=== PATIENT | female | born 1955 | race Caucasian/White ===

== ENCOUNTER 2021-03-25 09:01 | Observation (INO) ==
[2021-03-25] MEDS: NS 1000 ML 1,000 ML IV SCH (14:30)
[2021-03-25 14:34] LABS: BASOPHILS % (AUTO) 0.7 % (0.2-1.0); EOSINOPHILS % (AUTO) 0.8 % (0.9-2.9); HEMATOCRIT 31.1 % (36.0-47.0); HEMOGLOBIN 10.9 g/dL (12.0-16.0); LYMPHOCYTES # (AUTO) 0.8 X10^3/uL (1.3-2.9); LYMPHOCYTES % (AUTO) 16.9 % (21.0-51.0); MEAN CORPUSCULAR HEMOGLOBIN 39.1 pg (27.0-34.0); MEAN CORPUSCULAR VOLUME 111.7 fL (80.0-100.0); MEAN PLATELET VOLUME 9.3 fL (7.4-11.0); MONOCYTES # (AUTO) 0.6 x10^3/uL (0.3-0.8); MONOCYTES % (AUTO) 12.8 % (0.0-13.0); NEUTROPHILS # (AUTO) 3.3 x10^3/uL (2.2-4.8); NEUTROPHILS % (AUTO) 68.8 % (42.0-75.0); PLATELET COUNT 204 X10^3/uL (150.0-450.0); RED BLOOD COUNT 2.78 X10^6/uL (3.5-5.4); RED CELL DISTRIBUTION WIDTH 15.7 % (11.6-16.5); WHITE BLOOD COUNT 4.9 X10^3/uL (3.6-10.0)
[2021-03-25 14:46] LABS: ALANINE AMINOTRANSFERASE 47 Units/L (12-78); ALBUMIN 3.6 g/dL (3.4-5.0); ALKALINE PHOSPHATASE 121 Units/L (46-116); ASPARTATE AMINO TRANSFERASE 68 Units/L (15-37); BLOOD UREA NITROGEN 15 mg/dL (7-18); CARBON DIOXIDE 23.9 mmol/L (21-32); CHLORIDE 94 mmol/L (98-107); CREATININE 1.55 mg/dL (0.55-1.02); SODIUM 132 mmol/L (136-145); TOTAL PROTEIN 7.1 g/dL (6.4-8.2); eGFR NON BLACK RACES 36 (>60)
[2021-03-25 14:55] LABS: PLATELET MORPHOLOGY COMMENT NORMAL (NORMAL)
[2021-03-25 15:03] LABS: BILIRUBIN,URINE NEGATIVE (NEGATIVE); BLOOD/HEMOGLOBIN,URINE NEGATIVE (NEGATIVE); GLUCOSE, URINE NEGATIVE (NEGATIVE); KETONES,URINE NEGATIVE (NEGATIVE); LEUKOCYTE ESTERASE ,URINE NEGATIVE (NEGATIVE); NITRITES,URINE NEGATIVE (NEGATIVE); PROTEIN,URINE NEGATIVE (NEGATIVE); UROBILINOGEN,URINE NORMAL (NORMAL)
[2021-03-25 15:07] LABS: APPEARANCE,URINE CLEAR (CLEAR); COLOR,URINE STRAW (YELLOW)
[2021-03-25] MEDS ORDERED: FIORICET TAB PO ONE (17:09)
[2021-03-25] MEDS: FIORICET TAB PO SCH ×2 (17:20→20:30)
[2021-03-25] MEDS: XANAX PO PRN (20:32)
[2021-03-26] MEDS: NS 1000 ML 1,000 ML IV SCH ×2 (02:03→14:43)
[2021-03-26 06:32] LABS: BASOPHILS % (AUTO) 0.7 % (0.2-1.0); EOSINOPHILS # (AUTO) 0.1 x10^3/uL (0.0-0.2); EOSINOPHILS % (AUTO) 2.3 % (0.9-2.9); HEMATOCRIT 30.5 % (36.0-47.0); HEMOGLOBIN 10.7 g/dL (12.0-16.0); LYMPHOCYTES # (AUTO) 0.8 X10^3/uL (1.3-2.9); LYMPHOCYTES % (AUTO) 27.3 % (21.0-51.0); MEAN CORPUSCULAR HEMOGLOBIN 39.3 pg (27.0-34.0); MEAN CORPUSCULAR VOLUME 112.1 fL (80.0-100.0); MEAN PLATELET VOLUME 9.1 fL (7.4-11.0); MONOCYTES # (AUTO) 0.4 x10^3/uL (0.3-0.8); MONOCYTES % (AUTO) 14.9 % (0.0-13.0); NEUTROPHILS # (AUTO) 1.6 x10^3/uL (2.2-4.8); NEUTROPHILS % (AUTO) 54.8 % (42.0-75.0); PLATELET COUNT 170 X10^3/uL (150.0-450.0); RED BLOOD COUNT 2.72 X10^6/uL (3.5-5.4); RED CELL DISTRIBUTION WIDTH 15.8 % (11.6-16.5); WHITE BLOOD COUNT 2.9 X10^3/uL (3.6-10.0)
[2021-03-26 06:56] LABS: ALANINE AMINOTRANSFERASE 41 Units/L (12-78); ALBUMIN 3.2 g/dL (3.4-5.0); ALKALINE PHOSPHATASE 103 Units/L (46-116); ASPARTATE AMINO TRANSFERASE 58 Units/L (15-37); BLOOD UREA NITROGEN 17 mg/dL (7-18); CARBON DIOXIDE 26.1 mmol/L (21-32); CHLORIDE 98 mmol/L (98-107); COR CA(FOR HYPOALB) 9.6 mg/dL (8.5-10.1); CREATININE 1.41 mg/dL (0.55-1.02); SODIUM 135 mmol/L (136-145); TOTAL PROTEIN 6.4 g/dL (6.4-8.2); eGFR NON BLACK RACES 40 (>60)
[2021-03-26 07:08] LABS: PLATELET MORPHOLOGY COMMENT NORMAL (NORMAL)
[2021-03-26] MEDS: FIORICET TAB PO SCH ×2 (08:33→20:57)
[2021-03-26] MEDS ORDERED: ZANAFLEX PO PRN (10:27)
[2021-03-26] MEDS ORDERED: ULTRAM PO PRN (10:27)
[2021-03-26] MEDS ORDERED: FIORICET TAB PO SCH (11:00)
[2021-03-26] MEDS ORDERED: PROCALAMINE 3 % 1,000 ML IV SCH (11:00)
[2021-03-26] MEDS: PROTONIX INJ 40 MG VIAL IVP SCH (11:03)
[2021-03-26] MEDS: VITAMIN D3 125 mcg (5,000 UNITS) PO SCH (11:04)
[2021-03-26] MEDS: ELIQUIS PO SCH ×2 (11:05→20:57)
[2021-03-26] MEDS: MAG-OX TAB PO SCH (11:05)
[2021-03-26] MEDS: ZESTRIL TAB 5 MG PO SCH ×2 (11:05→20:57)
[2021-03-26] MEDS: XANAX PO PRN ×2 (13:40→20:59)
--- NOTE | 2021-03-26 14:37 | VAS ---
HISTORYRECENT CVASTUDYCAROTID USCOMPARISONNoneTECHNIQUEMultiple house scale and color flow Doppler images of the right and left carotid arterial system were obtained with waveform analysis using NASCET criteria. The vertebral arterial system was evaluated as well.FINDINGSTwo dimensional ultrasound reveals no significant plaque. The right and left vertebral arteries demonstrate antegrade flow.Right ICA peak systolic velocity is 58 cm/sec. Right systolic ratio is 0.7.Left ICA peak systolic velocity is 68 cm/sec. Left systolic ratio is 0.7.IMPRESSIONNo hemodynamically significant stenosis.Electronically signed by: Johnathon Kraus (Mar 26, 2021 14:35:10)
--- NOTE | 2021-03-26 14:58 | VAS ---
HISTORYBIL LEG PAINSTUDYLOWER EXT VENOUS, BILATERALCOMPARISONNoneTECHNIQUEMultiple house scale and color flow Doppler images of the deep venous system were obtained of the right and left lower extremity.FINDINGSThe deep venous system of the right and left lower extremities were evaluated from the level of the common femoral vein through the anterior tibial veins. Normal color flow and augmentation can be observed. In addition, normal compression is seen throughout the deep venous system. 4.0 x 6.4 x 2.4 cm Lindsay's cyst is suspected in the right popliteal fossa.IMPRESSIONNegative for DVT.Likely large Lindsay's cyst in the right popliteal fossa.Electronically signed by: Johnathon Kraus (Mar 26, 2021 14:55:55)
[2021-03-26 16:12] VITALS: BMI 31.4
--- NOTE | 2021-03-26 18:08 | DR.H&P ---
H&P - History & Physical for Day of: H&P Date: 03/25/21 - Chief Complaint Chief Complaint: RECENT CVA, FREQUENT FALLS, DIZZINESS, DYSPHAGIA, BLE SWELLING AND PAIN, AND GENERALIZED WEAKNESS - History of Present Illness History of Present Illness: IS A 65 YEAR WHITE FEMALE WHO WAS A DIRECT ADMISSION DUE TO COMPLAINTS OF FREQUENT FALLS, DIZZINESS, DYSPHAGIA, BLE SWELLING AND PAIN, AND GENERALIZED WEAKNESS. PATIENT HAS A DOCUMENTED RECENT FRONTAL LOBE CVA (BEGINNING OF THIS MONTH). SHE HAS ALSO RECENTLY BEEN TREATED FOR A URINARY TRACT INFECTION WITH LEVAQUIN. FAMILY REPORTS THAT PATIENT HAS FALLEN SEVERAL TIMES IN THE PAST FEW WEEKS. OTHER PMH INCLUDES: CVA, HYPERLIPIDEMIA, HTN, A-FIB, RENAL DISEASE, ANXIETY, DEPRESSION, APPENDECTOMY, HYSTERECTOMY, JOINT REPLACEMENT, AND TONSILLECTOMY. ON ARRIVAL TO THE HOSPITAL, VITALS WERE 97.4-96-20-96%-153/70. LABS WERE OBTAINED. ABNORMAL LAB VALUES INCLUDE THE FOLLOWING: RBC 2.78, HGB 10.9, HCT 31.1, SODIUM 132, CHLORIDE 94, CREATININE 1.55, AST 68, ALK PHOS 121. URINALYSIS WAS UNREMARKABLE, HOWEVER, CULTURE WAS SET UP. COVID-19 NEGATIVE. BLOOD AND URINE CULTURES WERE SET UP. SHE WAS STARTED ON PROCAL AT 40 ML/HR, NORMAL SALINE AT 30 ML/HR, PROTONIX 40MG IV DAILY, AND HER HOME MEDICATIONS OF FIORICET, XANAX, ELIQUIS, LIPITOR, ZETIA, ZESTRIL, MAG-OX, ZANAFLEX, AND ULTRAM WERE RESUMED. WE WILL OBTAIN A LOWER EXTREMITY VENOUS DOPPLER AND CAROTID DOPPLER. WE WILL HAVE PHYSICAL THERAPY EVALUATE PATIENT. OTHERWISE, WE PLAN TO FOLLOW UP WITH AM LABS AND CONTINUE TO MONITOR. TIME SPENT ON CLINICAL ASSESSMENT, REVIEWING LABS AND IMAGING, DECISION MAKING, AND DOCUMENTATION GREATER THAN 75 MINS. - Past Medical History Past Medical History: Anxiety, CVA, Depression, Dyslipidemia, Hypertension, Renal Disease Additional Medical History: A-FIB - Past Surgical History Surgical History: Appendectomy, Hysterectomy, Joint Replacement, Ortho Surgery, Tonsillectomy - Family History Family Medical History: Diabetes Mellitus - Social History Does patient currently use any type of tobacco product: No Have you used tobacco products in the last 12 months: No Type of Tobacco Use: None Does any household member use tobacco: No Alcohol Use: None Drug Use: None - Medications Home Medications: No Known Drug Allergies [NKDA] Allergy (Verified 03/25/21 13:54) CONTINUE taking the following medications alprazolam 0.5 mg PO BID PRN 03/25/21 [History] apixaban [Eliquis] 5 mg PO BID 03/25/21 [History] atorvastatin 80 mg PO HS 03/25/21 [History] hgcsalfvcf-sayqqwggbbvzp-jjlo 1 tab PO BID 03/25/21 [History] cholecalciferol (vitamin D3) [Vitamin D3] 1 unit PO DAILY 03/25/21 [History] dexlansoprazole [Dexilant] 60 mg PO DAILY 03/25/21 [History] ezetimibe 10 mg PO HS 03/25/21 [History] furosemide 40 mg PO DAILY 03/25/21 [History] levofloxacin 750 mg PO DAILY 03/25/21 [History] lisinopril 5 mg PO BID 03/25/21 [History] magnesium oxide 400 mg PO DAILY 03/25/21 [History] nebivolol [Bystolic] 5 mg PO BID 03/25/21 [History] tizanidine 4 mg PO BID PRN 03/25/21 [History] tramadol 50 mg PO BID PRN 03/25/21 [History] - Physical Exam Vital Signs: Temperature 98.3 F Pulse Rate [Right Brachial] 80 Pulse Rate [Left] 82 Respiratory Rate 18 Blood Pressure [Right Arm] 126/58 Blood Pressure [Left Arm] 125/64 O2 Sat by Pulse Oximetry 100 - Allergies Allergies/Adverse Reactions: Allergies Allergy/AdvReac Type Severity Reaction Status Date / Time No Known Drug Allergies Allergy Verified 03/25/21 13:54 [NKDA]
[2021-03-26] MEDS: LIPITOR TAB 80 MG PO SCH (20:58)
[2021-03-26] MEDS: ZETIA TAB 10 MG PO SCH (20:59)
[2021-03-27] MEDS: NS 1000 ML 1,000 ML IV SCH ×2 (04:54→19:25)
[2021-03-27 06:08] LABS: BASOPHILS % (AUTO) 0.6 % (0.2-1.0); EOSINOPHILS # (AUTO) 0.1 x10^3/uL (0.0-0.2); HEMATOCRIT 28.1 % (36.0-47.0); HEMOGLOBIN 9.8 g/dL (12.0-16.0); LYMPHOCYTES # (AUTO) 0.9 X10^3/uL (1.3-2.9); LYMPHOCYTES % (AUTO) 27.1 % (21.0-51.0); MEAN CORPUSCULAR HEMOGLOBIN 39.6 pg (27.0-34.0); MEAN CORPUSCULAR VOLUME 113.3 fL (80.0-100.0); MEAN PLATELET VOLUME 9.2 fL (7.4-11.0); MONOCYTES # (AUTO) 0.5 x10^3/uL (0.3-0.8); MONOCYTES % (AUTO) 16.2 % (0.0-13.0); NEUTROPHILS # (AUTO) 1.7 x10^3/uL (2.2-4.8); NEUTROPHILS % (AUTO) 53.1 % (42.0-75.0); PLATELET COUNT 147 X10^3/uL (150.0-450.0); RED BLOOD COUNT 2.48 X10^6/uL (3.5-5.4); RED CELL DISTRIBUTION WIDTH 15.4 % (11.6-16.5); WHITE BLOOD COUNT 3.2 X10^3/uL (3.6-10.0)
[2021-03-27 06:58] LABS: PLATELET MORPHOLOGY COMMENT NORMAL (NORMAL)
[2021-03-27 07:06] LABS: ALANINE AMINOTRANSFERASE 33 Units/L (12-78); ALBUMIN 2.7 g/dL (3.4-5.0); ALKALINE PHOSPHATASE 97 Units/L (46-116); ASPARTATE AMINO TRANSFERASE 40 Units/L (15-37); BLOOD UREA NITROGEN 13 mg/dL (7-18); CALCIUM 8.7 mg/dL (8.5-10.1); CARBON DIOXIDE 22.8 mmol/L (21-32); CHLORIDE 100 mmol/L (98-107); COR CA(FOR HYPOALB) 9.7 mg/dL (8.5-10.1); CREATININE 1.27 mg/dL (0.55-1.02); SODIUM 134 mmol/L (136-145); TOTAL PROTEIN 5.6 g/dL (6.4-8.2); eGFR NON BLACK RACES 45 (>60)
[2021-03-27] MEDS: PROTONIX INJ 40 MG VIAL IVP SCH (08:43)
[2021-03-27] MEDS: FIORICET TAB PO SCH ×2 (08:44→20:30)
[2021-03-27] MEDS: ELIQUIS PO SCH ×2 (08:44→20:30)
[2021-03-27] MEDS: MAG-OX TAB PO SCH (08:45)
[2021-03-27] MEDS: VITAMIN D3 125 mcg (5,000 UNITS) PO SCH (08:45)
[2021-03-27] MEDS: ZESTRIL TAB 5 MG PO SCH ×2 (08:46→20:30)
[2021-03-27] MEDS: XANAX PO PRN ×2 (08:50→20:30)
[2021-03-27] MEDS ORDERED: RESTORIL CAP 15 MG PO PRN (09:23)
--- NOTE | 2021-03-27 11:18 | PCM.PROG ---
Progress Note - Progress Note for Day of Date of Exam: 03/27/21 - Subjective Subjective: IS A 65 YEAR OLD WHITE FEMALE WHO IS A PATIENT OF . SHE WAS ADMITTED ON 03/25 FOR FURTHER EVALUATION AND TREATMENT OF FREQUENT FALLS, DIZZINESS, DYSPHAGIA, AND GENERALIZED WEAKNESS. ALL OF THESE SYMPTOMS STARTED AFTER A RECENT FRONTAL LOBE CVA. TODAY, SHE IS ALERT AND TEJINDER ENTED, LYING IN BED ON MORNING ROUNDS. SHE CONTINUES WITH COMPLAINTS OF WEAKNESS THIS MORNING, WELL DIZZINESS AT TIMES. SHE ALSO REPORTS THAT SHE HASNT BEEN ABLE TO SLEEP WELL SINCE ADMISSION. ON EXAMINATION, HEART IS REGULAR IN RATE AND RHYTHM. BILATERAL LUNGS ARE CLEAR TO AUSCULTATION. ABDOMEN IS ROUND, SOFT, AND NON-TENDER WITH NORMAL BOWEL SOUNDS NOTED IN ALL QUADRANTS. BLE ARE NOTED WITH NON-PITTING EDEMA. SHE DOES HAVE SLIGHTLY MORE WEAKNESS TO THE LEFT SIDE EXTREMITIES. HER VITALS THIS MORNING ARE: 97.6-86-20-98%-117/68. LABS WERE OBTAINED. ABNORMAL LAB VALUES INCLUDE THE FOLLOWING: WBC 3.2, RBC 2.48, HGB 9.8, HCT 28.1, PLT COUNT 147, SODIUM 134, CREATININE 1.27, AST 40, TOTAL PROTEIN 5.6, ALBUMIN 2.7. URINE AND BLOOD CULTURES ARE PENDING. A CAROTID ARTERY ULTRASOUND WAS OBTAINED YESTERDAY. IT REVEALED: No hemodynamically significant stenosis. A VENOUS DOPPLER WAS OBTAINED AND REVEALED: Negative for DVT. Likely large Lindsay's cyst in the right popliteal fossa. PHYICAL THERAPY EVALUATED PATIENT YESTERDAY AND WILL SEE HER AGAIN TODAY. SHE IS CURRENTLY RECEIVING PROCAL AT 40 ML/HR, NORMAL SALINE AT 30 ML/HR, PROTONIX 40MG IV DAILY, AND HER HOME MEDICATIONS OF FIORICET, XANAX, ELIQUIS, LIPITOR, ZETIA, ZESTRIL, MAG-OX, ZANAFLEX, AND ULTRAM WERE RESUMED. WE WILL CONTINUE WITH CURRENT PLAN OF CARE TODAY AND ADD RESTORIL 15MG PO HS. OTHERWISE, WE WILL FOLLOW UP WITH AM LABS AND CONTINUE TO MONITOR. TIME SPENT ON CLINICAL ASSESSMENT, REVIEWING LABS AND IMAGING, DECISION MAKING, AND DOCUMENTATION GREATER THAN 45 MINS. - Past Medical Family Social History Past Med/Fam/Surg Hx: No changes since H&P Allergies: Allergies No Known Drug Allergies [NKDA] Allergy (Verified 03/25/21 13:54) - Review of Systems ROS: No change since H&P - Vital Signs and I&O's Vital Signs: Temperature 97.6 F Pulse Rate [Right Brachial] 86 Pulse Rate [Left] 82 Respiratory Rate 18 Blood Pressure [Right Arm] 117/68 Blood Pressure [Left Arm] 125/64 O2 Sat by Pulse Oximetry 98 Intake and Output: Intake & Output 03/24/21 03/25/21 03/26/21 03/27/21 23:59 23:59 23:59 23:59 Intake Total 456 / 456 2906 / 2906 597 / 597 Output Total 200 / 200 Balance 256 / 256 2906 / 2906 597 / 597 - Physical Exam Oriented: Normal Eyes: Normal Ear: Normal Nose: Normal Throat: Normal Respiratory: Generalized, Diminished Cardiovascular: Normal : Normal Auscultation: Bowel Sounds: Normal Palpation: Normal Tenderness: Normal Skin: Normal Musculoskeletal: Normal Psychiatric: Normal Mood Description: Calm Affect: Normal Speech Pattern: Clear, Appropriate - Laboratory and Diagnostics Result Diagrams: 03/27/21 04:10 03/27/21 04:10 Labs: 03/25/21 14:16 Blood Blood Culture - Preliminary 03/25/21 14:10 Blood Blood Culture - Preliminary 03/26/21 10:25 Urine,Clean Catch Urine Culture - Preliminary 03/25/21 14:45 Urine,Clean Catch Urine Culture - Preliminary Laboratory WBC 3.2 X10^3/uL (3.6-10.0) L 03/27/21 04:10 RBC 2.48 X10^6/uL (3.5-5.4) L 03/27/21 04:10 Hgb 9.8 g/dL (12.0-16.0) L 03/27/21 04:10 Hct 28.1 % (36.0-47.0) L 03/27/21 04:10 MCV 113.3 fL (80.0-100.0) H 03/27/21 04:10 MCH 39.6 pg (27.0-34.0) H 03/27/21 04:10 MCHC 35.0 g/dL (33.0-35.0) 03/27/21 04:10 RDW 15.4 % (11.6-16.5) 03/27/21 04:10 Plt Count 147 X10^3/uL (150.0-450.0) L 03/27/21 04:10 Plt Count Comment Decreased (ADEQUATE) A 03/27/21 04:10 MPV 9.2 fL (7.4-11.0) 03/27/21 04:10 Neut % (Auto) 53.1 % (42.0-75.0) 03/27/21 04:10 Lymph % (Auto) 27.1 % (21.0-51.0) 03/27/21 04:10 [place] % (Auto) 16.2 % (0.0-13.0) H 03/27/21 04:10 Eos % (Auto) 3.0 % (0.9-2.9) H 03/27/21 04:10 Baso % (Auto) 0.6 % (0.2-1.0) 03/27/21 04:10 Neut # (Auto) 1.7 x10^3/uL (2.2-4.8) L 03/27/21 04:10 Lymph # (Auto) 0.9 X10^3/uL (1.3-2.9) L 03/27/21 04:10 [place] # (Auto) 0.5 x10^3/uL (0.3-0.8) 03/27/21 04:10 Eos # (Auto) 0.1 x10^3/uL (0.0-0.2) 03/27/21 04:10 Baso # (Auto) 0.0 X10^3/uL (0.0-0.1) 03/27/21 04:10 Absolute Nucleated RBC 0.1 /100WBC 03/27/21 04:10 Plt Morphology Comment Normal (NORMAL) 03/27/21 04:10 RBC Morphology Abnormal (NORMAL) A 03/27/21 04:10 Macrocytosis 2+ A 03/27/21 04:10 Sodium 134 mmol/L (136-145) L 03/27/21 04:10 Corrected Sodium TNP 03/27/21 04:10 Potassium 4.1 mmol/L (3.5-5.1) 03/27/21 04:10 Chloride 100 mmol/L (98-107) 03/27/21 04:10 Carbon Dioxide 22.8 mmol/L (21-32) 03/27/21 04:10 BUN 13 mg/dL (7-18) 03/27/21 04:10 Creatinine 1.27 mg/dL (0.55-1.02) H 03/27/21 04:10 Est GFR (MDRD) Af Amer 54 (>60) L 03/27/21 04:10 Est GFR (MDRD) Non-Af 45 (>60) L 03/27/21 04:10 Glucose 96 mg/dL (65-99) 03/27/21 04:10 Calcium 8.7 mg/dL (8.5-10.1) 03/27/21 04:10 Corrected Calcium 9.7 mg/dL (8.5-10.1) 03/27/21 04:10 Total Bilirubin 0.40 mg/dL (0.2-1.0) 03/27/21 04:10 AST 40 Units/L (15-37) H 03/27/21 04:10 ALT 33 Units/L (12-78) 03/27/21 04:10 Alkaline Phosphatase 97 Units/L (46-116) 03/27/21 04:10 C-Reactive Protein 3.00 mg/L (0-3.0) 03/25/21 14:10 Total Protein 5.6 g/dL (6.4-8.2) L 03/27/21 04:10 Albumin 2.7 g/dL (3.4-5.0) L 03/27/21 04:10 Globulin 2.9 g/dL (2.5-4.5) 03/27/21 04:10 Albumin/Globulin Ratio 0.9 Ratio (1.1-2.1) L 03/27/21 04:10 Specimen Type Clean catch urine 03/25/21 14:45 Urine Color Straw (YELLOW) 03/25/21 14:45 Urine Appearance Clear (CLEAR) 03/25/21 14:45 Urine pH 5.0 (5.0 - 8.0) 03/25/21 14:45 Ur Specific [place] 1.010 (1.000-1.030) 03/25/21 14:45 Urine Protein Negative (NEGATIVE) 03/25/21 14:45 Urine Glucose (UA) Negative (NEGATIVE) 03/25/21 14:45 Urine Ketones Negative (NEGATIVE) 03/25/21 14:45 Urine Occult Blood Negative (NEGATIVE) 03/25/21 14:45 Urine Nitrite Negative (NEGATIVE) 03/25/21 14:45 Urine Bilirubin Negative (NEGATIVE) 03/25/21 14:45 Urine Urobilinogen Normal (NORMAL) 03/25/21 14:45 Ur Leukocyte Esterase Negative (NEGATIVE) 03/25/21 14:45 SARS CoV-2 RNA Rapid KAMALJIT Negative (NEGATIVE) 03/25/21 12:15 - Plan (1) Recurrent falls Status: Acute Plan: physical therapy (2) Generalized weakness Status: Acute Plan: physical therapy exercises to strengthen muscle weakness (3) Cerebrovascular disease, arteriosclerotic, post-stroke Status: Acute Plan: continue anti-thrombolytics (4) Insomnia Status: Acute Plan: add Restoril for when necessary
[2021-03-27] MEDS: CYMBALTA PO SCH (13:05)
--- NOTE | 2021-03-27 16:10 | MRI ---
BRAIN W W/O CONCLINICAL INDICATION: Recurrent fallsTECHNIQUE: Pre-contrast T1-w, T2, and diffusion-w sequences of the brain with ADC maps. Post-contrast images of the brain. Intravenous contrast material was administered for the examination.COMPARISON:March 12ONTRAST: 20 cc MultiHanceFINDINGS:The punctate region of restricted diffusion in the right frontal white matter on very recent prior is essentially unchanged. There is some mild associated T2/FLAIR signal as well which is expected. No new regions of restricted diffusion to suggest new acute infarct. There is no mass or mass-effect, or abnormal extra-axial fluid collection . . Diffuse patchy and confluent periventricular and subcortical T2/FLAIR signal with associated volume loss. Age-related, ex-vacuo dilatation of the ventricles and sulci . There are normal signal voids in the larger intracranial vessels . The paranasal sinuses and mastoid air cells are predominantly clear . The marrow signal pattern is within normal limits .There is no abnormal brain parenchymal or leptomeningeal enhancement .IMPRESSION:1. Expected evolution of patient's punctate subacute right frontal lobe lacunar infarct.2. Chronic microangiopathic changes and ex vacuo dilatation of the ventricles and sulci.Electronically signed by: DOROTHY JOSEPH (Mar 27, 2021 16:07:06)
[2021-03-27] MEDS: ZETIA TAB 10 MG PO SCH (20:30)
[2021-03-27] MEDS: LIPITOR TAB 80 MG PO SCH (20:32)
[2021-03-28] MEDS: NS 1000 ML 1,000 ML IV SCH ×2 (03:49→05:41)
[2021-03-28 06:06] LABS: BASOPHILS % (AUTO) 0.5 % (0.2-1.0); EOSINOPHILS # (AUTO) 0.1 x10^3/uL (0.0-0.2); EOSINOPHILS % (AUTO) 3.4 % (0.9-2.9); HEMATOCRIT 27.7 % (36.0-47.0); HEMOGLOBIN 9.7 g/dL (12.0-16.0); LYMPHOCYTES # (AUTO) 0.7 X10^3/uL (1.3-2.9); LYMPHOCYTES % (AUTO) 19.8 % (21.0-51.0); MEAN CORPUSCULAR HEMOGLOBIN 39.3 pg (27.0-34.0); MEAN CORPUSCULAR VOLUME 112.1 fL (80.0-100.0); MEAN PLATELET VOLUME 8.9 fL (7.4-11.0); MONOCYTES # (AUTO) 0.5 x10^3/uL (0.3-0.8); MONOCYTES % (AUTO) 15.7 % (0.0-13.0); NEUTROPHILS % (AUTO) 60.6 % (42.0-75.0); PLATELET COUNT 148 X10^3/uL (150.0-450.0); RED BLOOD COUNT 2.47 X10^6/uL (3.5-5.4); RED CELL DISTRIBUTION WIDTH 15.5 % (11.6-16.5); WHITE BLOOD COUNT 3.3 X10^3/uL (3.6-10.0)
[2021-03-28 06:07] LABS: ALANINE AMINOTRANSFERASE 32 Units/L (12-78); ALBUMIN 2.8 g/dL (3.4-5.0); ALKALINE PHOSPHATASE 93 Units/L (46-116); ASPARTATE AMINO TRANSFERASE 34 Units/L (15-37); BLOOD UREA NITROGEN 9 mg/dL (7-18); CALCIUM 8.7 mg/dL (8.5-10.1); CARBON DIOXIDE 24.5 mmol/L (21-32); CHLORIDE 103 mmol/L (98-107); COR CA(FOR HYPOALB) 9.7 mg/dL (8.5-10.1); CREATININE 1.14 mg/dL (0.55-1.02); MAGNESIUM 1.2 mg/dL (1.7-2.9); SODIUM 135 mmol/L (136-145); TOTAL PROTEIN 5.7 g/dL (6.4-8.2); eGFR NON BLACK RACES 51 (>60)
[2021-03-28 06:29] LABS: ERYTHROCYTE SEDIMENTATION RATE 3 MM/HOUR (0-20)
[2021-03-28 06:34] LABS: PLATELET MORPHOLOGY COMMENT NORMAL (NORMAL)
[2021-03-28] MEDS: ELIQUIS PO SCH (08:18)
[2021-03-28] MEDS: FIORICET TAB PO SCH (08:19)
[2021-03-28] MEDS: CYMBALTA PO SCH (08:19)
[2021-03-28] MEDS: ZESTRIL TAB 5 MG PO SCH (08:19)
[2021-03-28] MEDS: MAG-OX TAB PO SCH (08:20)
[2021-03-28] MEDS: VITAMIN D3 125 mcg (5,000 UNITS) PO SCH (08:20)
[2021-03-28] MEDS: XANAX PO PRN (08:20)
[2021-03-28] MEDS: PROTONIX INJ 40 MG VIAL IVP SCH (08:21)
[2021-03-28 10:12] VITALS: BP 127/73
== END 2021-03-28 11:30 | disposition home health service (06) ==
LOC: MED/SURG
PROVIDERS: ADMIT Internal Medicine; ATTEND Internal Medicine
DX: R13.11 Dysphagia, oral phase; E78.2 Mixed hyperlipidemia; I48.91 Unspecified atrial fibrillation; R42 Dizziness and giddiness; R60.0 Localized edema; I10 Essential (primary) hypertension; Z20.822 Contact with and (suspected) exposure to COVID-19; I63.89 Other cerebral infarction; R53.1 Weakness; R29.6 Repeated falls; G47.00 Insomnia, unspecified

== ENCOUNTER 2021-11-26 12:24 | Inpatient (IN) ==
[2021-11-26 13:15] LABS: ALANINE AMINOTRANSFERASE 29 Units/L (12-78); ALBUMIN 2.6 g/dL (3.4-5.0); ALKALINE PHOSPHATASE 94 Units/L (46-116); ASPARTATE AMINO TRANSFERASE 38 Units/L (15-37); BLOOD UREA NITROGEN 113 mg/dL (7-18); CALCIUM 8.1 mg/dL (8.5-10.1); CARBON DIOXIDE 15.1 mmol/L (21-32); CHLORIDE 94 mmol/L (98-107); CKMB % 0.9 % (<4); COR CA(FOR HYPOALB) 9.2 mg/dL (8.5-10.1); CREATINE KINASE 230 Units/L (26-192); CREATINE KINASE MB 2.1 ng/mL (0-4.0); CREATININE 5.38 mg/dL (0.55-1.02); SODIUM 130 mmol/L (136-145); TOTAL PROTEIN 6.6 g/dL (6.4-8.2); eGFR NON BLACK RACES 8 (>60)
[2021-11-26] MEDS ORDERED: NS 1,000 ML IV 1,000 ML ONE (13:18)
[2021-11-26] MEDS: NS 1,000 ML IV 1,000 ML IV SCH (13:20)
[2021-11-26 13:22] LABS: BASOPHILS % (AUTO) 0.1 % (0.2-1.0); HEMATOCRIT 22.3 % (36.0-47.0); HEMOGLOBIN 7.8 g/dL (12.0-16.0); LYMPHOCYTES # (AUTO) 0.5 X10^3/uL (1.3-2.9); LYMPHOCYTES % (AUTO) 6.1 % (21.0-51.0); MEAN CORPUSCULAR HEMOGLOBIN 36.5 pg (27.0-34.0); MEAN CORPUSCULAR HGB CONC 34.9 g/dL (33.0-35.0); MEAN CORPUSCULAR VOLUME 104.6 fL (80.0-100.0); MEAN PLATELET VOLUME 8.3 fL (7.4-11.0); MONOCYTES % (AUTO) 12.2 % (0.0-13.0); NEUTROPHILS % (AUTO) 81.6 % (42.0-75.0); RED BLOOD COUNT 2.13 X10^6/uL (3.5-5.4); RED CELL DISTRIBUTION WIDTH 15.3 % (11.6-16.5); WHITE BLOOD COUNT 8.6 X10^3/uL (3.6-10.0)
[2021-11-26 13:41] LABS: APPEARANCE,URINE CLOUDY (CLEAR); COLOR,URINE YELLOW (YELLOW)
[2021-11-26 13:42] LABS: BACTERIA,URINE 2+ /HPF (NEGATIVE); BILIRUBIN,URINE NEGATIVE (NEGATIVE); BLOOD/HEMOGLOBIN,URINE 5+ (NEGATIVE); GLUCOSE, URINE NEGATIVE (NEGATIVE); KETONES,URINE 1+ (NEGATIVE); LEUKOCYTE ESTERASE ,URINE 3+ (NEGATIVE); NITRITES,URINE NEGATIVE (NEGATIVE); PROTEIN,URINE 2+ (NEGATIVE); RBC,URINE 20-30 /HPF (0-3); SQUAMOUS EPITHELIAL CELL,UR MODERATE /HPF (NEGATIVE); UROBILINOGEN,URINE NORMAL (NORMAL)
[2021-11-26] MEDS ORDERED: INVanz INJ 1 GRAM VIAL 1 G in NS 100 ML IV 100 ML IV SCH (14:00)
--- NOTE | 2021-11-26 14:33 | RAD ---
HISTORYSOB Relevant Clinical InformationSTUDYCHEST, 1 VIEWCOMPARISONFINDINGSThe trachea is midline. The cardiac silhouette is unremarkable. The lungs are clear without focal infiltrate or effusion. The bony thorax is unremarkable.IMPRESSIONNo acute cardiopulmonary findings .Electronically signed by: Jerald Lindsay (Nov 26, 2021 14:32:06)
[2021-11-26] MEDS: MORPHINE SULFATE INJ 2 MG INJ IVP PRN ×2 (14:51→20:20)
[2021-11-26] MEDS: INVanz INJ 1 GRAM VIAL 0.5 G in NS 50 ML IV 50 ML IV SCH (14:53)
[2021-11-26] MEDS: NYSTATIN CREAM TOP PRN (14:53)
--- NOTE | 2021-11-26 14:55 | RAD ---
HISTORYS/P FALL, C/O PAIN TO LEFT SHOULDER/HUMERUS WITH BRUISINGSTUDYHUMERUS, LEFT x-ray two viewsCOMPARISONNoneFINDINGSThere is a left humeral neck fracture that appears mildly displaced. This extends into the greater trochanter. No dislocation is seen. No distal left humerus fracture is seen. Diffuse soft tissue swelling is seen.IMPRESSIONMildly displaced left humeral neck fracture extends into the greater trochanter.Electronically signed by: Johnathon Kraus (Nov 26, 2021 14:54:02)
--- NOTE | 2021-11-26 14:59 | RAD ---
HISTORYS/P FALL, C/O PAIN TO LEFT SHOULDER/HUMERUS WITH BRUISINGSTUDYSHOULDER, LEFT x-ray two viewsCOMPARISONNoneFINDINGSMildly displaced left humeral neck fracture extends into the greater trochanter. No evidence of dislocation is seen. No widening of the AC joint is seen. Soft tissue swelling is seen.IMPRESSIONMildly displaced left humeral neck fracture extends into the greater trochanter.Electronically signed by: Johnathon Kraus (Nov 26, 2021 14:58:21)
[2021-11-26] MEDS: ZOFRAN INJ 4 MG VIAL IVP PRN (16:36)
[2021-11-26 19:30] LABS: CREATINE KINASE MB 1.8 ng/mL (0-4.0)
[2021-11-27 01:27] LABS: CKMB % 1.1 % (<4); CREATINE KINASE MB 1.6 ng/mL (0-4.0)
[2021-11-27] MEDS: NS 1,000 ML IV 1,000 ML IV SCH ×2 (03:23→16:56)
[2021-11-27 06:50] LABS: BASOPHILS % (AUTO) 0.1 % (0.2-1.0); EOSINOPHILS % (AUTO) 0.1 % (0.9-2.9); HEMATOCRIT 20.8 % (36.0-47.0); HEMOGLOBIN 7.2 g/dL (12.0-16.0); LYMPHOCYTES # (AUTO) 0.6 X10^3/uL (1.3-2.9); LYMPHOCYTES % (AUTO) 6.5 % (21.0-51.0); MEAN CORPUSCULAR HEMOGLOBIN 37.1 pg (27.0-34.0); MEAN CORPUSCULAR HGB CONC 34.7 g/dL (33.0-35.0); MEAN CORPUSCULAR VOLUME 106.8 fL (80.0-100.0); MEAN PLATELET VOLUME 8.7 fL (7.4-11.0); MONOCYTES # (AUTO) 1.2 x10^3/uL (0.3-0.8); MONOCYTES % (AUTO) 12.8 % (0.0-13.0); NEUTROPHILS # (AUTO) 7.5 x10^3/uL (2.2-4.8); NEUTROPHILS % (AUTO) 80.5 % (42.0-75.0); RED BLOOD COUNT 1.95 X10^6/uL (3.5-5.4); RED CELL DISTRIBUTION WIDTH 15.3 % (11.6-16.5); WHITE BLOOD COUNT 9.3 X10^3/uL (3.6-10.0)
[2021-11-27 07:05] LABS: ALANINE AMINOTRANSFERASE 26 Units/L (12-78); ALBUMIN 2.4 g/dL (3.4-5.0); ALKALINE PHOSPHATASE 104 Units/L (46-116); ASPARTATE AMINO TRANSFERASE 33 Units/L (15-37); BLOOD UREA NITROGEN 116 mg/dL (7-18); CALCIUM 8.1 mg/dL (8.5-10.1); CARBON DIOXIDE 15.7 mmol/L (21-32); CHLORIDE 99 mmol/L (98-107); COR CA(FOR HYPOALB) 9.4 mg/dL (8.5-10.1); CREATININE 4.72 mg/dL (0.55-1.02); SODIUM 133 mmol/L (136-145); TOTAL PROTEIN 6.4 g/dL (6.4-8.2); eGFR NON BLACK RACES 10 (>60)
[2021-11-27 07:31] LABS: PLATELET MORPHOLOGY COMMENT NORMAL (NORMAL)
[2021-11-27] MEDS: INVanz INJ 1 GRAM VIAL 0.5 G in NS 50 ML IV 50 ML IV SCH (08:07)
--- NOTE | 2021-11-27 10:12 | DR.H&P ---
H&P - History & Physical for Day of: H&P Date: 11/26/21 - Chief Complaint Chief Complaint: FELL AT HOME, SEVERE LEFT ARM AND SHOULDER PAIN - History of Present Illness History of Present Illness: IS A 66 YEAR OLD PATIENT OF OURS. SHE PRESENTED TO THE HOSPITAL A DIRECT ADMISSION FOLLOWING A FALL AT HOME. PATIENT REPORTEDLY FELL AT HOME ON WEDNESDAY, 11/23. HER FAMILY MEMBER FOUND HER IN THE FLOOR, FACE DOWN ON WEDNESDAY, 11/26. PATIENT WAS FOUND TO BE SATURATED IN URINE. SHE WAS NOTED TO HAVE SCATTERED BRUISING, BUT WITH THE LARGEST BRUISE TO THE LEFT UPPER ARM. PATIENT COMPLAINED OF SEVERE PAIN TO THE LEFT UPPER ARM, SHOULDER, AND CHEST AREA. SHE WAS ALSO NOTED WITH EXCORIATION TO THE GENITAL AREA AND THE INSIDE OF HER THIGHS. HER PMH INCLUDES RECENT FRONTAL LOBE CVA, HYPERLIPIDEMIA, HTN, ATRIAL FIBRILLATION, RENAL DISEASE, ANXIETY, DEPRESSION, APPENDECTOMY, HYSTERECTOMY, TONSILLECTOMY, AND JOINT REPLACEMENT. PATIENT DOES ADMIT TO BEING A DAILY DRINKER OF WINE AND RUM. SHE CURRENTLY LIVES AT HOME ALONE. ON ARRIVAL TO THE HOSPITAL, HER VITALS WERE 98.2-93-20-100%-106/53. LABS WERE OBTAINED. WBC 8.6, RBC 2.13, HGB 7.8, HCT 22.3, SODIUM 130, CHLORIDE 94, CARBON DIOXIDE 15.1, BUN 113, CREATININE 5.38, GLUCOSE 59, CALCIUM 8.1, AST 38, CREATINE KINASE 230, TROPONIN HS 397, ALBUMIN 2.6. COVID-19 NEGATIVE. A URINALYSIS WAS OBTAINED AND REVEALED: WBC TNTC, RBC 20-30, BACTERIA 2+, LEUKOCYTES 3+, OCCULT BLOOD 5+, PROTEIN 2+. A URINE CULTURE WAS SET UP. A CHEST XRAY WAS OBTAINED AND REVEALED: NO ACUTE CARDIOPULMONARY FINDINGS. EKG REVEALED: ATRIAL FIBRILLATION WITH HR 95. LEFT HUMERUS AND SHOULDER XRAY REVEALED: Mildly displaced left humeral neck fracture extends into the greater trochanter. SHE WAS STARTED ON NORMAL SALINE AT 75 ML/HR, INVANZ 0.5G IV DAILY, MORPHINE SULFATE 2MG IV Q4H PRN, ZOFRAN 4MG IV Q6H PRN, NYSTATIN CREAM TID PRN, NYSTATIN POWDER BID PRN, ZOVIRAX TOP Q8H. WE WILL REVIEW HER HOME MEDICATIONS. WE WILL CONSULT , AMINAH, TO LOOK AT FILMS. OTHERWISE, WE PLAN TO FOLLOW UP WITH AM LABS AND CONTINUE TO MONITOR. TIME SPENT ON CLINICAL ASSESSMENT, REVIEWING LABS AND IMAGING, DECISION MAKING, AND DOCUMENTATION GREATER THAN 75 MINUTES. - Past Medical History Past Medical History: Anxiety, CVA, Depression, Dyslipidemia, Hypertension, Renal Disease Additional Medical History: A-FIB - Past Surgical History Surgical History: Appendectomy, Hysterectomy, Joint Replacement, Ortho Surgery, Tonsillectomy - Family History Family Medical History: Diabetes Mellitus - Social History Alcohol Use: Other Drug Use: None - Medications Home Medications: No Known Drug Allergies [NKDA] Allergy (Verified 03/25/21 13:54) - Review of Systems Constitutional: See HPI, Weakness Eyes: No Symptoms Reported ENT: No Symptoms Reported Respiratory: No Symptoms Reported Cardiovascular: No Symptoms Reported Gastrointestinal: No Symptoms Reported Genitourinary: No Symptoms Reported Musculoskeletal: See HPI, Shoulder Pain (LEFT SHOULDER AND UPPER ARM PAIN AND BRUISING ), Arm Pain Skin: See HPI, Bruising Neurological: Weakness - Physical Exam Vital Signs: Temperature 97.7 F Pulse Rate [Left Radial] 96 Respiratory Rate 24 Blood Pressure [Right Arm] 102/55 O2 Sat by Pulse Oximetry 100 Oriented: Normal Eyes: Normal Ear: Normal Nose: Normal Throat: Normal Respiratory: Diminished Throughout Cardiovascular: Normal : Normal Auscultation: Bowel Sounds: Normal Palpation: Normal Tenderness: Normal Skin: Decreased [place], Red, Wound, Bruising, Other (EXCORIATION TO THE GENITAL AREA AND INNER THIGHS ) Musculoskeletal: Left, Shoulder, Arm, Tender Psychiatric: Normal Mood Description: Calm Affect: Normal Speech Pattern: Clear - Assessment/Plan (1) Acute on chronic renal failure Qualifiers: Acute renal failure type: unspecified Chronic kidney disease stage: unspecified stage Qualified Code(s): N17.9 - Acute kidney failure, unspecified; N18.9 - Chronic kidney disease, unspecified Status: Acute Plan: NORMAL SALINE AT 75 ML/HR, INVANZ 0.5G IV DAILY, MORPHINE SULFATE 2MG IV Q4H PRN, ZOFRAN 4MG IV Q6H PRN, NYSTATIN CREAM TID PRN, NYSTATIN POWDER BID PRN, ZOVIRAX TOP Q8H. (2) Rhabdomyolysis Qualifiers: Rhabdomyolysis type: traumatic Encounter type: initial encounter Qualified Code(s): T79.6XXA - Traumatic ischemia of muscle, initial encounter Status: Acute (3) Fracture of neck of humerus Qualifiers: Encounter type: initial encounter Fracture type: closed Laterality: left Qualified Code(s): S42.212A - Unspecified displaced fracture of surgical neck of left humerus, initial encounter for closed fracture Status: Acute Plan: CONSULT ORTHO (4) Urinary tract infection Qualifiers: Urinary tract infection type: acute cystitis Hematuria presence: without hematuria Qualified Code(s): N30.00 - Acute cystitis without hematuria Status: Acute (5) Anemia Qualifiers: Anemia type: unspecified type Qualified Code(s): D64.9 - Anemia, unspecified Status: Acute (6) Dehydration Status: Acute (7) Generalized weakness Status: Acute (8) Recent cerebrovascular accident (CVA) Status: Chronic (9) Hypertension Qualifiers: Hypertension type: primary hypertension Qualified Code(s): I10 - Essential (primary) hypertension Status: Chronic (10) Hyperlipidemia Qualifiers: Hyperlipidemia type: mixed hyperlipidemia Qualified Code(s): E78.2 - Mixed hyperlipidemia Status: Chronic - Allergies Allergies/Adverse Reactions: Allergies Allergy/AdvReac Type Severity Reaction Status Date / Time No Known Drug Allergies Allergy Verified 03/25/21 13:54 [NKDA]
[2021-11-27] MEDS: MORPHINE SULFATE INJ 2 MG INJ IVP PRN ×2 (10:29→18:00)
[2021-11-27] MEDS: ZOVIRAX TOP SCH ×2 (10:30→16:31)
[2021-11-27] MEDS ORDERED: XANAX PO PRN (10:57)
[2021-11-27] MEDS ORDERED: FIORICET TAB PO PRN (10:57)
[2021-11-27] MEDS: CYMBALTA PO SCH (11:11)
[2021-11-27] MEDS: PROTONIX TAB 40 MG PO SCH (11:18)
[2021-11-27] MEDS ORDERED: NS 1,000 ML IV 1,000 ML IV ONE ×2 (15:39→15:40)
[2021-11-27] MEDS ORDERED: PROCRIT or EPOGEN VIAL 10,000 UNITS SC ONE (15:41)
--- NOTE | 2021-11-27 18:27 | RAD ---
HISTORYPAIN TO LEFT ELBOW S/P FALLSTUDYELBOW, LEFTCOMPARISONNone availableTECHNIQUELeft elbow radiographs, 3 views, AP, oblique and lateral projectionsFINDINGSNo fracture or dislocation.No joint effusion.Soft tissues are unremarkable.IMPRESSIONNo acute osseous abnormality.Electronically signed by: Alex Juárez (Nov 27, 2021 18:26:29)
[2021-11-27] MEDS ORDERED: LOPRESSOR INJ 5 MG AMP IVP ONE (22:58)
[2021-11-27] MEDS ORDERED: LANOXIN INJ IVP ONE ×2 (22:58→23:00)
[2021-11-28] MEDS: ZOVIRAX TOP SCH ×3 (01:31→17:14)
[2021-11-28] MEDS: NS 1,000 ML IV 1,000 ML IV SCH ×2 (05:29→07:00)
[2021-11-28] MEDS ORDERED: NS 100 ML IV 100 ML ONE (06:13)
[2021-11-28] MEDS ORDERED: CARDIZEM INJ 125 MG VIAL ONE (06:13)
[2021-11-28] MEDS: CARDIZEM INJ 125 MG VIAL 125 MG in NS 100 ML IV 100 ML IV PRN ×3 (06:25→20:57)
[2021-11-28 07:31] LABS: BASOPHILS % (AUTO) 0.2 % (0.2-1.0); EOSINOPHILS % (AUTO) 0.3 % (0.9-2.9); HEMATOCRIT 20.3 % (36.0-47.0); LYMPHOCYTES # (AUTO) 0.6 X10^3/uL (1.3-2.9); LYMPHOCYTES % (AUTO) 6.6 % (21.0-51.0); MEAN CORPUSCULAR HEMOGLOBIN 36.9 pg (27.0-34.0); MEAN CORPUSCULAR HGB CONC 34.3 g/dL (33.0-35.0); MEAN CORPUSCULAR VOLUME 107.5 fL (80.0-100.0); MEAN PLATELET VOLUME 8.5 fL (7.4-11.0); MONOCYTES # (AUTO) 1.1 x10^3/uL (0.3-0.8); MONOCYTES % (AUTO) 11.7 % (0.0-13.0); NEUTROPHILS # (AUTO) 7.6 x10^3/uL (2.2-4.8); NEUTROPHILS % (AUTO) 81.2 % (42.0-75.0); RED BLOOD COUNT 1.88 X10^6/uL (3.5-5.4); RED CELL DISTRIBUTION WIDTH 15.3 % (11.6-16.5); WHITE BLOOD COUNT 9.4 X10^3/uL (3.6-10.0)
[2021-11-28 07:36] LABS: CARBON DIOXIDE 17.6 mmol/L (21-32); COR CA(FOR HYPOALB) 9.6 mg/dL (8.5-10.1); CREATINE KINASE MB 2.5 ng/mL (0-4.0); TOTAL PROTEIN 5.8 g/dL (6.4-8.2)
[2021-11-28 07:58] LABS: PLATELET MORPHOLOGY COMMENT NORMAL (NORMAL)
[2021-11-28] MEDS: INVanz INJ 1 GRAM VIAL 0.5 G in NS 50 ML IV 50 ML IV SCH (09:02)
[2021-11-28] MEDS: PROTONIX TAB 40 MG PO SCH (09:02)
[2021-11-28] MEDS: VALIUM PO PRN ×2 (10:13→20:06)
[2021-11-28] MEDS: NS 1,000 ML IV 1,000 ML with SODIUM BICARBONATE 8.4% INJ ADULT 50 ML IV SCH ×4 (10:54→23:07)
[2021-11-28] MEDS: PROCRIT or EPOGEN VIAL 10,000 UNITS SC SCH (10:54)
[2021-11-28] MEDS: ALBUMIN HUMAN 25%- 100 ML 100 ML IV SCH (10:55)
--- NOTE | 2021-11-28 10:58 | PCM.PROG ---
Progress Note - Progress Note for Day of Date of Exam: 11/28/21 - Subjective Subjective: WAS ADMITTED FOR TREATMENT OF ACUTE ON CHRONIC RENAL FAILURE, RHABDOMYOLYSIS, HUMERAL NECK FRACTURE, UTI, ANEMIA, DEHYDRATION, AND GENERALIZED WEAKNESS. SHE WAS ALSO PLACED ON A CARDIZEM DRIP THROUGHOUT THE NIGHT DUE TO ELEVATED HEART RATE. SHE HAS A PMH OF RECENT CVA, HTN, A-FIB, HYPERLIPIDEMIA, AND RENAL DISEASE. TODAY, SHE IS ALERT, LYING IN BED ON MORNING ROUNDS. SHE CONTINUES WITH COMPLAINTS OF LEFT UPPER ARM AND SHOULDER PAIN. SHE IS SCHEDULED FOR AN UPPER EXTREMITY CT WITHOUT CONTRAST THIS MORNING. NURSING STAFF REPORTS THAT SHE HAS NOT SLEPT WELL THROUGHOUT THE NIGHT. ON EXAMINATION, HEART IS IRREGULAR IN RATE AND RHYTHM. A-FIB NOTED WITH HR 110-120 BPM. BILATERAL LUNGS NOTED WITH DIMINISHED LUNG SOUNDS THROUGHOUT. LARGE BRUISE NOTED TO LEFT UPPER ARM AND SHOULDER AREA. ABDOMEN IS ROUND, SOFT, AND NON-TENDER WITH NORMAL BOWEL SOUNDS NOTED IN ALL QUADRANTS. SCATTERED BRUISING NOTED OVER BODY. HER VITALS THIS MORNING ARE: 98.2-115-18-99%-90/61. LABS WERE OBTAINED. RBC 1.88, HGB 7.0, HCT 20.3, CHLORIDE 108, CARBON DIOXIDE 17.6, BUN 102, CREATININE 3.00, GFR 17, GLUCOSE 112, CALCIUM 8.0, AST 72, CREATINE KINASE 263, TROPONIN 321.9, TOTAL PROTEIN 5.8, ALBUMIN 2.0. URINE CULTURE POSITIVE FOR GROWTH OF E.COLI. SHE IS CURRENTLY RECEIVING NORMAL SALINE AT 100 ML/HR, CARDIZEM DRIP, INVANZ 0.5G IV DAILY, MORPHINE SULFATE 2MG IV Q4H PRN, ZOFRAN 4MG IV Q6H PRN, NYSTATIN CREAM TID PRN, NYSTATIN POWDER BID PRN, ZOVIRAX TOP Q8H. SHE RECEIVED TWO, ONE LITER NORMAL SALINE BOLUSES YESTERDAY. TODAY, WE WILL ADD ONE AMP OF SODIUM BICARB TO EACH LITER OF IV FLUIDS, ADD ALBUMIN 25% IV DAILY, PROCRIT 10,000 UNITS ON MON,WED,FRI, VALIUM 5MG PO TID PRN, AND PHENOBARBITAL 30MG PO HS. SHE WILL HAVE UPPER EXTREMITY CT THIS MORNING. OTHERWISE, WE WILL FOLLOW UP WITH AM LABS AND CONTINUE TO MONITOR. - Past Medical Family Social History Past Med/Fam/Surg Hx: No changes since H&P Allergies: Allergies No Known Drug Allergies [NKDA] Allergy (Verified 03/25/21 13:54) - Review of Systems ROS: No change since H&P - Vital Signs and I&O's Vital Signs: Temperature 98.2 F Pulse Rate [Left Radial] 115 Pulse Rate 155 Respiratory Rate 18 Blood Pressure [Right Arm] 90/61 Blood Pressure 93/54 O2 Sat by Pulse Oximetry 99 Intake and Output: Intake & Output 11/25/21 11/26/21 11/27/21 11/28/21 11:59 11:59 11:59 11:59 Intake Total 1515 / 1515 4956 / 4956 Output Total 800 / 800 1475 / 1475 Balance 715 / 715 3481 / 3481 - Physical Exam Oriented: Normal Eyes: Normal Ear: Normal Nose: Normal Throat: Normal Respiratory: Diminished Cardiovascular: Tachycardia, Irregular : Normal Auscultation: Bowel Sounds: Normal Palpation: Normal Tenderness: Normal Skin: Decreased Turgur, Red, Wound, Bruising, Other (EXCORIATION TO THE GENITAL AREA AND INNER THIGHS ) Musculoskeletal: Left, Shoulder, Arm, Tender Psychiatric: Normal Mood Description: Calm Affect: Normal Speech Pattern: Clear, Appropriate - Laboratory and Diagnostics Result Diagrams: 11/28/21 05:37 11/28/21 05:37 Labs: 11/26/21 13:05 Urine,Catheterized Urine Culture - Final Escherichia Coli Laboratory WBC 9.4 X10^3/uL (3.6-10.0) 11/28/21 05:37 RBC 1.88 X10^6/uL (3.5-5.4) L 11/28/21 05:37 Hgb 7.0 g/dL (12.0-16.0) L 11/28/21 05:37 Hct 20.3 % (36.0-47.0) L 11/28/21 05:37 MCV 107.5 fL (80.0-100.0) H 11/28/21 05:37 MCH 36.9 pg (27.0-34.0) H 11/28/21 05:37 MCHC 34.3 g/dL (33.0-35.0) 11/28/21 05:37 RDW 15.3 % (11.6-16.5) 11/28/21 05:37 Plt Count 212 X10^3/uL (150.0-450.0) 11/28/21 05:37 Plt Count Comment Adequate (ADEQUATE) 11/28/21 05:37 MPV 8.5 fL (7.4-11.0) 11/28/21 05:37 Neut % (Auto) 81.2 % (42.0-75.0) H 11/28/21 05:37 Lymph % (Auto) 6.6 % (21.0-51.0) L 11/28/21 05:37 Sebastian % (Auto) 11.7 % (0.0-13.0) 11/28/21 05:37 Eos % (Auto) 0.3 % (0.9-2.9) L 11/28/21 05:37 Baso % (Auto) 0.2 % (0.2-1.0) 11/28/21 05:37 Neut # (Auto) 7.6 x10^3/uL (2.2-4.8) H 11/28/21 05:37 Lymph # (Auto) 0.6 X10^3/uL (1.3-2.9) L 11/28/21 05:37 Sebastian # (Auto) 1.1 x10^3/uL (0.3-0.8) H 11/28/21 05:37 Eos # (Auto) 0.0 x10^3/uL (0.0-0.2) 11/28/21 05:37 Baso # (Auto) 0.0 X10^3/uL (0.0-0.1) 11/28/21 05:37 Absolute Nucleated RBC 0.2 /100WBC 11/28/21 05:37 Plt Morphology Comment Normal (NORMAL) 11/28/21 05:37 RBC Morphology Abnormal (NORMAL) A 11/28/21 05:37 Macrocytosis 1+ A 11/28/21 05:37 Sodium 141 mmol/L (136-145) 11/28/21 05:37 Corrected Sodium 141 mmol/L (136-145) 11/28/21 05:37 Potassium 3.7 mmol/L (3.5-5.1) 11/28/21 05:37 Chloride 108 mmol/L (98-107) H 11/28/21 05:37 Carbon Dioxide 17.6 mmol/L (21-32) L 11/28/21 05:37 BUN 102 mg/dL (7-18) H 11/28/21 05:37 Creatinine 3.00 mg/dL (0.55-1.02) H 11/28/21 05:37 Est GFR (MDRD) Af Amer 20 (>60) L 11/28/21 05:37 Est GFR (MDRD) Non-Af 17 (>60) L 11/28/21 05:37 Glucose 112 mg/dL (65-99) H 11/28/21 05:37 Calcium 8.0 mg/dL (8.5-10.1) L 11/28/21 05:37 Corrected Calcium 9.6 mg/dL (8.5-10.1) 11/28/21 05:37 Total Bilirubin 0.30 mg/dL (0.2-1.0) 11/28/21 05:37 AST 72 Units/L (15-37) H 11/28/21 05:37 ALT 34 Units/L (12-78) 11/28/21 05:37 Alkaline Phosphatase 91 Units/L (46-116) 11/28/21 05:37 Creatine Kinase 263 Units/L (26-192) H 11/28/21 05:37 CK-MB (CK-2) 2.5 ng/mL (0-4.0) 11/28/21 05:37 CK/CKMB % Calc 1.0 % (<4) 11/28/21 05:37 Troponin I High Sens 321.9 ng/L (4.0-60.0) H* 11/28/21 05:37 Total Protein 5.8 g/dL (6.4-8.2) L 11/28/21 05:37 Albumin 2.0 g/dL (3.4-5.0) L 11/28/21 05:37 Globulin 3.8 g/dL (2.5-4.5) 11/28/21 05:37 Albumin/Globulin Ratio 0.5 Ratio (1.1-2.1) L 11/28/21 05:37 Specimen Type Catherized urine 11/26/21 13:05 Urine Color Yellow (YELLOW) 11/26/21 13:05 Urine Appearance Cloudy (CLEAR) 11/26/21 13:05 Urine pH 6.0 (5.0 - 8.0) 11/26/21 13:05 Ur Specific [place] 1.015 (1.000-1.030) 11/26/21 13:05 Urine Protein 2+ (NEGATIVE) 11/26/21 13:05 Urine Glucose (UA) Negative (NEGATIVE) 11/26/21 13:05 Urine Ketones 1+ (NEGATIVE) 11/26/21 13:05 Urine Occult Blood 5+ (NEGATIVE) 11/26/21 13:05 Urine Nitrite Negative (NEGATIVE) 11/26/21 13:05 Urine Bilirubin Negative (NEGATIVE) 11/26/21 13:05 Urine Urobilinogen Normal (NORMAL) 11/26/21 13:05 Ur Leukocyte Esterase 3+ (NEGATIVE) 11/26/21 13:05 Urine RBC 20-30 /HPF (0-3) A 11/26/21 13:05 Urine WBC Tntc /HPF (0-5) A 11/26/21 13:05 Ur Squamous Epith Cells Moderate /HPF (NEGATIVE) 11/26/21 13:05 Urine Bacteria 2+ /HPF (NEGATIVE) 11/26/21 13:05 Urine Mucus Few /HPF (NEGATIVE) 11/26/21 13:05 Ur Culture Indicated? Yes/culture set up 11/26/21 13:05 Stool Description 15g brn lqd 11/28/21 06:45 Stl Occult Blood (IFOB) Negative (NEGATIVE) 11/28/21 06:45 SARS CoV-2 RNA Rapid KAMALJIT Negative (NEGATIVE) 11/26/21 11:11 - Plan (1) Acute on chronic renal failure Status: Acute Qualifiers: Acute renal failure type: unspecified Chronic kidney disease stage: unspecified stage Qualified Code(s): N17.9 - Acute kidney failure, unspecified; N18.9 - Chronic kidney disease, unspecified Plan: NORMAL SALINE AT 100 ML/HR WITH 1 AMP OF SODIUM BICARB IN EACH LITER, IN VANZ 0.5G IV DAILY, CARDIZEM DRIP, MORPHINE SULFATE 2MG IV Q4H PRN, ZOFRAN 4MG IV Q6H PRN, NYSTATIN CREAM TID PRN, NYSTATIN POWDER BID PRN, ZOVIRAX TOP Q8H, ALBUMIN 25% IV DAILY, PROCRIT 10,000 UNITS ON MON,WED,FRI, VALIUM 5MG PO TID PRN, AND PHENOBARBITAL 30MG PO HS (2) Rhabdomyolysis Status: Acute Qualifiers: Rhabdomyolysis type: traumatic Encounter type: initial encounter Qualif ied Code(s): T79.6XXA - Traumatic ischemia of muscle, initial encounter (3) Atrial fibrillation Status: Acute Qualifiers: Atrial fibrillation type: unspecified Qualified Code(s): I48.91 - Unspecified atrial fibrillation Plan: CARDIZEM DRIP (4) Fracture of neck of humerus Status: Acute Qualifiers: Encounter type: initial encounter Fracture type: closed Laterality: left Qualified Code(s): S42.212A - Unspecified displaced fracture of surgical neck of left humerus, initial encounter for closed fracture Plan: CONSULT ORTHO (5) Urinary tract infection Status: Acute Qualifiers: Urinary tract infection type: acute cystitis Hematuria presence: without hematuria Qualified Code(s): N30.00 - Acute cystitis without hematuria (6) Anemia Status: Acute Qualifiers: Anemia type: unspecified type Qualified Code(s): D64.9 - Anemia, unspecified (7) Dehydration Status: Acute (8) Generalized weakness Status: Acute (9) Recent cerebrovascular accident (CVA) Status: Chronic (10) Hypertension Status: Chronic Qualifiers: Hypertension type: primary hypertension Qualified Code(s): I10 - Essential (primary) hypertension (11) Hyperlipidemia Status: Chronic Qualifiers: Hyperlipidemia type: mixed hyperlipidemia Qualified Code(s): E78.2 - Mixed hyperlipidemia
[2021-11-28] MEDS ORDERED: BUTT CREAM (COMPOUND) ONE (11:53)
[2021-11-28] MEDS: BUTT CREAM (COMPOUND) TOP PRN ×2 (12:04→18:16)
--- NOTE | 2021-11-28 12:33 | CT ---
UPPER EXT W/O CONHistory: PAIN TO LEFT SHOULDER, S/P FALLTechnique: CT images of the left shoulder were obtained without contrast. Reformatted images in the coronal and sagittal planes also generated for review. Automatic exposure was utilized.Comparison: Radiograph 11/26/2021Findings: There is a moderately comminuted and impacted fracture of the proximal humerus. There is fracture involvement of the humeral neck as well as greater tuberosity with associated foreshortening of the humerus. Fracture of the anterior and inferior osseous glenoid is also seen and best appreciated on sagittal reformatted images, for example see sagittal images 54-56. The humeral head remains well positioned within the fracture glenoid without dislocation.The AC joint is intact. No additional acute osseous abnormality of the left shoulder is identified. Multiple subacute-chronic left-sided rib fractures noted. Limited images through the left chest otherwise demonstrate no significant abnormalityImpression:Moderately comminuted and impacted fracture of the humeral neck with fracture involvement greater tuberosity as well as anterior and inferior osseous glenoid.Electronically signed by: JENNIFER ROGEL (Nov 28, 2021 12:32:13)
[2021-11-28] MEDS: PHENOBARBITAL TAB 30 MG (32.4MG) PO SCH (20:06)
[2021-11-28] MEDS: K-DUR TAB 20 MEQ PO PRN (20:06)
[2021-11-29] MEDS: ZOVIRAX TOP SCH ×3 (01:30→17:31)
[2021-11-29] MEDS: NYSTATIN POWDER TOP PRN ×2 (04:32→10:53)
[2021-11-29] MEDS: CARDIZEM INJ 125 MG VIAL 125 MG in NS 100 ML IV 100 ML IV PRN ×3 (04:32→19:55)
[2021-11-29 05:26] LABS: BASOPHILS % (AUTO) 0.2 % (0.2-1.0); EOSINOPHILS # (AUTO) 0.1 x10^3/uL (0.0-0.2); EOSINOPHILS % (AUTO) 1.5 % (0.9-2.9); LYMPHOCYTES # (AUTO) 0.6 X10^3/uL (1.3-2.9); LYMPHOCYTES % (AUTO) 8.4 % (21.0-51.0); MEAN CORPUSCULAR HEMOGLOBIN 36.6 pg (27.0-34.0); MEAN CORPUSCULAR HGB CONC 34.2 g/dL (33.0-35.0); MEAN PLATELET VOLUME 8.5 fL (7.4-11.0); MONOCYTES # (AUTO) 0.8 x10^3/uL (0.3-0.8); MONOCYTES % (AUTO) 11.5 % (0.0-13.0); NEUTROPHILS # (AUTO) 5.5 x10^3/uL (2.2-4.8); NEUTROPHILS % (AUTO) 78.4 % (42.0-75.0); RED BLOOD COUNT 1.72 X10^6/uL (3.5-5.4); RED CELL DISTRIBUTION WIDTH 15.3 % (11.6-16.5)
[2021-11-29 05:33] LABS: HEMATOCRIT 18.4 % (36.0-47.0); HEMOGLOBIN 6.3 g/dL (12.0-16.0)
[2021-11-29 05:47] LABS: ALANINE AMINOTRANSFERASE 49 Units/L (12-78); ALBUMIN 2.2 g/dL (3.4-5.0); ALKALINE PHOSPHATASE 89 Units/L (46-116); ASPARTATE AMINO TRANSFERASE 104 Units/L (15-37); BLOOD UREA NITROGEN 78 mg/dL (7-18); CALCIUM 7.9 mg/dL (8.5-10.1); CARBON DIOXIDE 18.5 mmol/L (21-32); CHLORIDE 109 mmol/L (98-107); CKMB % 0.9 % (<4); COR CA(FOR HYPOALB) 9.3 mg/dL (8.5-10.1); COR NA(FOR HYPERGLY) 142 mmol/L (136-145); CREATINE KINASE 115 Units/L (26-192); CREATINE KINASE MB < 1.0 ng/mL (0-4.0); CREATININE 2.13 mg/dL (0.55-1.02); MAGNESIUM 1.9 mg/dL (1.7-2.9); SODIUM 141 mmol/L (136-145); TOTAL PROTEIN 5.8 g/dL (6.4-8.2); eGFR NON BLACK RACES 25 (>60)
[2021-11-29 05:56] LABS: PLATELET MORPHOLOGY COMMENT NORMAL (NORMAL)
[2021-11-29] MEDS: ALBUMIN HUMAN 25%- 100 ML 100 ML IV SCH (08:41)
[2021-11-29] MEDS: INVanz INJ 1 GRAM VIAL 0.5 G in NS 50 ML IV 50 ML IV SCH (08:41)
[2021-11-29] MEDS: PROTONIX TAB 40 MG PO SCH (08:42)
[2021-11-29] MEDS: MORPHINE SULFATE INJ 2 MG INJ IVP PRN ×3 (10:17→20:48)
[2021-11-29] MEDS: NS 1,000 ML IV 1,000 ML with SODIUM BICARBONATE 8.4% INJ ADULT 50 ML IV SCH ×4 (10:49→14:26)
[2021-11-29 11:13] LABS: IRON 17 ug/dL (50-175)
--- NOTE | 2021-11-29 13:02 | RAD ---
HISTORYshortness of breath HX: CVA, HTN, AFIB, Renal Disease.br Appendectomy, Hysterectomy, Tonsillectomy, OrthoSTUDYCHEST, 1 VIEWCOMPARISONChest x-ray dated November 26, 2021.FINDINGSThe trachea is midline. The cardiac silhouette is unchanged. Chronic emphysematous changes.. The lungs are clear without focal infiltrate, pneumothorax, or effusion. Remote appearing right humeral head fracture. Remaining osseous structures appear unchanged.IMPRESSIONNo acute cardiopulmonary findings .Electronically signed by: KEYUR DOUGLAS (Nov 29, 2021 13:00:12)
[2021-11-29 14:02] LABS: BASOPHILS % (AUTO) 0.3 % (0.2-1.0); EOSINOPHILS # (AUTO) 0.2 x10^3/uL (0.0-0.2); LYMPHOCYTES # (AUTO) 0.8 X10^3/uL (1.3-2.9); MEAN CORPUSCULAR HEMOGLOBIN 36.8 pg (27.0-34.0); MEAN CORPUSCULAR HGB CONC 34.3 g/dL (33.0-35.0); MEAN CORPUSCULAR VOLUME 107.3 fL (80.0-100.0); MEAN PLATELET VOLUME 8.4 fL (7.4-11.0); MONOCYTES # (AUTO) 0.9 x10^3/uL (0.3-0.8); MONOCYTES % (AUTO) 9.9 % (0.0-13.0); NEUTROPHILS # (AUTO) 7.1 x10^3/uL (2.2-4.8); NEUTROPHILS % (AUTO) 78.8 % (42.0-75.0); RED BLOOD COUNT 1.63 X10^6/uL (3.5-5.4); RED CELL DISTRIBUTION WIDTH 15.6 % (11.6-16.5)
[2021-11-29 14:47] LABS: HEMATOCRIT 17.4 % (36.0-47.0)
[2021-11-29 14:53] LABS: PLATELET MORPHOLOGY COMMENT NORMAL (NORMAL)
[2021-11-29] MEDS ORDERED: NS 250 ML IV 250 ML IV ONE (15:41)
[2021-11-29] MEDS: ZOFRAN INJ 4 MG VIAL IVP PRN (17:50)
[2021-11-29] MEDS ORDERED: NS 100 ML IV 100 ML ONE (19:18)
[2021-11-29] MEDS: NORCO 5/325 MG TAB PO PRN (19:41)
[2021-11-29] MEDS: BUTT CREAM (COMPOUND) TOP PRN (19:59)
[2021-11-29] MEDS: PHENOBARBITAL TAB 30 MG (32.4MG) PO SCH (20:03)
[2021-11-29] MEDS: PROTONIX INJ 40 MG VIAL IVP SCH (20:47)
[2021-11-29 23:49] LABS: HEMATOCRIT 24.1 % (36.0-47.0); HEMOGLOBIN 8.4 g/dL (12.0-16.0)
[2021-11-30] MEDS: ZOVIRAX TOP SCH ×3 (00:50→17:38)
[2021-11-30] MEDS: MORPHINE SULFATE INJ 2 MG INJ IVP PRN ×4 (01:56→22:17)
[2021-11-30] MEDS: NYSTATIN POWDER TOP PRN ×2 (03:28→20:39)
[2021-11-30] MEDS: NS 1,000 ML IV 1,000 ML with SODIUM BICARBONATE 8.4% INJ ADULT 50 ML IV SCH ×6 (04:14→17:37)
[2021-11-30 05:00] LABS: BASOPHILS % (AUTO) 0.2 % (0.2-1.0); EOSINOPHILS # (AUTO) 0.1 x10^3/uL (0.0-0.2); EOSINOPHILS % (AUTO) 1.9 % (0.9-2.9); HEMATOCRIT 23.7 % (36.0-47.0); HEMOGLOBIN 8.1 g/dL (12.0-16.0); LYMPHOCYTES # (AUTO) 0.6 X10^3/uL (1.3-2.9); LYMPHOCYTES % (AUTO) 9.3 % (21.0-51.0); MEAN CORPUSCULAR HGB CONC 34.3 g/dL (33.0-35.0); MEAN CORPUSCULAR VOLUME 99.3 fL (80.0-100.0); MEAN PLATELET VOLUME 8.6 fL (7.4-11.0); MONOCYTES # (AUTO) 0.8 x10^3/uL (0.3-0.8); MONOCYTES % (AUTO) 11.5 % (0.0-13.0); NEUTROPHILS # (AUTO) 5.3 x10^3/uL (2.2-4.8); NEUTROPHILS % (AUTO) 77.1 % (42.0-75.0); RED BLOOD COUNT 2.38 X10^6/uL (3.5-5.4); WHITE BLOOD COUNT 6.8 X10^3/uL (3.6-10.0)
[2021-11-30] MEDS: CARDIZEM INJ 125 MG VIAL 125 MG in NS 100 ML IV 100 ML IV PRN ×2 (05:04→15:47)
[2021-11-30 05:38] LABS: ALANINE AMINOTRANSFERASE 55 Units/L (12-78); ALBUMIN 2.4 g/dL (3.4-5.0); ALKALINE PHOSPHATASE 81 Units/L (46-116); ASPARTATE AMINO TRANSFERASE 91 Units/L (15-37); BLOOD UREA NITROGEN 58 mg/dL (7-18); CALCIUM 7.9 mg/dL (8.5-10.1); CARBON DIOXIDE 20.8 mmol/L (21-32); CHLORIDE 110 mmol/L (98-107); CKMB % 1.9 % (<4); COR CA(FOR HYPOALB) 9.2 mg/dL (8.5-10.1); COR NA(FOR HYPERGLY) 143 mmol/L (136-145); CREATINE KINASE 53 Units/L (26-192); CREATINE KINASE MB < 1.0 ng/mL (0-4.0); CREATININE 1.62 mg/dL (0.55-1.02); SODIUM 143 mmol/L (136-145); TOTAL PROTEIN 5.7 g/dL (6.4-8.2); eGFR NON BLACK RACES 34 (>60)
[2021-11-30] MEDS: ALBUMIN HUMAN 25%- 100 ML 100 ML IV SCH (09:29)
[2021-11-30] MEDS: INVanz INJ 1 GRAM VIAL 0.5 G in NS 50 ML IV 50 ML IV SCH (09:30)
[2021-11-30] MEDS: PROTONIX INJ 40 MG VIAL IVP SCH ×2 (09:30→20:03)
[2021-11-30] MEDS: K-DUR TAB 20 MEQ PO PRN (09:31)
[2021-11-30] MEDS: NORCO 5/325 MG TAB PO PRN (09:31)
[2021-11-30] MEDS ORDERED: LOPRESSOR TAB 25 MG ONE (14:25)
[2021-11-30] MEDS: LOPRESSOR TAB 25 MG PO SCH ×2 (14:35→20:03)
[2021-11-30] MEDS: PHENOBARBITAL TAB 30 MG (32.4MG) PO SCH (20:03)
[2021-11-30] MEDS: VALIUM PO PRN (20:40)
[2021-11-30] MEDS: BUTT CREAM (COMPOUND) TOP PRN (20:40)
[2021-12-01] MEDS: ZOVIRAX TOP SCH ×3 (01:07→18:01)
[2021-12-01] MEDS: CARDIZEM INJ 125 MG VIAL 125 MG in NS 100 ML IV 100 ML IV PRN (02:54)
[2021-12-01] MEDS: MORPHINE SULFATE INJ 2 MG INJ IVP PRN ×4 (03:53→19:06)
[2021-12-01 05:15] LABS: BASOPHILS % (AUTO) 0.2 % (0.2-1.0); EOSINOPHILS # (AUTO) 0.2 x10^3/uL (0.0-0.2); EOSINOPHILS % (AUTO) 1.8 % (0.9-2.9); HEMATOCRIT 24.8 % (36.0-47.0); HEMOGLOBIN 8.5 g/dL (12.0-16.0); LYMPHOCYTES # (AUTO) 0.6 X10^3/uL (1.3-2.9); LYMPHOCYTES % (AUTO) 6.5 % (21.0-51.0); MEAN CORPUSCULAR HEMOGLOBIN 34.3 pg (27.0-34.0); MEAN CORPUSCULAR HGB CONC 34.4 g/dL (33.0-35.0); MEAN CORPUSCULAR VOLUME 99.8 fL (80.0-100.0); MEAN PLATELET VOLUME 8.8 fL (7.4-11.0); MONOCYTES # (AUTO) 0.7 x10^3/uL (0.3-0.8); MONOCYTES % (AUTO) 8.7 % (0.0-13.0); NEUTROPHILS # (AUTO) 7.1 x10^3/uL (2.2-4.8); NEUTROPHILS % (AUTO) 82.8 % (42.0-75.0); RED BLOOD COUNT 2.48 X10^6/uL (3.5-5.4); RED CELL DISTRIBUTION WIDTH 19.8 % (11.6-16.5); WHITE BLOOD COUNT 8.6 X10^3/uL (3.6-10.0)
[2021-12-01 05:40] LABS: ALANINE AMINOTRANSFERASE 45 Units/L (12-78); ALBUMIN 2.6 g/dL (3.4-5.0); ALKALINE PHOSPHATASE 81 Units/L (46-116); ASPARTATE AMINO TRANSFERASE 53 Units/L (15-37); BLOOD UREA NITROGEN 43 mg/dL (7-18); CALCIUM 8.1 mg/dL (8.5-10.1); CARBON DIOXIDE 21.9 mmol/L (21-32); CHLORIDE 108 mmol/L (98-107); CKMB % 3.2 % (<4); COR CA(FOR HYPOALB) 9.2 mg/dL (8.5-10.1); COR NA(FOR HYPERGLY) 140 mmol/L (136-145); CREATINE KINASE 31 Units/L (26-192); CREATINE KINASE MB < 1.0 ng/mL (0-4.0); CREATININE 1.48 mg/dL (0.55-1.02); SODIUM 140 mmol/L (136-145); TOTAL PROTEIN 5.8 g/dL (6.4-8.2); eGFR NON BLACK RACES 38 (>60)
[2021-12-01] MEDS: NS 1,000 ML IV 1,000 ML with SODIUM BICARBONATE 8.4% INJ ADULT 50 ML IV SCH ×2 (09:00)
[2021-12-01] MEDS: INVanz INJ 1 GRAM VIAL 0.5 G in NS 50 ML IV 50 ML IV SCH (09:16)
[2021-12-01] MEDS: ALBUMIN HUMAN 25%- 100 ML 100 ML IV SCH (09:16)
[2021-12-01] MEDS: PROTONIX INJ 40 MG VIAL IVP SCH ×2 (09:17→20:17)
[2021-12-01] MEDS: LOPRESSOR TAB 25 MG PO SCH ×2 (09:25→19:17)
[2021-12-01] MEDS ORDERED: CARDIZEM CD 180 MG 24-HR PO SCH (10:00)
--- NOTE | 2021-12-01 10:02 | PCM.PROG ---
Progress Note - Progress Note for Day of Date of Exam: 12/01/21 - Subjective Subjective: WAS ADMITTED FOR TREATMENT OF ACUTE ON CHRONIC RENAL FAILURE, RHABDOMYOLYSIS, HUMERAL NECK FRACTURE, UTI, ANEMIA, DEHYDRATION, AND GENERALIZED WEAKNESS. SHE REMAINS ON A CARDIZEM DRIP DUE TO ELEVATED HEART RATE. SHE HAS A PMH OF RECENT CVA, HTN, A-FIB, HYPERLIPIDEMIA, AND RENAL DISEASE. TODAY, SHE IS ALERT, LYING IN BED ON MORNING ROUNDS. SHE CONTINUES WITH COMPLAINTS OF LEFT UPPER ARM AND SHOULDER PAIN. ON EXAMINATION, HEART IS IRREGULAR IN RATE AND RHYTHM. A-FIB NOTED WITH HR 110-120 BPM. BILATERAL LUNGS NOTED WITH DIMINISHED LUNG SOUNDS THROUGHOUT. LARGE BRUISE NOTED TO LEFT UPPER ARM AND SHOULDER AREA. ABDOMEN IS ROUND, SOFT, AND NON-TENDER WITH NORMAL BOWEL SOUNDS NOTED IN ALL QUADRANTS. SCATTERED BRUISING NOTED OVER BODY. HER VITALS THIS MORNING ARE: 97.8-11-23-98%-116/82. LABS WERE OBTAINED. RBC 2.48, HGB 8.5, HCT 24.8, CHLORIDE 108, BUN 43, CREATININE 1.48, GLUCOSE 111, CALCIUM 8.1, AST 53, TROPONIN 173.7, TOTAL PROTEIN 5.8, ALBUMIN 2.6. URINE CULTURE POSITIVE FOR GROWTH OF E.COLI. A CT OF THE LEFT UPPER EXTREMITY WAS OBTAINED ON 11/28/21. IT REVEALED: Moderately comminuted and impacted fracture of the humeral neck with fracture involvement greater tuberosity as well as anterior and inferior osseous glenoid. SHE IS CURRENTLY RECEIVING NORMAL SALINE WITH 1 AMP BICARB IN EACH LITER AT 100 ML/HR, CARDIZEM DRIP, ALBUMIN 25% IV DAILY, INVANZ 0.5G IV DAILY, LOPRESSOR 12.5MG PO BID, PROTONIX 40MG IV BID, MORPHINE SULFATE 2MG IV Q4H PRN, NORCO 5/325MG PO Q6H PRN, ZOFRAN 4MG IV Q6H PRN, PROCRIT 10,000 UNITS MON,WED,FRI, VALIUM 5MG PO TID PRN, PHENOBARBITAL HS, NYSTATIN CREAM TID PRN, NYSTATIN POWDER BID PRN, ZOVIRAX TOP Q8H. TODAY, WE WILL START HER ON CARDIZEM CD 180MG PO DAILY. WE WILL WEAN THE CARDIZEM DRIP. WE WILL ALSO ADD MULTIVITAMINS TO HER IV FLUIDS AND DISCONTINUE THE BICARB. OTHERWISE, WE WILL FOLLOW UP WITH AM LABS AND CONTINUE TO MONITOR. TIME SPENT ON CLINICAL ASSESSMENT, REVIEWING LABS AND IMAGING, DECISION MAKING, AND DOCUMENTATION GRE ATER THAN 45 MINUTES. - Past Medical Family Social History Past Med/Fam/Surg Hx: No changes since H&P Allergies: Allergies No Known Drug Allergies [NKDA] Allergy (Verified 03/25/21 13:54) - Review of Systems ROS: No change since H&P - Vital Signs and I&O's Vital Signs: Temperature 97.8 F Pulse Rate [Left Radial] 128 Pulse Rate 116 Respiratory Rate 20 Blood Pressure [Right Arm] 116/79 Blood Pressure 116/82 O2 Sat by Pulse Oximetry 100 Intake and Output: Intake & Output 11/28/21 11/29/21 11/30/21 12/01/21 11:59 11:59 11:59 11:59 Intake Total 4956 / 4956 2952 / 2952 4699 / 4699 2438 / 2438 Output Total 1475 / 1475 850 / 850 1500 / 1500 2100 / 2100 Balance 3481 / 3481 2102 / 2102 3199 / 3199 338 / 338 - Physical Exam Oriented: Normal Eyes: Normal Ear: Normal Nose: Normal Throat: Normal Respiratory: Diminished Cardiovascular: Tachycardia, Irregular : Normal Auscultation: Bowel Sounds: Normal Palpation: Normal Tenderness: Normal Skin: Decreased Turgur, Red, Wound, Bruising, Other (EXCORIATION TO THE GENITAL AREA AND INNER THIGHS ) Musculoskeletal: Left, Shoulder, Arm, Tender Psychiatric: Normal Mood Description: Calm Affect: Normal Speech Pattern: Clear, Appropriate - Laboratory and Diagnostics Result Diagrams: 12/01/21 04:30 12/01/21 04:30 Labs: 11/26/21 13:05 Urine,Catheterized Urine Culture - Final Escherichia Coli Laboratory WBC 8.6 X10^3/uL (3.6-10.0) 12/01/21 04:30 RBC 2.48 X10^6/uL (3.5-5.4) L 12/01/21 04:30 Hgb 8.5 g/dL (12.0-16.0) L 12/01/21 04:30 Hct 24.8 % (36.0-47.0) L 12/01/21 04:30 MCV 99.8 fL (80.0-100.0) 12/01/21 04:30 MCH 34.3 pg (27.0-34.0) H 12/01/21 04:30 MCHC 34.4 g/dL (33.0-35.0) 12/01/21 04:30 RDW 19.8 % (11.6-16.5) H 12/01/21 04:30 Plt Count 218 X10^3/uL (150.0-450.0) 12/01/21 04:30 Plt Count Comment Adequate (ADEQUATE) 11/29/21 13:48 MPV 8.8 fL (7.4-11.0) 12/01/21 04:30 Neut % (Auto) 82.8 % (42.0-75.0) H 12/01/21 04:30 Lymph % (Auto) 6.5 % (21.0-51.0) L 12/01/21 04:30 [place] % (Auto) 8.7 % (0.0-13.0) 12/01/21 04:30 Eos % (Auto) 1.8 % (0.9-2.9) 12/01/21 04:30 Baso % (Auto) 0.2 % (0.2-1.0) 12/01/21 04:30 Neut # (Auto) 7.1 x10^3/uL (2.2-4.8) H 12/01/21 04:30 Lymph # (Auto) 0.6 X10^3/uL (1.3-2.9) L 12/01/21 04:30 Pender # (Auto) 0.7 x10^3/uL (0.3-0.8) 12/01/21 04:30 Eos # (Auto) 0.2 x10^3/uL (0.0-0.2) 12/01/21 04:30 Baso # (Auto) 0.0 X10^3/uL (0.0-0.1) 12/01/21 04:30 Absolute Nucleated RBC 0.2 /100WBC 12/01/21 04:30 Plt Clumps, EDTA Rare 11/29/21 13:48 Plt Morphology Comment Normal (NORMAL) 11/29/21 13:48 RBC Morphology Abnormal (NORMAL) A 11/29/21 13:48 Macrocytosis 1+ A 11/29/21 13:48 Sodium 140 mmol/L (136-145) 12/01/21 04:30 Corrected Sodium 140 mmol/L (136-145) 12/01/21 04:30 Potassium 3.8 mmol/L (3.5-5.1) 12/01/21 04:30 Chloride 108 mmol/L (98-107) H 12/01/21 04:30 Carbon Dioxide 21.9 mmol/L (21-32) 12/01/21 04:30 BUN 43 mg/dL (7-18) H 12/01/21 04:30 Creatinine 1.48 mg/dL (0.55-1.02) H 12/01/21 04:30 Est GFR (MDRD) Af Amer 45 (>60) L 12/01/21 04:30 Est GFR (MDRD) Non-Af 38 (>60) L 12/01/21 04:30 Glucose 111 mg/dL (65-99) H 12/01/21 04:30 Calcium 8.1 mg/dL (8.5-10.1) L 12/01/21 04:30 Corrected Calcium 9.2 mg/dL (8.5-10.1) 12/01/21 04:30 Magnesium 1.9 mg/dL (1.7-2.9) 11/29/21 04:52 Iron 17 ug/dL (50-175) L 11/29/21 10:08 Transferrin 119 mg/dL (202-364) L 11/29/21 10:08 Ferritin 917 ng/mL (8-252) H 11/29/21 10:08 Total Bilirubin 0.30 mg/dL (0.2-1.0) 12/01/21 04:30 AST 53 Units/L (15-37) H 12/01/21 04:30 ALT 45 Units/L (12-78) 12/01/21 04:30 Alkaline Phosphatase 81 Units/L (46-116) 12/01/21 04:30 Creatine Kinase 31 Units/L (26-192) 12/01/21 04:30 CK-MB (CK-2) < 1.0 ng/mL (0-4.0) 12/01/21 04:30 CK/CKMB % Calc 3.2 % (<4) 12/01/21 04:30 Troponin I High Sens 173.7 ng/L (4.0-60.0) H* 12/01/21 04:30 Total Protein 5.8 g/dL (6.4-8.2) L 12/01/21 04:30 Albumin 2.6 g/dL (3.4-5.0) L 12/01/21 04:30 Globulin 3.2 g/dL (2.5-4.5) 12/01/21 04:30 Albumin/Globulin Ratio 0.8 Ratio (1.1-2.1) L 12/01/21 04:30 Vitamin B12 > 2000 pg/mL (193-986) H 11/29/21 10:08 Folate 4.1 ng/mL (>8.6) L 11/29/21 10:08 Specimen Type Catherized urine 11/26/21 13:05 Urine Color Yellow (YELLOW) 11/26/21 13:05 Urine Appearance Cloudy (CLEAR) 11/26/21 13:05 Urine pH 6.0 (5.0 - 8.0) 11/26/21 13:05 Ur Specific [place] 1.015 (1.000-1.030) 11/26/21 13:05 Urine Protein 2+ (NEGATIVE) 11/26/21 13:05 Urine Glucose (UA) Negative (NEGATIVE) 11/26/21 13:05 Urine Ketones 1+ (NEGATIVE) 11/26/21 13:05 Urine Occult Blood 5+ (NEGATIVE) 11/26/21 13:05 Urine Nitrite Negative (NEGATIVE) 11/26/21 13:05 Urine Bilirubin Negative (NEGATIVE) 11/26/21 13:05 Urine Urobilinogen Normal (NORMAL) 11/26/21 13:05 Ur Leukocyte Esterase 3+ (NEGATIVE) 11/26/21 13:05 Urine RBC 20-30 /HPF (0-3) A 11/26/21 13:05 Urine WBC Tntc /HPF (0-5) A 11/26/21 13:05 Ur Squamous Epith Cells Moderate /HPF (NEGATIVE) 11/26/21 13:05 Urine Bacteria 2+ /HPF (NEGATIVE) 11/26/21 13:05 Urine Mucus Few /HPF (NEGATIVE) 11/26/21 13:05 Ur Culture Indicated? Yes/culture set up 11/26/21 13:05 Stool Description 10g brown loose 11/29/21 18:30 Stl Occult Blood (IFOB) Negative (NEGATIVE) 11/29/21 18:30 SARS CoV-2 RNA Rapid KAMALJIT Negative (NEGATIVE) 11/26/21 11:11 Blood Type O POSITIVE 11/29/21 10:08 Antibody Screen Negative 11/29/21 10:08 Crossmatch See Detail 11/29/21 10:08 - Plan (1) Acute on chronic renal failure Status: Acute Qualifiers: Acute renal failure type: unspecified Chronic kidney disease stage: unspecified stage Qualified Code(s): N17.9 - Acute kidney failure, unspecified; N18.9 - Chronic kidney disease, unspecified Plan: NORMAL SALINE AT 100 ML/HR WITH MVI IN EACH LITER, INVANZ 0.5G IV DAILY, CARDIZEM CD 180MG PO DAILY, MORPHINE SULFATE 2MG IV Q4H PRN, ZOFRAN 4MG IV Q6H PRN, NYSTATIN CREAM TID PRN, NYSTATIN POWDER BID PRN, ZOVIRAX TOP Q8H, ALBUMIN 25% IV DAILY, PROCRIT 10,000 UNITS ON MON,WED,FRI, VALIUM 5MG PO TID PRN, AND PHENOBARBITAL 30MG PO HS (2) Rhabdomyolysis Status: Acute Qualifiers: Rhabdomyolysis type: traumatic Encounter type: initial encounter Qualified Code(s): T79.6XXA - Traumatic ischemia of muscle, initial encounter (3) Atrial fibrillation Status: Acute Qualifiers: Atrial fibrillation type: unspecified Qualified Code(s): I48.91 - Unspecified atrial fibrillation Plan: CARDIZEM DRIP (4) Fracture of neck of humerus Status: Acute Qualifiers: Encounter type: initial encounter Fracture type: closed Laterality: left Qualified Code(s): S42.212A - Unspecified displaced fracture of surgical neck of left humerus, initial encounter for closed fracture Plan: CONSULT ORTHO (5) Urinary tract infection Status: Acute Qualifiers: Urinary tract infection type: acute cystitis Hematuria presence: without hematuria Qualified Code(s): N30.00 - Acute cystitis without hematuria (6) Anemia Status: Acute Qualifiers: Anemia type: unspecified type Qualified Code(s): D64.9 - Anemia, unspecified (7) Dehydration Status: Acute (8) Generalized weakness Status: Acute (9) Recent cerebrovascular accident (CVA) Status: Chronic (10) Hypertension Status: Chronic Qualifiers: Hypertension type: primary hypertension Qualified Code(s): I10 - Essential (primary) hypertension (11) Hyperlipidemia Status: Chronic Qualifiers: Hyperlipidemia type: mixed hyperlipidemia Qualified Code(s): E78.2 - Mixed hyperlipidemia
[2021-12-01] MEDS: PROCRIT or EPOGEN VIAL 10,000 UNITS SC SCH (10:18)
[2021-12-01] MEDS: NS 1,000 ML IV 1,000 ML with MVI INJ (ADULT) 10 ML IV SCH ×2 (10:18)
[2021-12-01] MEDS ORDERED: LOPRESSOR TAB 25 MG PO ONE (19:58)
[2021-12-01] MEDS ORDERED: LANOXIN INJ ONE (20:07)
[2021-12-01] MEDS: PHENOBARBITAL TAB 30 MG (32.4MG) PO SCH (20:17)
[2021-12-01] MEDS: LANOXIN INJ IVP SCH (20:18)
[2021-12-01] MEDS: VALIUM PO PRN (20:29)
[2021-12-01] MEDS: NYSTATIN POWDER TOP PRN (21:03)
[2021-12-01] MEDS: NYSTATIN CREAM TOP PRN (21:03)
[2021-12-02] MEDS: LANOXIN INJ IVP SCH (00:01)
[2021-12-02] MEDS: NS 1,000 ML IV 1,000 ML with MVI INJ (ADULT) 10 ML IV SCH ×4 (00:02→16:17)
[2021-12-02] MEDS: ZOVIRAX TOP SCH ×3 (00:55→17:52)
[2021-12-02 04:41] LABS: BASOPHILS % (AUTO) 0.5 % (0.2-1.0); EOSINOPHILS # (AUTO) 0.1 x10^3/uL (0.0-0.2); EOSINOPHILS % (AUTO) 1.8 % (0.9-2.9); HEMATOCRIT 23.6 % (36.0-47.0); LYMPHOCYTES # (AUTO) 0.7 X10^3/uL (1.3-2.9); LYMPHOCYTES % (AUTO) 9.1 % (21.0-51.0); MEAN CORPUSCULAR HGB CONC 33.9 g/dL (33.0-35.0); MEAN CORPUSCULAR VOLUME 100.4 fL (80.0-100.0); MEAN PLATELET VOLUME 8.8 fL (7.4-11.0); MONOCYTES # (AUTO) 0.7 x10^3/uL (0.3-0.8); MONOCYTES % (AUTO) 9.7 % (0.0-13.0); NEUTROPHILS # (AUTO) 5.7 x10^3/uL (2.2-4.8); NEUTROPHILS % (AUTO) 78.9 % (42.0-75.0); RED BLOOD COUNT 2.35 X10^6/uL (3.5-5.4); RED CELL DISTRIBUTION WIDTH 19.8 % (11.6-16.5); WHITE BLOOD COUNT 7.2 X10^3/uL (3.6-10.0)
[2021-12-02 04:57] LABS: ALANINE AMINOTRANSFERASE 35 Units/L (12-78); ALBUMIN 2.5 g/dL (3.4-5.0); ALKALINE PHOSPHATASE 80 Units/L (46-116); ASPARTATE AMINO TRANSFERASE 40 Units/L (15-37); BLOOD UREA NITROGEN 36 mg/dL (7-18); CALCIUM 7.9 mg/dL (8.5-10.1); CARBON DIOXIDE 20.2 mmol/L (21-32); CHLORIDE 110 mmol/L (98-107); COR CA(FOR HYPOALB) 9.1 mg/dL (8.5-10.1); CREATINE KINASE 25 Units/L (26-192); CREATINE KINASE MB < 1.0 ng/mL (0-4.0); CREATININE 1.35 mg/dL (0.55-1.02); SODIUM 142 mmol/L (136-145); TOTAL PROTEIN 5.5 g/dL (6.4-8.2); eGFR NON BLACK RACES 42 (>60)
[2021-12-02] MEDS: ALBUMIN HUMAN 25%- 100 ML 100 ML IV SCH (09:42)
[2021-12-02] MEDS: INVanz INJ 1 GRAM VIAL 0.5 G in NS 50 ML IV 50 ML IV SCH (09:47)
[2021-12-02] MEDS: LANOXIN or DIGITEK PO SCH (09:48)
[2021-12-02] MEDS: PROTONIX INJ 40 MG VIAL IVP SCH ×2 (09:48→20:02)
[2021-12-02] MEDS: MORPHINE SULFATE INJ 2 MG INJ IVP PRN ×3 (09:48→19:04)
[2021-12-02] MEDS: LOPRESSOR TAB 25 MG PO SCH ×2 (09:49→20:02)
[2021-12-02] MEDS: CARDIZEM CD 240 MG 24-HR PO SCH (10:53)
--- NOTE | 2021-12-02 10:57 | PCM.PROG ---
Progress Note - Progress Note for Day of Date of Exam: 12/02/21 - Subjective Subjective: WAS ADMITTED FOR TREATMENT OF ACUTE ON CHRONIC RENAL FAILURE, RHABDOMYOLYSIS, HUMERAL NECK FRACTURE, UTI, ANEMIA, DEHYDRATION, AND GENERALIZED WEAKNESS. SHE HAS A PMH OF RECENT CVA, HTN, A-FIB, HYPERLIPIDEMIA, AND RENAL DISEASE. TODAY, SHE IS ALERT, LYING IN BED ON MORNING ROUNDS. SHE CONTINUES WITH COMPLAINTS OF LEFT UPPER ARM AND SHOULDER PAIN. ON EXAMINATION, HEART IS IRREGULAR IN RATE AND RHYTHM. A-FIB NOTED WITH HR 110-140 BPM. BILATERAL LUNGS NOTED WITH DIMINISHED LUNG SOUNDS THROUGHOUT. LARGE BRUISE NOTED TO LEFT UPPER ARM AND SHOULDER AREA. ABDOMEN IS ROUND, SOFT, AND NON-TENDER WITH NORMAL BOWEL SOUNDS NOTED IN ALL QUADRANTS. SCATTERED BRUISING NOTED OVER BODY. HER VITALS THIS MORNING ARE: 97.9-701-43-100%-150/76. LABS WERE OBTAINED. RBC 2.35, HGB 8.0, HCT 23.6, SODIUM 142, POTASSIUM 3.9, CHLORIDE 110, CARBON DIOXIDE 20.2, BUN 36, CREATININE 1.35, GLUCOSE 106, CALCIUM 7.9, AST 40, CREATINE KINASE 25, TROPONIN 124.8, TOTAL PROTEIN 5.5, ALBUMIN 2.5. URINE CULTURE POSITIVE FOR GROWTH OF E.COLI. SHE IS CURRENTLY RECEIVING NORMAL SALINE WITH MVI IN EACH LITER AT 100 ML/HR, ALBUMIN 25% IV DAILY, INVANZ 0.5G IV DAILY, CARDIZEM CD 180MG PO DAILY, DIGOXIN 0.125MG PO DAILY, LOPRESSOR 125 MG PO BID, PROTONIX 40MG IV BID, MORPHINE SULFATE 2MG IV Q4H PRN, NORCO 5/325MG PO Q6H PRN, ZOFRAN 4MG IV Q6H PRN, PROCRIT 10,000 UNITS MON,WED,FRI, VALIUM 5MG PO TID PRN, PHENOBARBITAL HS, NYSTATIN CREAM TID PRN, NYSTATIN POWDER BID PRN, ZOVIRAX TOP Q8H. TODAY, WE WILL INCREASE CARDIZEM TO 240MG PO DAILY. WE WILL HAVE PHYSICAL THERAPY EVALUATE AND WORK WITH PATIENT. OTHERWISE, WE WILL FOLLOW UP WITH AM LABS AND CONTINUE TO MONITOR. TIME SPENT ON CLINICAL ASSESSMENT, REVIEWING LABS AND IMAGING, DECISION MAKING, AND DOCUMENTATION GREATER THAN 45 MINUTES. - Past Medical Family Social History Past Med/Fam/Surg Hx: No changes since H&P Allergies: Allergies No Known Drug Allergies [NKDA] Allergy (Verified 03/25/21 13:54) - Review of Systems ROS: No change since H&P - Vital Signs and I&O's Vital Signs: Temperature 97.6 F Pulse Rate [Left Radial] 128 Pulse Rate 124 Respiratory Rate 26 Blood Pressure [Right Arm] 116/79 Blood Pressure 122/78 O2 Sat by Pulse Oximetry 99 Intake and Output: Intake & Output 11/29/21 11/30/21 12/01/21 12/02/21 11:59 11:59 11:59 11:59 Intake Total 2952 / 2952 4699 / 4699 2438 / 2438 2650 / 2650 Output Total 850 / 850 1500 / 1500 2100 / 2100 1300 / 1300 Balance 2102 / 2102 3199 / 3199 338 / 338 1350 / 1350 - Physical Exam Oriented: Normal Eyes: Normal Ear: Normal Nose: Normal Throat: Normal Respiratory: Diminished Cardiovascular: Tachycardia, Irregular : Normal Auscultation: Bowel Sounds: Normal Palpation: Normal Tenderness: Normal Skin: Decreased Turgur, Red, Wound, Bruising, Other (EXCORIATION TO THE GENITAL AREA AND INNER THIGHS ) Musculoskeletal: Left, Shoulder, Arm, Tender Psychiatric: Normal Mood Description: Calm Affect: Normal Speech Pattern: Clear, Appropriate - Laboratory and Diagnostics Result Diagrams: 12/02/21 03:43 12/02/21 03:43 Labs: 11/26/21 13:05 Urine,Catheterized Urine Culture - Final Escherichia Coli Laboratory WBC 7.2 X10^3/uL (3.6-10.0) 12/02/21 03:43 RBC 2.35 X10^6/uL (3.5-5.4) L 12/02/21 03:43 Hgb 8.0 g/dL (12.0-16.0) L 12/02/21 03:43 Hct 23.6 % (36.0-47.0) L 12/02/21 03:43 MCV 100.4 fL (80.0-100.0) H 12/02/21 03:43 MCH 34.0 pg (27.0-34.0) 12/02/21 03:43 MCHC 33.9 g/dL (33.0-35.0) 12/02/21 03:43 RDW 19.8 % (11.6-16.5) H 12/02/21 03:43 Plt Count 208 X10^3/uL (150.0-450.0) 12/02/21 03:43 Plt Count Comment Adequate (ADEQUATE) 11/29/21 13:48 MPV 8.8 fL (7.4-11.0) 12/02/21 03:43 Neut % (Auto) 78.9 % (42.0-75.0) H 12/02/21 03:43 Lymph % (Auto) 9.1 % (21.0-51.0) L 12/02/21 03:43 [place] % (Auto) 9.7 % (0.0-13.0) 12/02/21 03:43 Eos % (Auto) 1.8 % (0.9-2.9) 12/02/21 03:43 Baso % (Auto) 0.5 % (0.2-1.0) 12/02/21 03:43 Neut # (Auto) 5.7 x10^3/uL (2.2-4.8) H 12/02/21 03:43 Lymph # (Auto) 0.7 X10^3/uL (1.3-2.9) L 12/02/21 03:43 [place] # (Auto) 0.7 x10^3/uL (0.3-0.8) 12/02/21 03:43 Eos # (Auto) 0.1 x10^3/uL (0.0-0.2) 12/02/21 03:43 Baso # (Auto) 0.0 X10^3/uL (0.0-0.1) 12/02/21 03:43 Absolute Nucleated RBC 0.2 /100WBC 12/02/21 03:43 Plt Clumps, EDTA Rare 11/29/21 13:48 Plt Morphology Comment Normal (NORMAL) 11/29/21 13:48 RBC Morphology Abnormal (NORMAL) A 11/29/21 13:48 Macrocytosis 1+ A 11/29/21 13:48 Sodium 142 mmol/L (136-145) 12/02/21 03:43 Corrected Sodium TNP 12/02/21 03:43 Potassium 3.9 mmol/L (3.5-5.1) 12/02/21 03:43 Chloride 110 mmol/L (98-107) H 12/02/21 03:43 Carbon Dioxide 20.2 mmol/L (21-32) L 12/02/21 03:43 BUN 36 mg/dL (7-18) H 12/02/21 03:43 Creatinine 1.35 mg/dL (0.55-1.02) H 12/02/21 03:43 Est GFR (MDRD) Af Amer 50 (>60) L 12/02/21 03:43 Est GFR (MDRD) Non-Af 42 (>60) L 12/02/21 03:43 Glucose 106 mg/dL (65-99) H 12/02/21 03:43 Calcium 7.9 mg/dL (8.5-10.1) L 12/02/21 03:43 Corrected Calcium 9.1 mg/dL (8.5-10.1) 12/02/21 03:43 Magnesium 1.9 mg/dL (1.7-2.9) 11/29/21 04:52 Iron 17 ug/dL (50-175) L 11/29/21 10:08 Transferrin 119 mg/dL (202-364) L 11/29/21 10:08 Ferritin 917 ng/mL (8-252) H 11/29/21 10:08 Total Bilirubin 0.30 mg/dL (0.2-1.0) 12/02/21 03:43 AST 40 Units/L (15-37) H 12/02/21 03:43 ALT 35 Units/L (12-78) 12/02/21 03:43 Alkaline Phosphatase 80 Units/L (46-116) 12/02/21 03:43 Creatine Kinase 25 Units/L (26-192) L 12/02/21 03:43 CK-MB (CK-2) < 1.0 ng/mL (0-4.0) 12/02/21 03:43 CK/CKMB % Calc 4.0 % (<4) 12/02/21 03:43 Troponin I High Sens 124.8 ng/L (4.0-60.0) H* 12/02/21 03:43 Total Protein 5.5 g/dL (6.4-8.2) L 12/02/21 03:43 Albumin 2.5 g/dL (3.4-5.0) L 12/02/21 03:43 Globulin 3.0 g/dL (2.5-4.5) 12/02/21 03:43 Albumin/Globulin Ratio 0.8 Ratio (1.1-2.1) L 12/02/21 03:43 Vitamin B12 > 2000 pg/mL (193-986) H 11/29/21 10:08 Folate 4.1 ng/mL (>8.6) L 11/29/21 10:08 Specimen Type Catherized urine 11/26/21 13:05 Urine Color Yellow (YELLOW) 11/26/21 13:05 Urine Appearance Cloudy (CLEAR) 11/26/21 13:05 Urine pH 6.0 (5.0 - 8.0) 11/26/21 13:05 Ur Specific [place] 1.015 (1.000-1.030) 11/26/21 13:05 Urine Protein 2+ (NEGATIVE) 11/26/21 13:05 Urine Glucose (UA) Negative (NEGATIVE) 11/26/21 13:05 Urine Ketones 1+ (NEGATIVE) 11/26/21 13:05 Urine Occult Blood 5+ (NEGATIVE) 11/26/21 13:05 Urine Nitrite Negative (NEGATIVE) 11/26/21 13:05 Urine Bilirubin Negative (NEGATIVE) 11/26/21 13:05 Urine Urobilinogen Normal (NORMAL) 11/26/21 13:05 Ur Leukocyte Esterase 3+ (NEGATIVE) 11/26/21 13:05 Urine RBC 20-30 /HPF (0-3) A 11/26/21 13:05 Urine WBC Tntc /HPF (0-5) A 11/26/21 13:05 Ur Squamous Epith Cells Moderate /HPF (NEGATIVE) 11/26/21 13:05 Urine Bacteria 2+ /HPF (NEGATIVE) 11/26/21 13:05 Urine Mucus Few /HPF (NEGATIVE) 11/26/21 13:05 Ur Culture Indicated? Yes/culture set up 11/26/21 13:05 Stool Description 10g brown loose 11/29/21 18:30 Stl Occult Blood (IFOB) Negative (NEGATIVE) 11/29/21 18:30 SARS CoV-2 RNA Rapid KAMALJIT Negative (NEGATIVE) 11/26/21 11:11 Blood Type O POSITIVE 11/29/21 10:08 Antibody Screen Negative 11/29/21 10:08 Crossmatch See Detail 11/29/21 10:08 - Plan (1) Acute on chronic renal failure Status: Acute Qualifiers: Acute renal failure type: unspecified Chronic kidney disease stage: unspecified stage Qualified Code(s): N17.9 - Acute kidney failure, unspecified; N18.9 - Chronic kidney disease, unspecified Plan: NORMAL SALINE AT 100 ML/HR WITH MVI IN EACH LITER, INVANZ 0.5G IV DAILY, CARDIZEM CD 240MG PO DAILY, DIGOXIN 0.125MG PO DAILY, LOPRESSOR 25MG PO BID, MORPHINE SULFATE 2MG IV Q4H PRN, ZOFRAN 4MG IV Q6H PRN, NYSTATIN CREAM TID PRN, NYSTATIN POWDER BID PRN, ZOVIRAX TOP Q8H, ALBUMIN 25% IV DAILY, PROCRIT 10,000 UNITS ON MON,WED,FRI, VALIUM 5MG PO TID PRN, AND PHENOBARBITAL 30MG PO HS (2) Rhabdomyolysis Status: Acute Qualifiers: Rhabdomyolysis type: traumatic Encounter type: initial encounter Qualified Code(s): T79.6XXA - Traumatic ischemia of muscle, initial encounter (3) Atrial fibrillation Status: Acute Qualifiers: Atrial fibrillation type: unspecified Qualified Code(s): I48.91 - Unspecified atrial fibrillation (4) Fracture of neck of humerus Status: Acute Qualifiers: Encounter type: initial encounter Fracture type: closed Laterality: left Qualified Code(s): S42.212A - Unspecified displaced fracture of surgical neck of left humerus, initial encounter for closed fracture Plan: CONSULT ORTHO (5) Urinary tract infection Status: Acute Qualifiers: Urinary tract infection type: acute cystitis Hematuria presence: without h ematuria Qualified Code(s): N30.00 - Acute cystitis without hematuria (6) Anemia Status: Acute Qualifiers: Anemia type: unspecified type Qualified Code(s): D64.9 - Anemia, unspecified (7) Dehydration Status: Acute (8) Generalized weakness Status: Acute (9) Recent cerebrovascular accident (CVA) Status: Chronic (10) Hypertension Status: Chronic Qualifiers: Hypertension type: primary hypertension Qualified Code(s): I10 - Essential (primary) hypertension (11) Hyperlipidemia Status: Chronic Qualifiers: Hyperlipidemia type: mixed hyperlipidemia Qualified Code(s): E78.2 - Mixed hyperlipidemia
[2021-12-02] MEDS: PHENOBARBITAL TAB 30 MG (32.4MG) PO SCH (20:02)
[2021-12-02] MEDS: NYSTATIN POWDER TOP PRN (20:03)
[2021-12-02] MEDS: BUTT CREAM (COMPOUND) TOP PRN (20:03)
[2021-12-02] MEDS: VALIUM PO PRN (22:00)
[2021-12-03] MEDS: NS 1,000 ML IV 1,000 ML with MVI INJ (ADULT) 10 ML IV SCH ×6 (00:55→19:09)
[2021-12-03] MEDS: ZOVIRAX TOP SCH ×3 (00:55→17:35)
[2021-12-03] MEDS: MORPHINE SULFATE INJ 2 MG INJ IVP PRN (01:44)
[2021-12-03 05:32] LABS: BASOPHILS % (AUTO) 0.7 % (0.2-1.0); EOSINOPHILS # (AUTO) 0.1 x10^3/uL (0.0-0.2); EOSINOPHILS % (AUTO) 2.3 % (0.9-2.9); HEMATOCRIT 22.6 % (36.0-47.0); HEMOGLOBIN 7.7 g/dL (12.0-16.0); LYMPHOCYTES # (AUTO) 0.6 X10^3/uL (1.3-2.9); LYMPHOCYTES % (AUTO) 10.3 % (21.0-51.0); MEAN CORPUSCULAR HEMOGLOBIN 33.8 pg (27.0-34.0); MEAN CORPUSCULAR VOLUME 99.4 fL (80.0-100.0); MEAN PLATELET VOLUME 8.6 fL (7.4-11.0); MONOCYTES # (AUTO) 0.6 x10^3/uL (0.3-0.8); MONOCYTES % (AUTO) 9.4 % (0.0-13.0); NEUTROPHILS # (AUTO) 4.7 x10^3/uL (2.2-4.8); NEUTROPHILS % (AUTO) 77.3 % (42.0-75.0); RED BLOOD COUNT 2.28 X10^6/uL (3.5-5.4); RED CELL DISTRIBUTION WIDTH 19.3 % (11.6-16.5)
[2021-12-03 05:43] LABS: ALANINE AMINOTRANSFERASE 32 Units/L (12-78); ALBUMIN 2.7 g/dL (3.4-5.0); ALKALINE PHOSPHATASE 79 Units/L (46-116); ASPARTATE AMINO TRANSFERASE 32 Units/L (15-37); BLOOD UREA NITROGEN 28 mg/dL (7-18); CALCIUM 7.9 mg/dL (8.5-10.1); CARBON DIOXIDE 20.3 mmol/L (21-32); CHLORIDE 111 mmol/L (98-107); COR CA(FOR HYPOALB) 8.9 mg/dL (8.5-10.1); CREATININE 1.23 mg/dL (0.55-1.02); DIGOXIN 1.36 ng/mL (0.9-2); SODIUM 143 mmol/L (136-145); TOTAL PROTEIN 5.6 g/dL (6.4-8.2); eGFR NON BLACK RACES 46 (>60)
[2021-12-03] MEDS: NYSTATIN POWDER TOP PRN ×2 (06:00→19:50)
[2021-12-03] MEDS: PROTONIX INJ 40 MG VIAL IVP SCH ×2 (10:06→21:10)
[2021-12-03] MEDS: ALBUMIN HUMAN 25%- 100 ML 100 ML IV SCH (10:06)
[2021-12-03] MEDS: CARDIZEM CD 240 MG 24-HR PO SCH (10:10)
[2021-12-03] MEDS: CYMBALTA PO SCH (10:10)
[2021-12-03] MEDS: LANOXIN or DIGITEK PO SCH (10:10)
[2021-12-03] MEDS: LOPRESSOR TAB 25 MG PO SCH ×2 (10:11→21:10)
[2021-12-03] MEDS: INVanz INJ 1 GRAM VIAL 0.5 G in NS 50 ML IV 50 ML IV SCH (10:11)
--- NOTE | 2021-12-03 10:23 | PCM.PROG ---
Progress Note - Progress Note for Day of Date of Exam: 12/03/21 - Subjective Subjective: WAS ADMITTED FOR TREATMENT OF ACUTE ON CHRONIC RENAL FAILURE, RHABDOMYOLYSIS, HUMERAL NECK FRACTURE, UTI, ANEMIA, DEHYDRATION, AND GENERALIZED WEAKNESS. SHE HAS A PMH OF RECENT CVA, HTN, A-FIB, HYPERLIPIDEMIA, AND RENAL DISEASE. TODAY, SHE IS LYING IN BED WITH EYES CLOSED ON MORNING ROUNDS. SHE AWAKENS TO VERBAL STIMULI. SHE DENIES COMPLAINTS OF MORNING ROUNDS. ON EXAMINATION, HEART RHYTHM IS IRREGULAR. A-FIB NOTED WITH HR 92 BPM. BILATERAL LUNGS NOTED WITH DIMINISHED LUNG SOUNDS THROUGHOUT. LARGE BRUISE NOTED TO LEFT UPPER ARM AND SHOULDER AREA. ABDOMEN IS ROUND, SOFT, AND NON-TENDER WITH NORMAL BOWEL SOUNDS NOTED IN ALL QUADRANTS. SCATTERED BRUISING NOTED OVER BODY. HER V ITALS THIS MORNING ARE: 98.3-92-14-95%-118/93. LABS WERE OBTAINED. RBC 2.28, HGB 7.7, HCT 22.6, CHLORIDE 111, CARBON DIOXIDE 20.3, BUN 28, CREATININE 1.23, GLUCOSE 108, CALCIUM 7.9, TOTAL PROTEIN 5.6, ALBUMIN 2.7. URINE CULTURE POSITIVE FOR GROWTH OF E.COLI. SHE IS CURRENTLY RECEIVING NORMAL SALINE WITH MVI IN EACH LITER AT 100 ML/HR, ALBUMIN 25% IV DAILY, INVANZ 0.5G IV DAILY, CARDIZEM CD 240 MG PO DAILY, DIGOXIN 0.125MG PO DAILY, LOPRESSOR 125 MG PO BID, PROTONIX 40MG IV BID, MORPHINE SULFATE 2MG IV Q4H PRN, NORCO 5/325MG PO Q6H PRN, ZOFRAN 4MG IV Q6H PRN, PROCRIT 10,000 UNITS MON,WED,FRI, VALIUM 5MG PO TID PRN, PHENOBARBITAL HS, NYSTATIN CREAM TID PRN, NYSTATIN POWDER BID PRN, ZOVIRAX TOP Q8H. WE WILL CONTINUE WITH CURRENT PLAN OF CARE TODAY. WE WILL HAVE PHYSICAL THERAPY EVALUATE AND WORK WITH PATIENT. OTHERWISE, WE WILL FOLLOW UP WITH AM LABS AND CONTINUE TO MONITOR. TIME SPENT ON CLINICAL ASSESSMENT, REVIEWING LABS AND IMAGING, DECISION MAKING, AND DOCUMENTATION GREATER THAN 45 MINUTES. - Past Medical Family Social History Past Med/Fam/Surg Hx: No changes since H&P Allergies: Allergies No Known Drug Allergies [NKDA] Allergy (Verified 03/25/21 13:54) - Review of Systems ROS: No change since H&P - Vital Signs and I&O's Vital Signs: Temperature 98.3 F Pulse Rate [Left Radial] 128 Pulse Rate 120 Respiratory Rate 14 Blood Pressure [Right Arm] 116/79 Blood Pressure 118/93 O2 Sat by Pulse Oximetry 95 Intake and Output: Intake & Output 11/30/21 12/01/21 12/02/21 12/03/21 11:59 11:59 11:59 11:59 Intake Total 4699 / 4699 2438 / 2438 2650 / 2650 1950 / 1950 Output Total 1500 / 1500 2100 / 2100 1300 / 1300 1200 / 1200 Balance 3199 / 3199 338 / 338 1350 / 1350 750 / 750 - Physical Exam Oriented: Normal Eyes: Normal Ear: Normal Nose: Normal Throat: Normal Respiratory: Diminished Cardiovascular: Tachycardia, Irregular : Normal Auscultation: Bowel Sounds: Normal Palpation: Normal Tenderness: Normal Skin: Decreased Turgur, Red, Wound, Bruising, Other (EXCORIATION TO THE GENITAL AREA AND INNER THIGHS ) Musculoskeletal: Left, Shoulder, Arm, Tender Psychiatric: Normal Mood Description: Calm Affect: Normal Speech Pattern: Clear, Appropriate - Laboratory and Diagnostics Result Diagrams: 12/03/21 04:23 12/03/21 04:23 Labs: 11/26/21 13:05 Urine,Catheterized Urine Culture - Final Escherichia Coli Laboratory WBC 6.0 X10^3/uL (3.6-10.0) 12/03/21 04:23 RBC 2.28 X10^6/uL (3.5-5.4) L 12/03/21 04:23 Hgb 7.7 g/dL (12.0-16.0) L 12/03/21 04:23 Hct 22.6 % (36.0-47.0) L 12/03/21 04:23 MCV 99.4 fL (80.0-100.0) 12/03/21 04:23 MCH 33.8 pg (27.0-34.0) 12/03/21 04:23 MCHC 34.0 g/dL (33.0-35.0) 12/03/21 04:23 RDW 19.3 % (11.6-16.5) H 12/03/21 04:23 Plt Count 233 X10^3/uL (150.0-450.0) 12/03/21 04:23 Plt Count Comment Adequate (ADEQUATE) 11/29/21 13:48 MPV 8.6 fL (7.4-11.0) 12/03/21 04:23 Neut % (Auto) 77.3 % (42.0-75.0) H 12/03/21 04:23 Lymph % (Auto) 10.3 % (21.0-51.0) L 12/03/21 04:23 [place] % (Auto) 9.4 % (0.0-13.0) 12/03/21 04:23 Eos % (Auto) 2.3 % (0.9-2.9) 12/03/21 04:23 Baso % (Auto) 0.7 % (0.2-1.0) 12/03/21 04:23 Neut # (Auto) 4.7 x10^3/uL (2.2-4.8) 12/03/21 04:23 Lymph # (Auto) 0.6 X10^3/uL (1.3-2.9) L 12/03/21 04:23 [place] # (Auto) 0.6 x10^3/uL (0.3-0.8) 12/03/21 04:23 Eos # (Auto) 0.1 x10^3/uL (0.0-0.2) 12/03/21 04:23 Baso # (Auto) 0.0 X10^3/uL (0.0-0.1) 12/03/21 04:23 Absolute Nucleated RBC 0.2 /100WBC 12/03/21 04:23 Plt Clumps, EDTA Rare 11/29/21 13:48 Plt Morphology Comment Normal (NORMAL) 11/29/21 13:48 RBC Morphology Abnormal (NORMAL) A 11/29/21 13:48 Macrocytosis 1+ A 11/29/21 13:48 Sodium 143 mmol/L (136-145) 12/03/21 04:23 Corrected Sodium TNP 12/03/21 04:23 Potassium 3.6 mmol/L (3.5-5.1) 12/03/21 04:23 Chloride 111 mmol/L (98-107) H 12/03/21 04:23 Carbon Dioxide 20.3 mmol/L (21-32) L 12/03/21 04:23 BUN 28 mg/dL (7-18) H 12/03/21 04:23 Creatinine 1.23 mg/dL (0.55-1.02) H 12/03/21 04:23 Est GFR (MDRD) Af Amer 56 (>60) L 12/03/21 04:23 Est GFR (MDRD) Non-Af 46 (>60) L 12/03/21 04:23 Glucose 108 mg/dL (65-99) H 12/03/21 04:23 Calcium 7.9 mg/dL (8.5-10.1) L 12/03/21 04:23 Corrected Calcium 8.9 mg/dL (8.5-10.1) 12/03/21 04:23 Magnesium 1.9 mg/dL (1.7-2.9) 11/29/21 04:52 Iron 17 ug/dL (50-175) L 11/29/21 10:08 Transferrin 119 mg/dL (202-364) L 11/29/21 10:08 Ferritin 917 ng/mL (8-252) H 11/29/21 10:08 Total Bilirubin 0.30 mg/dL (0.2-1.0) 12/03/21 04:23 AST 32 Units/L (15-37) 12/03/21 04:23 ALT 32 Units/L (12-78) 12/03/21 04:23 Alkaline Phosphatase 79 Units/L (46-116) 12/03/21 04:23 Creatine Kinase 25 Units/L (26-192) L 12/02/21 03:43 CK-MB (CK-2) < 1.0 ng/mL (0-4.0) 12/02/21 03:43 CK/CKMB % Calc 4.0 % (<4) 12/02/21 03:43 Troponin I High Sens 124.8 ng/L (4.0-60.0) H* 12/02/21 03:43 Total Protein 5.6 g/dL (6.4-8.2) L 12/03/21 04:23 Albumin 2.7 g/dL (3.4-5.0) L 12/03/21 04:23 Globulin 2.9 g/dL (2.5-4.5) 12/03/21 04:23 Albumin/Globulin Ratio 0.9 Ratio (1.1-2.1) L 12/03/21 04:23 Vitamin B12 > 2000 pg/mL (193-986) H 11/29/21 10:08 Folate 4.1 ng/mL (>8.6) L 11/29/21 10:08 Specimen Type Catherized urine 11/26/21 13:05 Urine Color Yellow (YELLOW) 11/26/21 13:05 Urine Appearance Cloudy (CLEAR) 11/26/21 13:05 Urine pH 6.0 (5.0 - 8.0) 11/26/21 13:05 Ur Specific [place] 1.015 (1.000-1.030) 11/26/21 13:05 Urine Protein 2+ (NEGATIVE) 11/26/21 13:05 Urine Glucose (UA) Negative (NEGATIVE) 11/26/21 13:05 Urine Ketones 1+ (NEGATIVE) 11/26/21 13:05 Urine Occult Blood 5+ (NEGATIVE) 11/26/21 13:05 Urine Nitrite Negative (NEGATIVE) 11/26/21 13:05 Urine Bilirubin Negative (NEGATIVE) 11/26/21 13:05 Urine Urobilinogen Normal (NORMAL) 11/26/21 13:05 Ur Leukocyte Esterase 3+ (NEGATIVE) 11/26/21 13:05 Urine RBC 20-30 /HPF (0-3) A 11/26/21 13:05 Urine WBC Tntc /HPF (0-5) A 11/26/21 13:05 Ur Squamous Epith Cells Moderate /HPF (NEGATIVE) 11/26/21 13:05 Urine Bacteria 2+ /HPF (NEGATIVE) 11/26/21 13:05 Urine Mucus Few /HPF (NEGATIVE) 11/26/21 13:05 Ur Culture Indicated? Yes/culture set up 11/26/21 13:05 Stool Description 10g brown loose 11/29/21 18:30 Stl Occult Blood (IFOB) Negative (NEGATIVE) 11/29/21 18:30 Digoxin 1.36 ng/mL (0.9-2) 12/03/21 04:23 SARS CoV-2 RNA Rapid KAMALJIT Negative (NEGATIVE) 11/26/21 11:11 Blood Type O POSITIVE 11/29/21 10:08 Antibody Screen Negative 11/29/21 10:08 Crossmatch See Detail 11/29/21 10:08 - Plan (1) Acute on chronic renal failure Status: Acute Qualifiers: Acute renal failure type: unspecified Chronic kidney disease stage: unspecified stage Qualified Code(s): N17.9 - Acute kidney failure, unspecified; N18.9 - Chronic kidney disease, unspecified Plan: NORMAL SALINE AT 100 ML/HR WITH MVI IN EACH LITER, INVANZ 0.5G IV DAILY, C ARDIZEM CD 240MG PO DAILY, DIGOXIN 0.125MG PO DAILY, LOPRESSOR 25MG PO BID, MORPHINE SULFATE 2MG IV Q4H PRN, ZOFRAN 4MG IV Q6H PRN, NYSTATIN CREAM TID PRN, NYSTATIN POWDER BID PRN, ZOVIRAX TOP Q8H, ALBUMIN 25% IV DAILY, PROCRIT 10,000 UNITS ON MON,WED,FRI, VALIUM 5MG PO TID PRN, AND PHENOBARBITAL 30MG PO HS (2) Rhabdomyolysis Status: Acute Qualifiers: Rhabdomyolysis type: traumatic Encounter type: initial encounter Qualified Code(s): T79.6XXA - Traumatic ischemia of muscle, initial encounter (3) Atrial fibrillation Status: Acute Qualifiers: Atrial fibrillation type: unspecified Qualified Code(s): I48.91 - Unspecified atrial fibrillation Plan: CARDIZEM DRIP (4) Fracture of neck of humerus Status: Acute Qualifiers: Encounter type: initial encounter Fracture type: closed Laterality: left Qualified Code(s): S42.212A - Unspecified displaced fracture of surgical neck of left humerus, initial encounter for closed fracture Plan: CONSULT ORTHO (5) Urinary tract infection Status: Acute Qualifiers: Urinary tract infection type: acute cystitis Hematuria presence: without hematuria Qualified Code(s): N30.00 - Acute cystitis without hematuria (6) Anemia Status: Acute Qualifiers: Anemia type: unspecified type Qualified Code(s): D64.9 - Anemia, unspecified (7) Dehydration Status: Acute (8) Generalized weakness Status: Acute (9) Recent cerebrovascular accident (CVA) Status: Chronic (10) Hypertension Status: Chronic Qualifiers: Hypertension type: primary hypertension Qualified Code(s): I10 - Essential (primary) hypertension (11) Hyperlipidemia Status: Chronic Qualifiers: Hyperlipidemia type: mixed hyperlipidemia Qualified Code(s): E78.2 - Mixed hyperlipidemia
[2021-12-03] MEDS: PROCRIT or EPOGEN VIAL 10,000 UNITS SC SCH (11:25)
[2021-12-03] MEDS: K-DUR TAB 20 MEQ PO PRN (11:25)
[2021-12-03] MEDS: PHENOBARBITAL TAB 30 MG (32.4MG) PO SCH (21:10)
[2021-12-03] MEDS: NORCO 5/325 MG TAB PO PRN (21:15)
[2021-12-04] MEDS: MORPHINE SULFATE INJ 2 MG INJ IVP PRN ×2 (01:05→21:22)
[2021-12-04] MEDS: ZOVIRAX TOP SCH ×3 (01:30→17:31)
[2021-12-04 05:02] LABS: BASOPHILS % (AUTO) 0.9 % (0.2-1.0); EOSINOPHILS # (AUTO) 0.1 x10^3/uL (0.0-0.2); EOSINOPHILS % (AUTO) 2.6 % (0.9-2.9); HEMATOCRIT 22.8 % (36.0-47.0); HEMOGLOBIN 7.7 g/dL (12.0-16.0); LYMPHOCYTES # (AUTO) 0.6 X10^3/uL (1.3-2.9); LYMPHOCYTES % (AUTO) 12.7 % (21.0-51.0); MEAN CORPUSCULAR HEMOGLOBIN 33.5 pg (27.0-34.0); MEAN CORPUSCULAR HGB CONC 33.9 g/dL (33.0-35.0); MEAN CORPUSCULAR VOLUME 98.8 fL (80.0-100.0); MONOCYTES # (AUTO) 0.6 x10^3/uL (0.3-0.8); MONOCYTES % (AUTO) 11.7 % (0.0-13.0); NEUTROPHILS # (AUTO) 3.6 x10^3/uL (2.2-4.8); NEUTROPHILS % (AUTO) 72.1 % (42.0-75.0); RED CELL DISTRIBUTION WIDTH 19.3 % (11.6-16.5); WHITE BLOOD COUNT 4.9 X10^3/uL (3.6-10.0)
[2021-12-04 05:10] LABS: ALANINE AMINOTRANSFERASE 35 Units/L (12-78); ALBUMIN 2.9 g/dL (3.4-5.0); ALKALINE PHOSPHATASE 83 Units/L (46-116); ASPARTATE AMINO TRANSFERASE 38 Units/L (15-37); BLOOD UREA NITROGEN 24 mg/dL (7-18); CALCIUM 7.7 mg/dL (8.5-10.1); CARBON DIOXIDE 21.5 mmol/L (21-32); CHLORIDE 113 mmol/L (98-107); COR CA(FOR HYPOALB) 8.6 mg/dL (8.5-10.1); CREATININE 1.18 mg/dL (0.55-1.02); SODIUM 144 mmol/L (136-145); TOTAL PROTEIN 5.7 g/dL (6.4-8.2); eGFR NON BLACK RACES 49 (>60)
[2021-12-04] MEDS: CARDIZEM CD 240 MG 24-HR PO SCH (09:54)
[2021-12-04] MEDS: NS 1,000 ML IV 1,000 ML with MVI INJ (ADULT) 10 ML IV SCH ×4 (09:54→21:23)
[2021-12-04] MEDS: ALBUMIN HUMAN 25%- 100 ML 100 ML IV SCH (09:54)
[2021-12-04] MEDS: INVanz INJ 1 GRAM VIAL 0.5 G in NS 50 ML IV 50 ML IV SCH (09:55)
[2021-12-04] MEDS: LANOXIN or DIGITEK PO SCH (09:55)
[2021-12-04] MEDS: CYMBALTA PO SCH (09:55)
[2021-12-04] MEDS: PROTONIX INJ 40 MG VIAL IVP SCH ×2 (09:57→21:22)
[2021-12-04] MEDS: LOPRESSOR TAB 25 MG PO SCH ×2 (09:57→21:22)
[2021-12-04] MEDS: NORCO 5/325 MG TAB PO PRN ×2 (10:01→17:31)
--- NOTE | 2021-12-04 10:52 | PCM.PROG ---
Progress Note - Progress Note for Day of Date of Exam: 12/04/21 - Subjective Subjective: WAS ADMITTED FOR TREATMENT OF ACUTE ON CHRONIC RENAL FAILURE, RHABDOMYOLYSIS, HUMERAL NECK FRACTURE, UTI, ANEMIA, DEHYDRATION, AND GENERALIZED WEAKNESS. SHE HAS A PMH OF RECENT CVA, HTN, A-FIB, HYPERLIPIDEMIA, AND RENAL DISEASE. TODAY, SHE IS LYING IN BED WITH EYES CLOSED ON MORNING ROUNDS. SHE AWAKENS TO VERBAL STIMULI. SHE REPORTS GENERALIZED WEAKNESS THIS MORNING. PATIENT HAS BEEN UNABLE TO GET OUT OF BED OR AMBULATE WITHOUT MODERATE ASSISTANCE. ON EXAMINATION, HEART RHYTHM IS IRREGULAR. A-FIB NOTED WITH HR 92 BPM. BILATERAL LUNGS NOTED WITH DIMINISHED LUNG SOUNDS THROUGHOUT. LARGE BRUISE NOTED TO LEFT UPPER ARM AND SHOULDER AREA. ABDOMEN IS ROUND, SOFT, AND NON- TENDER WITH NORMAL BOWEL SOUNDS NOTED IN ALL QUADRANTS. SCATTERED BRUISING NOTED OVER BODY. JACOBO CATHETER TO BEDSIDE DRAINAGE. HER VITALS THIS MORNING ARE: 97.7-108-19-98%-128/88. LABS WERE OBTAINED. ABNORMAL LAB VALUES INCUDE THE FOLLOWING: RBC 2.30, HGB 7.7, HCT 22.8, CHLORIDE 113, BUN 24, CREATININE 1.18, AST 38, TOTA PROTEIN 5.7, ALBUMIN 2.9. URINE CULTURE POSITIVE FOR GROWTH OF E.COLI. SHE IS CURRENTLY RECEIVING NORMAL SALINE WITH MVI IN EACH LITER AT 100 ML/HR, ALBUMIN 25% IV DAILY, INVANZ 0.5G IV DAILY, CARDIZEM CD 240 MG PO DAILY, DIGOXIN 0.125MG PO DAILY, LOPRESSOR 125 MG PO BID, PROTONIX 40MG IV BID, MORPHINE SULFATE 2MG IV Q4H PRN, NORCO 5/325MG PO Q6H PRN, ZOFRAN 4MG IV Q6H PRN, PROCRIT 10,000 UNITS MON,WED,FRI, VALIUM 5MG PO TID PRN, PHENOBARBITAL HS, NYSTATIN CREAM TID PRN, NYSTATIN POWDER BID PRN, ZOVIRAX TOP Q8H. WE WILL CONTINUE WITH CURRENT PLAN OF CARE TODAY. WE WILL HAVE PHYSICAL THERAPY CONTINUE TO WORK WITH PATIENT. OTHERWISE, WE WILL FOLLOW UP WITH AM LABS AND CONTINUE TO MONITOR. TIME SPENT ON CLINICAL ASSESSMENT, REVIEWING LABS AND IMAGING, DECISION MAKING, AND DOCUMENTATION GREATER THAN 45 MINUTES. - Past Medical Family Social History Past Med/Fam/Surg Hx: No changes since H&P Allergies: Allergies No Known Drug Allergies [NKDA] Allergy (Verified 03/25/21 13:54) - Review of Systems ROS: No change since H&P - Vital Signs and I&O's Vital Signs: Temperature 97.7 F Pulse Rate [Left Radial] 128 Pulse Rate 138 Respiratory Rate 19 Blood Pressure [Right Arm] 116/79 Blood Pressure 128/88 O2 Sat by Pulse Oximetry 98 Intake and Output: Intake & Output 12/01/21 12/02/21 12/03/21 12/04/21 11:59 11:59 11:59 11:59 Intake Total 2438 / 2438 2650 / 2650 1950 / 1950 2166 / 2166 Output Total 2100 / 2100 1300 / 1300 1200 / 1200 1000 / 1000 Balance 338 / 338 1350 / 1350 750 / 750 1166 / 1166 - Physical Exam Oriented: Normal Eyes: Normal Ear: Normal Nose: Normal Throat: Normal Respiratory: Diminished Cardiovascular: Tachycardia, Irregular : Normal Auscultation: Bowel Sounds: Normal Tenderness: Normal Skin: Decreased Turgur, Red, Wound, Bruising, Other (EXCORIATION TO THE GENITAL AREA AND INNER THIGHS ) Musculoskeletal: Left, Shoulder, Arm, Tender Psychiatric: Normal Mood Description: Calm Affect: Normal Speech Pattern: Clear, Appropriate - Laboratory and Diagnostics Result Diagrams: 12/04/21 04:15 12/04/21 04:15 Labs: 11/26/21 13:05 Urine,Catheterized Urine Culture - Final Escherichia Coli Laboratory WBC 4.9 X10^3/uL (3.6-10.0) 12/04/21 04:15 RBC 2.30 X10^6/uL (3.5-5.4) L 12/04/21 04:15 Hgb 7.7 g/dL (12.0-16.0) L 12/04/21 04:15 Hct 22.8 % (36.0-47.0) L 12/04/21 04:15 MCV 98.8 fL (80.0-100.0) 12/04/21 04:15 MCH 33.5 pg (27.0-34.0) 12/04/21 04:15 MCHC 33.9 g/dL (33.0-35.0) 12/04/21 04:15 RDW 19.3 % (11.6-16.5) H 12/04/21 04:15 Plt Count 276 X10^3/uL (150.0-450.0) 12/04/21 04:15 Plt Count Comment Adequate (ADEQUATE) 11/29/21 13:48 MPV 9.0 fL (7.4-11.0) 12/04/21 04:15 Neut % (Auto) 72.1 % (42.0-75.0) 12/04/21 04:15 Lymph % (Auto) 12.7 % (21.0-51.0) L 12/04/21 04:15 [place] % (Auto) 11.7 % (0.0-13.0) 12/04/21 04:15 Eos % (Auto) 2.6 % (0.9-2.9) 12/04/21 04:15 Baso % (Auto) 0.9 % (0.2-1.0) 12/04/21 04:15 Neut # (Auto) 3.6 x10^3/uL (2.2-4.8) 12/04/21 04:15 Lymph # (Auto) 0.6 X10^3/uL (1.3-2.9) L 12/04/21 04:15 [place] # (Auto) 0.6 x10^3/uL (0.3-0.8) 12/04/21 04:15 Eos # (Auto) 0.1 x10^3/uL (0.0-0.2) 12/04/21 04:15 Baso # (Auto) 0.0 X10^3/uL (0.0-0.1) 12/04/21 04:15 Absolute Nucleated RBC 0.3 /100WBC 12/04/21 04:15 Plt Clumps, EDTA Rare 11/29/21 13:48 Plt Morphology Comment Normal (NORMAL) 11/29/21 13:48 RBC Morphology Abnormal (NORMAL) A 11/29/21 13:48 Macrocytosis 1+ A 11/29/21 13:48 Sodium 144 mmol/L (136-145) 12/04/21 04:15 Corrected Sodium TNP 12/04/21 04:15 Potassium 4.0 mmol/L (3.5-5.1) 12/04/21 04:15 Chloride 113 mmol/L (98-107) H 12/04/21 04:15 Carbon Dioxide 21.5 mmol/L (21-32) 12/04/21 04:15 BUN 24 mg/dL (7-18) H 12/04/21 04:15 Creatinine 1.18 mg/dL (0.55-1.02) H 12/04/21 04:15 Est GFR (MDRD) Af Amer 59 (>60) 12/04/21 04:15 Est GFR (MDRD) Non-Af 49 (>60) L 12/04/21 04:15 Glucose 97 mg/dL (65-99) 12/04/21 04:15 Calcium 7.7 mg/dL (8.5-10.1) L 12/04/21 04:15 Corrected Calcium 8.6 mg/dL (8.5-10.1) 12/04/21 04:15 Magnesium 1.9 mg/dL (1.7-2.9) 11/29/21 04:52 Iron 17 ug/dL (50-175) L 11/29/21 10:08 Transferrin 119 mg/dL (202-364) L 11/29/21 10:08 Ferritin 917 ng/mL (8-252) H 11/29/21 10:08 Total Bilirubin 0.30 mg/dL (0.2-1.0) 12/04/21 04:15 AST 38 Units/L (15-37) H 12/04/21 04:15 ALT 35 Units/L (12-78) 12/04/21 04:15 Alkaline Phosphatase 83 Units/L (46-116) 12/04/21 04:15 Creatine Kinase 25 Units/L (26-192) L 12/02/21 03:43 CK-MB (CK-2) < 1.0 ng/mL (0-4.0) 12/02/21 03:43 CK/CKMB % Calc 4.0 % (<4) 12/02/21 03:43 Troponin I High Sens 124.8 ng/L (4.0-60.0) H* 12/02/21 03:43 Total Protein 5.7 g/dL (6.4-8.2) L 12/04/21 04:15 Albumin 2.9 g/dL (3.4-5.0) L 12/04/21 04:15 Globulin 2.8 g/dL (2.5-4.5) 12/04/21 04:15 Albumin/Globulin Ratio 1.0 Ratio (1.1-2.1) L 12/04/21 04:15 Vitamin B12 > 2000 pg/mL (193-986) H 11/29/21 10:08 Folate 4.1 ng/mL (>8.6) L 11/29/21 10:08 Specimen Type Catherized urine 11/26/21 13:05 Urine Color Yellow (YELLOW) 11/26/21 13:05 Urine Appearance Cloudy (CLEAR) 11/26/21 13:05 Urine pH 6.0 (5.0 - 8.0) 11/26/21 13:05 Ur Specific [place] 1.015 (1.000-1.030) 11/26/21 13:05 Urine Protein 2+ (NEGATIVE) 11/26/21 13:05 Urine Glucose (UA) Negative (NEGATIVE) 11/26/21 13:05 Urine Ketones 1+ (NEGATIVE) 11/26/21 13:05 Urine Occult Blood 5+ (NEGATIVE) 11/26/21 13:05 Urine Nitrite Negative (NEGATIVE) 11/26/21 13:05 Urine Bilirubin Negative (NEGATIVE) 11/26/21 13:05 Urine Urobilinogen Normal (NORMAL) 11/26/21 13:05 Ur Leukocyte Esterase 3+ (NEGATIVE) 11/26/21 13:05 Urine RBC 20-30 /HPF (0-3) A 11/26/21 13:05 Urine WBC Tntc /HPF (0-5) A 11/26/21 13:05 Ur Squamous Epith Cells Moderate /HPF (NEGATIVE) 11/26/21 13:05 Urine Bacteria 2+ /HPF (NEGATIVE) 11/26/21 13:05 Urine Mucus Few /HPF (NEGATIVE) 11/26/21 13:05 Ur Culture Indicated? Yes/culture set up 11/26/21 13:05 Stool Description 10g brown loose 11/29/21 18:30 Stl Occult Blood (IFOB) Negative (NEGATIVE) 11/29/21 18:30 Digoxin 1.36 ng/mL (0.9-2) 12/03/21 04:23 SARS CoV-2 RNA Rapid KAMALJIT Negative (NEGATIVE) 11/26/21 11:11 Blood Type O POSITIVE 11/29/21 10:08 Antibody Screen Negative 11/29/21 10:08 Crossmatch See Detail 11/29/21 10:08 - Plan (1) Acute on chronic renal failure Status: Acute Qualifiers: Acute renal failure type: unspecified Chronic kidney disease stage: unspecified stage Qualified Code(s): N17.9 - Acute kidney failure, unspecified; N18.9 - Chronic kidney disease, unspecified Plan: NORMAL SALINE AT 100 ML/HR WITH MVI IN EACH LITER, INVANZ 0.5G IV DAILY, CARDIZEM CD 240MG PO DAILY, DIGOXIN 0.125MG PO DAILY, LOPRESSOR 25MG PO BID, MORPHINE SULFATE 2MG IV Q4H PRN, ZOFRAN 4MG IV Q6H PRN, NYSTATIN CREAM TID PRN, NYSTATIN POWDER BID PRN, ZOVIRAX TOP Q8H, ALBUMIN 25% IV DAILY, PROCRIT 10,000 UNITS ON MON,WED,FRI, VALIUM 5MG PO TID PRN, AND PHENOBARBITAL 30MG PO HS (2) Rhabdomyolysis Status: Acute Qualifiers: Rhabdomyolysis type: traumatic Encounter type: initial encounter Qualified Code(s): T79.6XXA - Traumatic ischemia of muscle, initial encounter (3) Atrial fibrillation Status: Acute Qualifiers: Atrial fibrillation type: unspecified Qualified Code(s): I48.91 - Unspecified atrial fibrillation Plan: CARDIZEM DRIP (4) Fracture of neck of humerus Status: Acute Qualifiers: Encounter type: initial encounter Fracture type: closed Laterality: left Qualified Code(s): S42.212A - Unspecified displaced fracture of surgical neck of left humerus, initial encounter for closed fracture Plan: CONSULT ORTHO (5) Urinary tract infection Status: Acute Qualifiers: Urinary tract infection type: acute cystitis Hematuria presence: without hematuria Qualified Code(s): N30.00 - Acute cystitis without hematuria (6) Anemia Status: Acute Qualifiers: Anemia type: unspecified type Qualified Code(s): D64.9 - Anemia, unsp ecified (7) Dehydration Status: Acute (8) Generalized weakness Status: Acute (9) Recent cerebrovascular accident (CVA) Status: Chronic (10) Hypertension Status: Chronic Qualifiers: Hypertension type: primary hypertension Qualified Code(s): I10 - Essential (primary) hypertension (11) Hyperlipidemia Status: Chronic Qualifiers: Hyperlipidemia type: mixed hyperlipidemia Qualified Code(s): E78.2 - Mixed hyperlipidemia
[2021-12-04] MEDS: VALIUM PO PRN (18:05)
[2021-12-04] MEDS: NYSTATIN POWDER TOP PRN (21:00)
[2021-12-04] MEDS: PHENOBARBITAL TAB 30 MG (32.4MG) PO SCH (21:22)
[2021-12-05] MEDS: ZOVIRAX TOP SCH ×3 (01:30→16:49)
[2021-12-05 05:02] LABS: BASOPHILS % (AUTO) 0.7 % (0.2-1.0); EOSINOPHILS # (AUTO) 0.1 x10^3/uL (0.0-0.2); EOSINOPHILS % (AUTO) 1.9 % (0.9-2.9); HEMATOCRIT 23.6 % (36.0-47.0); LYMPHOCYTES # (AUTO) 0.6 X10^3/uL (1.3-2.9); LYMPHOCYTES % (AUTO) 12.3 % (21.0-51.0); MEAN CORPUSCULAR HEMOGLOBIN 33.5 pg (27.0-34.0); MEAN CORPUSCULAR HGB CONC 33.8 g/dL (33.0-35.0); MEAN PLATELET VOLUME 8.5 fL (7.4-11.0); MONOCYTES # (AUTO) 0.5 x10^3/uL (0.3-0.8); MONOCYTES % (AUTO) 11.4 % (0.0-13.0); NEUTROPHILS # (AUTO) 3.4 x10^3/uL (2.2-4.8); NEUTROPHILS % (AUTO) 73.7 % (42.0-75.0); RED BLOOD COUNT 2.38 X10^6/uL (3.5-5.4); RED CELL DISTRIBUTION WIDTH 19.5 % (11.6-16.5); WHITE BLOOD COUNT 4.6 X10^3/uL (3.6-10.0)
[2021-12-05 05:06] LABS: ALANINE AMINOTRANSFERASE 32 Units/L (12-78); ALBUMIN 3.1 g/dL (3.4-5.0); ALKALINE PHOSPHATASE 98 Units/L (46-116); ASPARTATE AMINO TRANSFERASE 31 Units/L (15-37); BLOOD UREA NITROGEN 22 mg/dL (7-18); CALCIUM 8.2 mg/dL (8.5-10.1); CARBON DIOXIDE 22.1 mmol/L (21-32); CHLORIDE 113 mmol/L (98-107); COR CA(FOR HYPOALB) 8.9 mg/dL (8.5-10.1); CREATININE 1.17 mg/dL (0.55-1.02); SODIUM 147 mmol/L (136-145); TOTAL PROTEIN 5.9 g/dL (6.4-8.2); eGFR NON BLACK RACES 49 (>60)
[2021-12-05] MEDS: MORPHINE SULFATE INJ 2 MG INJ IVP PRN (06:14)
[2021-12-05] MEDS: ALBUMIN HUMAN 25%- 100 ML 100 ML IV SCH (08:13)
[2021-12-05] MEDS: LOPRESSOR TAB 25 MG PO SCH ×2 (08:14→20:00)
[2021-12-05] MEDS: CARDIZEM CD 240 MG 24-HR PO SCH (08:14)
[2021-12-05] MEDS: PROTONIX INJ 40 MG VIAL IVP SCH ×2 (08:14→20:00)
[2021-12-05] MEDS: LANOXIN or DIGITEK PO SCH (08:15)
[2021-12-05] MEDS: INVanz INJ 1 GRAM VIAL 0.5 G in NS 50 ML IV 50 ML IV SCH (08:15)
[2021-12-05] MEDS: CYMBALTA PO SCH (08:15)
[2021-12-05] MEDS: NORCO 5/325 MG TAB PO PRN (08:24)
[2021-12-05] MEDS: CORDARONE TAB 200 MG PO SCH ×2 (09:42→16:44)
[2021-12-05] MEDS: PROCRIT or EPOGEN VIAL 10,000 UNITS SC SCH (09:42)
--- NOTE | 2021-12-05 09:47 | PCM.PROG ---
Progress Note - Progress Note for Day of Date of Exam: 12/05/21 - Subjective Subjective: WAS ADMITTED FOR TREATMENT OF ACUTE ON CHRONIC RENAL FAILURE, RHABDOMYOLYSIS, HUMERAL NECK FRACTURE, UTI, ANEMIA, DEHYDRATION, AND GENERALIZED WEAKNESS. SHE HAS A PMH OF RECENT CVA, HTN, A-FIB, HYPERLIPIDEMIA, AND RENAL DISEASE. TODAY, SHE IS LYING IN BED WITH EYES CLOSED ON MORNING ROUNDS. SHE AWAKENS TO VERBAL STIMULI. SHE REPORTS GENERALIZED WEAKNESS THIS MORNING. PATIENT HAS BEEN UNABLE TO GET OUT OF BED OR AMBULATE WITHOUT MODERATE ASSISTANCE. ON EXAMINATION, HEART RHYTHM IS IRREGULAR. 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 BILATERAL LUNGS NOTED WITH DIMINISHED LUNG SOUNDS THROUGHOUT. LARGE BRUISE NOTED TO LEFT UPPER ARM AND SHOULDER AREA. ABDOMEN IS ROUND, SOFT, AND NON-TENDER WITH NORMAL BOWEL SOUNDS NOTED IN ALL QUADRANTS. SCATTERED BRUISING NOTED OVER BODY. JACOBO CATHETER TO BEDSIDE DRAINAGE. HER VITALS THIS MORNING ARE: 97.9-124-23-97%-134/82. LABS WERE OBTAINED. ABNORMAL LAB VALUES INCUDE THE FOLLOWING: RBC 2.38, HGB 8.0, HCT 23.6, SODIUM 147, CHLORIDE 113, BUN 22, CREATININE 1.17, TOTAL PROTEIN 5.9, ALBUMIN 3.1. URINE CULTURE POSITIVE FOR GROWTH OF E.COLI. SHE IS CURRENTLY RECEIVING NORMAL SALINE WITH MVI IN EACH LITER AT 100 ML/HR, ALBUMIN 25% IV DAILY, INVANZ 0.5G IV DAILY, CARDIZEM CD 240 MG PO DAILY, DIGOXIN 0.125MG PO DAILY, LOPRESSOR 125 MG PO BID, PROTONIX 40MG IV BID, MORPHINE SULFATE 2MG IV Q4H PRN, NORCO 5/325MG PO Q6H PRN, ZOFRAN 4MG IV Q6H PRN, PROCRIT 10,000 UNITS MON,WED,FRI, VALIUM 5MG PO TID PRN, PHENOBARBITAL HS, NYSTATIN CREAM TID PRN, NYSTATIN POWDER BID PRN, ZOVIRAX TOP Q8H. WE WILL CONTINUE WITH CURRENT PLAN OF CARE TODAY AND ADD AMIODARONE 200MG PO BIDWM. WE WILL HAVE PHYSICAL THERAPY CONTINUE TO WORK WITH PATIENT. WE PLAN FOR PATIENT TO GO TO REHAB FACILITY FOR INTENSE PHYSICAL THERAPY. PATIENT IS IN AGREEMENT. WE ARE DISCUSSING OPTIONS WITH CASE MANAGEMENT. OTHERWISE, WE WILL FOLLOW UP WITH AM LABS AND CONTINUE TO MONITOR. TIME SPENT ON CLINICAL ASSESSMENT, REVIEWING LABS AND IMAGING, DECISION MAKING, AND DOCUMENTATION GREATER THAN 45 MINUTES. - Past Medical Family Social History Past Med/Fam/Surg Hx: No changes since H&P Allergies: Allergies No Known Drug Allergies [NKDA] Allergy (Verified 03/25/21 13:54) - Review of Systems ROS: No change since H&P - Vital Signs and I&O's Vital Signs: Temperature 97.9 F Pulse Rate [Left Radial] 128 Pulse Rate 147 Respiratory Rate 23 Blood Pressure [Right Arm] 116/79 Blood Pressure 134/82 O2 Sat by Pulse Oximetry 97 Intake and Output: Intake & Output 12/02/21 12/03/21 12/04/21 12/05/21 11:59 11:59 11:59 11:59 Intake Total 2650 / 2650 1950 / 1950 2166 / 2166 1325 / 1325 Output Total 1300 / 1300 1200 / 1200 1000 / 1000 675 / 675 Balance 1350 / 1350 750 / 750 1166 / 1166 650 / 650 - Physical Exam Oriented: Normal Eyes: Normal Ear: Normal Nose: Normal Throat: Normal Respiratory: Diminished Cardiovascular: Tachycardia, Irregular : Normal Auscultation: Bowel Sounds: Normal Palpation: Normal Tenderness: Normal Skin: Decreased Turgur, Red, Wound, Bruising, Other (EXCORIATION TO THE GENITAL AREA AND INNER THIGHS ) Musculoskeletal: Left, Shoulder, Arm, Tender Psychiatric: Normal Mood Description: Calm Affect: Normal Speech Pattern: Clear, Appropriate - Laboratory and Diagnostics Result Diagrams: 12/05/21 04:17 12/05/21 04:17 Labs: 11/26/21 13:05 Urine,Catheterized Urine Culture - Final Escherichia Coli Laboratory WBC 4.6 X10^3/uL (3.6-10.0) 12/05/21 04:17 RBC 2.38 X10^6/uL (3.5-5.4) L 12/05/21 04:17 Hgb 8.0 g/dL (12.0-16.0) L 12/05/21 04:17 Hct 23.6 % (36.0-47.0) L 12/05/21 04:17 MCV 99.0 fL (80.0-100.0) 12/05/21 04:17 MCH 33.5 pg (27.0-34.0) 12/05/21 04:17 MCHC 33.8 g/dL (33.0-35.0) 12/05/21 04:17 RDW 19.5 % (11.6-16.5) H 12/05/21 04:17 Plt Count 279 X10^3/uL (150.0-450.0) 12/05/21 04:17 Plt Count Comment Adequate (ADEQUATE) 11/29/21 13:48 MPV 8.5 fL (7.4-11.0) 12/05/21 04:17 Neut % (Auto) 73.7 % (42.0-75.0) 12/05/21 04:17 Lymph % (Auto) 12.3 % (21.0-51.0) L 12/05/21 04:17 [place] % (Auto) 11.4 % (0.0-13.0) 12/05/21 04:17 Eos % (Auto) 1.9 % (0.9-2.9) 12/05/21 04:17 Baso % (Auto) 0.7 % (0.2-1.0) 12/05/21 04:17 Neut # (Auto) 3.4 x10^3/uL (2.2-4.8) 12/05/21 04:17 Lymph # (Auto) 0.6 X10^3/uL (1.3-2.9) L 12/05/21 04:17 [place] # (Auto) 0.5 x10^3/uL (0.3-0.8) 12/05/21 04:17 Eos # (Auto) 0.1 x10^3/uL (0.0-0.2) 12/05/21 04:17 Baso # (Auto) 0.0 X10^3/uL (0.0-0.1) 12/05/21 04:17 Absolute Nucleated RBC 0.1 /100WBC 12/05/21 04:17 Plt Clumps, EDTA Rare 11/29/21 13:48 Plt Morphology Comment Normal (NORMAL) 11/29/21 13:48 RBC Morphology Abnormal (NORMAL) A 11/29/21 13:48 Macrocytosis 1+ A 11/29/21 13:48 Sodium 147 mmol/L (136-145) H 12/05/21 04:17 Corrected Sodium TNP 12/05/21 04:17 Potassium 4.1 mmol/L (3.5-5.1) 12/05/21 04:17 Chloride 113 mmol/L (98-107) H 12/05/21 04:17 Carbon Dioxide 22.1 mmol/L (21-32) 12/05/21 04:17 BUN 22 mg/dL (7-18) H 12/05/21 04:17 Creatinine 1.17 mg/dL (0.55-1.02) H 12/05/21 04:17 Est GFR (MDRD) Af Amer 60 (>60) 12/05/21 04:17 Est GFR (MDRD) Non-Af 49 (>60) L 12/05/21 04:17 Glucose 89 mg/dL (65-99) 12/05/21 04:17 Calcium 8.2 mg/dL (8.5-10.1) L 12/05/21 04:17 Corrected Calcium 8.9 mg/dL (8.5-10.1) 12/05/21 04:17 Magnesium 1.9 mg/dL (1.7-2.9) 11/29/21 04:52 Iron 17 ug/dL (50-175) L 11/29/21 10:08 Transferrin 119 mg/dL (202-364) L 11/29/21 10:08 Ferritin 917 ng/mL (8-252) H 11/29/21 10:08 Total Bilirubin 0.30 mg/dL (0.2-1.0) 12/05/21 04:17 AST 31 Units/L (15-37) 12/05/21 04:17 ALT 32 Units/L (12-78) 12/05/21 04:17 Alkaline Phosphatase 98 Units/L (46-116) 12/05/21 04:17 Creatine Kinase 25 Units/L (26-192) L 12/02/21 03:43 CK-MB (CK-2) < 1.0 ng/mL (0-4.0) 12/02/21 03:43 CK/CKMB % Calc 4.0 % (<4) 12/02/21 03:43 Troponin I High Sens 124.8 ng/L (4.0-60.0) H* 12/02/21 03:43 Total Protein 5.9 g/dL (6.4-8.2) L 12/05/21 04:17 Albumin 3.1 g/dL (3.4-5.0) L 12/05/21 04:17 Globulin 2.8 g/dL (2.5-4.5) 12/05/21 04:17 Albumin/Globulin Ratio 1.1 Ratio (1.1-2.1) 12/05/21 04:17 Vitamin B12 > 2000 pg/mL (193-986) H 11/29/21 10:08 Folate 4.1 ng/mL (>8.6) L 11/29/21 10:08 Specimen Type Catherized urine 11/26/21 13:05 Urine Color Yellow (YELLOW) 11/26/21 13:05 Urine Appearance Cloudy (CLEAR) 11/26/21 13:05 Urine pH 6.0 (5.0 - 8.0) 11/26/21 13:05 Ur Specific [place] 1.015 (1.000-1.030) 11/26/21 13:05 Urine Protein 2+ (NEGATIVE) 11/26/21 13:05 Urine Glucose (UA) Negative (NEGATIVE) 11/26/21 13:05 Urine Ketones 1+ (NEGATIVE) 11/26/21 13:05 Urine Occult Blood 5+ (NEGATIVE) 11/26/21 13:05 Urine Nitrite Negative (NEGATIVE) 11/26/21 13:05 Urine Bilirubin Negative (NEGATIVE) 11/26/21 13:05 Urine Urobilinogen Normal (NORMAL) 11/26/21 13:05 Ur Leukocyte Esterase 3+ (NEGATIVE) 11/26/21 13:05 Urine RBC 20-30 /HPF (0-3) A 11/26/21 13:05 Urine WBC Tntc /HPF (0-5) A 11/26/21 13:05 Ur Squamous Epith Cells Moderate /HPF (NEGATIVE) 11/26/21 13:05 Urine Bacteria 2+ /HPF (NEGATIVE) 11/26/21 13:05 Urine Mucus Few /HPF (NEGATIVE) 11/26/21 13:05 Ur Culture Indicated? Yes/culture set up 11/26/21 13:05 Stool Description 10g brown loose 11/29/21 18:30 Stl Occult Blood (IFOB) Negative (NEGATIVE) 11/29/21 18:30 Digoxin 1.36 ng/mL (0.9-2) 12/03/21 04:23 SARS CoV-2 RNA Rapid KAMALJIT Negative (NEGATIVE) 11/26/21 11:11 Blood Type O POSITIVE 11/29/21 10:08 Antibody Screen Negative 11/29/21 10:08 Crossmatch See Detail 11/29/21 10:08 - Plan (1) Acute on chronic renal failure Status: Acute Qualifiers: Acute renal failure type: unspecified Chronic kidney disease stage: unspecified stage Qualified Code(s): N17.9 - Acute kidney failure, unspecified; N18.9 - Chronic kidney disease, unspecified Plan: NORMAL SALINE AT 100 ML/HR WITH MVI IN EACH LITER, INVANZ 0.5G IV DAILY, CARDIZEM CD 240MG PO DAILY, DIGOXIN 0.125MG PO DAILY, LOPRESSOR 25MG PO BID, AMIODARONE 200MG PO BID, MORPHINE SULFATE 2MG IV Q4H PRN, ZOFRAN 4MG IV Q6H PRN, NYSTATIN CREAM TID PRN, NYSTATIN POWDER BID PRN, ZOVIRAX TOP Q8H, ALBUMIN 25% IV DAILY, PROCRIT 10,000 UNITS ON MON,WED,FRI, VALIUM 5MG PO TID PRN, AND PHENOBARBITAL 30MG PO HS (2) Rhabdomyolysis Status: Acute Qualifiers: Rhabdomyolysis type: traumatic Encounter type: initial encounter Qualified Code(s): T79.6XXA - Traumatic ischemia of muscle, initial encounter (3) Atrial fibrillation Status: Acute Qualifiers: Atrial fibrillation type: unspecified Qualified Code(s): I48.91 - Unspecified atrial fibrillation Plan: CARDIZEM DRIP (4) Fracture of neck of humerus Status: Acute Qualifiers: Encounter type: initial encounter Fracture type: closed Laterality: left Qualified Code(s): S42.212A - Unspecified displaced fracture of surgical neck of left humerus, initial encounter for closed fracture Plan: CONSULT ORTHO (5) Urinary tract infection Status: Acute Qualifiers: Urinary tract infection type: acute cystitis Hematuria presence: without hematuria Qualified Code(s): N30.00 - Acute cystitis without hematuria (6) Anemia Status: Acute Qualifiers: Anemia type: unspecified type Qualified Code(s): D64.9 - Anemia, unspecified (7) Dehydration Status: Acute (8) Generalized weakness Status: Acute (9) Recent cerebrovascular accident (CVA) Status: Chronic (10) Hypertension Status: Chronic Qualifiers: Hypertension type: primary hypertension Qualified Code(s): I10 - Essential (primary) hypertension (11) Hyperlipidemia Status: Chronic Qualifiers: Hyperlipidemia type: mixed hyperlipidemia Qualified Code(s): E78.2 - Mixed hyperlipidemia
[2021-12-05] MEDS: NS 1,000 ML IV 1,000 ML with MVI INJ (ADULT) 10 ML IV SCH ×2 (12:15)
[2021-12-05 12:29] LABS: BILIRUBIN,URINE NEGATIVE (NEGATIVE); BLOOD/HEMOGLOBIN,URINE 1+ (NEGATIVE); GLUCOSE, URINE NEGATIVE (NEGATIVE); KETONES,URINE NEGATIVE (NEGATIVE); LEUKOCYTE ESTERASE ,URINE 1+ (NEGATIVE); NITRITES,URINE NEGATIVE (NEGATIVE); PROTEIN,URINE 1+ (NEGATIVE); UROBILINOGEN,URINE NORMAL (NORMAL)
[2021-12-05 12:44] LABS: APPEARANCE,URINE HAZY (CLEAR); BACTERIA,URINE TRACE /HPF (NEGATIVE); COLOR,URINE YELLOW (YELLOW); RBC,URINE 0-2 /HPF (0-3); SQUAMOUS EPITHELIAL CELL,UR MODERATE /HPF (NEGATIVE)
[2021-12-05] MEDS: PHENOBARBITAL TAB 30 MG (32.4MG) PO SCH (20:00)
[2021-12-05] MEDS: VALIUM PO PRN (20:00)
[2021-12-05] MEDS: MORPHINE SULFATE INJ 4 MG IVP PRN (21:12)
[2021-12-05 21:53] VITALS: BMI 34.5
[2021-12-06] MEDS: NORCO 5/325 MG TAB PO PRN (00:35)
[2021-12-06] MEDS: ZOVIRAX TOP SCH ×3 (01:35→18:34)
[2021-12-06] MEDS: NS 1,000 ML IV 1,000 ML with MVI INJ (ADULT) 10 ML IV SCH ×6 (02:20→23:54)
[2021-12-06 05:20] LABS: BASOPHILS % (AUTO) 0.6 % (0.2-1.0); EOSINOPHILS # (AUTO) 0.1 x10^3/uL (0.0-0.2); EOSINOPHILS % (AUTO) 1.7 % (0.9-2.9); HEMATOCRIT 21.8 % (36.0-47.0); HEMOGLOBIN 7.4 g/dL (12.0-16.0); LYMPHOCYTES # (AUTO) 0.6 X10^3/uL (1.3-2.9); LYMPHOCYTES % (AUTO) 11.5 % (21.0-51.0); MEAN CORPUSCULAR HEMOGLOBIN 33.5 pg (27.0-34.0); MEAN CORPUSCULAR HGB CONC 33.8 g/dL (33.0-35.0); MEAN CORPUSCULAR VOLUME 99.1 fL (80.0-100.0); MEAN PLATELET VOLUME 8.5 fL (7.4-11.0); MONOCYTES # (AUTO) 0.6 x10^3/uL (0.3-0.8); MONOCYTES % (AUTO) 11.8 % (0.0-13.0); NEUTROPHILS # (AUTO) 3.9 x10^3/uL (2.2-4.8); NEUTROPHILS % (AUTO) 74.4 % (42.0-75.0); RED CELL DISTRIBUTION WIDTH 19.3 % (11.6-16.5); WHITE BLOOD COUNT 5.2 X10^3/uL (3.6-10.0)
[2021-12-06 05:32] LABS: ALANINE AMINOTRANSFERASE 26 Units/L (12-78); ALBUMIN 2.9 g/dL (3.4-5.0); ALKALINE PHOSPHATASE 103 Units/L (46-116); ASPARTATE AMINO TRANSFERASE 25 Units/L (15-37); BLOOD UREA NITROGEN 21 mg/dL (7-18); CALCIUM 7.9 mg/dL (8.5-10.1); CARBON DIOXIDE 20.8 mmol/L (21-32); CHLORIDE 111 mmol/L (98-107); COR CA(FOR HYPOALB) 8.8 mg/dL (8.5-10.1); CREATININE 1.17 mg/dL (0.55-1.02); SODIUM 145 mmol/L (136-145); TOTAL PROTEIN 5.7 g/dL (6.4-8.2); eGFR NON BLACK RACES 49 (>60)
[2021-12-06] MEDS: CORDARONE TAB 200 MG PO SCH ×2 (06:15→17:18)
[2021-12-06] MEDS: ALBUMIN HUMAN 25%- 100 ML 100 ML IV SCH (08:29)
[2021-12-06] MEDS: INVanz INJ 1 GRAM VIAL 0.5 G in NS 50 ML IV 50 ML IV SCH (08:29)
[2021-12-06] MEDS: CYMBALTA PO SCH (08:30)
[2021-12-06] MEDS: LOPRESSOR TAB 25 MG PO SCH ×2 (08:30→20:07)
[2021-12-06] MEDS: PROTONIX INJ 40 MG VIAL IVP SCH ×2 (08:31→20:07)
[2021-12-06] MEDS: CARDIZEM CD 240 MG 24-HR PO SCH (08:31)
[2021-12-06] MEDS: LANOXIN or DIGITEK PO SCH (08:31)
[2021-12-06] MEDS: MORPHINE SULFATE INJ 4 MG IVP PRN ×3 (09:12→22:56)
[2021-12-06] MEDS: LOVENOX INJ 30 MG SYR SC SCH ×2 (11:20→20:07)
[2021-12-06] MEDS: VALIUM PO PRN (17:18)
[2021-12-06] MEDS: PHENOBARBITAL TAB 30 MG (32.4MG) PO SCH (20:07)
[2021-12-06] MEDS: NYSTATIN POWDER TOP PRN (22:30)
[2021-12-07] MEDS: ZOVIRAX TOP SCH ×3 (04:14→16:51)
[2021-12-07] MEDS: VALIUM PO PRN (05:19)
[2021-12-07] MEDS: NS 1,000 ML IV 1,000 ML with MVI INJ (ADULT) 10 ML IV SCH ×4 (05:49→20:10)
[2021-12-07] MEDS: CORDARONE TAB 200 MG PO SCH ×2 (06:04→16:49)
[2021-12-07 06:21] LABS: BASOPHILS # (AUTO) 0.1 X10^3/uL (0.0-0.1); BASOPHILS % (AUTO) 0.9 % (0.2-1.0); EOSINOPHILS # (AUTO) 0.1 x10^3/uL (0.0-0.2); EOSINOPHILS % (AUTO) 1.1 % (0.9-2.9); HEMATOCRIT 21.8 % (36.0-47.0); HEMOGLOBIN 7.4 g/dL (12.0-16.0); LYMPHOCYTES # (AUTO) 0.6 X10^3/uL (1.3-2.9); LYMPHOCYTES % (AUTO) 10.1 % (21.0-51.0); MEAN CORPUSCULAR HEMOGLOBIN 33.5 pg (27.0-34.0); MEAN CORPUSCULAR VOLUME 98.7 fL (80.0-100.0); MEAN PLATELET VOLUME 8.6 fL (7.4-11.0); MONOCYTES # (AUTO) 0.5 x10^3/uL (0.3-0.8); MONOCYTES % (AUTO) 9.7 % (0.0-13.0); NEUTROPHILS # (AUTO) 4.3 x10^3/uL (2.2-4.8); NEUTROPHILS % (AUTO) 78.2 % (42.0-75.0); RED BLOOD COUNT 2.21 X10^6/uL (3.5-5.4); RED CELL DISTRIBUTION WIDTH 19.4 % (11.6-16.5); WHITE BLOOD COUNT 5.5 X10^3/uL (3.6-10.0)
[2021-12-07 06:33] LABS: ALANINE AMINOTRANSFERASE 24 Units/L (12-78); ALBUMIN 3.2 g/dL (3.4-5.0); ALKALINE PHOSPHATASE 114 Units/L (46-116); ASPARTATE AMINO TRANSFERASE 24 Units/L (15-37); BLOOD UREA NITROGEN 21 mg/dL (7-18); CALCIUM 7.8 mg/dL (8.5-10.1); CARBON DIOXIDE 19.2 mmol/L (21-32); CHLORIDE 111 mmol/L (98-107); COR CA(FOR HYPOALB) 8.4 mg/dL (8.5-10.1); CREATININE 1.25 mg/dL (0.55-1.02); DIGOXIN 1.79 ng/mL (0.9-2); SODIUM 144 mmol/L (136-145); TOTAL PROTEIN 5.9 g/dL (6.4-8.2); eGFR NON BLACK RACES 46 (>60)
[2021-12-07] MEDS: CARDIZEM CD 240 MG 24-HR PO SCH (09:41)
[2021-12-07] MEDS: LANOXIN or DIGITEK PO SCH (09:41)
[2021-12-07] MEDS: CYMBALTA PO SCH (09:41)
[2021-12-07] MEDS: PROTONIX INJ 40 MG VIAL IVP SCH ×2 (09:42→20:10)
[2021-12-07] MEDS: ALBUMIN HUMAN 25%- 100 ML 100 ML IV SCH (09:42)
[2021-12-07] MEDS: LOVENOX INJ 30 MG SYR SC SCH ×2 (09:42→20:10)
[2021-12-07] MEDS: INVanz INJ 1 GRAM VIAL 0.5 G in NS 50 ML IV 50 ML IV SCH (09:43)
[2021-12-07] MEDS: LOPRESSOR TAB 25 MG PO SCH ×2 (09:43→20:09)
[2021-12-07] MEDS: MORPHINE SULFATE INJ 4 MG IVP PRN (16:51)
[2021-12-07] MEDS: PHENOBARBITAL TAB 30 MG (32.4MG) PO SCH (20:09)
[2021-12-08] MEDS: VALIUM PO PRN ×3 (00:03→20:15)
[2021-12-08] MEDS: ZOVIRAX TOP SCH ×3 (00:30→18:00)
[2021-12-08] MEDS: CORDARONE TAB 200 MG PO SCH ×2 (06:00→17:52)
[2021-12-08 06:49] LABS: BASOPHILS % (AUTO) 0.6 % (0.2-1.0); EOSINOPHILS # (AUTO) 0.1 x10^3/uL (0.0-0.2); EOSINOPHILS % (AUTO) 1.5 % (0.9-2.9); HEMOGLOBIN 7.4 g/dL (12.0-16.0); LYMPHOCYTES # (AUTO) 0.6 X10^3/uL (1.3-2.9); LYMPHOCYTES % (AUTO) 12.2 % (21.0-51.0); MEAN CORPUSCULAR HEMOGLOBIN 33.2 pg (27.0-34.0); MEAN CORPUSCULAR HGB CONC 33.7 g/dL (33.0-35.0); MEAN CORPUSCULAR VOLUME 98.6 fL (80.0-100.0); MEAN PLATELET VOLUME 8.4 fL (7.4-11.0); MONOCYTES # (AUTO) 0.6 x10^3/uL (0.3-0.8); MONOCYTES % (AUTO) 11.4 % (0.0-13.0); NEUTROPHILS # (AUTO) 3.9 x10^3/uL (2.2-4.8); NEUTROPHILS % (AUTO) 74.3 % (42.0-75.0); RED BLOOD COUNT 2.23 X10^6/uL (3.5-5.4); RED CELL DISTRIBUTION WIDTH 19.2 % (11.6-16.5); WHITE BLOOD COUNT 5.2 X10^3/uL (3.6-10.0)
[2021-12-08 06:53] LABS: ALANINE AMINOTRANSFERASE 23 Units/L (12-78); ALBUMIN 3.4 g/dL (3.4-5.0); ALKALINE PHOSPHATASE 124 Units/L (46-116); ASPARTATE AMINO TRANSFERASE 23 Units/L (15-37); BLOOD UREA NITROGEN 21 mg/dL (7-18); CARBON DIOXIDE 18.7 mmol/L (21-32); CHLORIDE 110 mmol/L (98-107); CREATININE 1.23 mg/dL (0.55-1.02); SODIUM 144 mmol/L (136-145); TOTAL PROTEIN 6.3 g/dL (6.4-8.2); eGFR NON BLACK RACES 46 (>60)
[2021-12-08] MEDS: ALBUMIN HUMAN 25%- 100 ML 100 ML IV SCH (08:19)
[2021-12-08] MEDS: LANOXIN or DIGITEK PO SCH (08:21)
[2021-12-08] MEDS: NORCO 5/325 MG TAB PO PRN (08:22)
[2021-12-08] MEDS: LOVENOX INJ 30 MG SYR SC SCH ×2 (08:25→20:15)
[2021-12-08] MEDS: CARDIZEM CD 240 MG 24-HR PO SCH (08:26)
[2021-12-08] MEDS: CYMBALTA PO SCH (08:26)
[2021-12-08] MEDS: LOPRESSOR TAB 25 MG PO SCH ×2 (08:27→20:16)
[2021-12-08] MEDS: PROTONIX INJ 40 MG VIAL IVP SCH ×2 (08:27→20:15)
[2021-12-08] MEDS: NYSTATIN CREAM TOP PRN (10:00)
[2021-12-08] MEDS: NYSTATIN POWDER TOP PRN (10:00)
[2021-12-08] MEDS: INVanz INJ 1 GRAM VIAL 1 G in NS 100 ML IV 100 ML IV SCH (10:01)
--- NOTE | 2021-12-08 10:59 | PCM.PROG ---
Progress Note - Progress Note for Day of Date of Exam: 12/06/21 - Subjective Subjective: WAS ADMITTED FOR TREATMENT OF ACUTE ON CHRONIC RENAL FAILURE, HUMERAL NECK FRACTURE, E.COLI UTI, ANEMIA, AND GENERALIZED WEAKNESS. SHE HAS RECEIVED TWO UNITS OF PRBC SINCE ADMISSION. SHE HAS A PMH OF RECENT CVA, HTN, A-FIB, HYPERLIPIDEMIA, AND RENAL DISEASE. TODAY, SHE IS ALERT, SITTING UP IN BED ON MORNING ROUNDS. PATIENT HAS BEEN UNABLE TO GET OUT OF BED OR AMBULATE WITHOUT MODERATE ASSISTANCE. SHE CONTINUES WITH COMPLAINTS OF WEAKNESS AND LEFT UPPER ARM PAIN TODAY. ON EXAMINATION, HEART RHYTHM IS IRREGULAR. 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 HR IS GENERALLY HIGHER IN THE MORNING AND LEVELS OFF IN THE AFTERNOONS. BILATERAL LUNGS NOTED WITH DIMINISHED LUNG SOUNDS THROUGHOUT. LARGE BRUISE NOTED TO LEFT UPPER ARM AND SHOULDER AREA. ABDOMEN IS ROUND, SOFT, AND NON-TENDER WITH NORMAL BOWEL SOUNDS NOTED IN ALL QUADRANTS. SCATTERED BRUISING NOTED OVER BODY. JACOBO CATHETER TO BEDSIDE DRAINAGE. HER VITALS THIS MORNING ARE: 98.7-509-36-100%-144/86. LABS WERE OBTAINED. ABNORMAL LAB VALUES INCUDE THE FOLLOWING: RBC 2.20, HGB 7.4, HCT 21.8, CHLORIDE 111, BUN 21, CREATININE 1.17, CALCIUM 7.9, TOTAL PROTEIN 5.7, ALBUMIN 2.9. URINE CULTURE POSITIVE FOR GROWTH OF E.COLI. SHE IS CURRENTLY RECEIVING NORMAL SALINE WITH MVI IN EACH LITER AT 50 ML/HR, ALBUMIN 25% IV DAILY, INVANZ 1 G IV DAILY, CARDIZEM CD 240 MG PO DAILY, AMIODARONE 200MG PO BIDWM, DIGOXIN 0.125MG PO DAILY, LOPRESSOR 125 MG PO BID, PROTONIX 40MG IV BID, MORPHINE SULFATE 2MG IV Q4H PRN, NORCO 5/325MG PO Q6H PRN, ZOFRAN 4MG IV Q6H PRN, PROCRIT 10,000 UNITS MON,WED,FRI, VALIUM 5MG PO TID PRN, PHENOBARBITAL HS, NYSTATIN CREAM TID PRN, NYSTATIN POWDER BID PRN, ZOVIRAX TOP Q8H. WE WILL CONTINUE WITH CURRENT PLAN OF CARE TODAY. WE WILL HAVE PHYSICAL THERAPY CONTINUE TO WORK WITH PATIENT. WE PLAN FOR PATIENT TO GO TO REHAB FACILITY FOR INTENSE PHYSICAL THERAPY. PATIENT IS IN AGREEMENT. WE ARE DISCUSSING OPTIONS WITH CASE MANAGEMENT. OTHERWISE, WE WILL FOLLOW UP WITH AM LABS AND CONTINUE TO MONITOR. TIME SPENT ON CLINICAL ASSESSMENT, REVIEWING LABS AND IMAGING, DECISION MAKING, AND DOCUMENTATION GR EATER THAN 45 MINUTES. - Past Medical Family Social History Past Med/Fam/Surg Hx: No changes since H&P Allergies: Allergies No Known Drug Allergies [NKDA] Allergy (Verified 03/25/21 13:54) - Review of Systems ROS: No change since H&P - Vital Signs and I&O's Vital Signs: Temperature 97.5 F Pulse Rate [Left Radial] 128 Pulse Rate 126 Respiratory Rate 24 Blood Pressure [Right Arm] 116/79 Blood Pressure 151/91 O2 Sat by Pulse Oximetry 100 Intake and Output: Intake & Output 12/05/21 12/06/21 12/07/21 12/08/21 10:59 10:59 11:59 11:59 Intake Total 2129 / 2129 Output Total Balance 2129 - Physical Exam Oriented: Normal Eyes: Normal Ear: Normal Nose: Normal Throat: Normal Respiratory: Diminished Cardiovascular: Tachycardia, Irregular : Normal Auscultation: Bowel Sounds: Normal Palpation: Normal Tenderness: Normal Skin: Normal, Wound, Bruising (LEFT UPPER ARM ) Musculoskeletal: Left, Shoulder, Arm, Tender Psychiatric: Normal Mood Description: Calm Affect: Normal Speech Pattern: Clear, Appropriate - Laboratory and Diagnostics Result Diagrams: 12/08/21 05:19 12/08/21 05:19 Labs: 11/26/21 13:05 Urine,Catheterized Urine Culture - Final Escherichia Coli Laboratory WBC 5.2 X10^3/uL (3.6-10.0) 12/08/21 05:19 RBC 2.23 X10^6/uL (3.5-5.4) L 12/08/21 05:19 Hgb 7.4 g/dL (12.0-16.0) L 12/08/21 05:19 Hct 22.0 % (36.0-47.0) L 12/08/21 05:19 MCV 98.6 fL (80.0-100.0) 12/08/21 05:19 MCH 33.2 pg (27.0-34.0) 12/08/21 05:19 MCHC 33.7 g/dL (33.0-35.0) 12/08/21 05:19 RDW 19.2 % (11.6-16.5) H 12/08/21 05:19 Plt Count 278 X10^3/uL (150.0-450.0) 12/08/21 05:19 Plt Count Comment Adequate (ADEQUATE) 11/29/21 13:48 MPV 8.4 fL (7.4-11.0) 12/08/21 05:19 Neut % (Auto) 74.3 % (42.0-75.0) 12/08/21 05:19 Lymph % (Auto) 12.2 % (21.0-51.0) L 12/08/21 05:19 [place] % (Auto) 11.4 % (0.0-13.0) 12/08/21 05:19 Eos % (Auto) 1.5 % (0.9-2.9) 12/08/21 05:19 Baso % (Auto) 0.6 % (0.2-1.0) 12/08/21 05:19 Neut # (Auto) 3.9 x10^3/uL (2.2-4.8) 12/08/21 05:19 Lymph # (Auto) 0.6 X10^3/uL (1.3-2.9) L 12/08/21 05:19 [place] # (Auto) 0.6 x10^3/uL (0.3-0.8) 12/08/21 05:19 Eos # (Auto) 0.1 x10^3/uL (0.0-0.2) 12/08/21 05:19 Baso # (Auto) 0.0 X10^3/uL (0.0-0.1) 12/08/21 05:19 Absolute Nucleated RBC 0.2 /100WBC 12/08/21 05:19 Plt Clumps, EDTA Rare 11/29/21 13:48 Plt Morphology Comment Normal (NORMAL) 11/29/21 13:48 RBC Morphology Abnormal (NORMAL) A 11/29/21 13:48 Macrocytosis 1+ A 11/29/21 13:48 Sodium 144 mmol/L (136-145) 12/08/21 05:19 Corrected Sodium TNP 12/08/21 05:19 Potassium 4.3 mmol/L (3.5-5.1) 12/08/21 05:19 Chloride 110 mmol/L (98-107) H 12/08/21 05:19 Carbon Dioxide 18.7 mmol/L (21-32) L 12/08/21 05:19 BUN 21 mg/dL (7-18) H 12/08/21 05:19 Creatinine 1.23 mg/dL (0.55-1.02) H 12/08/21 05:19 Est GFR (MDRD) Af Amer 56 (>60) L 12/08/21 05:19 Est GFR (MDRD) Non-Af 46 (>60) L 12/08/21 05:19 Glucose 75 mg/dL (65-99) 12/08/21 05:19 Calcium 8.0 mg/dL (8.5-10.1) L 12/08/21 05:19 Corrected Calcium TNP 12/08/21 05:19 Magnesium 1.9 mg/dL (1.7-2.9) 11/29/21 04:52 Iron 17 ug/dL (50-175) L 11/29/21 10:08 Transferrin 119 mg/dL (202-364) L 11/29/21 10:08 Ferritin 917 ng/mL (8-252) H 11/29/21 10:08 Total Bilirubin 0.60 mg/dL (0.2-1.0) 12/08/21 05:19 AST 23 Units/L (15-37) 12/08/21 05:19 ALT 23 Units/L (12-78) 12/08/21 05:19 Alkaline Phosphatase 124 Units/L (46-116) H 12/08/21 05:19 Creatine Kinase 25 Units/L (26-192) L 12/02/21 03:43 CK-MB (CK-2) < 1.0 ng/mL (0-4.0) 12/02/21 03:43 CK/CKMB % Calc 4.0 % (<4) 12/02/21 03:43 Troponin I High Sens 124.8 ng/L (4.0-60.0) H* 12/02/21 03:43 Total Protein 6.3 g/dL (6.4-8.2) L 12/08/21 05:19 Albumin 3.4 g/dL (3.4-5.0) 12/08/21 05:19 Globulin 2.9 g/dL (2.5-4.5) 12/08/21 05:19 Albumin/Globulin Ratio 1.2 Ratio (1.1-2.1) 12/08/21 05:19 Vitamin B12 > 2000 pg/mL (193-986) H 11/29/21 10:08 Folate 4.1 ng/mL (>8.6) L 11/29/21 10:08 Specimen Type Clean catch urine 12/05/21 12:10 Urine Color Yellow (YELLOW) 12/05/21 12:10 Urine Appearance Hazy (CLEAR) 12/05/21 12:10 Urine pH 5.0 (5.0 - 8.0) 12/05/21 12:10 Ur Specific [place] 1.015 (1.000-1.030) 12/05/21 12:10 Urine Protein 1+ (NEGATIVE) 12/05/21 12:10 Urine Glucose (UA) Negative (NEGATIVE) 12/05/21 12:10 Urine Ketones Negative (NEGATIVE) 12/05/21 12:10 Urine Occult Blood 1+ (NEGATIVE) 12/05/21 12:10 Urine Nitrite Negative (NEGATIVE) 12/05/21 12:10 Urine Bilirubin Negative (NEGATIVE) 12/05/21 12:10 Urine Urobilinogen Normal (NORMAL) 12/05/21 12:10 Ur Leukocyte Esterase 1+ (NEGATIVE) 12/05/21 12:10 Urine RBC 0-2 /HPF (0-3) 12/05/21 12:10 Urine WBC 0-2 /HPF (0-5) 12/05/21 12:10 Ur Squamous Epith Cells Moderate /HPF (NEGATIVE) 12/05/21 12:10 Urine Bacteria Trace /HPF (NEGATIVE) 12/05/21 12:10 Urine Mucus Few /HPF (NEGATIVE) 12/05/21 12:10 Ur Culture Indicated? No/not indicated 12/05/21 12:10 Stool Description 10g brown loose 11/29/21 18:30 Stl Occult Blood (IFOB) Negative (NEGATIVE) 11/29/21 18:30 Digoxin 1.79 ng/mL (0.9-2) 12/07/21 06:02 SARS CoV-2 RNA Rapid KAMALJIT Negative (NEGATIVE) 11/26/21 11:11 Blood Type O POSITIVE 12/06/21 11:42 Antibody Screen Negative 12/06/21 11:42 Crossmatch See Detail 11/29/21 10:08 - Plan (1) Acute on chronic renal failure Status: Acute Qualifiers: Acute renal failure type: unspecified Chronic kidney disease stage: unspecified stage Qualified Code(s): N17.9 - Acute kidney failure, unspecified; N18.9 - Chronic kidney disease, unspecified Plan: NORMAL SALINE AT 50 ML/HR WITH MVI IN EACH LITER, INVANZ 0.5G IV DAILY, CARDIZEM CD 240MG PO DAILY, DIGOXIN 0.125MG PO DAILY, LOPRESSOR 25MG PO BID, AMIODARONE 200MG PO BID, MORPHINE SULFATE 2MG IV Q4H PRN, ZOFRAN 4MG IV Q6H PRN, NYSTATIN CREAM TID PRN, NYSTATIN POWDER BID PRN, ZOVIRAX TOP Q8H, ALBUMIN 25% IV DAILY, PROCRIT 10,000 UNITS ON MON,WED,FRI, VALIUM 5MG PO TID PRN, AND PHENOBARBITAL 30MG PO HS (2) Rhabdomyolysis Status: Acute Qualifiers: Rhabdomyolysis type: traumatic Encounter type: initial encounter Qualified Code(s): T79.6XXA - Traumatic ischemia of muscle, initial encounter (3) Atrial fibrillation Status: Acute Qualifiers: Atrial fibrillation type: unspecified Qualified Code(s): I48.91 - Unsp ecified atrial fibrillation (4) Fracture of neck of humerus Status: Acute Qualifiers: Encounter type: initial encounter Fracture type: closed Laterality: left Qualified Code(s): S42.212A - Unspecified displaced fracture of surgical neck of left humerus, initial encounter for closed fracture (5) Urinary tract infection Status: Acute Qualifiers: Urinary tract infection type: acute cystitis Hematuria presence: without hematuria Qualified Code(s): N30.00 - Acute cystitis without hematuria (6) Anemia Status: Acute Qualifiers: Anemia type: unspecified type Qualified Code(s): D64.9 - Anemia, unspecified (7) Dehydration Status: Acute (8) Generalized weakness Status: Acute (9) Recent cerebrovascular accident (CVA) Status: Chronic (10) Hypertension Status: Chronic Qualifiers: Hypertension type: primary hypertension Qualified Code(s): I10 - Essential (primary) hypertension (11) Hyperlipidemia Status: Chronic Qualifiers: Hyperlipidemia type: mixed hyperlipidemia Qualified Code(s): E78.2 - Mixed hyperlipidemia
--- NOTE | 2021-12-08 11:02 | PCM.PROG ---
Progress Note - Progress Note for Day of Date of Exam: 12/07/21 - Subjective Subjective: WAS ADMITTED FOR TREATMENT OF ACUTE ON CHRONIC RENAL FAILURE, HUMERAL NECK FRACTURE, E.COLI UTI, ANEMIA, AND GENERALIZED WEAKNESS. SHE HAS RECEIVED TWO UNITS OF PRBC SINCE ADMISSION. SHE HAS A PMH OF RECENT CVA, HTN, A-FIB, HYPERLIPIDEMIA, AND RENAL DISEASE. TODAY, SHE IS ALERT, SITTING UP IN BED ON MORNING ROUNDS. PATIENT HAS BEEN UNABLE TO GET OUT OF BED OR AMBULATE WITHOUT MODERATE ASSISTANCE. SHE CONTINUES WITH COMPLAINTS OF WEAKNESS AND LEFT UPPER ARM PAIN TODAY. ON EXAMINATION, HEART RHYTHM IS IRREGULAR. 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 HR IS GENERALLY HIGHER IN THE MORNING AND LEVELS OFF IN THE AFTERNOONS. BILATERAL LUNGS NOTED WITH DIMINISHED LUNG SOUNDS THROUGHOUT. LARGE BRUISE NOTED TO LEFT UPPER ARM AND SHOULDER AREA. ABDOMEN IS ROUND, SOFT, AND NON-TENDER WITH NORMAL BOWEL SOUNDS NOTED IN ALL QUADRANTS. SCATTERED BRUISING NOTED OVER BODY. JACOBO CATHETER TO BEDSIDE DRAINAGE. HER VITALS THIS MORNING ARE: 97.6-111-25-99%-136/99. LABS WERE OBTAINED. ABNORMAL LAB VALUES INCLUDE THE FOLLOWING: RBC 2.21, HGB 7.4, HCT 21.8, CHLORIDE 111, CARBON DIOXIDE 19.2, BUN 21, CREATININE 1.25, CALCIUM 7.8, TOTAL PROTEIN 5.9, ALBUMIN 3.2. URINE CULTURE POSITIVE FOR GROWTH OF E.COLI. SHE IS CURRENTLY RECEIVING NORMAL SALINE WITH MVI IN EACH LITER AT 50 ML/HR, ALBUMIN 25% IV DAILY, INVANZ 1 G IV DAILY, CARDIZEM CD 240 MG PO DAILY, AMIODARONE 200MG PO BID WM, DIGOXIN 0.125MG PO DAILY, LOPRESSOR 125 MG PO BID, PROTONIX 40MG IV BID, MORPHINE SULFATE 2MG IV Q4H PRN, NORCO 5/325MG PO Q6H PRN, ZOFRAN 4MG IV Q6H PRN, PROCRIT 10,000 UNITS MON,WED,FRI, VALIUM 5MG PO TID PRN, PHENOBARBITAL HS, NYSTATIN CREAM TID PRN, NYSTATIN POWDER BID PRN, ZOVIRAX TOP Q8H. WE WILL CONTINUE WITH CURRENT PLAN OF CARE TODAY. WE WILL HAVE PHYSICAL THERAPY CONTINUE TO WORK WITH PATIENT. WE PLAN FOR PATIENT TO GO TO REHAB FACILITY FOR INTENSE PHYSICAL THERAPY. PATIENT IS IN AGREEMENT. WE ARE DISCUSSING OPTIONS WITH CASE MANAGEMENT. SHE IS MEDICALLY STABLE AND CLEARED FOR DISCHARGE TO CUSTODIAL FACILITY FOR REHAB. OTHERWISE, WE WILL FOLLOW UP WITH AM LABS AND CONTINUE TO MONITOR. TIME SPENT ON CLINICAL ASSESSMENT, REVIEWING LABS AND IMAGING, DECISION MAKING, AND DOCUMENTATION GREATER THAN 45 MINUTES. - Past Medical Family Social History Past Med/Fam/Surg Hx: No changes since H&P Allergies: Allergies No Known Drug Allergies [NKDA] Allergy (Verified 03/25/21 13:54) - Review of Systems ROS: No change since H&P - Vital Signs and I&O's Vital Signs: Temperature 97.5 F Pulse Rate [Left Radial] 128 Pulse Rate 126 Respiratory Rate 24 Blood Pressure [Right Arm] 116/79 Blood Pressure 151/91 O2 Sat by Pulse Oximetry 100 Intake and Output: Intake & Output 12/05/21 12/06/21 12/07/21 12/08/21 10:59 10:59 11:59 11:59 Intake Total 2129 / 0 Output Total Balance 2129 / 2129 - Physical Exam Oriented: Normal Eyes: Normal Ear: Normal Nose: Normal Throat: Normal Respiratory: Diminished Cardiovascular: Tachycardia, Irregular : Normal Auscultation: Bowel Sounds: Normal Tenderness: Normal Skin: Normal, Wound, Bruising (LEFT UPPER ARM ) Musculoskeletal: Left, Shoulder, Arm, Tender Psychiatric: Normal Mood Description: Calm Affect: Normal Speech Pattern: Clear, Appropriate - Laboratory and Diagnostics Result Diagrams: 12/08/21 05:19 12/08/21 05:19 Labs: 11/26/21 13:05 Urine,Catheterized Urine Culture - Final Escherichia Coli Laboratory WBC 5.2 X10^3/uL (3.6-10.0) 12/08/21 05:19 RBC 2.23 X10^6/uL (3.5-5.4) L 12/08/21 05:19 Hgb 7.4 g/dL (12.0-16.0) L 12/08/21 05:19 Hct 22.0 % (36.0-47.0) L 12/08/21 05:19 MCV 98.6 fL (80.0-100.0) 12/08/21 05:19 MCH 33.2 pg (27.0-34.0) 12/08/21 05:19 MCHC 33.7 g/dL (33.0-35.0) 12/08/21 05:19 RDW 19.2 % (11.6-16.5) H 12/08/21 05:19 Plt Count 278 X10^3/uL (150.0-450.0) 12/08/21 05:19 Plt Count Comment Adequate (ADEQUATE) 11/29/21 13:48 MPV 8.4 fL (7.4-11.0) 12/08/21 05:19 Neut % (Auto) 74.3 % (42.0-75.0) 12/08/21 05:19 Lymph % (Auto) 12.2 % (21.0-51.0) L 12/08/21 05:19 [place] % (Auto) 11.4 % (0.0-13.0) 12/08/21 05:19 Eos % (Auto) 1.5 % (0.9-2.9) 12/08/21 05:19 Baso % (Auto) 0.6 % (0.2-1.0) 12/08/21 05:19 Neut # (Auto) 3.9 x10^3/uL (2.2-4.8) 12/08/21 05:19 Lymph # (Auto) 0.6 X10^3/uL (1.3-2.9) L 12/08/21 05:19 [place] # (Auto) 0.6 x10^3/uL (0.3-0.8) 12/08/21 05:19 Eos # (Auto) 0.1 x10^3/uL (0.0-0.2) 12/08/21 05:19 Baso # (Auto) 0.0 X10^3/uL (0.0-0.1) 12/08/21 05:19 Absolute Nucleated RBC 0.2 /100WBC 12/08/21 05:19 Plt Clumps, EDTA Rare 11/29/21 13:48 Plt Morphology Comment Normal (NORMAL) 11/29/21 13:48 RBC Morphology Abnormal (NORMAL) A 11/29/21 13:48 Macrocytosis 1+ A 11/29/21 13:48 Sodium 144 mmol/L (136-145) 12/08/21 05:19 Corrected Sodium TNP 12/08/21 05:19 Potassium 4.3 mmol/L (3.5-5.1) 12/08/21 05:19 Chloride 110 mmol/L (98-107) H 12/08/21 05:19 Carbon Dioxide 18.7 mmol/L (21-32) L 12/08/21 05:19 BUN 21 mg/dL (7-18) H 12/08/21 05:19 Creatinine 1.23 mg/dL (0.55-1.02) H 12/08/21 05:19 Est GFR (MDRD) Af Amer 56 (>60) L 12/08/21 05:19 Est GFR (MDRD) Non-Af 46 (>60) L 12/08/21 05:19 Glucose 75 mg/dL (65-99) 12/08/21 05:19 Calcium 8.0 mg/dL (8.5-10.1) L 12/08/21 05:19 Corrected Calcium TNP 12/08/21 05:19 Magnesium 1.9 mg/dL (1.7-2.9) 11/29/21 04:52 Iron 17 ug/dL (50-175) L 11/29/21 10:08 Transferrin 119 mg/dL (202-364) L 11/29/21 10:08 Ferritin 917 ng/mL (8-252) H 11/29/21 10:08 Total Bilirubin 0.60 mg/dL (0.2-1.0) 12/08/21 05:19 AST 23 Units/L (15-37) 12/08/21 05:19 ALT 23 Units/L (12-78) 12/08/21 05:19 Alkaline Phosphatase 124 Units/L (46-116) H 12/08/21 05:19 Creatine Kinase 25 Units/L (26-192) L 12/02/21 03:43 CK-MB (CK-2) < 1.0 ng/mL (0-4.0) 12/02/21 03:43 CK/CKMB % Calc 4.0 % (<4) 12/02/21 03:43 Troponin I High Sens 124.8 ng/L (4.0-60.0) H* 12/02/21 03:43 Total Protein 6.3 g/dL (6.4-8.2) L 12/08/21 05:19 Albumin 3.4 g/dL (3.4-5.0) 12/08/21 05:19 Globulin 2.9 g/dL (2.5-4.5) 12/08/21 05:19 Albumin/Globulin Ratio 1.2 Ratio (1.1-2.1) 12/08/21 05:19 Vitamin B12 > 2000 pg/mL (193-986) H 11/29/21 10:08 Folate 4.1 ng/mL (>8.6) L 11/29/21 10:08 Specimen Type Clean catch urine 12/05/21 12:10 Urine Color Yellow (YELLOW) 12/05/21 12:10 Urine Appearance Hazy (CLEAR) 12/05/21 12:10 Urine pH 5.0 (5.0 - 8.0) 12/05/21 12:10 Ur Specific [place] 1.015 (1.000-1.030) 12/05/21 12:10 Urine Protein 1+ (NEGATIVE) 12/05/21 12:10 Urine Glucose (UA) Negative (NEGATIVE) 12/05/21 12:10 Urine Ketones Negative (NEGATIVE) 12/05/21 12:10 Urine Occult Blood 1+ (NEGATIVE) 12/05/21 12:10 Urine Nitrite Negative (NEGATIVE) 12/05/21 12:10 Urine Bilirubin Negative (NEGATIVE) 12/05/21 12:10 Urine Urobilinogen Normal (NORMAL) 12/05/21 12:10 Ur Leukocyte Esterase 1+ (NEGATIVE) 12/05/21 12:10 Urine RBC 0-2 /HPF (0-3) 12/05/21 12:10 Urine WBC 0-2 /HPF (0-5) 12/05/21 12:10 Ur Squamous Epith Cells Moderate /HPF (NEGATIVE) 12/05/21 12:10 Urine Bacteria Trace /HPF (NEGATIVE) 12/05/21 12:10 Urine Mucus Few /HPF (NEGATIVE) 12/05/21 12:10 Ur Culture Indicated? No/not indicated 12/05/21 12:10 Stool Description 10g brown loose 11/29/21 18:30 Stl Occult Blood (IFOB) Negative (NEGATIVE) 11/29/21 18:30 Digoxin 1.79 ng/mL (0.9-2) 12/07/21 06:02 SARS CoV-2 RNA Rapid KAMALJIT Negative (NEGATIVE) 11/26/21 11:11 Blood Type O POSITIVE 12/06/21 11:42 Antibody Screen Negative 12/06/21 11:42 Crossmatch See Detail 11/29/21 10:08 - Plan (1) Acute on chronic renal failure Status: Acute Qualifiers: Acute renal failure type: unspecified Chronic kidney disease stage: unspecified stage Qualified Code(s): N17.9 - Acute kidney failure, unspecified; N18.9 - Chronic kidney disease, unspecified Plan: NORMAL SALINE AT 50 ML/HR WITH MVI IN EACH LITER, INVANZ 0.5G IV DAILY, C ARDIZEM CD 240MG PO DAILY, DIGOXIN 0.125MG PO DAILY, LOPRESSOR 25MG PO BID, AMIODARONE 200MG PO BID, MORPHINE SULFATE 2MG IV Q4H PRN, ZOFRAN 4MG IV Q6H PRN, NYSTATIN CREAM TID PRN, NYSTATIN POWDER BID PRN, ZOVIRAX TOP Q8H, ALBUMIN 25% IV DAILY, PROCRIT 10,000 UNITS ON MON,WED,FRI, VALIUM 5MG PO TID PRN, AND PHENOBARBITAL 30MG PO HS (2) Rhabdomyolysis Status: Acute Qualifiers: Rhabdomyolysis type: traumatic Encounter type: initial encounter Qualified Code(s): T79.6XXA - Traumatic ischemia of muscle, initial encounter (3) Atrial fibrillation Status: Acute Qualifiers: Atrial fibrillation type: unspecified Qualified Code(s): I48.91 - Unspecified atrial fibrillation Plan: CARDIZEM DRIP (4) Fracture of neck of humerus Status: Acute Qualifiers: Encounter type: initial encounter Fracture type: closed Laterality: left Qualified Code(s): S42.212A - Unspecified displaced fracture of surgical neck of left humerus, initial encounter for closed fracture Plan: CONSULT ORTHO (5) Urinary tract infection Status: Acute Qualifiers: Urinary tract infection type: acute cystitis Hematuria presence: without hematuria Qualified Code(s): N30.00 - Acute cystitis without hematuria (6) Anemia Status: Acute Qualifiers: Anemia type: unspecified type Qualified Code(s): D64.9 - Anemia, unspecified (7) Dehydration Status: Acute (8) Generalized weakness Status: Acute (9) Recent cerebrovascular accident (CVA) Status: Chronic (10) Hypertension Status: Chronic Qualifiers: Hypertension type: primary hypertension Qualified Code(s): I10 - Essential (primary) hypertension (11) Hyperlipidemia Status: Chronic Qualifiers: Hyperlipidemia type: mixed hyperlipidemia Qualified Code(s): E78.2 - Mixed hyperlipidemia
[2021-12-08] MEDS: PROCRIT or EPOGEN VIAL 10,000 UNITS SC SCH (11:21)
[2021-12-08] MEDS: NS 1,000 ML IV 1,000 ML with MVI INJ (ADULT) 10 ML IV SCH ×4 (17:59→22:51)
[2021-12-08] MEDS: PHENOBARBITAL TAB 30 MG (32.4MG) PO SCH (20:14)
--- NOTE | 2021-12-09 01:28 | RAD ---
HISTORYDYSPNEA PMH: CVA, HTN, AFIB, RENAL DISEASE PSH: APPENDIX, HYST, TONSILS, ORTHO.br.br.br.br.br [id number]/2022FINDINGSThe trachea is midline. The cardiac silhouette is mildly enlarged.. The lungs are clear without focal infiltrate or effusion. Pulmonary vasculature within normal limits. No pneumothorax. The bony thorax is unremarkable.IMPRESSIONMild cardiomegaly.No active cardiopulmonary disease.Electronically signed by: Josias Blake (Dec 09, 2021 01:27:20)
[2021-12-09] MEDS: MORPHINE SULFATE INJ 4 MG IVP PRN (01:38)
[2021-12-09] MEDS: NS 1,000 ML IV 1,000 ML with MVI INJ (ADULT) 10 ML IV SCH ×4 (01:38→14:11)
[2021-12-09] MEDS: ZOVIRAX TOP SCH ×3 (01:39→18:05)
[2021-12-09] MEDS: NORCO 5/325 MG TAB PO PRN ×2 (05:46→19:00)
[2021-12-09] MEDS: CORDARONE TAB 200 MG PO SCH ×2 (06:11→18:04)
[2021-12-09 06:18] LABS: BASOPHILS % (AUTO) 0.7 % (0.2-1.0); EOSINOPHILS # (AUTO) 0.1 x10^3/uL (0.0-0.2); EOSINOPHILS % (AUTO) 1.8 % (0.9-2.9); HEMATOCRIT 21.8 % (36.0-47.0); HEMOGLOBIN 7.4 g/dL (12.0-16.0); LYMPHOCYTES # (AUTO) 0.5 X10^3/uL (1.3-2.9); LYMPHOCYTES % (AUTO) 14.4 % (21.0-51.0); MEAN CORPUSCULAR HEMOGLOBIN 33.6 pg (27.0-34.0); MEAN CORPUSCULAR HGB CONC 34.1 g/dL (33.0-35.0); MEAN CORPUSCULAR VOLUME 98.6 fL (80.0-100.0); MEAN PLATELET VOLUME 8.6 fL (7.4-11.0); MONOCYTES # (AUTO) 0.5 x10^3/uL (0.3-0.8); MONOCYTES % (AUTO) 12.8 % (0.0-13.0); NEUTROPHILS # (AUTO) 2.7 x10^3/uL (2.2-4.8); NEUTROPHILS % (AUTO) 70.3 % (42.0-75.0); RED BLOOD COUNT 2.21 X10^6/uL (3.5-5.4); RED CELL DISTRIBUTION WIDTH 19.5 % (11.6-16.5); WHITE BLOOD COUNT 3.8 X10^3/uL (3.6-10.0)
[2021-12-09 06:26] LABS: ALANINE AMINOTRANSFERASE 21 Units/L (12-78); ALBUMIN 3.5 g/dL (3.4-5.0); ALKALINE PHOSPHATASE 128 Units/L (46-116); ASPARTATE AMINO TRANSFERASE 21 Units/L (15-37); BLOOD UREA NITROGEN 23 mg/dL (7-18); CALCIUM 8.1 mg/dL (8.5-10.1); CARBON DIOXIDE 19.6 mmol/L (21-32); CHLORIDE 112 mmol/L (98-107); CREATININE 1.29 mg/dL (0.55-1.02); SODIUM 146 mmol/L (136-145); TOTAL PROTEIN 6.2 g/dL (6.4-8.2); eGFR NON BLACK RACES 44 (>60)
[2021-12-09] MEDS: ALBUMIN HUMAN 25%- 100 ML 100 ML IV SCH (08:10)
--- NOTE | 2021-12-09 08:42 | CT ---
HISTORYAltered mental status, speech difficultySTUDYCT head without contrastTechnique: Axial noncontrast images with coronal and sagittal reformats. Dose reduction procedures were used with mA/kv adjusted for body size.COMPARISONMRI brain 03/27/2021FINDINGSThe ventricles are normal in size shape and position. There is decreased attenuation in the periventricular white matter suggestive of small vessel vascular disease. There is mild generalized cortical atrophy present likely age related. There are no focal areas of abnormal attenuation to suggest recent or remote CVA, hemorrhage, mass lesion, inflammation, or extra-axial fluid collection. The visualized sinuses are clear. The calvarium is intact.IMPRESSIONNo acute intracranial abnormalityMild cortical atrophy likely age relatedSmall-vessel vascular diseaseElectronically signed by: DOMINGA RODRIGUEZ (Dec 09, 2021 08:41:22)
[2021-12-09] MEDS: CYMBALTA PO SCH (09:13)
[2021-12-09] MEDS: LANOXIN or DIGITEK PO SCH (09:14)
[2021-12-09] MEDS: CARDIZEM CD 240 MG 24-HR PO SCH (09:14)
[2021-12-09] MEDS: LOVENOX INJ 30 MG SYR SC SCH ×2 (09:16→20:27)
[2021-12-09] MEDS: INVanz INJ 1 GRAM VIAL 1 G in NS 100 ML IV 100 ML IV SCH (09:20)
[2021-12-09] MEDS: LOPRESSOR TAB 25 MG PO SCH ×2 (09:23→20:27)
[2021-12-09] MEDS: PROTONIX INJ 40 MG VIAL IVP SCH ×2 (09:23→20:27)
[2021-12-09] MEDS ORDERED: LASIX IVP ONE (09:51)
--- NOTE | 2021-12-09 10:30 | PCM.PROG ---
Progress Note - Progress Note for Day of Date of Exam: 12/08/21 - Subjective Subjective: WAS ADMITTED FOR TREATMENT OF ACUTE ON CHRONIC RENAL FAILURE, HUMERAL NECK FRACTURE, E.COLI UTI, ANEMIA, AND GENERALIZED WEAKNESS. SHE HAS RECEIVED TWO UNITS OF PRBC SINCE ADMISSION. SHE HAS A PMH OF RECENT CVA, HTN, A-FIB, HYPERLIPIDEMIA, AND RENAL DISEASE. TODAY, SHE IS ALERT, SITTING UP IN BED ON MORNING ROUNDS. PATIENT HAS BEEN UNABLE TO GET OUT OF BED OR AMBULATE WITHOUT MODERATE ASSISTANCE. SHE CONTINUES WITH COMPLAINTS OF WEAKNESS AND LEFT UPPER ARM PAIN TODAY. ON EXAMINATION, HEART RHYTHM IS IRREGULAR. 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 HR IS GENERALLY HIGHER IN THE MORNING AND LEVELS OFF IN THE AFTERNOONS. BILATERAL LUNGS NOTED WITH DIMINISHED LUNG SOUNDS THROUGHOUT. LARGE BRUISE NOTED TO LEFT UPPER ARM AND SHOULDER AREA. ABDOMEN IS ROUND, SOFT, AND NON-TENDER WITH NORMAL BOWEL SOUNDS NOTED IN ALL QUADRANTS. SCATTERED BRUISING NOTED OVER BODY. JACOBO CATHETER TO BEDSIDE DRAINAGE. HER VITALS THIS MORNING ARE: 98.5-094-87-100%-151/91. LABS WERE OBTAINED. ABNORMAL LAB VALUES INCLUDE THE FOLLOWING: RBC 2.23, HGB 7.4, HCT 22.0, CHLORIDE 110, CARBON DIOXIDE 18.7, BUN 21, CREATININE 1.23, CALCIUM 8.0, ALK PHOS 124, TOTAL PROTEIN 6.3. URINE CULTURE POSITIVE FOR GROWTH OF E.COLI. SHE IS CURRENTLY RECEIVING NORMAL SALINE WITH MVI IN EACH LITER AT 50 ML/HR, ALBUMIN 25% IV DAILY, INVANZ 1 G IV DAILY, CARDIZEM CD 240 MG PO DAILY, AMIODARONE 200MG PO B IDWM, DIGOXIN 0.125MG PO DAILY, LOPRESSOR 125 MG PO BID, PROTONIX 40MG IV BID, MORPHINE SULFATE 2MG IV Q4H PRN, NORCO 5/325MG PO Q6H PRN, ZOFRAN 4MG IV Q6H PRN, PROCRIT 10,000 UNITS MON,WED,FRI, VALIUM 5MG PO TID PRN, PHENOBARBITAL HS, NYSTATIN CREAM TID PRN, NYSTATIN POWDER BID PRN, ZOVIRAX TOP Q8H. WE WILL CONTINUE WITH CURRENT PLAN OF CARE TODAY. WE WILL HAVE PHYSICAL THERAPY CONTINUE TO WORK WITH PATIENT. WE PLAN FOR PATIENT TO GO TO REHAB FACILITY FOR INTENSE PHYSICAL THERAPY. PATIENT IS IN AGREEMENT. WE ARE DISCUSSING OPTIONS WITH CASE MANAGEMENT. SHE IS MEDICALLY STABLE AND CLEARED FOR DISCHARGE TO HALFWAY FACILITY FOR REHAB. OTHERWISE, WE WILL FOLLOW UP WITH AM LABS AND CONTINUE TO MONITOR. TIME SPENT ON CLINICAL ASSESSMENT, REVIEWING LABS AND IMAGING, DECISION MAKING, AND DOCUMENTATION GREATER THAN 45 MINUTES. - Past Medical Family Social History Past Med/Fam/Surg Hx: No changes since H&P Allergies: Allergies No Known Drug Allergies [NKDA] Allergy (Verified 03/25/21 13:54) - Review of Systems ROS: No change since H&P - Vital Signs and I&O's Vital Signs: Temperature 98.6 F Pulse Rate [Left Radial] 128 Pulse Rate 113 Respiratory Rate 18 Blood Pressure [Right Arm] 116/79 Blood Pressure 143/70 O2 Sat by Pulse Oximetry 98 Intake and Output: Intake & Output 12/06/21 12/07/21 12/08/21 12/09/21 10:59 11:59 11:59 11:59 Intake Total 2130 / 2130 2909 / 2909 Output Total Balance 2130 / 2130 2909 / 2909 - Physical Exam Oriented: Normal Eyes: Normal Ear: Normal Nose: Normal Throat: Normal Respiratory: Diminished Cardiovascular: Tachycardia, Irregular : Normal Auscultation: Bowel Sounds: Normal Palpation: Normal Tenderness: Normal Skin: Normal, Wound, Bruising (LEFT UPPER ARM ) Musculoskeletal: Left, Shoulder, Arm, Tender Psychiatric: Normal Mood Description: Calm Affect: Normal Speech Pattern: Appropriate, Unclear, Inappropriate - Laboratory and Diagnostics Result Diagrams: 12/09/21 05:23 12/09/21 05:23 Labs: 11/26/21 13:05 Urine,Catheterized Urine Culture - Final Escherichia Coli Laboratory WBC 3.8 X10^3/uL (3.6-10.0) 12/09/21 05:23 RBC 2.21 X10^6/uL (3.5-5.4) L 12/09/21 05:23 Hgb 7.4 g/dL (12.0-16.0) L 12/09/21 05:23 Hct 21.8 % (36.0-47.0) L 12/09/21 05:23 MCV 98.6 fL (80.0-100.0) 12/09/21 05:23 MCH 33.6 pg (27.0-34.0) 12/09/21 05:23 MCHC 34.1 g/dL (33.0-35.0) 12/09/21 05:23 RDW 19.5 % (11.6-16.5) H 12/09/21 05:23 Plt Count 281 X10^3/uL (150.0-450.0) 12/09/21 05:23 Plt Count Comment Adequate (ADEQUATE) 11/29/21 13:48 MPV 8.6 fL (7.4-11.0) 12/09/21 05:23 Neut % (Auto) 70.3 % (42.0-75.0) 12/09/21 05:23 Lymph % (Auto) 14.4 % (21.0-51.0) L 12/09/21 05:23 [place] % (Auto) 12.8 % (0.0-13.0) 12/09/21 05:23 Eos % (Auto) 1.8 % (0.9-2.9) 12/09/21 05:23 Baso % (Auto) 0.7 % (0.2-1.0) 12/09/21 05:23 Neut # (Auto) 2.7 x10^3/uL (2.2-4.8) 12/09/21 05:23 Lymph # (Auto) 0.5 X10^3/uL (1.3-2.9) L 12/09/21 05:23 [place]enson # (Auto) 0.5 x10^3/uL (0.3-0.8) 12/09/21 05:23 Eos # (Auto) 0.1 x10^3/uL (0.0-0.2) 12/09/21 05:23 Baso # (Auto) 0.0 X10^3/uL (0.0-0.1) 12/09/21 05:23 Absolute Nucleated RBC 0.1 /100WBC 12/09/21 05:23 Plt Clumps, EDTA Rare 11/29/21 13:48 Plt Morphology Comment Normal (NORMAL) 11/29/21 13:48 RBC Morphology Abnormal (NORMAL) A 11/29/21 13:48 Macrocytosis 1+ A 11/29/21 13:48 D-Dimer 7.60 ug/ml (0.0-0.57) H* 12/09/21 05:23 Sodium 146 mmol/L (136-145) H 12/09/21 05:23 Corrected Sodium TNP 12/09/21 05:23 Potassium 4.1 mmol/L (3.5-5.1) 12/09/21 05:23 Chloride 112 mmol/L (98-107) H 12/09/21 05:23 Carbon Dioxide 19.6 mmol/L (21-32) L 12/09/21 05:23 BUN 23 mg/dL (7-18) H 12/09/21 05:23 Creatinine 1.29 mg/dL (0.55-1.02) H 12/09/21 05:23 Est GFR (MDRD) Af Amer 53 (>60) L 12/09/21 05:23 Est GFR (MDRD) Non-Af 44 (>60) L 12/09/21 05:23 Glucose 90 mg/dL (65-99) 12/09/21 05:23 Calcium 8.1 mg/dL (8.5-10.1) L 12/09/21 05:23 Corrected Calcium TNP 12/09/21 05:23 Magnesium 1.9 mg/dL (1.7-2.9) 11/29/21 04:52 Iron 17 ug/dL (50-175) L 11/29/21 10:08 Transferrin 119 mg/dL (202-364) L 11/29/21 10:08 Ferritin 917 ng/mL (8-252) H 11/29/21 10:08 Total Bilirubin 0.60 mg/dL (0.2-1.0) 12/09/21 05:23 AST 21 Units/L (15-37) 12/09/21 05:23 ALT 21 Units/L (12-78) 12/09/21 05:23 Alkaline Phosphatase 128 Units/L (46-116) H 12/09/21 05:23 Creatine Kinase 25 Units/L (26-192) L 12/02/21 03:43 CK-MB (CK-2) < 1.0 ng/mL (0-4.0) 12/02/21 03:43 CK/CKMB % Calc 4.0 % (<4) 12/02/21 03:43 Troponin I High Sens 124.8 ng/L (4.0-60.0) H* 12/02/21 03:43 Total Protein 6.2 g/dL (6.4-8.2) L 12/09/21 05:23 Albumin 3.5 g/dL (3.4-5.0) 12/09/21 05:23 Globulin 2.7 g/dL (2.5-4.5) 12/09/21 05: Albumin/Globulin Ratio 1.3 Ratio (1.1-2.1) 12/09/21 05:23 Vitamin B12 > 2000 pg/mL (193-986) H 11/29/21 10:08 Folate 4.1 ng/mL (>8.6) L 11/29/21 10:08 Specimen Type Clean catch urine 12/05/21 12:10 Urine Color Yellow (YELLOW) 12/05/21 12:10 Urine Appearance Hazy (CLEAR) 12/05/21 12:10 Urine pH 5.0 (5.0 - 8.0) 12/05/21 12:10 Ur Specific [place] 1.015 (1.000-1.030) 12/05/21 12:10 Urine Protein 1+ (NEGATIVE) 12/05/21 12:10 Urine Glucose (UA) Negative (NEGATIVE) 12/05/21 12:10 Urine Ketones Negative (NEGATIVE) 12/05/21 12:10 Urine Occult Blood 1+ (NEGATIVE) 12/05/21 12:10 Urine Nitrite Negative (NEGATIVE) 12/05/21 12:10 Urine Bilirubin Negative (NEGATIVE) 12/05/21 12:10 Urine Urobilinogen Normal (NORMAL) 12/05/21 12:10 Ur Leukocyte Esterase 1+ (NEGATIVE) 12/05/21 12:10 Urine RBC 0-2 /HPF (0-3) 12/05/21 12:10 Urine WBC 0-2 /HPF (0-5) 12/05/21 12:10 Ur Squamous Epith Cells Moderate /HPF (NEGATIVE) 12/05/21 12:10 Urine Bacteria Trace /HPF (NEGATIVE) 12/05/21 12:10 Urine Mucus Few /HPF (NEGATIVE) 12/05/21 12:10 Ur Culture Indicated? No/not indicated 12/05/21 12:10 Stool Description 10g brown loose 11/29/21 18:30 Stl Occult Blood (IFOB) Negative (NEGATIVE) 11/29/21 18:30 Digoxin 1.64 ng/mL (0.9-2) 12/09/21 05:23 SARS CoV-2 RNA Rapid KAMALJIT Negative (NEGATIVE) 11/26/21 11:11 Blood Type O POSITIVE 12/06/21 11:42 Antibody Screen Negative 12/06/21 11:42 Crossmatch See Detail 11/29/21 10:08 - Plan (1) Acute on chronic renal failure Status: Acute Qualifiers: Acute renal failure type: unspecified Chronic kidney disease stage: unspecified stage Qualified Code(s): N17.9 - Acute kidney failure, unspecified; N18.9 - Chronic kidney disease, unspecified Plan: NORMAL SALINE AT 50 ML/HR WITH MVI IN EACH LITER, INVANZ 1 G IV DAILY, CARDIZEM CD 240MG PO DAILY, DIGOXIN 0.125MG PO DAILY, LOPRESSOR 25MG PO BID, AMIODARONE 200MG PO BID, MORPHINE SULFATE 2MG IV Q4H PRN, ZOFRAN 4MG IV Q6H PRN, NYSTATIN CREAM TID PRN, NYSTATIN POWDER BID PRN, ZOVIRAX TOP Q8H, ALBUMIN 25% IV DAILY, PROCRIT 10,000 UNITS ON MON,WED,FRI, VALIUM 5MG PO TID PRN, AND PHENOBARBITAL 30MG PO HS (2) Rhabdomyolysis Status: Acute Qualifiers: Rhabdomyolysis type: traumatic Encounter type: initial encounter Qualified Code(s): T79.6XXA - Traumatic ischemia of muscle, initial encounter (3) Atrial fibrillation Status: Acute Qualifiers: Atrial fibrillation type: unspecified Qualified Code(s): I48.91 - Unspecified atrial fibrillation (4) Fracture of neck of humerus Status: Acute Qualifiers: Encounter type: initial encounter Fracture type: closed Laterality: left Qualified Code(s): S42.212A - Unspecified displaced fracture of surgical neck of left humerus, initial encounter for closed fracture (5) Urinary tract infection Status: Acute Qualifiers: Urinary tract infection type: acute cystitis Hematuria presence: without hematuria Qualified Code(s): N30.00 - Acute cystitis without hematuria (6) Anemia Status: Acute Qualifiers: Anemia type: unspecified type Qualified Code(s): D64.9 - Anemia, unspecifie d (7) Dehydration Status: Acute (8) Generalized weakness Status: Acute (9) Recent cerebrovascular accident (CVA) Status: Chronic (10) Hypertension Status: Chronic Qualifiers: Hypertension type: primary hypertension Qualified Code(s): I10 - Essential (primary) hypertension (11) Hyperlipidemia Status: Chronic Qualifiers: Hyperlipidemia type: mixed hyperlipidemia Qualified Code(s): E78.2 - Mixed hyperlipidemia
[2021-12-09 10:31] LABS: CKMB % 3.9 % (<4); CREATINE KINASE 26 Units/L (26-192); CREATINE KINASE MB < 1.0 ng/mL (0-4.0)
--- NOTE | 2021-12-09 11:08 | CT ---
HISTORYShortness of breath, elevated D-dimerSTUDYCTA chest with contrast for pulmonary embolusTechnique: Axial post-contrast images with coronal, sagittal, and 3 dimensional maximum intensity projection images obtained and evaluated. Dose reduction procedures were used with mA/kv adjusted for body size.COMPARISONNoneFINDINGSThere is no evidence for acute pulmonary thromboembolic disease. Examination of the mediastinum demonstrated no evidence for mediastinal masses, enlarged mediastinal or enlarged hilar adenopathy or significant aortic abnormality. There is a trace pericardial effusion present the heart is enlarged. Bilateral pleural effusions are present right greater than left. No chest wall or axillary abnormality is identified. There is a compression fracture of T12 age indeterminate. Those portions of the upper abdominal organs visualized were within normal limits to the limitations of early arterial injection timing. Anasarca is present. Examination of the lung dacosta demonstrated no significant nodules, masses, alveolar infiltrates, areas of consolidation, peribronchial thickening, or bronchiectasis. Trisha's B lines are present indicative of mild interstitial edema.IMPRESSIONNo evidence for acute pulmonary thromboembolic diseaseNo acute infiltratesCardiomegaly, bilateral pleural effusions, Trisha's B lines all suggestive of mild congestive heart failure.Increased attenuation in the subcutaneous soft tissues suggestive of developing anasarcaElectronically signed by: DOMINGA RODRIGUEZ (Dec 09, 2021 11:07:24)
[2021-12-09] MEDS: PHENOBARBITAL TAB 30 MG (32.4MG) PO SCH (20:27)
[2021-12-10] MEDS: MORPHINE SULFATE INJ 4 MG IVP PRN ×2 (00:50→06:05)
[2021-12-10] MEDS: NS 1,000 ML IV 1,000 ML with MVI INJ (ADULT) 10 ML IV SCH ×6 (01:17→18:27)
[2021-12-10] MEDS: ZOVIRAX TOP SCH ×3 (01:17→17:58)
--- NOTE | 2021-12-10 06:04 | RAD ---
HISTORYShortness of breathSTUDYChest AP [id number] chest x-ray and CTA chestFINDINGSThe heart remains enlarged. No congestive heart failure is noted. No acute alveolar infiltrates or pleural effusions are identified. Bony thorax is unremarkable.IMPRESSIONContinued cardiomegaly without congestive heart failureNo definite infiltratesElectronically signed by: DOMINGA RODRIGUEZ (Dec 10, 2021 06:03:28)
[2021-12-10] MEDS: CORDARONE TAB 200 MG PO SCH ×2 (06:09→17:58)
[2021-12-10 06:50] LABS: BASOPHILS % (AUTO) 0.6 % (0.2-1.0); EOSINOPHILS # (AUTO) 0.1 x10^3/uL (0.0-0.2); EOSINOPHILS % (AUTO) 2.5 % (0.9-2.9); HEMATOCRIT 24.2 % (36.0-47.0); LYMPHOCYTES # (AUTO) 0.5 X10^3/uL (1.3-2.9); LYMPHOCYTES % (AUTO) 12.5 % (21.0-51.0); MEAN CORPUSCULAR HEMOGLOBIN 32.8 pg (27.0-34.0); MEAN CORPUSCULAR HGB CONC 33.3 g/dL (33.0-35.0); MEAN CORPUSCULAR VOLUME 98.7 fL (80.0-100.0); MEAN PLATELET VOLUME 8.5 fL (7.4-11.0); MONOCYTES # (AUTO) 0.6 x10^3/uL (0.3-0.8); MONOCYTES % (AUTO) 12.6 % (0.0-13.0); NEUTROPHILS # (AUTO) 3.2 x10^3/uL (2.2-4.8); NEUTROPHILS % (AUTO) 71.8 % (42.0-75.0); RED BLOOD COUNT 2.45 X10^6/uL (3.5-5.4); RED CELL DISTRIBUTION WIDTH 19.9 % (11.6-16.5); WHITE BLOOD COUNT 4.4 X10^3/uL (3.6-10.0)
[2021-12-10 07:08] LABS: ALANINE AMINOTRANSFERASE 20 Units/L (12-78); ALBUMIN 3.8 g/dL (3.4-5.0); ALKALINE PHOSPHATASE 138 Units/L (46-116); ASPARTATE AMINO TRANSFERASE 19 Units/L (15-37); BLOOD UREA NITROGEN 20 mg/dL (7-18); CALCIUM 8.1 mg/dL (8.5-10.1); CARBON DIOXIDE 20.2 mmol/L (21-32); CHLORIDE 112 mmol/L (98-107); CREATININE 1.35 mg/dL (0.55-1.02); SODIUM 148 mmol/L (136-145); TOTAL PROTEIN 6.6 g/dL (6.4-8.2); eGFR NON BLACK RACES 42 (>60)
[2021-12-10] MEDS: ALBUMIN HUMAN 25%- 100 ML 100 ML IV SCH (09:13)
[2021-12-10] MEDS: CARDIZEM CD 240 MG 24-HR PO SCH (09:14)
[2021-12-10] MEDS: PROTONIX INJ 40 MG VIAL IVP SCH ×2 (09:14→20:47)
[2021-12-10] MEDS: CYMBALTA PO SCH (09:14)
[2021-12-10] MEDS: PROCRIT or EPOGEN VIAL 10,000 UNITS SC SCH (09:15)
[2021-12-10] MEDS: LOPRESSOR TAB 25 MG PO SCH (09:15)
[2021-12-10] MEDS: INVanz INJ 1 GRAM VIAL 1 G in NS 100 ML IV 100 ML IV SCH (09:15)
[2021-12-10] MEDS: LOVENOX INJ 30 MG SYR SC SCH ×2 (09:16→20:45)
[2021-12-10] MEDS: LANOXIN or DIGITEK PO SCH (09:28)
[2021-12-10] MEDS ORDERED: LOPRESSOR TAB 25 MG PO NR (10:00)
[2021-12-10] MEDS: MEGACE PO SCH ×2 (11:00→20:45)
--- NOTE | 2021-12-10 11:03 | PCM.PROG ---
Progress Note - Progress Note for Day of Date of Exam: 12/09/21 - Subjective Subjective: WAS ADMITTED FOR TREATMENT OF ACUTE ON CHRONIC RENAL FAILURE, HUMERAL NECK FRACTURE, E.COLI UTI, ANEMIA, AND GENERALIZED WEAKNESS. SHE HAS RECEIVED TWO UNITS OF PRBC SINCE ADMISSION. SHE HAS A PMH OF RECENT CVA, HTN, A-FIB, HYPERLIPIDEMIA, AND RENAL DISEASE. TODAY, SHE IS ALERT, SITTING UP IN BED ON MORNING ROUNDS. PATIENT HAS BEEN UNABLE TO GET OUT OF BED OR AMBULATE WITHOUT MODERATE ASSISTANCE. SHE CONTINUES WITH COMPLAINTS OF WEAKNESS AND LEFT UPPER ARM PAIN TODAY. NURSING STAFF REPORTS THAT PATIENT HAS BEEN CONFUSED AND HALLUCINATING THROUGHOUT THE NIGHT. THEY ALSO REPORT THAT PATIENT HAS HAD LABORED BREATHING AND THAT RESPIRATIONS HAVE BEEN 30s-40s. ON EXAMINATION, HEART RHYTHM IS IRREGULAR. A-FIB NOTED ON INSPECTOR PRECISION WITH HR 110-120s. HR IS GENERALLY HIGHER IN THE MORNING AND LEVELS OFF IN THE AFTERNOONS. BILATERAL LUNGS NOTED WITH DIMINISHED LUNG SOUNDS THROUGHOUT. ABDOMEN IS ROUND, SOFT, AND NON-TENDER WITH NORMAL BOWEL SOUNDS NOTED IN ALL QUADRANTS. SCATTERED BRUISING NOTED OVER BODY. HER VITALS THIS MORNING ARE: 97.9-257-80-100%-116/70. LABS WERE OBTAINED. ABNORMAL LAB VALUES INCLUDE THE FOLLOWING: RBC 2.21, HGB 7.4, HCT 21.8, D-DIMER 7.60, SODIUM 146, CHLORIDE 112, CARBON DIOXIDE 19.6, BUN 23, CREATININE 1.29, CALCIUM 8.1, ALK PHOS 128, TOTAL PROTEIN 6.1, BNP 1120. URINE CULTURE POSITIVE FOR GROWTH OF E.COLI. SHE IS CURRENTLY RECEIVING NORMAL SALINE WITH MVI IN EACH LITER AT 50 ML/HR, ALBUMIN 25% IV DAILY, INVANZ 1 G IV DAILY, CARDIZEM CD 240 MG PO DAILY, AMIODARONE 200MG PO BIDWM, DIGOXIN 0.125MG PO DAILY, LOPRESSOR 125 MG PO BID, PROTONIX 40MG IV BID, MORPHINE SULFATE 2MG IV Q4H PRN, NORCO 5/325MG PO Q6H PRN, ZOFRAN 4MG IV Q6H PRN, PROCRIT 10,000 UNITS MON,WED,FRI, VALIUM 5MG PO TID PRN, PHENOBARBITAL HS, NYSTATIN CREAM TID PRN, NYSTATIN POWDER BID PRN, ZOVIRAX TOP Q8H. TODAY, WE WILL ADMINISTER LASIX 40MG IV X 1 DOSE. WE WILL OBTAIN A BRAIN CT WITHOUT CONTRAST DUE TO AMS, A CHEST CTA DUE TO SHORTNESS OF BREATH, AN ECHO, EKG, AND WILL CONSULT , LOCATOR SPECIALIST, DUE TO PERSISTENTLY ELEVATED HEART RATE. WE WILL HAVE PHYSICAL THERAPY CONTINUE TO WORK WITH PATIENT. WE PLAN FOR PATIENT TO GO TO REHAB FACILITY FOR INTENSE PHYSICAL THERAPY. PATIENT IS IN AGREEMENT. OTHERWISE, WE WILL FOLLOW UP WITH AM LABS AND CONTINUE TO MONITOR. TIME SPENT ON CLINICAL ASSESSMENT, REVIEWING LABS AND IMAGING, DECISION MAKING, AND DOCUMENTATION GREATER THAN 45 MINUTES. - Past Medical Family Social History Past Med/Fam/Surg Hx: No changes since H&P Allergies: Allergies No Known Drug Allergies [NKDA] Allergy (Verified 03/25/21 13:54) - Review of Systems ROS: No change since H&P - Vital Signs and I&O's Vital Signs: Temperature 97.5 F Pulse Rate [Left Radial] 128 Pulse Rate 113 Respiratory Rate 35 Blood Pressure [Right Arm] 116/79 Blood Pressure 154/92 O2 Sat by Pulse Oximetry 98 Intake and Output: Intake & Output 12/07/21 12/08/21 12/09/21 12/10/21 11:59 11:59 11:59 11:59 Intake Total 2130 / 2130 2909 / 2909 2428 / 2428 Output Total 175 / 175 Balance 2130 / 2130 2909 / 2909 2253 / 2253 - Physical Exam Oriented: Normal Eyes: Normal Ear: Normal Nose: Normal Throat: Normal Respiratory: Diminished Cardiovascular: Tachycardia, Irregular : Normal Auscultation: Bowel Sounds: Normal Palpation: Normal Tenderness: Normal Skin: Normal, Wound, Bruising (LEFT UPPER ARM ) Musculoskeletal: Left, Shoulder, Arm, Tender Psychiatric: Normal Mood Description: Calm Affect: Normal Speech Pattern: Clear, Appropriate - Laboratory and Diagnostics Result Diagrams: 12/10/21 05:23 12/10/21 05:23 Labs: 11/26/21 13:05 Urine,Catheterized Urine Culture - Final Escherichia Coli Laboratory WBC 4.4 X10^3/uL (3.6-10.0) 12/10/21 05:23 RBC 2.45 X10^6/uL (3.5-5.4) L 12/10/21 05:23 Hgb 8.0 g/dL (12.0-16.0) L 12/10/21 05:23 Hct 24.2 % (36.0-47.0) L 12/10/21 05:23 MCV 98.7 fL (80.0-100.0) 12/10/21 05:23 MCH 32.8 pg (27.0-34.0) 12/10/21 05:23 MCHC 33.3 g/dL (33.0-35.0) 12/10/21 05:23 RDW 19.9 % (11.6-16.5) H 12/10/21 05:23 Plt Count 288 X10^3/uL (150.0-450.0) 12/10/21 05:23 Plt Count Comment Adequate (ADEQUATE) 11/29/21 13:48 MPV 8.5 fL (7.4-11.0) 12/10/21 05:23 Neut % (Auto) 71.8 % (42.0-75.0) 12/10/21 05:23 Lymph % (Auto) 12.5 % (21.0-51.0) L 12/10/21 05:23 [place] % (Auto) 12.6 % (0.0-13.0) 12/10/21 05:23 Eos % (Auto) 2.5 % (0.9-2.9) 12/10/21 05:23 Baso % (Auto) 0.6 % (0.2-1.0) 12/10/21 05:23 Neut # (Auto) 3.2 x10^3/uL (2.2-4.8) 12/10/21 05:23 Lymph # (Auto) 0.5 X10^3/uL (1.3-2.9) L 12/10/21 05:23 [place] # (Auto) 0.6 x10^3/uL (0.3-0.8) 12/10/21 05:23 Eos # (Auto) 0.1 x10^3/uL (0.0-0.2) 12/10/21 05:23 Baso # (Auto) 0.0 X10^3/uL (0.0-0.1) 12/10/21 05:23 Absolute Nucleated RBC 0.4 /100WBC 12/10/21 05:23 Plt Clumps, EDTA Rare 11/29/21 13:48 Plt Morphology Comment Normal (NORMAL) 11/29/21 13:48 RBC Morphology Abnormal (NORMAL) A 11/29/21 13:48 Macrocytosis 1+ A 11/29/21 13:48 D-Dimer 7.60 ug/ml (0.0-0.57) H* 12/09/21 05:23 Sodium 148 mmol/L (136-145) H 12/10/21 05:23 Corrected Sodium TNP 12/10/21 05:23 Potassium 4.1 mmol/L (3.5-5.1) 12/10/21 05:23 Chloride 112 mmol/L (98-107) H 12/10/21 05:23 Carbon Dioxide 20.2 mmol/L (21-32) L 12/10/21 05:23 BUN 20 mg/dL (7-18) H 12/10/21 05:23 Creatinine 1.35 mg/dL (0.55-1.02) H 12/10/21 05:23 Est GFR (MDRD) Af Amer 50 (>60) L 12/10/21 05:23 Est GFR (MDRD) Non-Af 42 (>60) L 12/10/21 05:23 Glucose 83 mg/dL (65-99) 12/10/21 05:23 Calcium 8.1 mg/dL (8.5-10.1) L 12/10/21 05:23 Corrected Calcium TNP 12/10/21 05:23 Magnesium 1.9 mg/dL (1.7-2.9) 11/29/21 04:52 Iron 17 ug/dL (50-175) L 11/29/21 10:08 Transferrin 119 mg/dL (202-364) L 11/29/21 10:08 Ferritin 917 ng/mL (8-252) H 11/29/21 10:08 Total Bilirubin 0.60 mg/dL (0.2-1.0) 12/10/21 05:23 AST 19 Units/L (15-37) 12/10/21 05:23 ALT 20 Units/L (12-78) 12/10/21 05:23 Alkaline Phosphatase 138 Units/L (46-116) H 12/10/21 05:23 Creatine Kinase 26 Units/L (26-192) 12/09/21 05:23 CK-MB (CK-2) < 1.0 ng/mL (0-4.0) 12/09/21 05: CK/CKMB % Calc 3.9 % (<4) 12/09/21 05:23 Troponin I High Sens 137.2 ng/L (4.0-60.0) H* 12/10/21 05:23 B-Natriuretic Peptide 673 pg/mL (0-79) H* 12/10/21 05:23 Total Protein 6.6 g/dL (6.4-8.2) 12/10/21 05:23 Albumin 3.8 g/dL (3.4-5.0) 12/10/21 05: Globulin 2.8 g/dL (2.5-4.5) 12/10/21 05: Albumin/Globulin Ratio 1.4 Ratio (1.1-2.1) 12/10/21 05:23 Vitamin B12 > 2000 pg/mL (193-986) H 11/29/21 10:08 Folate 4.1 ng/mL (>8.6) L 11/29/21 10:08 Specimen Type Clean catch urine 12/05/21 12:10 Urine Color Yellow (YELLOW) 12/05/21 12:10 Urine Appearance Hazy (CLEAR) 12/05/21 12:10 Urine pH 5.0 (5.0 - 8.0) 12/05/21 12:10 Ur Specific [place] 1.015 (1.000-1.030) 12/05/21 12:10 Urine Protein 1+ (NEGATIVE) 12/05/21 12:10 Urine Glucose (UA) Negative (NEGATIVE) 12/05/21 12:10 Urine Ketones Negative (NEGATIVE) 12/05/21 12:10 Urine Occult Blood 1+ (NEGATIVE) 12/05/21 12:10 Urine Nitrite Negative (NEGATIVE) 12/05/21 12:10 Urine Bilirubin Negative (NEGATIVE) 12/05/21 12:10 Urine Urobilinogen Normal (NORMAL) 12/05/21 12:10 Ur Leukocyte Esterase 1+ (NEGATIVE) 12/05/21 12:10 Urine RBC 0-2 /HPF (0-3) 12/05/21 12:10 Urine WBC 0-2 /HPF (0-5) 12/05/21 12:10 Ur Squamous Epith Cells Moderate /HPF (NEGATIVE) 12/05/21 12:10 Urine Bacteria Trace /HPF (NEGATIVE) 12/05/21 12:10 Urine Mucus Few /HPF (NEGATIVE) 12/05/21 12:10 Ur Culture Indicated? No/not indicated 12/05/21 12:10 Stool Description 10g brown loose 11/29/21 18:30 Stl Occult Blood (IFOB) Negative (NEGATIVE) 11/29/21 18:30 Digoxin 1.68 ng/mL (0.9-2) 12/10/21 05:23 SARS CoV-2 RNA Rapid KAMALJIT Negative (NEGATIVE) 11/26/21 11:11 Blood Type O POSITIVE 12/06/21 11:42 Antibody Screen Negative 12/06/21 11:42 Crossmatch See Detail 11/29/21 10:08 - Plan (1) Acute on chronic renal failure Status: Acute Qualifiers: Acute renal failure type: unspecified Chronic kidney disease stage: unspecified stage Qualified Code(s): N17.9 - Acute kidney failure, unspecified; N18.9 - Chronic kidney disease, unspecified Plan: NORMAL SALINE AT 50 ML/HR WITH MVI IN EACH LITER, INVANZ 1 G IV DAILY, CARDIZEM CD 240MG PO DAILY, DIGOXIN 0.125MG PO DAILY, LOPRESSOR 25MG PO BID, AMIODARONE 200MG PO BID, MORPHINE SULFATE 2MG IV Q4H PRN, ZOFRAN 4MG IV Q6H PRN, NYSTATIN CREAM TID PRN, NYSTATIN POWDER BID PRN, ZOVIRAX TOP Q8H, ALBUMIN 25% IV DAILY, PROCRIT 10,000 UNITS ON MON,WED,FRI, VALIUM 5MG PO TID PRN, AND PHENOBARBITAL 30MG PO HS (2) Rhabdomyolysis Status: Resolved Qualifiers: Rhabdomyolysis type: traumatic Encounter type: initial encounter Qualified Code(s): T79.6XXA - Traumatic ischemia of muscle, initial encounter (3) Atrial fibrillation Status: Acute Qualifiers: Atrial fibrillation type: unspecified Qualified Code(s): I48.91 - Unspecified atrial fibrillation Plan: CARDIZEM DRIP (4) Fracture of neck of humerus Status: Acute Qualifiers: Encounter type: initial encounter Fracture type: closed Laterality: left Qualified Code(s): S42.212A - Unspecified displaced fracture of surgical neck of left humerus, initial encounter for closed fracture (5) Shortness of breath Status: Acute (6) Urinary tract infection Status: Acute Qualifiers: Urinary tract infection type: acute cystitis Hematuria presence: without hematuria Qualified Code(s): N30.00 - Acute cystitis without hematuria (7) Anemia Status: Acute Qualifiers: Anemia type: unspecified type Qualified Code(s): D64.9 - Anemia, unspecified (8) Dehydration Status: Acute (9) Generalized weakness Status: Acute (10) Recent cerebrovascular accident (CVA) Status: Chronic (11) Hypertension Status: Chronic Qualifiers: Hypertension type: primary hypertension Qualified Code(s): I10 - Essential (primary) hypertension (12) Hyperlipidemia Status: Chronic Qualifiers: Hyperlipidemia type: mixed hyperlipidemia Qualified Code(s): E78.2 - Mixed hyperlipidemia
--- NOTE | 2021-12-10 11:09 | PCM.PROG ---
Progress Note - Progress Note for Day of Date of Exam: 12/10/21 - Subjective Subjective: WAS IS BEING TREATED FOR A-FIB, CHRONIC RENAL FAILURE, HUMERAL NECK FRACTURE, E.COLI UTI, ANEMIA, AND GENERALIZED WEAKNESS. SHE HAS RECEIVED TWO UNITS OF PRBC SINCE ADMISSION. SHE HAS A PMH OF RECENT CVA, HTN, A- FIB, HYPERLIPIDEMIA, AND RENAL DISEASE. TODAY, SHE IS ALERT, SITTING UP IN BED ON MORNING ROUNDS. PATIENT HAS BEEN UNABLE TO GET OUT OF BED OR AMBULATE WITHOUT MODERATE ASSISTANCE. SHE CONTINUES WITH COMPLAINTS OF WEAKNESS AND LEFT UPPER ARM PAIN TODAY. PATIENTS DAUGHTER IS AT BEDSIDE AND REPORTS THAT PATIENT HAS NOT BEEN EATING WELL. PATIENT REPORTS DECREASED APPETITE. NURSING STAFF REPORTS THAT PATIENT HAS CONTINUED WITH CONFUSION AND HALLUCINATIONS AT TIMES. ON EXAMINATION, HEART RHYTHM IS IRREGULAR. A-FIB NOTED ON CAREERS COUNSELLOR WITH HR 110-120s. BILATERAL LUNGS NOTED WITH DIMINISHED LUNG SOUNDS THROUGHOUT. ABDOMEN IS ROUND, SOFT, AND NON-TENDER WITH NORMAL BOWEL SOUNDS NOTED IN ALL QUADRANTS. SCATTERED BRUISING NOTED OVER BODY. HER VITALS THIS MORNING ARE: 97.5-125-29-95%-154/92. LABS WERE OBTAINED. ABNORMAL LAB VALUES INCLUDE THE FOLLOWING: RBC 2.45, HGB 8.0, HCT 24.2, SODIUM 148, CHLORIDE 112, CARBON DIOXIDE 20.2, BUN 20, CREATININE 1.35, CALCIUM 8.1, ALK PHOS 138, BNP 673, TOTAL PROTEIN 6.6. URINE CULTURE POSITIVE FOR GROWTH OF E.COLI. BRAIN CT WAS OBTAINED YESTERDAY AND REVEALED: No acute intracranial abnormality. Mild cortical atrophy likely age related. Small-vessel vascular disease. CHEST CTA OBTAINED AND REVEALED: No evidence for acute pulmonary thromboembolic disease. No acute infiltrates. Cardiomegaly, bilateral pleural effusions, Trisha's B lines all suggestive of mild congestive heart failure. Increased attenuation in the subcu taneous soft tissues suggestive of developing anasarca. SHE IS CURRENTLY RECEIVING NORMAL SALINE WITH MVI IN EACH LITER AT 50 ML/HR, ALBUMIN 25% IV DAILY, INVANZ 1 G IV DAILY, CARDIZEM CD 240 MG PO DAILY, AMIODARONE 200MG PO BIDWM, DIGOXIN 0.125MG PO DAILY, LOPRESSOR 125 MG PO BID, PROTONIX 40MG IV BID, MORPHINE SULFATE 2MG IV Q4H PRN, NORCO 5/325MG PO Q6H PRN, ZOFRAN 4MG IV Q6H PRN, PROCRIT 10,000 UNITS MON,WED,FRI, VALIUM 5MG PO TID PRN, PHENOBARBITAL HS, NYSTATIN CREAM TID PRN, NYSTATIN POWDER BID PRN, ZOVIRAX TOP Q8H. TODAY, WE WILL ADD MEGACE 40MG PO BID. WILL CONSULT WITH PATIENT TODAY. WE WILL HAVE PHYSICAL THERAPY CONTINUE TO WORK WITH PATIENT. WE PLAN FOR PATIENT TO GO TO REHAB FACILITY FOR INTENSE PHYSICAL THERAPY. PATIENT IS IN AGREEMENT. OTHERWISE, WE WILL FOLLOW UP WITH AM LABS AND CONTINUE TO MONITOR. TIME SPENT ON CLINICAL ASSESSMENT, REVIEWING LABS AND IMAGING, DECISION MAKING, AND DOCUMENTATION GREATER THAN 45 MINUTES. - Past Medical Family Social History Past Med/Fam/Surg Hx: No changes since H&P Allergies: Allergies No Known Drug Allergies [NKDA] Allergy (Verified 03/25/21 13:54) - Review of Systems ROS: No change since H&P - Vital Signs and I&O's Vital Signs: Temperature 97.5 F Pulse Rate [Left Radial] 128 Pulse Rate 113 Respiratory Rate 35 Blood Pressure [Right Arm] 116/79 Blood Pressure 154/92 O2 Sat by Pulse Oximetry 98 Intake and Output: Intake & Output 12/07/21 12/08/21 12/09/21 12/10/21 11:59 11:59 11:59 11:59 Intake Total 2130 / 2130 2909 / 2909 2428 / 2428 Output Total 175 / 175 Balance 2130 / 2130 2909 / 2909 2253 / 2253 - Physical Exam Oriented: Normal Eyes: Normal Ear: Normal Nose: Normal Throat: Normal Respiratory: Diminished Cardiovascular: Tachycardia, Irregular : Normal Auscultation: Bowel Sounds: Normal Palpation: Normal Tenderness: Normal Skin: Normal, Wound, Bruising (LEFT UPPER ARM ) Musculoskeletal: Left, Shoulder, Arm, Tender Psychiatric: Normal Mood Description: Calm Affect: Normal Speech Pattern: Clear, Appropriate - Laboratory and Diagnostics Result Diagrams: 12/10/21 05:23 12/10/21 05:23 Labs: 11/26/21 13:05 Urine,Catheterized Urine Culture - Final Escherichia Coli Laboratory WBC 4.4 X10^3/uL (3.6-10.0) 12/10/21 05:23 RBC 2.45 X10^6/uL (3.5-5.4) L 12/10/21 05:23 Hgb 8.0 g/dL (12.0-16.0) L 12/10/21 05:23 Hct 24.2 % (36.0-47.0) L 12/10/21 05:23 MCV 98.7 fL (80.0-100.0) 12/10/21 05:23 MCH 32.8 pg (27.0-34.0) 12/10/21 05:23 MCHC 33.3 g/dL (33.0-35.0) 12/10/21 05:23 RDW 19.9 % (11.6-16.5) H 12/10/21 05:23 Plt Count 288 X10^3/uL (150.0-450.0) 12/10/21 05:23 Plt Count Comment Adequate (ADEQUATE) 11/29/21 13:48 MPV 8.5 fL (7.4-11.0) 12/10/21 05:23 Neut % (Auto) 71.8 % (42.0-75.0) 12/10/21 05:23 Lymph % (Auto) 12.5 % (21.0-51.0) L 12/10/21 05:23 [place] % (Auto) 12.6 % (0.0-13.0) 12/10/21 05:23 Eos % (Auto) 2.5 % (0.9-2.9) 12/10/21 05:23 Baso % (Auto) 0.6 % (0.2-1.0) 12/10/21 05:23 Neut # (Auto) 3.2 x10^3/uL (2.2-4.8) 12/10/21 05:23 Lymph # (Auto) 0.5 X10^3/uL (1.3-2.9) L 12/10/21 05:23 [place] # (Auto) 0.6 x10^3/uL (0.3-0.8) 12/10/21 05:23 Eos # (Auto) 0.1 x10^3/uL (0.0-0.2) 12/10/21 05:23 Baso # (Auto) 0.0 X10^3/uL (0.0-0.1) 12/10/21 05:23 Absolute Nucleated RBC 0.4 /100WBC 12/10/21 05:23 Plt Clumps, EDTA Rare 11/29/21 13:48 Plt Morphology Comment Normal (NORMAL) 11/29/21 13:48 RBC Morphology Abnormal (NORMAL) A 11/29/21 13:48 Macrocytosis 1+ A 11/29/21 13:48 D-Dimer 7.60 ug/ml (0.0-0.57) H* 12/09/21 05:23 Sodium 148 mmol/L (136-145) H 12/10/21 05:23 Corrected Sodium TNP 12/10/21 05:23 Potassium 4.1 mmol/L (3.5-5.1) 12/10/21 05:23 Chloride 112 mmol/L (98-107) H 12/10/21 05:23 Carbon Dioxide 20.2 mmol/L (21-32) L 12/10/21 05:23 BUN 20 mg/dL (7-18) H 12/10/21 05:23 Creatinine 1.35 mg/dL (0.55-1.02) H 12/10/21 05:23 Est GFR (MDRD) Af Amer 50 (>60) L 12/10/21 05:23 Est GFR (MDRD) Non-Af 42 (>60) L 12/10/21 05:23 Glucose 83 mg/dL (65-99) 12/10/21 05:23 Calcium 8.1 mg/dL (8.5-10.1) L 12/10/21 05:23 Corrected Calcium TNP 12/10/21 05:23 Magnesium 1.9 mg/dL (1.7-2.9) 11/29/21 04:52 Iron 17 ug/dL (50-175) L 11/29/21 10:08 Transferrin 119 mg/dL (202-364) L 11/29/21 10:08 Ferritin 917 ng/mL (8-252) H 11/29/21 10:08 Total Bilirubin 0.60 mg/dL (0.2-1.0) 12/10/21 05:23 AST 19 Units/L (15-37) 12/10/21 05:23 ALT 20 Units/L (12-78) 12/10/21 05:23 Alkaline Phosphatase 138 Units/L (46-116) H 12/10/21 05:23 Creatine Kinase 26 Units/L (26-192) 12/09/21 05:23 CK-MB (CK-2) < 1.0 ng/mL (0-4.0) 12/09/21 05:23 CK/CKMB % Calc 3.9 % (<4) 12/09/21 05:23 Troponin I High Sens 137.2 ng/L (4.0-60.0) H* 12/10/21 05:23 B-Natriuretic Peptide 673 pg/mL (0-79) H* 12/10/21 05:23 Total Protein 6.6 g/dL (6.4-8.2) 12/10/21 05:23 Albumin 3.8 g/dL (3.4-5.0) 12/10/21 05:23 Globulin 2.8 g/dL (2.5-4.5) 12/10/21 05:23 Albumin/Globulin Ratio 1.4 Ratio (1.1-2.1) 12/10/21 05:23 Vitamin B12 > 2000 pg/mL (193-986) H 11/29/21 10:08 Folate 4.1 ng/mL (>8.6) L 11/29/21 10:08 Specimen Type Clean catch urine 12/05/21 12:10 Urine Color Yellow (YELLOW) 12/05/21 12:10 Urine Appearance Hazy (CLEAR) 12/05/21 12:10 Urine pH 5.0 (5.0 - 8.0) 12/05/21 12:10 Ur Specific [place] 1.015 (1.000-1.030) 12/05/21 12:10 Urine Protein 1+ (NEGATIVE) 12/05/21 12:10 Urine Glucose (UA) Negative (NEGATIVE) 12/05/21 12:10 Urine Ketones Negative (NEGATIVE) 12/05/21 12:10 Urine Occult Blood 1+ (NEGATIVE) 12/05/21 12:10 Urine Nitrite Negative (NEGATIVE) 12/05/21 12:10 Urine Bilirubin Negative (NEGATIVE) 12/05/21 12:10 Urine Urobilinogen Normal (NORMAL) 12/05/21 12:10 Ur Leukocyte Esterase 1+ (NEGATIVE) 12/05/21 12:10 Urine RBC 0-2 /HPF (0-3) 12/05/21 12:10 Urine WBC 0-2 /HPF (0-5) 12/05/21 12:10 Ur Squamous Epith Cells Moderate /HPF (NEGATIVE) 12/05/21 12:10 Urine Bacteria Trace /HPF (NEGATIVE) 12/05/21 12:10 Urine Mucus Few /HPF (NEGATIVE) 12/05/21 12:10 Ur Culture Indicated? No/not indicated 12/05/21 12:10 Stool Description 10g brown loose 11/29/21 18:30 Stl Occult Blood (IFOB) Negative (NEGATIVE) 11/29/21 18:30 Digoxin 1.68 ng/mL (0.9-2) 12/10/21 05:23 SARS CoV-2 RNA Rapid KAMALJIT Negative (NEGATIVE) 11/26/21 11:11 Blood Type O POSITIVE 12/06/21 11:42 Antibody Screen Negative 12/06/21 11:42 Crossmatch See Detail 11/29/21 10:08 - Plan (1) Acute on chronic renal failure Status: Acute Qualifiers: Acute renal failure type: unspecified Chronic kidney disease stage: unspecified stage Qualified Code(s): N17.9 - Acute kidney failure, unspecified; N18.9 - Chronic kidney disease, unspecified Plan: NORMAL SALINE AT 50 ML/HR WITH MVI IN EACH LITER, INVANZ 1 G IV DAILY, CARDIZEM CD 240MG PO DAILY, DIGOXIN 0.125MG PO DAILY, LOPRESSOR 25MG PO BID, AMIODARONE 200MG PO BID, MORPHINE SULFATE 2MG IV Q4H PRN, ZOFRAN 4MG IV Q6H PRN, NYSTATIN CREAM TID PRN, NYSTATIN POWDER BID PRN, ZOVIRAX TOP Q8H, ALBUMIN 25% IV DAILY, PROCRIT 10,000 UNITS ON MON,WED,FRI, VALIUM 5MG PO TID PRN, AND PHENOBARBITAL 30MG PO HS (2) Rhabdomyolysis Status: Resolved Qualifiers: Rhabdomyolysis type: traumatic Encounter type: initial encounter Qualified Code(s): T79.6XXA - Traumatic ischemia of muscle, initial encounter (3) Atrial fibrillation Status: Acute Qualifiers: Atrial fibrillation type: unspecified Qualified Code(s): I48.91 - Unspecified atrial fibrillation Plan: CARDIZEM DRIP (4) Fracture of neck of humerus Status: Acute Qualifiers: Encounter type: initial encounter Fracture type: closed Laterality: left Qualified Code(s): S42.212A - Unspecified displaced fracture of surgical neck of left humerus, initial encounter for closed fracture Plan: CONSULT ORTHO (5) Shortness of breath Status: Acute (6) Urinary tract infection Status: Acute Qualifiers: Urinary tract infection type: acute cystitis Hematuria presence: without hematuria Qualified Code(s): N30.00 - Acute cystitis without hematuria (7) Anemia Status: Acute Qualifiers: Anemia type: unspecified type Qualified Code(s): D64.9 - Anemia, unspecified (8) Dehydration Status: Acute (9) Generalized weakness Status: Acute (10) Recent cerebrovascular accident (CVA) Status: Chronic (11) Hypertension Status: Chronic Qualifiers: Hypertension type: primary hypertension Qualified Code(s): I10 - Essential (primary) hypertension (12) Hyperlipidemia Status: Chronic Qualifiers: Hyperlipidemia type: mixed hyperlipidemia Qualified Code(s): E78.2 - Mixed hyperlipidemia
[2021-12-10] MEDS ORDERED: LASIX IVP ONE (12:57)
[2021-12-10] MEDS: LOPRESSOR TAB 50 MG PO SCH (20:45)
[2021-12-10] MEDS: PHENOBARBITAL TAB 30 MG (32.4MG) PO SCH (20:46)
[2021-12-10] MEDS: VALIUM PO PRN (20:48)
[2021-12-11] MEDS: ZOVIRAX TOP SCH ×3 (01:08→17:12)
[2021-12-11] MEDS: MORPHINE SULFATE INJ 4 MG IVP PRN ×3 (02:12→23:27)
[2021-12-11] MEDS: NS 1,000 ML IV 1,000 ML with MVI INJ (ADULT) 10 ML IV SCH ×6 (06:39→23:35)
[2021-12-11] MEDS: CORDARONE TAB 200 MG PO SCH ×2 (06:39→17:12)
[2021-12-11 07:03] LABS: ALANINE AMINOTRANSFERASE 19 Units/L (12-78); ALKALINE PHOSPHATASE 142 Units/L (46-116); ASPARTATE AMINO TRANSFERASE 16 Units/L (15-37); BLOOD UREA NITROGEN 18 mg/dL (7-18); CALCIUM 8.1 mg/dL (8.5-10.1); CARBON DIOXIDE 17.8 mmol/L (21-32); CHLORIDE 111 mmol/L (98-107); CREATININE 1.36 mg/dL (0.55-1.02); SODIUM 149 mmol/L (136-145); TOTAL PROTEIN 6.7 g/dL (6.4-8.2); eGFR NON BLACK RACES 41 (>60)
[2021-12-11 07:55] LABS: BASOPHILS % (AUTO) 0.6 % (0.2-1.0); EOSINOPHILS # (AUTO) 0.2 x10^3/uL (0.0-0.2); EOSINOPHILS % (AUTO) 2.7 % (0.9-2.9); HEMATOCRIT 25.3 % (36.0-47.0); HEMOGLOBIN 8.2 g/dL (12.0-16.0); LYMPHOCYTES # (AUTO) 1.2 X10^3/uL (1.3-2.9); LYMPHOCYTES % (AUTO) 20.1 % (21.0-51.0); MEAN CORPUSCULAR HEMOGLOBIN 32.1 pg (27.0-34.0); MEAN CORPUSCULAR HGB CONC 32.3 g/dL (33.0-35.0); MEAN CORPUSCULAR VOLUME 99.3 fL (80.0-100.0); MEAN PLATELET VOLUME 8.4 fL (7.4-11.0); MONOCYTES # (AUTO) 0.7 x10^3/uL (0.3-0.8); MONOCYTES % (AUTO) 11.8 % (0.0-13.0); NEUTROPHILS # (AUTO) 3.8 x10^3/uL (2.2-4.8); NEUTROPHILS % (AUTO) 64.8 % (42.0-75.0); RED BLOOD COUNT 2.55 X10^6/uL (3.5-5.4); RED CELL DISTRIBUTION WIDTH 19.8 % (11.6-16.5); WHITE BLOOD COUNT 5.8 X10^3/uL (3.6-10.0)
[2021-12-11] MEDS: LOVENOX INJ 30 MG SYR SC SCH ×2 (08:48→20:32)
[2021-12-11] MEDS: ALBUMIN HUMAN 25%- 100 ML 100 ML IV SCH (08:48)
[2021-12-11] MEDS: INVanz INJ 1 GRAM VIAL 1 G in NS 100 ML IV 100 ML IV SCH (08:48)
[2021-12-11] MEDS: CYMBALTA PO SCH (08:49)
[2021-12-11] MEDS: LOPRESSOR TAB 50 MG PO SCH ×2 (08:49→20:32)
[2021-12-11] MEDS: CARDIZEM CD 240 MG 24-HR PO SCH (08:49)
[2021-12-11] MEDS: LANOXIN or DIGITEK PO SCH (08:50)
[2021-12-11] MEDS: MEGACE PO SCH ×2 (08:50→20:32)
[2021-12-11] MEDS: PROTONIX INJ 40 MG VIAL IVP SCH ×2 (08:50→20:33)
[2021-12-11] MEDS ORDERED: LASIX IVP ONE ×2 (10:05→13:00)
--- NOTE | 2021-12-11 11:01 | PCM.PROG ---
Progress Note - Progress Note for Day of Date of Exam: 12/11/21 - Subjective Subjective: WAS IS BEING TREATED FOR A-FIB, CHRONIC RENAL FAILURE, HUMERAL NECK FRACTURE, E.COLI UTI, ANEMIA, AND GENERALIZED WEAKNESS. SHE HAS RECEIVED TWO UNITS OF PRBC SINCE ADMISSION. SHE HAS A PMH OF RECENT CVA, HTN, A- FIB, HYPERLIPIDEMIA, AND RENAL DISEASE. TODAY, SHE IS ALERT, SITTING UP IN BED ON MORNING ROUNDS. PATIENT HAS BEEN UNABLE TO GET OUT OF BED OR AMBULATE WITHOUT MODERATE ASSISTANCE. SHE CONTINUES WITH COMPLAINTS OF WEAKNESS AND LEFT UPPER ARM PAIN TODAY. NURSING STAFF REPORTS THAT PATIENT HAS CONTINUED WITH CONFUSION AND HALLUCINATIONS AT TIMES. ON EXAMINATION, HEART RHYTHM IS IRREGULAR. A-FIB NOTED ON ADJUNCT PHYSICS INSTRUCTOR WITH HR 115. BILATERAL LUNGS NOTED WITH DIMINISHED LUNG SOUNDS THROUGHOUT. ABDOMEN IS ROUND, SOFT, AND NON-TENDER WITH NORMAL BOWEL SOUNDS NOTED IN ALL QUADRANTS. SCATTERED BRUISING NOTED OVER BODY. EDEMA NOTED TO BILATERAL UPPER EXTREMITIES. HER VITALS THIS MORNING ARE: 97.8-115-24-96%-143/96. LABS WERE OBTAINED. ABNORMAL LAB VALUES INCLUDE THE F OLLOWING: RBC 2.55, HGB 8.2, HCT 25.3, SODIUM 149, CHLORIDE 111, CARBON DIOXIDE 17.8, CREATININE 1.36, CALCIUM 8.1, ALK PHOS 142, BNP 1240. URINE CULTURE POSITIVE FOR GROWTH OF E.COLI. SHE IS CURRENTLY RECEIVING NORMAL SALINE WITH MVI IN EACH LITER AT 50 ML/HR, ALBUMIN 25% IV DAILY, INVANZ 1 G IV DAILY, CARDIZEM CD 240 MG PO DAILY, AMIODARONE 200MG PO BIDWM, DIGOXIN 0.125MG PO DAILY, LOPRESSOR 50 MG PO BID, PROTONIX 40MG IV BID, MORPHINE SULFATE 2MG IV Q4H PRN, MEGACE 40MG PO BID, NORCO 5/325MG PO Q6H PRN, ZOFRAN 4MG IV Q6H PRN, PROCRIT 10,000 UNITS MON,WED,FRI, VALIUM 5MG PO TID PRN, PHENOBARBITAL HS, NYSTATIN CREAM TID PRN, NYSTATIN POWDER BID PRN, ZOVIRAX TOP Q8H. TODAY, WE WILL ADMINISTER LASIX 40MG IV X 1 DOSE. WE WILL ALSO OBTAIN A VENOUS DOPPLER OF THE UPPER EXTREMITIES TO RULE OUT DVT. WE WILL HAVE PHYSICAL THERAPY CONTINUE TO WORK WITH PATIENT. WE PLAN FOR PATIENT TO GO TO REHAB FACILITY FOR INTENSE PHYSICAL THERAPY. PATIENT IS IN AGREEMENT. OTHERWISE, WE WILL FOLLOW UP WITH AM LABS AND CONTINUE TO MONITOR. TIME SPENT ON CLINICAL ASSESSMENT, REVIEWING LABS AND IMAGING, DECISION MAKING, AND DOCUMENTATION GREATER THAN 45 MINUTES. - Past Medical Family Social History Past Med/Fam/Surg Hx: No changes since H&P Allergies: Allergies No Known Drug Allergies [NKDA] Allergy (Verified 03/25/21 13:54) - Review of Systems ROS: No change since H&P - Vital Signs and I&O's Vital Signs: Temperature 97.8 F Pulse Rate [Left Radial] 128 Pulse Rate 117 Respiratory Rate 27 Blood Pressure [Right Arm] 116/79 Blood Pressure 155/94 O2 Sat by Pulse Oximetry 93 Intake and Output: Intake & Output 12/08/21 12/09/21 12/10/21 12/11/21 11:59 11:59 11:59 11:59 Intake Total 2130 / 2130 2909 / 2909 2428 / 2428 1579 / 1579 Output Total 175 / 175 1600 / 1600 Balance 2130 / 2130 2909 / 2909 2253 / 2253 - / - Physical Exam Oriented: Normal Eyes: Normal Ear: Normal Nose: Normal Throat: Normal Respiratory: Diminished Cardiovascular: Tachycardia, Irregular : Normal Auscultation: Bowel Sounds: Normal Tenderness: Normal Skin: Normal, Wound, Bruising (LEFT UPPER ARM ) Musculoskeletal: Left, Shoulder, Arm, Tender Psychiatric: Normal Mood Description: Calm Affect: Normal Speech Pattern: Clear, Appropriate - Laboratory and Diagnostics Result Diagrams: 12/11/21 05:55 12/11/21 05:55 Labs: 12/10/21 14:35 Urine,Clean Catch Urine Culture - Preliminary 11/26/21 13:05 Urine,Catheterized Urine Culture - Final Escherichia Coli Laboratory WBC 5.8 X10^3/uL (3.6-10.0) 12/11/21 05:55 RBC 2.55 X10^6/uL (3.5-5.4) L 12/11/21 05:55 Hgb 8.2 g/dL (12.0-16.0) L 12/11/21 05:55 Hct 25.3 % (36.0-47.0) L 12/11/21 05:55 MCV 99.3 fL (80.0-100.0) 12/11/21 05:55 MCH 32.1 pg (27.0-34.0) 12/11/21 05:55 MCHC 32.3 g/dL (33.0-35.0) L 12/11/21 05:55 RDW 19.8 % (11.6-16.5) H 12/11/21 05:55 Plt Count 336 X10^3/uL (150.0-450.0) 12/11/21 05:55 Plt Count Comment Adequate (ADEQUATE) 11/29/21 13:48 MPV 8.4 fL (7.4-11.0) 12/11/21 05:55 Neut % (Auto) 64.8 % (42.0-75.0) 12/11/21 05:55 Lymph % (Auto) 20.1 % (21.0-51.0) L 12/11/21 05:55 [place] % (Auto) 11.8 % (0.0-13.0) 12/11/21 05:55 Eos % (Auto) 2.7 % (0.9-2.9) 12/11/21 05:55 Baso % (Auto) 0.6 % (0.2-1.0) 12/11/21 05:55 Neut # (Auto) 3.8 x10^3/uL (2.2-4.8) 12/11/21 05:55 Lymph # (Auto) 1.2 X10^3/uL (1.3-2.9) L 12/11/21 05:55 [place] # (Auto) 0.7 x10^3/uL (0.3-0.8) 12/11/21 05:55 Eos # (Auto) 0.2 x10^3/uL (0.0-0.2) 12/11/21 05:55 Baso # (Auto) 0.0 X10^3/uL (0.0-0.1) 12/11/21 05:55 Absolute Nucleated RBC 0.1 /100WBC 12/11/21 05:55 Plt Clumps, EDTA Rare 11/29/21 13:48 Plt Morphology Comment Normal (NORMAL) 11/29/21 13:48 RBC Morphology Abnormal (NORMAL) A 11/29/21 13:48 Macrocytosis 1+ A 11/29/21 13:48 D-Dimer 7.60 ug/ml (0.0-0.57) H* 12/09/21 05:23 Sodium 149 mmol/L (136-145) H 12/11/21 05:55 Corrected Sodium TNP 12/11/21 05:55 Potassium 4.1 mmol/L (3.5-5.1) 12/11/21 05:55 Chloride 111 mmol/L (98-107) H 12/11/21 05:55 Carbon Dioxide 17.8 mmol/L (21-32) L 12/11/21 05:55 BUN 18 mg/dL (7-18) 12/11/21 05:55 Creatinine 1.36 mg/dL (0.55-1.02) H 12/11/21 05:55 Est GFR (MDRD) Af Amer 50 (>60) L 12/11/21 05:55 Est GFR (MDRD) Non-Af 41 (>60) L 12/11/21 05:55 Glucose 98 mg/dL (65-99) 12/11/21 05:55 Calcium 8.1 mg/dL (8.5-10.1) L 12/11/21 05:55 Corrected Calcium TNP 12/11/21 05:55 Magnesium 1.9 mg/dL (1.7-2.9) 11/29/21 04:52 Iron 17 ug/dL (50-175) L 11/29/21 10:08 Transferrin 119 mg/dL (202-364) L 11/29/21 10:08 Ferritin 917 ng/mL (8-252) H 11/29/21 10:08 Total Bilirubin 0.70 mg/dL (0.2-1.0) 12/11/21 05:55 AST 16 Units/L (15-37) 12/11/21 05:55 ALT 19 Units/L (12-78) 12/11/21 05:55 Alkaline Phosphatase 142 Units/L (46-116) H 12/11/21 05:55 Creatine Kinase 26 Units/L (26-192) 12/09/21 05:23 CK-MB (CK-2) < 1.0 ng/mL (0-4.0) 12/09/21 05:23 CK/CKMB % Calc 3.9 % (<4) 12/09/21 05:23 Troponin I High Sens 137.2 ng/L (4.0-60.0) H* 12/10/21 05:23 B-Natriuretic Peptide 1240 pg/mL (0-79) H* 12/11/21 05:55 Total Protein 6.7 g/dL (6.4-8.2) 12/11/21 05:55 Albumin 4.0 g/dL (3.4-5.0) 12/11/21 05:55 Globulin 2.7 g/dL (2.5-4.5) 12/11/21 05:55 Albumin/Globulin Ratio 1.5 Ratio (1.1-2.1) 12/11/21 05:55 Vitamin B12 > 2000 pg/mL (193-986) H 11/29/21 10:08 Folate 4.1 ng/mL (>8.6) L 11/29/21 10:08 Specimen Type Clean catch urine 12/05/21 12:10 Urine Color Yellow (YELLOW) 12/05/21 12:10 Urine Appearance Hazy (CLEAR) 12/05/21 12:10 Urine pH 5.0 (5.0 - 8.0) 12/05/21 12:10 Ur Specific [place] 1.015 (1.000-1.030) 12/05/21 12:10 Urine Protein 1+ (NEGATIVE) 12/05/21 12:10 Urine Glucose (UA) Negative (NEGATIVE) 12/05/21 12:10 Urine Ketones Negative (NEGATIVE) 12/05/21 12:10 Urine Occult Blood 1+ (NEGATIVE) 12/05/21 12:10 Urine Nitrite Negative (NEGATIVE) 12/05/21 12:10 Urine Bilirubin Negative (NEGATIVE) 12/05/21 12:10 Urine Urobilinogen Normal (NORMAL) 12/05/21 12:10 Ur Leukocyte Esterase 1+ (NEGATIVE) 12/05/21 12:10 Urine RBC 0-2 /HPF (0-3) 12/05/21 12:10 Urine WBC 0-2 /HPF (0-5) 12/05/21 12:10 Ur Squamous Epith Cells Moderate /HPF (NEGATIVE) 12/05/21 12:10 Urine Bacteria Trace /HPF (NEGATIVE) 12/05/21 12:10 Urine Mucus Few /HPF (NEGATIVE) 12/05/21 12:10 Ur Culture Indicated? No/not indicated 12/05/21 12:10 Stool Description 10g brown loose 11/29/21 18:30 Stl Occult Blood (IFOB) Negative (NEGATIVE) 11/29/21 18:30 Digoxin 1.76 ng/mL (0.9-2) 12/11/21 05:55 SARS CoV-2 RNA Rapid KAMALJIT Negative (NEGATIVE) 11/26/21 11:11 Blood Type O POSITIVE 12/06/21 11:42 Antibody Screen Negative 12/06/21 11:42 Crossmatch See Detail 11/29/21 10:08 - Plan (1) Acute on chronic renal failure Status: Acute Qualifiers: Acute renal failure type: unspecified Chronic kidney disease stage: unspecified stage Qualified Code(s): N17.9 - Acute kidney failure, unspecified; N18.9 - Chronic kidney disease, unspecified Plan: NORMAL SALINE AT 50 ML/HR WITH MVI IN EACH LITER, INVANZ 1 G IV DAILY, CARDIZEM CD 240MG PO DAILY, DIGOXIN 0.125MG PO DAILY, LOPRESSOR 25MG PO BID, AMIODARONE 200MG PO BID, MORPHINE SULFATE 2MG IV Q4H PRN, ZOFRAN 4MG IV Q6H PRN, NYSTATIN CREAM TID PRN, NYSTATIN POWDER BID PRN, ZOVIRAX TOP Q8H, ALBUMIN 25% IV DAILY, PROCRIT 10,000 UNITS ON MON,WED,FRI, VALIUM 5MG PO TID PRN, MEGACE 40MG PO BID, AND PHENOBARBITAL 30MG PO HS (2) Rhabdomyolysis Status: Resolved Qualifiers: Rhabdomyolysis type: traumatic Encounter type: initial encounter Qualified Code(s): T79.6XXA - Traumatic ischemia of muscle, initial encounter (3) Atrial fibrillation Status: Acute Qualifiers: Atrial fibrillation type: unspecified Qualified Code(s): I48.91 - Unspecified atrial fibrillation Plan: CARDIZEM DRIP (4) Fracture of neck of humerus Status: Acute Qualifiers: Encounter type: initial encounter Fracture type: closed Laterality: left Qualified Code(s): S42.212A - Unspecified displaced fracture of surgical neck of left humerus, initial encounter for closed fracture Plan: CONSULT ORTHO (5) Shortness of breath Status: Acute (6) Urinary tract infection Status: Acute Qualifiers: Urinary tract infection type: acute cystitis Hematuria presence: without hematuria Qualified Code(s): N30.00 - Acute cystitis without hematuria (7) Anemia Status: Acute Qualifiers: Anemia type: unspecified type Qualified Code(s): D64.9 - Anemia, unspecified (8) Dehydration Status: Acute (9) Generalized weakness Status: Acute (10) Recent cerebrovascular accident (CVA) Status: Chronic (11) Hypertension Status: Chronic Qualifiers: Hypertension type: primary hypertension Qualified Code(s): I10 - Essential (primary) hypertension (12) Hyperlipidemia Status: Chronic Qualifiers: Hyperlipidemia type: mixed hyperlipidemia Qualified Code(s): E78.2 - Mixed hyperlipidemia
--- NOTE | 2021-12-11 14:36 | VAS ---
HISTORY: Extremity pain, swelling, and edemaStudy: Bilateral upper extremity Doppler venous ultrasound.TECHNIQUE: Multiple house scale and color flow Doppler images of the deep venous system were obtained of the right and left upper extremity.FINDINGS:The deep venous system of the right and left upper extremity evaluated from the level of the internal jugular vein through the [radial and ulnar veins]. Normal color flow and augmentation can be observed. In addition, normal compression is seen throughout the upper extremity deep venous system. [No soft tissue hematoma is seen.]IMPRESSION:1. Negative examination for DVT.Electronically signed by: LYDIA SHETH III (Dec 11, 2021 14:35:51)
--- NOTE | 2021-12-11 16:17 | RAD ---
HISTORY:Shortness of breathStudy: Single view chestComparison:12/10/2021, CT 12/09/2021Findings:There are layering bilateral pleural effusions. Hazy perihilar lung infiltrates may represent alveolar edema. Stable cardiomegaly. No pneumothorax.IMPRESSION:Cardiomegaly with bilateral effusions and mild perihilar alveolar edema.Electronically signed by: PAMELA CRISOSTOMO (Dec 11, 2021 16:15:59)
[2021-12-11] MEDS: VALIUM PO PRN (20:33)
[2021-12-11] MEDS: PHENOBARBITAL TAB 30 MG (32.4MG) PO SCH (20:33)
[2021-12-11] MEDS: NYSTATIN POWDER TOP PRN (22:42)
[2021-12-12] MEDS: ZOVIRAX TOP SCH ×3 (01:33→16:58)
[2021-12-12 04:56] LABS: BASOPHILS % (AUTO) 0.5 % (0.2-1.0); EOSINOPHILS % (AUTO) 0.9 % (0.9-2.9); HEMATOCRIT 25.7 % (36.0-47.0); HEMOGLOBIN 8.3 g/dL (12.0-16.0); LYMPHOCYTES # (AUTO) 0.6 X10^3/uL (1.3-2.9); LYMPHOCYTES % (AUTO) 11.5 % (21.0-51.0); MEAN CORPUSCULAR HEMOGLOBIN 32.4 pg (27.0-34.0); MEAN CORPUSCULAR HGB CONC 32.3 g/dL (33.0-35.0); MEAN CORPUSCULAR VOLUME 100.2 fL (80.0-100.0); MEAN PLATELET VOLUME 8.5 fL (7.4-11.0); MONOCYTES # (AUTO) 0.6 x10^3/uL (0.3-0.8); MONOCYTES % (AUTO) 11.4 % (0.0-13.0); NEUTROPHILS # (AUTO) 4.3 x10^3/uL (2.2-4.8); NEUTROPHILS % (AUTO) 75.7 % (42.0-75.0); RED BLOOD COUNT 2.57 X10^6/uL (3.5-5.4); RED CELL DISTRIBUTION WIDTH 20.2 % (11.6-16.5); WHITE BLOOD COUNT 5.6 X10^3/uL (3.6-10.0)
[2021-12-12 05:03] LABS: ALANINE AMINOTRANSFERASE 38 Units/L (12-78); ALBUMIN 4.1 g/dL (3.4-5.0); ALKALINE PHOSPHATASE 144 Units/L (46-116); ASPARTATE AMINO TRANSFERASE 71 Units/L (15-37); BLOOD UREA NITROGEN 22 mg/dL (7-18); CARBON DIOXIDE 20.6 mmol/L (21-32); CHLORIDE 111 mmol/L (98-107); CREATININE 1.35 mg/dL (0.55-1.02); SODIUM 148 mmol/L (136-145); TOTAL PROTEIN 6.8 g/dL (6.4-8.2); eGFR NON BLACK RACES 42 (>60)
[2021-12-12 05:44] LABS: ANISOCYTOSIS 1+; PLATELET MORPHOLOGY COMMENT NORMAL (NORMAL)
--- NOTE | 2021-12-12 06:03 | RAD ---
HISTORYShortness of breathSTUDYChest AP [id number] heart remains enlarged. The lungs are hypoinflated. Perihilar right lung infiltrate is unchanged and could represent asymmetric edema or pneumonia. The left lung is now clear. No pleural effusion or pneumothorax is identified. Bony thorax is unremarkable.IMPRESSIONContinued cardiomegalyNo change hypo inflationRight perihilar infiltrate which could represent asymmetric edema or pneumoniaLeft lung now clearElectronically signed by: DOMINGA RODRIGUEZ (Dec 12, 2021 06:02:19)
[2021-12-12] MEDS: CORDARONE TAB 200 MG PO SCH ×2 (06:20→16:33)
[2021-12-12] MEDS: INVanz INJ 1 GRAM VIAL 1 G in NS 100 ML IV 100 ML IV SCH (09:27)
[2021-12-12] MEDS: ALBUMIN HUMAN 25%- 100 ML 100 ML IV SCH (09:28)
[2021-12-12] MEDS: LOPRESSOR TAB 50 MG PO SCH ×2 (09:28→20:21)
[2021-12-12] MEDS: PROTONIX INJ 40 MG VIAL IVP SCH ×2 (09:28→20:21)
[2021-12-12] MEDS: CARDIZEM CD 240 MG 24-HR PO SCH (09:29)
[2021-12-12] MEDS: MEGACE PO SCH ×2 (09:29→20:21)
[2021-12-12] MEDS: LANOXIN or DIGITEK PO SCH (09:29)
[2021-12-12] MEDS: CYMBALTA PO SCH (09:29)
[2021-12-12] MEDS: LOVENOX INJ 30 MG SYR SC SCH ×3 (09:31→20:20)
[2021-12-12] MEDS: PROCRIT or EPOGEN VIAL 10,000 UNITS SC SCH (10:29)
[2021-12-12] MEDS: NS 1,000 ML IV 1,000 ML with MVI INJ (ADULT) 10 ML IV SCH ×2 (14:52)
[2021-12-12] MEDS: DIFLUCAN 200 MG IV PREMIX* 200 MG/100 ML BAG IV SCH (16:33)
[2021-12-12] MEDS: VALIUM PO PRN (20:20)
[2021-12-12] MEDS: NORCO 5/325 MG TAB PO PRN (20:20)
[2021-12-12] MEDS: PHENOBARBITAL TAB 30 MG (32.4MG) PO SCH (20:21)
[2021-12-12] MEDS ORDERED: DIFLUCAN 200 MG IV PREMIX* 200 MG/100 ML BAG IV SCH (21:00)
[2021-12-12] MEDS: NYSTATIN POWDER TOP PRN (23:00)
[2021-12-12] MEDS: MORPHINE SULFATE INJ 4 MG IVP PRN (23:46)
[2021-12-13] MEDS: ZOVIRAX TOP SCH ×3 (01:44→16:34)
[2021-12-13] MEDS: NS 1,000 ML IV 1,000 ML with MVI INJ (ADULT) 10 ML IV SCH ×4 (02:31→05:38)
[2021-12-13 04:54] LABS: BASOPHILS % (AUTO) 0.6 % (0.2-1.0); EOSINOPHILS # (AUTO) 0.1 x10^3/uL (0.0-0.2); EOSINOPHILS % (AUTO) 2.6 % (0.9-2.9); HEMATOCRIT 25.8 % (36.0-47.0); HEMOGLOBIN 8.3 g/dL (12.0-16.0); LYMPHOCYTES # (AUTO) 0.7 X10^3/uL (1.3-2.9); LYMPHOCYTES % (AUTO) 11.5 % (21.0-51.0); MEAN CORPUSCULAR HGB CONC 32.1 g/dL (33.0-35.0); MEAN CORPUSCULAR VOLUME 99.9 fL (80.0-100.0); MEAN PLATELET VOLUME 8.9 fL (7.4-11.0); MONOCYTES # (AUTO) 0.6 x10^3/uL (0.3-0.8); NEUTROPHILS # (AUTO) 4.2 x10^3/uL (2.2-4.8); NEUTROPHILS % (AUTO) 74.3 % (42.0-75.0); RED BLOOD COUNT 2.58 X10^6/uL (3.5-5.4); RED CELL DISTRIBUTION WIDTH 20.4 % (11.6-16.5); WHITE BLOOD COUNT 5.7 X10^3/uL (3.6-10.0)
[2021-12-13 05:04] LABS: ALANINE AMINOTRANSFERASE 72 Units/L (12-78); ALBUMIN 3.9 g/dL (3.4-5.0); ALKALINE PHOSPHATASE 144 Units/L (46-116); ASPARTATE AMINO TRANSFERASE 103 Units/L (15-37); BLOOD UREA NITROGEN 23 mg/dL (7-18); CALCIUM 7.9 mg/dL (8.5-10.1); CHLORIDE 113 mmol/L (98-107); COR NA(FOR HYPERGLY) 149 mmol/L (136-145); CREATININE 1.38 mg/dL (0.55-1.02); SODIUM 149 mmol/L (136-145); TOTAL PROTEIN 6.4 g/dL (6.4-8.2); eGFR NON BLACK RACES 41 (>60)
--- NOTE | 2021-12-13 05:43 | RAD ---
PROCEDURE: Chest X-ray 1 View .HISTORY: SHORTNESS OF BREATH .TECHNIQUE: AP portable done at 5:56 a.m..COMPARISON: 12/12/2021.TECHNICAL QUALITY: Satisfactory .FINDINGS:Unchanged mild cardiomegaly with mild central vascular prominence.Increase consolidation throughout the right lung field and left mid lower lung field compared to previous study could be related to edema. No pleural fluid or pneumothorax.IMPRESSION:Increasing congestive failure with increased edema.Electronically signed by: David Pandya (Dec 13, 2021 05:43:06)
[2021-12-13] MEDS: CORDARONE TAB 200 MG PO SCH ×2 (06:00→16:27)
[2021-12-13 06:02] LABS: ANISOCYTOSIS SLIGHT; PLATELET MORPHOLOGY COMMENT NORMAL (NORMAL)
[2021-12-13] MEDS: PROTONIX INJ 40 MG VIAL IVP SCH ×2 (08:52→20:40)
[2021-12-13] MEDS: DIFLUCAN 200 MG IV PREMIX* 200 MG/100 ML BAG IV SCH (08:52)
[2021-12-13] MEDS: NS IV SCH ×2 (08:53)
[2021-12-13] MEDS: MVI IV SCH ×2 (08:53)
[2021-12-13] MEDS: INVanz INJ 1 GRAM VIAL 1 G in NS 100 ML IV 100 ML IV SCH (08:53)
[2021-12-13] MEDS: LOVENOX INJ 30 MG SYR SC SCH ×2 (09:06→20:33)
[2021-12-13] MEDS ORDERED: LASIX IVP ONE (09:14)
--- NOTE | 2021-12-13 09:18 | PCM.PROG ---
Progress Note - Progress Note for Day of Date of Exam: 12/12/21 - Subjective Subjective: WAS IS BEING TREATED FOR A-FIB, CHRONIC RENAL FAILURE, HUMERAL NECK FRACTURE, E.COLI UTI, ANEMIA, AND GENERALIZED WEAKNESS. SHE HAS RECEIVED TWO UNITS OF PRBC SINCE ADMISSION. SHE HAS A PMH OF RECENT CVA, HTN, A- FIB, HYPERLIPIDEMIA, AND RENAL DISEASE. TODAY, SHE IS ALERT, SITTING UP IN BED ON MORNING ROUNDS. PATIENT HAS BEEN UNABLE TO GET OUT OF BED OR AMBULATE WITHOUT MODERATE ASSISTANCE. SHE CONTINUES WITH COMPLAINTS OF WEAKNESS AND LEFT UPPER ARM PAIN TODAY. NURSING STAFF REPORTS THAT PATIENT HAS CONTINUED WITH CONFUSION AND HALLUCINATIONS AT TIMES. ON EXAMINATION, HEART RHYTHM IS IRREGULAR. A-FIB NOTED ON [employer] WITH HR 81. BILATERAL LUNGS NOTED WITH DIMINISHED LUNG SOUNDS THROUGHOUT. ABDOMEN IS ROUND, SOFT, AND NON-TENDER WITH NORMAL BOWEL SOUNDS NOTED IN ALL QUADRANTS. SCATTERED BRUISING NOTED OVER BODY. EDEMA NOTED TO BILATERAL UPPER EXTREMITIES. HER VITALS THIS MORNING ARE: 97.5-81-12-99%-154/85. LABS WERE OBTAINED. ABNORMAL LAB VALUES INCLUDE THE FOL LOWING: RBC 2.57, HGB 8.3, HCT 25.7, SODIUM 148, CHLORIDE 111, CARBON DIOXIDE 20.6, BUN 22, CREATININE 1.35, CALCIUM 8.0, AST 71, ALK PHOS 144, BNP 1210, ALBUMIN 2.7. URINE CULTURE POSITIVE FOR GROWTH OF E.COLI. SHE IS CURRENTLY RECEIVING NORMAL SALINE WITH MVI IN EACH LITER AT 50 ML/HR, ALBUMIN 25% IV DAILY, INVANZ 1 G IV DAILY, CARDIZEM CD 240 MG PO DAILY, AMIODARONE 200MG PO BIDWM, DIGOXIN 0.125MG PO DAILY, LOPRESSOR 50 MG PO BID, PROTONIX 40MG IV BID, MORPHINE SULFATE 2MG IV Q4H PRN, MEGACE 40MG PO BID, NORCO 5/325MG PO Q6H PRN, ZOFRAN 4MG IV Q6H PRN, PROCRIT 10,000 UNITS MON,WED,FRI, VALIUM 5MG PO TID PRN, PHENOBARBITAL HS, NYSTATIN CREAM TID PRN, NYSTATIN POWDER BID PRN, ZOVIRAX TOP Q8H. WE WILL HAVE PHYSICAL THERAPY CONTINUE TO WORK WITH PATIENT. WE PLAN FOR PATIENT TO GO TO REHAB FACILITY FOR INTENSE PHYSICAL THERAPY. PATIENT IS IN AGREEMENT. OTHERWISE, WE WILL FOLLOW UP WITH AM LABS AND CONTINUE TO MONITOR. TIME SPENT ON CLINICAL ASSESSMENT, REVIEWING LABS AND IMAGING, DECISION MAKING, AND DOCUMENTATION GREATER THAN 45 MINUTES. - Past Medical Family Social History Past Med/Fam/Surg Hx: No changes since H&P Allergies: Allergies No Known Drug Allergies [NKDA] Allergy (Verified 03/25/21 13:54) - Review of Systems ROS: No change since H&P - Vital Signs and I&O's Vital Signs: Temperature 97.8 F Pulse Rate [Left Radial] 128 Pulse Rate 72 Respiratory Rate 20 Blood Pressure [Right Arm] 116/79 Blood Pressure 131/74 O2 Sat by Pulse Oximetry 100 Intake and Output: Intake & Output 12/10/21 12/11/21 12/12/21 12/13/21 11:59 11:59 11:59 11:59 Intake Total 2428 / 2428 1579 / 1579 1480 / 1480 1589 / 1589 Output Total 175 / 175 1600 / 1600 800 / 800 150 / 150 Balance 2253 / 2253 - / -21 680 / 680 1439 / 1439 - Physical Exam Oriented: Normal Eyes: Normal Ear: Normal Nose: Normal Throat: Normal Respiratory: Diminished Cardiovascular: Tachycardia, Irregular : Normal Auscultation: Bowel Sounds: Normal Tenderness: Normal Skin: Normal, Wound, Bruising (LEFT UPPER ARM ) Musculoskeletal: Left, Shoulder, Arm, Tender Psychiatric: Normal Mood Description: Calm Affect: Normal Speech Pattern: Unclear, Delayed, Slurred - Laboratory and Diagnostics Result Diagrams: 12/13/21 04:27 12/13/21 04:27 Labs: 12/10/21 14:35 Urine,Clean Catch Urine Culture - Preliminary 11/26/21 13:05 Urine,Catheterized Urine Culture - Final Escherichia Coli Laboratory WBC 5.7 X10^3/uL (3.6-10.0) 12/13/21 04:27 RBC 2.58 X10^6/uL (3.5-5.4) L 12/13/21 04:27 Hgb 8.3 g/dL (12.0-16.0) L 12/13/21 04:27 Hct 25.8 % (36.0-47.0) L 12/13/21 04:27 MCV 99.9 fL (80.0-100.0) 12/13/21 04:27 MCH 32.0 pg (27.0-34.0) 12/13/21 04:27 MCHC 32.1 g/dL (33.0-35.0) L 12/13/21 04:27 RDW 20.4 % (11.6-16.5) H 12/13/21 04:27 Plt Count 288 X10^3/uL (150.0-450.0) 12/13/21 04:27 Plt Count Comment Adequate (ADEQUATE) 12/13/21 04:27 MPV 8.9 fL (7.4-11.0) 12/13/21 04:27 Neut % (Auto) 74.3 % (42.0-75.0) 12/13/21 04:27 Lymph % (Auto) 11.5 % (21.0-51.0) L 12/13/21 04:27 [place] % (Auto) 11.0 % (0.0-13.0) 12/13/21 04:27 Eos % (Auto) 2.6 % (0.9-2.9) 12/13/21 04:27 Baso % (Auto) 0.6 % (0.2-1.0) 12/13/21 04:27 Neut # (Auto) 4.2 x10^3/uL (2.2-4.8) 12/13/21 04:27 Lymph # (Auto) 0.7 X10^3/uL (1.3-2.9) L 12/13/21 04:27 [place] # (Auto) 0.6 x10^3/uL (0.3-0.8) 12/13/21 04:27 Eos # (Auto) 0.1 x10^3/uL (0.0-0.2) 12/13/21 04:27 Baso # (Auto) 0.0 X10^3/uL (0.0-0.1) 12/13/21 04:27 Absolute Nucleated RBC 0.5 /100WBC 12/13/21 04:27 Plt Clumps, EDTA Rare 11/29/21 13:48 Plt Morphology Comment Normal (NORMAL) 12/13/21 04:27 RBC Morphology Abnormal (NORMAL) A 12/13/21 04:27 Anisocytosis Slight A 12/13/21 04:27 Macrocytosis Slight A 12/13/21 04:27 D-Dimer 7.60 ug/ml (0.0-0.57) H* 12/09/21 05:23 Sodium 149 mmol/L (136-145) H 12/13/21 04:27 Corrected Sodium 149 mmol/L (136-145) H 12/13/21 04:27 Potassium 4.4 mmol/L (3.5-5.1) 12/13/21 04:27 Chloride 113 mmol/L (98-107) H 12/13/21 04:27 Carbon Dioxide 24.0 mmol/L (21-32) 12/13/21 04:27 BUN 23 mg/dL (7-18) H 12/13/21 04:27 Creatinine 1.38 mg/dL (0.55-1.02) H 12/13/21 04:27 Est GFR (MDRD) Af Amer 49 (>60) L 12/13/21 04:27 Est GFR (MDRD) Non-Af 41 (>60) L 12/13/21 04:27 Glucose 114 mg/dL (65-99) H 12/13/21 04:27 Calcium 7.9 mg/dL (8.5-10.1) L 12/13/21 04:27 Corrected Calcium TNP 12/13/21 04:27 Magnesium 1.9 mg/dL (1.7-2.9) 11/29/21 04:52 Iron 17 ug/dL (50-175) L 11/29/21 10:08 Transferrin 119 mg/dL (202-364) L 11/29/21 10:08 Ferritin 917 ng/mL (8-252) H 11/29/21 10:08 Total Bilirubin 0.50 mg/dL (0.2-1.0) 12/13/21 04:27 AST 103 Units/L (15-37) H 12/13/21 04:27 ALT 72 Units/L (12-78) 12/13/21 04:27 Alkaline Phosphatase 144 Units/L (46-116) H 12/13/21 04:27 Creatine Kinase 26 Units/L (26-192) 12/09/21 05:23 CK-MB (CK-2) < 1.0 ng/mL (0-4.0) 12/09/21 05:23 CK/CKMB % Calc 3.9 % (<4) 12/09/21 05:23 Troponin I High Sens 137.2 ng/L (4.0-60.0) H* 12/10/21 05:23 B-Natriuretic Peptide 772 pg/mL (0-79) H* 12/13/21 04:27 Total Protein 6.4 g/dL (6.4-8.2) 12/13/21 04:27 Albumin 3.9 g/dL (3.4-5.0) 12/13/21 04:27 Globulin 2.5 g/dL (2.5-4.5) 12/13/21 04:27 Albumin/Globulin Ratio 1.6 Ratio (1.1-2.1) 12/13/21 04:27 Vitamin B12 > 2000 pg/mL (193-986) H 11/29/21 10:08 Folate 4.1 ng/mL (>8.6) L 11/29/21 10:08 Specimen Type Clean catch urine 12/05/21 12:10 Urine Color Yellow (YELLOW) 12/05/21 12:10 Urine Appearance Hazy (CLEAR) 12/05/21 12:10 Urine pH 5.0 (5.0 - 8.0) 12/05/21 12:10 Ur Specific [place] 1.015 (1.000-1.030) 12/05/21 12:10 Urine Protein 1+ (NEGATIVE) 12/05/21 12:10 Urine Glucose (UA) Negative (NEGATIVE) 12/05/21 12:10 Urine Ketones Negative (NEGATIVE) 12/05/21 12:10 Urine Occult Blood 1+ (NEGATIVE) 12/05/21 12:10 Urine Nitrite Negative (NEGATIVE) 12/05/21 12:10 Urine Bilirubin Negative (NEGATIVE) 12/05/21 12:10 Urine Urobilinogen Normal (NORMAL) 12/05/21 12:10 Ur Leukocyte Esterase 1+ (NEGATIVE) 12/05/21 12:10 Urine RBC 0-2 /HPF (0-3) 12/05/21 12:10 Urine WBC 0-2 /HPF (0-5) 12/05/21 12:10 Ur Squamous Epith Cells Moderate /HPF (NEGATIVE) 12/05/21 12:10 Urine Bacteria Trace /HPF (NEGATIVE) 12/05/21 12:10 Urine Mucus Few /HPF (NEGATIVE) 12/05/21 12:10 Ur Culture Indicated? No/not indicated 12/05/21 12:10 Stool Description 10g brown loose 11/29/21 18:30 Stl Occult Blood (IFOB) Negative (NEGATIVE) 11/29/21 18:30 Digoxin 1.76 ng/mL (0.9-2) 12/11/21 05:55 SARS CoV-2 RNA Rapid KAMALJIT Negative (NEGATIVE) 11/26/21 11:11 Blood Type O POSITIVE 12/06/21 11:42 Antibody Screen Negative 12/06/21 11:42 Crossmatch See Detail 11/29/21 10:08 - Plan (1) Acute on chronic renal failure Status: Acute Qualifiers: Acute renal failure type: unspecified Chronic kidney disease stage: unspecified stage Qualified Code(s): N17.9 - Acute kidney failure, unspecified; N18.9 - Chronic kidney disease, unspecified Plan: NORMAL SALINE AT 50 ML/HR WITH MVI IN EACH LITER, INVANZ 1 G IV DAILY, CARDIZEM CD 240MG PO DAILY, DIGOXIN 0.125MG PO DAILY, LOPRESSOR 25MG PO BID, AMIODARONE 200MG PO BID, MORPHINE SULFATE 2MG IV Q4H PRN, ZOFRAN 4MG IV Q6H PRN, NYSTATIN CREAM TID PRN, NYSTATIN POWDER BID PRN, ZOVIRAX TOP Q8H, ALBUMIN 25% IV DAILY, PROCRIT 10,000 UNITS ON MON,WED,FRI, VALIUM 5MG PO TID PRN, MEGACE 40MG PO BID, AND PHENOBARBITAL 30MG PO HS (2) Rhabdomyolysis Status: Resolved Qualifiers: Rhabdomyolysis type: traumatic Encounter type: initial encounter Qualified Code(s): T79.6XXA - Traumatic ischemia of muscle, initial encounter (3) Atrial fibrillation Status: Acute Qualifiers: Atrial fibrillation type: unspecified Qualified Code(s): I48.91 - Unspecified atrial fibrillation Plan: CARDIZEM DRIP (4) Fracture of neck of humerus Status: Acute Qualifiers: Encounter type: initial encounter Fracture type: closed Laterality: left Qualified Code(s): S42.212A - Unspecified displaced fracture of surgical neck of left humerus, initial encounter for closed fracture Plan: CONSULT ORTHO (5) Shortness of breath Status: Acute (6) Urinary tract infection Status: Acute Qualifiers: Urinary tract infection type: acute cystitis Hematuria presence: without hematuria Qualified Code(s): N30.00 - Acute cystitis without hematuria (7) Anemia Status: Acute Qualifiers: Anemia type: unspecified type Qualified Code(s): D64.9 - Anemia, unspecified (8) Dehydration Status: Acute (9) Generalized weakness Status: Acute (10) Recent cerebrovascular accident (CVA) Status: Chronic (11) Hypertension Status: Chronic Qualifiers: Hypertension type: primary hypertension Qualified Code(s): I10 - Essential (primary) hypertension (12) Hyperlipidemia Status: Chronic Qualifiers: Hyperlipidemia type: mixed hyperlipidemia Qualified Code(s): E78.2 - Mixed hyperlipidemia
--- NOTE | 2021-12-13 09:21 | PCM.PROG ---
Progress Note - Progress Note for Day of Date of Exam: 12/13/21 - Subjective Subjective: WAS IS BEING TREATED FOR A-FIB, CHRONIC RENAL FAILURE, HUMERAL NECK FRACTURE, E.COLI UTI, ANEMIA, AND GENERALIZED WEAKNESS. SHE HAS RECEIVED TWO UNITS OF PRBC SINCE ADMISSION. SHE HAS A PMH OF RECENT CVA, HTN, A- FIB, HYPERLIPIDEMIA, AND RENAL DISEASE. TODAY, SHE IS ALERT, SITTING UP IN BED ON MORNING ROUNDS. PATIENT HAS BEEN UNABLE TO GET OUT OF BED OR AMBULATE WITHOUT MODERATE ASSISTANCE. SHE DOES PARTICIPATE WITH THERAPY MUCH SHE CAN. SHE CONTINUES WITH COMPLAINTS OF WEAKNESS AND LEFT UPPER ARM PAIN TODAY, BUT DOES REPORT SLIGHT IMPROVEMENT. ON EXAMINATION, HEART RHYTHM IS IRREGULAR. A-FIB NOTED ON [employer] WITH HR 72. BILATERAL LUNGS NOTED WITH DIMINISHED LUNG SOUNDS THROUGHOUT. ABDOMEN IS ROUND, SOFT, AND NON-TENDER WITH NORMAL BOWEL SOUNDS NOTED IN ALL QUADRANTS. SCATTERED BRUISING NOTED OVER BODY. EDEMA NOTED TO BILATERAL UPPER EXTREMITIES. HER VITALS THIS MORNING ARE: 97.8-72-20-100%-131/74. LABS WERE OBTAINED. ABNORMAL LAB VALUES INCLUDE THE FOLLOWING: RBC 2.58, HGB 8.3, HCT 25.8, SODIUM 149, CHLORIDE 113, BUN 23, CREATININE 1.38, GLUCOSE 114, CALCIUM 7.9, AST 103, ALK PHOS 144, BNP 772. URINE CULTURE POSITIVE FOR GROWTH OF E.COLI. CHEST XRAY OBTAINED AND REVEALED: Increasing congestive failure with increased edema. SHE IS CURRENTLY RECEIVING NORMAL SALINE WITH MVI IN EACH LITER AT 50 ML/HR, ALBUMIN 25% IV DAILY, INVANZ 1 G IV DAILY, CARDIZEM CD 240 MG PO DAILY, AMIODARONE 200MG PO BIDWM, DIGOXIN 0.125MG PO DAILY, LOPRESSOR 50 MG PO BID, PROTONIX 40MG IV BID, MORPHINE SULFATE 2MG IV Q4H PRN, MEGACE 40MG PO BID, NORCO 5/325MG PO Q6H PRN, ZOFRAN 4MG IV Q6H PRN, PROCRIT 10,000 UNITS MON,WED,FRI, VALIUM 5MG PO TID PRN, PHENOBARBITAL HS, NYSTATIN CREAM TID PRN, NYSTATIN POWDER BID PRN, ZOVIRAX TOP Q8H. WE WILL ADMINISTER LASIX 40MG IV X 1 DOSE TODAY. WE WILL HAVE PHYSICAL THERAPY CONTINUE TO WORK WITH PATIENT. WE PLAN FOR PATIENT TO GO TO REHAB FACILITY FOR INTENSE PHYSICAL THERAPY. PATIENT IS IN AGREEMENT. OTHERWISE, WE WILL FOLLOW UP WITH AM LABS AND CONTINUE TO MONITOR. TIME SPENT ON CLINICAL ASSESSMENT, REVIEWING LABS AND IMAGING, DECISION MAKING, AND DOCUMENTATION GREATER THAN 45 MINUTES. - Past Medical Family Social History Past Med/Fam/Surg Hx: No changes since H&P Allergies: Allergies No Known Drug Allergies [NKDA] Allergy (Verified 03/25/21 13:54) - Review of Systems ROS: No change since H&P - Vital Signs and I&O's Vital Signs: Temperature 97.8 F Pulse Rate [Left Radial] 128 Pulse Rate 72 Respiratory Rate 20 Blood Pressure [Right Arm] 116/79 Blood Pressure 131/74 O2 Sat by Pulse Oximetry 100 Intake and Output: Intake & Output 12/10/21 12/11/21 12/12/21 12/13/21 11:59 11:59 11:59 11:59 Intake Total 2428 / 2428 1579 / 1579 1480 / 1480 1589 / 1589 Output Total 175 / 175 1600 / 1600 800 / 800 150 / 150 Balance 2253 / 2253 -21 / -21 680 / 680 1439 / 1439 - Physical Exam Oriented: Normal Eyes: Normal Ear: Normal Nose: Normal Throat: Normal Respiratory: Diminished Cardiovascular: Tachycardia, Irregular : Normal Auscultation: Bowel Sounds: Normal Tenderness: Normal Skin: Normal, Wound, Bruising (LEFT UPPER ARM ) Musculoskeletal: Left, Shoulder, Arm, Tender Psychiatric: Normal Mood Description: Calm Affect: Normal Speech Pattern: Unclear, Delayed, Slurred - Laboratory and Diagnostics Result Diagrams: 12/13/21 04:27 12/13/21 04:27 Labs: 12/10/21 14:35 Urine,Clean Catch Urine Culture - Preliminary 11/26/21 13:05 Urine,Catheterized Urine Culture - Final Escherichia Coli Laboratory WBC 5.7 X10^3/uL (3.6-10.0) 12/13/21 04:27 RBC 2.58 X10^6/uL (3.5-5.4) L 12/13/21 04:27 Hgb 8.3 g/dL (12.0-16.0) L 12/13/21 04:27 Hct 25.8 % (36.0-47.0) L 12/13/21 04:27 MCV 99.9 fL (80.0-100.0) 12/13/21 04:27 MCH 32.0 pg (27.0-34.0) 12/13/21 04:27 MCHC 32.1 g/dL (33.0-35.0) L 12/13/21 04:27 RDW 20.4 % (11.6-16.5) H 12/13/21 04:27 Plt Count 288 X10^3/uL (150.0-450.0) 12/13/21 04:27 Plt Count Comment Adequate (ADEQUATE) 12/13/21 04:27 MPV 8.9 fL (7.4-11.0) 12/13/21 04:27 Neut % (Auto) 74.3 % (42.0-75.0) 12/13/21 04:27 Lymph % (Auto) 11.5 % (21.0-51.0) L 12/13/21 04:27 [place] % (Auto) 11.0 % (0.0-13.0) 12/13/21 04:27 Eos % (Auto) 2.6 % (0.9-2.9) 12/13/21 04:27 Baso % (Auto) 0.6 % (0.2-1.0) 12/13/21 04:27 Neut # (Auto) 4.2 x10^3/uL (2.2-4.8) 12/13/21 04:27 Lymph # (Auto) 0.7 X10^3/uL (1.3-2.9) L 12/13/21 04:27 [place] # (Auto) 0.6 x10^3/uL (0.3-0.8) 12/13/21 04:27 Eos # (Auto) 0.1 x10^3/uL (0.0-0.2) 12/13/21 04:27 Baso # (Auto) 0.0 X10^3/uL (0.0-0.1) 12/13/21 04:27 Absolute Nucleated RBC 0.5 /100WBC 12/13/21 04:27 Plt Clumps, EDTA Rare 11/29/21 13:48 Plt Morphology Comment Normal (NORMAL) 12/13/21 04:27 RBC Morphology Abnormal (NORMAL) A 12/13/21 04:27 Anisocytosis Slight A 12/13/21 04:27 Macrocytosis Slight A 12/13/21 04:27 D-Dimer 7.60 ug/ml (0.0-0.57) H* 12/09/21 05:23 Sodium 149 mmol/L (136-145) H 12/13/21 04:27 Corrected Sodium 149 mmol/L (136-145) H 12/13/21 04:27 Potassium 4.4 mmol/L (3.5-5.1) 12/13/21 04:27 Chloride 113 mmol/L (98-107) H 12/13/21 04:27 Carbon Dioxide 24.0 mmol/L (21-32) 12/13/21 04:27 BUN 23 mg/dL (7-18) H 12/13/21 04:27 Creatinine 1.38 mg/dL (0.55-1.02) H 12/13/21 04:27 Est GFR (MDRD) Af Amer 49 (>60) L 12/13/21 04:27 Est GFR (MDRD) Non-Af 41 (>60) L 12/13/21 04:27 Glucose 114 mg/dL (65-99) H 12/13/21 04:27 Calcium 7.9 mg/dL (8.5-10.1) L 12/13/21 04:27 Corrected Calcium TNP 12/13/21 04:27 Magnesium 1.9 mg/dL (1.7-2.9) 11/29/21 04:52 Iron 17 ug/dL (50-175) L 11/29/21 10:08 Transferrin 119 mg/dL (202-364) L 11/29/21 10:08 Ferritin 917 ng/mL (8-252) H 11/29/21 10:08 Total Bilirubin 0.50 mg/dL (0.2-1.0) 12/13/21 04:27 AST 103 Units/L (15-37) H 12/13/21 04:27 ALT 72 Units/L (12-78) 12/13/21 04:27 Alkaline Phosphatase 144 Units/L (46-116) H 12/13/21 04:27 Creatine Kinase 26 Units/L (26-192) 12/09/21 05:23 CK-MB (CK-2) < 1.0 ng/mL (0-4.0) 12/09/21 05:23 CK/CKMB % Calc 3.9 % (<4) 12/09/21 05:23 Troponin I High Sens 137.2 ng/L (4.0-60.0) H* 12/10/21 05:23 B-Natriuretic Peptide 772 pg/mL (0-79) H* 12/13/21 04:27 Total Protein 6.4 g/dL (6.4-8.2) 12/13/21 04:27 Albumin 3.9 g/dL (3.4-5.0) 12/13/21 04:27 Globulin 2.5 g/dL (2.5-4.5) 12/13/21 04:27 Albumin/Globulin Ratio 1.6 Ratio (1.1-2.1) 12/13/21 04:27 Vitamin B12 > 2000 pg/mL (193-986) H 11/29/21 10:08 Folate 4.1 ng/mL (>8.6) L 11/29/21 10:08 Specimen Type Clean catch urine 12/05/21 12:10 Urine Color Yellow (YELLOW) 12/05/21 12:10 Urine Appearance Hazy (CLEAR) 12/05/21 12:10 Urine pH 5.0 (5.0 - 8.0) 12/05/21 12:10 Ur Specific [place] 1.015 (1.000-1.030) 12/05/21 12:10 Urine Protein 1+ (NEGATIVE) 12/05/21 12:10 Urine Glucose (UA) Negative (NEGATIVE) 12/05/21 12:10 Urine Ketones Negative (NEGATIVE) 12/05/21 12:10 Urine Occult Blood 1+ (NEGATIVE) 12/05/21 12:10 Urine Nitrite Negative (NEGATIVE) 12/05/21 12:10 Urine Bilirubin Negative (NEGATIVE) 12/05/21 12:10 Urine Urobilinogen Normal (NORMAL) 12/05/21 12:10 Ur Leukocyte Esterase 1+ (NEGATIVE) 12/05/21 12:10 Urine RBC 0-2 /HPF (0-3) 12/05/21 12:10 Urine WBC 0-2 /HPF (0-5) 12/05/21 12:10 Ur Squamous Epith Cells Moderate /HPF (NEGATIVE) 12/05/21 12:10 Urine Bacteria Trace /HPF (NEGATIVE) 12/05/21 12:10 Urine Mucus Few /HPF (NEGATIVE) 12/05/21 12:10 Ur Culture Indicated? No/not indicated 12/05/21 12:10 Stool Description 10g brown loose 11/29/21 18:30 Stl Occult Blood (IFOB) Negative (NEGATIVE) 11/29/21 18:30 Digoxin 1.76 ng/mL (0.9-2) 12/11/21 05:55 SARS CoV-2 RNA Rapid KAMALJIT Negative (NEGATIVE) 11/26/21 11:11 Blood Type O POSITIVE 12/06/21 11:42 Antibody Screen Negative 12/06/21 11:42 Crossmatch See Detail 11/29/21 10:08 - Plan (1) Acute on chronic renal failure Status: Acute Qualifiers: Acute renal failure type: unspecified Chronic kidney disease stage: unspecified stage Qualified Code(s): N17.9 - Acute kidney failure, unspecified; N18.9 - Chronic kidney disease, unspecified Plan: NORMAL SALINE AT 50 ML/HR WITH MVI IN EACH LITER, INVANZ 1 G IV DAILY, CAR DIZEM CD 240MG PO DAILY, DIGOXIN 0.125MG PO DAILY, LOPRESSOR 25MG PO BID, AMIODARONE 200MG PO BID, MORPHINE SULFATE 2MG IV Q4H PRN, ZOFRAN 4MG IV Q6H PRN, NYSTATIN CREAM TID PRN, NYSTATIN POWDER BID PRN, ZOVIRAX TOP Q8H, ALBUMIN 25% IV DAILY, PROCRIT 10,000 UNITS ON MON,WED,FRI, VALIUM 5MG PO TID PRN, MEGACE 40MG PO BID, AND PHENOBARBITAL 30MG PO HS (2) Rhabdomyolysis Status: Resolved Qualifiers: Rhabdomyolysis type: traumatic Encounter type: initial encounter Qualified Code(s): T79.6XXA - Traumatic ischemia of muscle, initial encounter (3) Atrial fibrillation Status: Acute Qualifiers: Atrial fibrillation type: unspecified Qualified Code(s): I48.91 - Unspecified atrial fibrillation Plan: CARDIZEM DRIP (4) Fracture of neck of humerus Status: Acute Qualifiers: Encounter type: initial encounter Fracture type: closed Laterality: left Qualified Code(s): S42.212A - Unspecified displaced fracture of surgical neck of left humerus, initial encounter for closed fracture Plan: CONSULT ORTHO (5) Shortness of breath Status: Acute (6) Urinary tract infection Status: Acute Qualifiers: Urinary tract infection type: acute cystitis Hematuria presence: without hematuria Qualified Code(s): N30.00 - Acute cystitis without hematuria (7) Anemia Status: Acute Qualifiers: Anemia type: unspecified type Qualified Code(s): D64.9 - Anemia, unspecified (8) Dehydration Status: Acute (9) Generalized weakness Status: Acute (10) Recent cerebrovascular accident (CVA) Status: Chronic (11) Hypertension Status: Chronic Qualifiers: Hypertension type: primary hypertension Qualified Code(s): I10 - Essential (primary) hypertension (12) Hyperlipidemia Status: Chronic Qualifiers: Hyperlipidemia type: mixed hyperlipidemia Qualified Code(s): E78.2 - Mixed hyperlipidemia
[2021-12-13] MEDS: CARDIZEM CD 240 MG 24-HR PO SCH (10:00)
[2021-12-13] MEDS: CYMBALTA PO SCH (10:00)
[2021-12-13] MEDS: LOPRESSOR TAB 50 MG PO SCH ×2 (10:00→20:33)
[2021-12-13] MEDS: MEGACE PO SCH ×2 (10:00→20:33)
[2021-12-13] MEDS: LANOXIN or DIGITEK PO SCH (10:10)
[2021-12-13] MEDS: COLACE CAP 100 MG PO PRN (15:00)
[2021-12-13] MEDS: NORCO 5/325 MG TAB PO PRN (15:38)
[2021-12-13] MEDS: PHENOBARBITAL TAB 30 MG (32.4MG) PO SCH (20:33)
[2021-12-14] MEDS: ZOVIRAX TOP SCH ×3 (01:54→16:44)
[2021-12-14 04:38] LABS: BASOPHILS % (AUTO) 0.2 % (0.2-1.0); EOSINOPHILS # (AUTO) 0.2 x10^3/uL (0.0-0.2); EOSINOPHILS % (AUTO) 3.5 % (0.9-2.9); HEMATOCRIT 26.6 % (36.0-47.0); HEMOGLOBIN 8.5 g/dL (12.0-16.0); LYMPHOCYTES # (AUTO) 0.8 X10^3/uL (1.3-2.9); LYMPHOCYTES % (AUTO) 12.8 % (21.0-51.0); MEAN CORPUSCULAR HEMOGLOBIN 31.9 pg (27.0-34.0); MEAN CORPUSCULAR VOLUME 99.6 fL (80.0-100.0); MEAN PLATELET VOLUME 8.7 fL (7.4-11.0); MONOCYTES # (AUTO) 0.7 x10^3/uL (0.3-0.8); MONOCYTES % (AUTO) 11.6 % (0.0-13.0); NEUTROPHILS # (AUTO) 4.6 x10^3/uL (2.2-4.8); NEUTROPHILS % (AUTO) 71.9 % (42.0-75.0); RED BLOOD COUNT 2.67 X10^6/uL (3.5-5.4); RED CELL DISTRIBUTION WIDTH 20.1 % (11.6-16.5); WHITE BLOOD COUNT 6.3 X10^3/uL (3.6-10.0)
[2021-12-14 04:48] LABS: ALANINE AMINOTRANSFERASE 68 Units/L (12-78); ALBUMIN 3.5 g/dL (3.4-5.0); ALKALINE PHOSPHATASE 146 Units/L (46-116); ASPARTATE AMINO TRANSFERASE 65 Units/L (15-37); BLOOD UREA NITROGEN 26 mg/dL (7-18); CALCIUM 7.7 mg/dL (8.5-10.1); CARBON DIOXIDE 23.6 mmol/L (21-32); CHLORIDE 113 mmol/L (98-107); CREATININE 1.47 mg/dL (0.55-1.02); SODIUM 149 mmol/L (136-145); TOTAL PROTEIN 6.2 g/dL (6.4-8.2); eGFR NON BLACK RACES 38 (>60)
--- NOTE | 2021-12-14 05:25 | RAD ---
PROCEDURE: Chest X-ray 1 View .HISTORY: Dyspnea and acute renal failure.TECHNIQUE: AP portable done at 5:58 a.m..COMPARISON: 12/13/2021.TECHNICAL QUALITY: Satisfactory .FINDINGS:Unchanged cardiomegaly.Mild increased central vascularity.Consolidation both mid lower lung dacosta suspicious for edema similar to previous study. Possible pleural fluid bilaterally.IMPRESSION:Congestive heart failure similar to previous study.Electronically signed by: David Pandya (Dec 14, 2021 05:24:02)
[2021-12-14 05:32] LABS: ANISOCYTOSIS SLIGHT; PLATELET MORPHOLOGY COMMENT NORMAL (NORMAL)
[2021-12-14] MEDS: CORDARONE TAB 200 MG PO SCH ×2 (06:20→16:43)
[2021-12-14] MEDS: MEGACE PO SCH ×2 (08:07→20:12)
[2021-12-14] MEDS: CYMBALTA PO SCH (08:07)
[2021-12-14] MEDS: PROTONIX INJ 40 MG VIAL IVP SCH ×2 (08:07→20:11)
[2021-12-14] MEDS: DIFLUCAN 200 MG IV PREMIX* 200 MG/100 ML BAG IV SCH (08:08)
[2021-12-14] MEDS: INVanz INJ 1 GRAM VIAL 1 G in NS 100 ML IV 100 ML IV SCH (08:08)
[2021-12-14] MEDS: COLACE CAP 100 MG PO PRN ×2 (09:00→20:12)
[2021-12-14] MEDS: LOVENOX INJ 30 MG SYR SC SCH ×2 (09:06→20:11)
[2021-12-14] MEDS: MVI IV SCH ×2 (09:36)
[2021-12-14] MEDS: NS IV SCH ×2 (09:36)
[2021-12-14] MEDS: CARDIZEM CD 240 MG 24-HR PO SCH (09:48)
[2021-12-14] MEDS: LANOXIN or DIGITEK PO SCH (09:48)
[2021-12-14] MEDS: LOPRESSOR TAB 50 MG PO SCH ×2 (09:48→20:12)
[2021-12-14] MEDS: PHENOBARBITAL TAB 30 MG (32.4MG) PO SCH (20:12)
[2021-12-14] MEDS: MORPHINE SULFATE INJ 4 MG IVP PRN (22:13)
[2021-12-15] MEDS: ZOVIRAX TOP SCH ×3 (01:55→17:39)
[2021-12-15 04:41] LABS: BASOPHILS # (AUTO) 0.2 X10^3/uL (0.0-0.1); BASOPHILS % (AUTO) 2.8 % (0.2-1.0); EOSINOPHILS # (AUTO) 0.1 x10^3/uL (0.0-0.2); EOSINOPHILS % (AUTO) 1.5 % (0.9-2.9); HEMATOCRIT 28.5 % (36.0-47.0); LYMPHOCYTES # (AUTO) 0.7 X10^3/uL (1.3-2.9); MEAN CORPUSCULAR HEMOGLOBIN 31.8 pg (27.0-34.0); MEAN CORPUSCULAR HGB CONC 31.7 g/dL (33.0-35.0); MEAN CORPUSCULAR VOLUME 100.5 fL (80.0-100.0); MONOCYTES # (AUTO) 0.9 x10^3/uL (0.3-0.8); MONOCYTES % (AUTO) 11.6 % (0.0-13.0); NEUTROPHILS # (AUTO) 5.7 x10^3/uL (2.2-4.8); NEUTROPHILS % (AUTO) 75.1 % (42.0-75.0); RED BLOOD COUNT 2.84 X10^6/uL (3.5-5.4); RED CELL DISTRIBUTION WIDTH 20.9 % (11.6-16.5); WHITE BLOOD COUNT 7.6 X10^3/uL (3.6-10.0)
[2021-12-15 04:49] LABS: ALANINE AMINOTRANSFERASE 80 Units/L (12-78); ALBUMIN 3.7 g/dL (3.4-5.0); ALKALINE PHOSPHATASE 163 Units/L (46-116); ASPARTATE AMINO TRANSFERASE 75 Units/L (15-37); BLOOD UREA NITROGEN 25 mg/dL (7-18); CALCIUM 8.2 mg/dL (8.5-10.1); CARBON DIOXIDE 26.5 mmol/L (21-32); CHLORIDE 109 mmol/L (98-107); COR NA(FOR HYPERGLY) 145 mmol/L (136-145); CREATININE 1.37 mg/dL (0.55-1.02); SODIUM 145 mmol/L (136-145); TOTAL PROTEIN 6.5 g/dL (6.4-8.2); eGFR NON BLACK RACES 41 (>60)
[2021-12-15 06:08] LABS: BAND NEUTROPHILS % 2 % (0-10); METAMYELOCYTES % 1; PLATELET MORPHOLOGY COMMENT NORMAL (NORMAL)
[2021-12-15 06:09] LABS: ANISOCYTOSIS 1+; SCHISTOCYTES PRESENT
[2021-12-15] MEDS: CORDARONE TAB 200 MG PO SCH ×2 (06:59→17:39)
[2021-12-15] MEDS: INVanz INJ 1 GRAM VIAL 1 G in NS 100 ML IV 100 ML IV SCH (09:07)
[2021-12-15] MEDS: LOPRESSOR TAB 50 MG PO SCH ×2 (09:08→21:18)
[2021-12-15] MEDS: PROTONIX INJ 40 MG VIAL IVP SCH ×2 (09:08→21:19)
[2021-12-15] MEDS: MEGACE PO SCH ×2 (09:08→21:19)
[2021-12-15] MEDS: DIFLUCAN 200 MG IV PREMIX* 200 MG/100 ML BAG IV SCH (09:08)
[2021-12-15] MEDS: CARDIZEM CD 240 MG 24-HR PO SCH (09:09)
[2021-12-15] MEDS: LOVENOX INJ 30 MG SYR SC SCH ×2 (09:09→21:19)
[2021-12-15] MEDS: PROCRIT or EPOGEN VIAL 10,000 UNITS SC SCH (09:09)
[2021-12-15] MEDS: CYMBALTA PO SCH (09:09)
[2021-12-15] MEDS: LANOXIN or DIGITEK PO SCH (10:10)
[2021-12-15] MEDS ORDERED: LASIX IVP ONE ×2 (10:38→13:41)
[2021-12-15] MEDS: MVI IV SCH ×2 (11:10)
[2021-12-15] MEDS: NS IV SCH ×2 (11:10)
--- NOTE | 2021-12-15 11:58 | CT ---
HISTORYAMSSTUDYCT brain without IV contrastCOMPARISONCT 12/09/2021TECHNIQUEMultiple axial images of the brain were obtained without IV contrast. Dose reduction techniques including Automated Exposure Control (AEC) and adjustment of mA and kV were utilized.FINDINGSArtifacts limit evaluation. Visualized portions of the paranasal sinuses and mastoid air cells are clear. No calvarial fracture is seen. No acute intracranial hemorrhage or mass effect is seen. The cerebral ventricles are normal in size. No evidence of acute CVA. Likely mild chronic small vessel ischemic changes are similar to prior study.IMPRESSIONNo acute abnormalities are seen.Electronically signed by: Johnathon Kraus (Dec 15, 2021 11:57:56)
[2021-12-15 12:00] LABS: ABG BASE EXCESS -4.9 mmol/L (-2.0-2.0)
[2021-12-15 12:02] LABS: ABG ALLEN TEST POS
[2021-12-15 14:03] LABS: BILIRUBIN,URINE NEGATIVE (NEGATIVE); BLOOD/HEMOGLOBIN,URINE NEGATIVE (NEGATIVE); GLUCOSE, URINE NEGATIVE (NEGATIVE); KETONES,URINE NEGATIVE (NEGATIVE); LEUKOCYTE ESTERASE ,URINE NEGATIVE (NEGATIVE); NITRITES,URINE NEGATIVE (NEGATIVE); PROTEIN,URINE 1+ (NEGATIVE); UROBILINOGEN,URINE NORMAL (NORMAL)
--- NOTE | 2021-12-15 14:11 | PCM.PROG ---
Progress Note - Progress Note for Day of Date of Exam: 12/14/21 - Subjective Subjective: WAS IS BEING TREATED FOR A-FIB, CHRONIC RENAL FAILURE, HUMERAL NECK FRACTURE, E.COLI UTI, CHF, ANEMIA, AND GENERALIZED WEAKNESS. SHE HAS RECEIVED TWO UNITS OF PRBC SINCE ADMISSION. SHE HAS A PMH OF RECENT CVA, HTN, A-FIB, HYPERLIPIDEMIA, AND RENAL DISEASE. TODAY, SHE IS ALERT, SITTING UP IN BED ON MORNING ROUNDS. PATIENT HAS BEEN UNABLE TO GET OUT OF BED OR AMBULATE WITHOUT MODERATE ASSISTANCE. SHE DOES PARTICIPATE WITH THERAPY MUCH SHE CAN. SHE REPORTS INCREASED SHORTNESS OF BREATH THROUGHOUT THE NIGHT. SHE WORE A SIMPLE MASK THROUGHOUT THE NIGHT, BUT HAS BEEN PLACED BACK ON NASAL CANNULA AT 3 LPM. SHE CONTINUES WITH COMPLAINTS OF WEAKNESS AND LEFT UPPER ARM PAIN, BUT DOES REPORT SLIGHT IMPROVEMENT. ON EXAMINATION, HEART RHYTHM IS IRREGULAR. A-FIB NOTED ON YOGA COORDINATOR WITH HR 72. BILATERAL LUNGS NOTED WITH DIMINISHED LUNG SOUNDS THROUGHOUT. ABDOMEN IS ROUND, SOFT, AND NON-TENDER WITH NORMAL BOWEL SOUNDS NOTED IN ALL QUADRANTS. SCATTERED BRUISING NOTED OVER BODY. EDEMA NOTED TO BILATERAL UPPER EXTREMITIES. HER VITALS THIS MORNING ARE: 98.3-72-18-92%-127/61. LABS WERE OBTAINED. ABNORMAL LAB VALUES INCLUDE THE FOLLOWING: RBC 2.67, HGB 9.0, HCT 28.5, SODIUM 149, CHLORIDE 113, BUN 26, CREATININE 1.47, GLUCOSE 102, CALCIUM 7.7, AST 65, ALK PHOS 146, BNP 651, TOTAL PROTEIN 6.2. REPEAT URINE CULTURE POSITIVE FOR GROWTH OF YEAST. CHEST XRAY OBTAINED AND REVEALED: Increasing congestive failure with increased edema. SHE IS CURRENTLY RECEIVING NORMAL SALINE WITH MVI IN EACH LITER AT 50 ML/HR, ALBUMIN 25% IV DAILY, INVANZ 1 G IV DAILY, CARDIZEM CD 240 MG PO DAILY, AMIODARONE 200MG PO BIDWM, DIGOXIN 0.125MG PO DAILY, LOPRESSOR 50 MG PO BID, PROTONIX 40MG IV BID, MORPHINE SULFATE 2MG IV Q4H PRN, MEGACE 40MG PO BID, NORCO 5/325MG PO Q6H PRN, ZOFRAN 4MG IV Q6H PRN, PROCRIT 10,000 UNITS MON,WED,FRI, VALIUM 5MG PO TID PRN, PHENOBARBITAL HS, NYSTATIN CREAM TID PRN, NYSTATIN POWDER BID PRN, ZOVIRAX TOP Q8H. WE WILL HAVE PHYSICAL THERAPY CONTINUE TO WORK WITH PATIENT. WE PLAN FOR PATIENT TO GO TO REHAB FACILITY FOR INTENSE PHYSICAL THERAPY. PATIENT IS IN AGREEMENT. OTHERWISE, WE WILL FOLLOW UP WITH AM LABS AND CONTINUE TO MONITOR. TIME SPENT ON CLINICAL ASSESSMENT, REVIEWING LABS AND IMAGING, DECISION MAKING, AND DOCUMENTATION GREATER THAN 45 MINUTES. - Past Medical Family Social History Past Med/Fam/Surg Hx: No changes since H&P Allergies: Allergies No Known Drug Allergies [NKDA] Allergy (Verified 03/25/21 13:54) - Review of Systems ROS: No change since H&P - Vital Signs and I&O's Vital Signs: Temperature 97.9 F Pulse Rate [Left Radial] 128 Pulse Rate 63 Respiratory Rate 17 Blood Pressure [Right Arm] 116/79 Blood Pressure 118/57 O2 Sat by Pulse Oximetry 100 Intake and Output: Intake & Output 12/13/21 12/14/21 12/15/21 12/16/21 11:59 11:59 11:59 11:59 Intake Total 1589 / 1589 2484 / 2484 2403 / 2403 Output Total 150 / 150 750 / 750 450 / 450 Balance 1439 / 1439 1734 / 1734 1952 / 1952 - Physical Exam Oriented: Normal Eyes: Normal Ear: Normal Nose: Normal Throat: Normal Respiratory: Diminished Cardiovascular: Tachycardia, Irregular : Normal Auscultation: Bowel Sounds: Normal Tenderness: Normal Skin: Normal, Wound, Bruising (LEFT UPPER ARM ) Musculoskeletal: Left, Shoulder, Arm, Tender Psychiatric: Normal Mood Description: Calm Affect: Normal Speech Pattern: Unclear, Delayed, Slurred - Laboratory and Diagnostics Result Diagrams: 12/15/21 04:05 12/15/21 04:05 Labs: 12/10/21 14:35 Urine,Clean Catch Urine Culture - Preliminary 11/26/21 13:05 Urine,Catheterized Urine Culture - Final Escherichia Coli Laboratory WBC 7.6 X10^3/uL (3.6-10.0) 12/15/21 04:05 RBC 2.84 X10^6/uL (3.5-5.4) L 12/15/21 04:05 Hgb 9.0 g/dL (12.0-16.0) L 12/15/21 04:05 Hct 28.5 % (36.0-47.0) L 12/15/21 04:05 MCV 100.5 fL (80.0-100.0) H 12/15/21 04:05 MCH 31.8 pg (27.0-34.0) 12/15/21 04:05 MCHC 31.7 g/dL (33.0-35.0) L 12/15/21 04:05 RDW 20.9 % (11.6-16.5) H 12/15/21 04:05 Plt Count 350 X10^3/uL (150.0-450.0) 12/15/21 04:05 Plt Count Comment Adequate (ADEQUATE) 12/15/21 04:05 MPV 9.0 fL (7.4-11.0) 12/15/21 04:05 Neut % (Auto) 75.1 % (42.0-75.0) H 12/15/21 04:05 Lymph % (Auto) 9.0 % (21.0-51.0) L 12/15/21 04:05 [place] % (Auto) 11.6 % (0.0-13.0) 12/15/21 04:05 Eos % (Auto) 1.5 % (0.9-2.9) 12/15/21 04:05 Baso % (Auto) 2.8 % (0.2-1.0) H 12/15/21 04:05 Neut # (Auto) 5.7 x10^3/uL (2.2-4.8) H 12/15/21 04:05 Lymph # (Auto) 0.7 X10^3/uL (1.3-2.9) L 12/15/21 04:05 [place] # (Auto) 0.9 x10^3/uL (0.3-0.8) H 12/15/21 04:05 Eos # (Auto) 0.1 x10^3/uL (0.0-0.2) 12/15/21 04:05 Baso # (Auto) 0.2 X10^3/uL (0.0-0.1) H 12/15/21 04:05 Absolute Nucleated RBC 0.7 /100WBC 12/15/21 04:05 Total Counted 100 12/15/21 04:05 Neutrophils % (Manual) 67 % (39-76) 12/15/21 04:05 Band Neutrophils % 2 % (0-10) 12/15/21 04:05 Lymphocytes % (Manual) 11 % (13-43) L 12/15/21 04:05 Monocytes % (Manual) 17 % (4-9) H 12/15/21 04:05 Eosinophils % (Manual) 2 % (0-6) 12/15/21 04:05 Metamyelocytes % 1 12/15/21 04:05 Plt Clumps, EDTA Rare 11/29/21 13:48 Plt Morphology Comment Normal (NORMAL) 12/15/21 04:05 RBC Morphology Abnormal (NORMAL) A 12/15/21 04:05 Anisocytosis 1+ A 12/15/21 04:05 Macrocytosis Slight A 12/15/21 04:05 Schistocytes Present 12/15/21 04:05 D-Dimer 7.60 ug/ml (0.0-0.57) H* 12/09/21 05:23 Sample Site Rr 12/15/21 11:55 ABG pH 7.160 (7.35-7.45) L* 12/15/21 11:55 ABG pCO2 70.0 mmHg (35.0-45.0) H* 12/15/21 11:55 ABG pO2 63.0 mmHg (80.0-100.0) L 12/15/21 11:55 ABG HCO3 25.0 mmol/L (22-26) 12/15/21 11:55 ABG O2 Saturation 84.0 % (90-100) L* 12/15/21 11:55 ABG Base Excess -4.9 mmol/L (-2.0-2.0) L 12/15/21 11:55 Edi Test Pos 12/15/21 11:55 A-a Gradient 106.0 mmHg 12/15/21 11:55 FiO2 36.0 12/15/21 11:55 Blood Gas Comments [place] well cb 12/15/21 11:55 Sodium 145 mmol/L (136-145) 12/15/21 04:05 Corrected Sodium 145 mmol/L (136-145) 12/15/21 04:05 Potassium 4.8 mmol/L (3.5-5.1) 12/15/21 04:05 Chloride 109 mmol/L (98-107) H 12/15/21 04:05 Carbon Dioxide 26.5 mmol/L (21-32) 12/15/21 04:05 BUN 25 mg/dL (7-18) H 12/15/21 04:05 Creatinine 1.37 mg/dL (0.55-1.02) H 12/15/21 04:05 Est GFR (MDRD) Af Amer 50 (>60) L 12/15/21 04:05 Est GFR (MDRD) Non-Af 41 (>60) L 12/15/21 04:05 Glucose 114 mg/dL (65-99) H 12/15/21 04:05 Calcium 8.2 mg/dL (8.5-10.1) L 12/15/21 04:05 Corrected Calcium TNP 12/15/21 04:05 Magnesium 1.9 mg/dL (1.7-2.9) 11/29/21 04:52 Iron 17 ug/dL (50-175) L 11/29/21 10:08 Transferrin 119 mg/dL (202-364) L 11/29/21 10:08 Ferritin 917 ng/mL (8-252) H 11/29/21 10:08 Total Bilirubin 0.50 mg/dL (0.2-1.0) 12/15/21 04:05 AST 75 Units/L (15-37) H 12/15/21 04:05 ALT 80 Units/L (12-78) H 12/15/21 04:05 Alkaline Phosphatase 163 Units/L (46-116) H 12/15/21 04:05 Creatine Kinase 26 Units/L (26-192) 12/09/21 05:23 CK-MB (CK-2) < 1.0 ng/mL (0-4.0) 12/09/21 05:23 CK/CKMB % Calc 3.9 % (<4) 12/09/21 05:23 Troponin I High Sens 137.2 ng/L (4.0-60.0) H* 12/10/21 05:23 B-Natriuretic Peptide 717 pg/mL (0-79) H* 12/15/21 04:05 Total Protein 6.5 g/dL (6.4-8.2) 12/15/21 04:05 Albumin 3.7 g/dL (3.4-5.0) 12/15/21 04:05 Globulin 2.8 g/dL (2.5-4.5) 12/15/21 04:05 Albumin/Globulin Ratio 1.3 Ratio (1.1-2.1) 12/15/21 04:05 Vitamin B12 > 2000 pg/mL (193-986) H 11/29/21 10:08 Folate 4.1 ng/mL (>8.6) L 11/29/21 10:08 Specimen Type Clean catch urine 12/05/21 12:10 Urine Color Yellow (YELLOW) 12/05/21 12:10 Urine Appearance Hazy (CLEAR) 12/05/21 12:10 Urine pH 5.0 (5.0 - 8.0) 12/05/21 12:10 Ur Specific [place] 1.015 (1.000-1.030) 12/05/21 12:10 Urine Protein 1+ (NEGATIVE) 12/05/21 12:10 Urine Glucose (UA) Negative (NEGATIVE) 12/05/21 12:10 Urine Ketones Negative (NEGATIVE) 12/05/21 12:10 Urine Occult Blood 1+ (NEGATIVE) 12/05/21 12:10 Urine Nitrite Negative (NEGATIVE) 12/05/21 12:10 Urine Bilirubin Negative (NEGATIVE) 12/05/21 12:10 Urine Urobilinogen Normal (NORMAL) 12/05/21 12:10 Ur Leukocyte Esterase 1+ (NEGATIVE) 12/05/21 12:10 Urine RBC 0-2 /HPF (0-3) 12/05/21 12:10 Urine WBC 0-2 /HPF (0-5) 12/05/21 12:10 Ur Squamous Epith Cells Moderate /HPF (NEGATIVE) 12/05/21 12:10 Urine Bacteria Trace /HPF (NEGATIVE) 12/05/21 12:10 Urine Mucus Few /HPF (NEGATIVE) 12/05/21 12:10 Ur Culture Indicated? No/not indicated 12/05/21 12:10 Stool Description 10g brown loose 11/29/21 18:30 Stl Occult Blood (IFOB) Negative (NEGATIVE) 11/29/21 18:30 Digoxin 2.82 ng/mL (0.9-2) H* 12/15/21 04:40 SARS CoV-2 RNA Rapid KAMALJIT Negative (NEGATIVE) 11/26/21 11:11 Blood Type O POSITIVE 12/06/21 11:42 Antibody Screen Negative 12/06/21 11:42 Crossmatch See Detail 11/29/21 10:08 - Plan (1) Acute on chronic renal failure Status: Acute Qualifiers: Acute renal failure type: unspecified Chronic kidney disease stage: unspecified stage Qualified Code(s): N17.9 - Acute kidney failure, unspecified; N18.9 - Chronic kidney disease, unspecified Plan: NORMAL SALINE AT 50 ML/HR WITH MVI IN EACH LITER, INVANZ 1 G IV DAILY, CARDIZEM CD 240MG PO DAILY, DIGOXIN 0.125MG PO DAILY, LOPRESSOR 25MG PO BID, AMIODARONE 200MG PO BID, MORPHINE SULFATE 2MG IV Q4H PRN, ZOFRAN 4MG IV Q6H PRN, NYSTATIN CREAM TID PRN, NYSTATIN POWDER BID PRN, ZOVIRAX TOP Q8H, ALBUMIN 25% IV DAILY, PROCRIT 10,000 UNITS ON MON,WED,FRI, VALIUM 5MG PO TID PRN, MEGACE 40MG PO BID, AND PHENOBARBITAL 30MG PO HS (2) Rhabdomyolysis Status: Resolved Qualifiers: Rhabdomyolysis type: traumatic Encounter type: initial encounter Quali fied Code(s): T79.6XXA - Traumatic ischemia of muscle, initial encounter (3) Atrial fibrillation Status: Acute Qualifiers: Atrial fibrillation type: unspecified Qualified Code(s): I48.91 - Unspecified atrial fibrillation Plan: CARDIZEM DRIP (4) Fracture of neck of humerus Status: Acute Qualifiers: Encounter type: initial encounter Fracture type: closed Laterality: left Qualified Code(s): S42.212A - Unspecified displaced fracture of surgical neck of left humerus, initial encounter for closed fracture Plan: CONSULT ORTHO (5) Shortness of breath Status: Acute (6) Urinary tract infection Status: Acute Qualifiers: Urinary tract infection type: acute cystitis Hematuria presence: without hematuria Qualified Code(s): N30.00 - Acute cystitis without hematuria (7) Anemia Status: Acute Qualifiers: Anemia type: unspecified type Qualified Code(s): D64.9 - Anemia, unspecified (8) Dehydration Status: Acute (9) Generalized weakness Status: Acute (10) Recent cerebrovascular accident (CVA) Status: Chronic (11) Hypertension Status: Chronic Qualifiers: Hypertension type: primary hypertension Qualified Code(s): I10 - Essential (primary) hypertension (12) Hyperlipidemia Status: Chronic Qualifiers: Hyperlipidemia type: mixed hyperlipidemia Qualified Code(s): E78.2 - Mixed hyperlipidemia
[2021-12-15 14:13] LABS: APPEARANCE,URINE CLEAR (CLEAR); BACTERIA,URINE TRACE /HPF (NEGATIVE); COLOR,URINE YELLOW (YELLOW); RBC,URINE 0-2 /HPF (0-3); SQUAMOUS EPITHELIAL CELL,UR RARE /HPF (NEGATIVE); YEAST,URINE MANY /HPF (NEGATIVE)
[2021-12-15 14:34] LABS: ABG BASE EXCESS -2.2 mmol/L (-2.0-2.0); ABG HCO3 25.9 mmol/L (22-26)
[2021-12-15 14:35] LABS: ABG ALLEN TEST POS
[2021-12-15] MEDS: VALIUM PO PRN (21:18)
[2021-12-15] MEDS: PHENOBARBITAL TAB 30 MG (32.4MG) PO SCH (21:19)
[2021-12-16] MEDS: ZOVIRAX TOP SCH ×3 (02:08→16:58)
[2021-12-16 04:48] LABS: BASOPHILS # (AUTO) 0.1 X10^3/uL (0.0-0.1); EOSINOPHILS # (AUTO) 0.1 x10^3/uL (0.0-0.2); EOSINOPHILS % (AUTO) 2.3 % (0.9-2.9); HEMATOCRIT 27.5 % (36.0-47.0); LYMPHOCYTES # (AUTO) 1.1 X10^3/uL (1.3-2.9); LYMPHOCYTES % (AUTO) 16.3 % (21.0-51.0); MEAN CORPUSCULAR HEMOGLOBIN 32.1 pg (27.0-34.0); MEAN CORPUSCULAR HGB CONC 32.6 g/dL (33.0-35.0); MEAN CORPUSCULAR VOLUME 98.4 fL (80.0-100.0); MEAN PLATELET VOLUME 8.9 fL (7.4-11.0); MONOCYTES # (AUTO) 0.9 x10^3/uL (0.3-0.8); MONOCYTES % (AUTO) 13.3 % (0.0-13.0); NEUTROPHILS # (AUTO) 4.4 x10^3/uL (2.2-4.8); NEUTROPHILS % (AUTO) 67.1 % (42.0-75.0); RED BLOOD COUNT 2.79 X10^6/uL (3.5-5.4); RED CELL DISTRIBUTION WIDTH 21.2 % (11.6-16.5)
[2021-12-16 05:05] LABS: ALANINE AMINOTRANSFERASE 55 Units/L (12-78); ALBUMIN 3.2 g/dL (3.4-5.0); ALKALINE PHOSPHATASE 147 Units/L (46-116); ASPARTATE AMINO TRANSFERASE 43 Units/L (15-37); BLOOD UREA NITROGEN 28 mg/dL (7-18); CARBON DIOXIDE 22.4 mmol/L (21-32); CHLORIDE 110 mmol/L (98-107); COR CA(FOR HYPOALB) 8.6 mg/dL (8.5-10.1); CREATININE 1.37 mg/dL (0.55-1.02); SODIUM 145 mmol/L (136-145); TOTAL PROTEIN 5.7 g/dL (6.4-8.2); eGFR NON BLACK RACES 41 (>60)
[2021-12-16 05:14] LABS: DIGOXIN 2.51 ng/mL (0.9-2)
--- NOTE | 2021-12-16 05:22 | RAD ---
PROCEDURE: Chest X-ray 1 View .HISTORY: Dyspnea.TECHNIQUE: AP view .COMPARISON: 12/14/2021.TECHNICAL QUALITY: Satisfactory .FINDINGS:Heart size upper limits of normal and unchanged.Increased central vascularity is unchanged.Edema both lung dacosta predominantly unchanged. Small right pleural effusion.IMPRESSION:Continued congestive failure similar to previous study.Electronically signed by: David Pandya (Dec 16, 2021 05:20:56)
[2021-12-16 05:34] LABS: BAND NEUTROPHILS % 3 % (0-10)
[2021-12-16 05:35] LABS: ANISOCYTOSIS 1+; METAMYELOCYTES % 1; PLATELET MORPHOLOGY COMMENT NORMAL (NORMAL); SCHISTOCYTES PRESENT
[2021-12-16 05:36] LABS: WHITE BLOOD COUNT 7.1 X10^3/uL (3.6-10.0)
[2021-12-16] MEDS: LOVENOX INJ 30 MG SYR SC SCH ×2 (09:13→21:32)
[2021-12-16] MEDS: PROTONIX INJ 40 MG VIAL IVP SCH ×2 (09:13→21:31)
[2021-12-16] MEDS: NS IV SCH ×2 (09:14)
[2021-12-16] MEDS: INVanz INJ 1 GRAM VIAL 1 G in NS 100 ML IV 100 ML IV SCH (09:14)
[2021-12-16] MEDS: MVI IV SCH ×2 (09:14)
[2021-12-16] MEDS: CORDARONE TAB 200 MG PO SCH ×2 (09:30→16:31)
[2021-12-16] MEDS: CARDIZEM CD 240 MG 24-HR PO SCH (09:30)
[2021-12-16] MEDS: CYMBALTA PO SCH (09:30)
[2021-12-16 09:31] LABS: ABG ALLEN TEST POS; ABG BASE EXCESS -1.3 mmol/L (-2.0-2.0); ABG HCO3 26.3 mmol/L (22-26)
[2021-12-16] MEDS: MEGACE PO SCH ×2 (09:31→21:31)
[2021-12-16] MEDS: LOPRESSOR TAB 50 MG PO SCH ×2 (09:31→21:32)
[2021-12-16] MEDS: DIFLUCAN 200 MG IV PREMIX* 200 MG/100 ML BAG IV SCH (10:46)
[2021-12-16] MEDS ORDERED: LASIX IVP ONE ×2 (11:17→15:00)
--- NOTE | 2021-12-16 11:21 | PCM.PROG ---
Progress Note - Progress Note for Day of Date of Exam: 12/15/21 - Subjective Subjective: WAS IS BEING TREATED FOR A-FIB, CHRONIC RENAL FAILURE, HUMERAL NECK FRACTURE, E.COLI UTI, CHF, ANEMIA, AND GENERALIZED WEAKNESS. SHE HAS RECEIVED TWO UNITS OF PRBC SINCE ADMISSION. SHE HAS A PMH OF RECENT CVA, HTN, A-FIB, HYPERLIPIDEMIA, AND RENAL DISEASE. TODAY, SHE IS LYING IN BED WITH EYES CLOSED ON MORNING ROUNDS. SHE IS DIFFICULT TO AROUSE. PATIENT HAS BEEN OBTUNDED MOST OF THE MORNING. SHE IS CURRENTLY REQUIRING OXYGEN VIA SIMPLE MASK. SATURATIONS HAVE BEEN 88-94% THROUGHOUT THE NIGHT. ON EXAMINATION, HEART RHYTHM IS IRREGULAR. A-FIB NOTED ON PACKING MACHINE INSPECTOR WITH HR 72. BILATERAL LUNGS NOTED WITH DIMINISHED LUNG SOUNDS THROUGHOUT. ABDOMEN IS ROUND, SOFT, AND NON-TENDER WITH NORMAL BOWEL SOUNDS NOTED IN ALL QUADRANTS. SCATTERED BRUISING NOTED OVER BODY. EDEMA NOTED TO BILATERAL UPPER EXTREMITIES. HER VITALS THIS MORNING ARE: 97.9-63-16-92%-131/62. LABS WERE OBTAINED. ABNORMAL LAB VALUES INCLUDE THE FOLLOWING: RBC 2.84, HGB 9.0, HCT 28.5, CHLORIDE 109, BUN 25, CREATININE 1.37, GLUCOSE 114, CALCIUM 8.2, AST 75, ALT 80, ALK PHOS 163, BNP 717, DIGOXIN 2.82. REPEAT URINE CULTURE POSITIVE FOR GROWTH OF YEAST. CHEST XRAY OBTAINED AND REVEALED: CONGESTIVE HEART FAILURE SIMILAR TO PREVIOUS STUDY. SHE IS CURRENTLY RECEIVING NORMAL SALINE WITH MVI IN EACH LITER AT 50 ML/HR, ALBUMIN 25% IV DAILY, INVANZ 1 G IV DAILY, CARDIZEM CD 240 MG PO DAILY, AMIODARONE 200MG PO B IDWM, DIGOXIN 0.125MG PO DAILY, LOPRESSOR 50 MG PO BID, PROTONIX 40MG IV BID, MORPHINE SULFATE 2MG IV Q4H PRN, MEGACE 40MG PO BID, NORCO 5/325MG PO Q6H PRN, ZOFRAN 4MG IV Q6H PRN, PROCRIT 10,000 UNITS MON,WED,FRI, VALIUM 5MG PO TID PRN, PHENOBARBITAL HS, NYSTATIN CREAM TID PRN, NYSTATIN POWDER BID PRN, ZOVIRAX TOP Q8H. WE WILL HOLD DIGOXIN TODAY DUE TO DIGOXIN TOXICITY. WE WILL ADMINISTER AN ADDITIONAL DOSE OF LASIX 40MG IV X 1 TODAY. WE WILL OBTAIN A BRAIN CT DUE TO INCREASED AMS. OTHERWISE, WE WILL FOLLOW UP WITH AM LABS AND CONTINUE TO MONITOR. TIME SPENT ON CLINICAL ASSESSMENT, REVIEWING LABS AND IMAGING, DECISION MAKING, AND DOCUMENTATION GREATER THAN 45 MINUTES. - Past Medical Family Social History Past Med/Fam/Surg Hx: No changes since H&P Allergies: Allergies No Known Drug Allergies [NKDA] Allergy (Verified 03/25/21 13:54) - Review of Systems ROS: No change since H&P - Vital Signs and I&O's Vital Signs: Temperature 98.6 F Pulse Rate [Left Radial] 128 Pulse Rate 79 Respiratory Rate 23 Blood Pressure [Right Arm] 116/79 Blood Pressure 150/84 O2 Sat by Pulse Oximetry 100 Intake and Output: Intake & Output 12/13/21 12/14/21 12/15/21 12/16/21 11:59 11:59 11:59 11:59 Intake Total 1589 / 1589 2484 / 2484 2403 / 2403 1106 / 1106 Output Total 150 / 150 750 / 750 450 / 450 1600 / 1600 Balance 1439 / 1439 1734 / 1734 195 / 1952 -494 / -494 - Physical Exam Oriented: Unable to test Eyes: Normal Ear: Normal Nose: Normal Throat: Normal Respiratory: Diminished Cardiovascular: Irregular : Normal Auscultation: Bowel Sounds: Normal Palpation: Normal Tenderness: Normal Skin: Normal, Wound, Bruising (LEFT UPPER ARM ) Musculoskeletal: Left, Shoulder, Arm, Tender Psychiatric: Other (OBTUNDED) Mood Description: Flat Affect: Normal Speech Pattern: Inappropriate - Laboratory and Diagnostics Result Diagrams: 12/16/21 04:32 12/16/21 04:32 Labs: 12/10/21 14:35 Urine,Clean Catch Urine Culture - Preliminary 11/26/21 13:05 Urine,Catheterized Urine Culture - Final Escherichia Coli Laboratory WBC 7.1 X10^3/uL (3.6-10.0) 12/16/21 04:32 RBC 2.79 X10^6/uL (3.5-5.4) L 12/16/21 04:32 Hgb 9.0 g/dL (12.0-16.0) L 12/16/21 04:32 Hct 27.5 % (36.0-47.0) L 12/16/21 04:32 MCV 98.4 fL (80.0-100.0) 12/16/21 04:32 MCH 32.1 pg (27.0-34.0) 12/16/21 04:32 MCHC 32.6 g/dL (33.0-35.0) L 12/16/21 04:32 RDW 21.2 % (11.6-16.5) H 12/16/21 04:32 Plt Count 223 X10^3/uL (150.0-450.0) 12/16/21 04:32 Plt Count Comment Adequate (ADEQUATE) 12/16/21 04:32 MPV 8.9 fL (7.4-11.0) 12/16/21 04:32 Neut % (Auto) 67.1 % (42.0-75.0) 12/16/21 04:32 Lymph % (Auto) 16.3 % (21.0-51.0) L 12/16/21 04:32 [place] % (Auto) 13.3 % (0.0-13.0) H 12/16/21 04:32 Eos % (Auto) 2.3 % (0.9-2.9) 12/16/21 04:32 Baso % (Auto) 1.0 % (0.2-1.0) 12/16/21 04:32 Neut # (Auto) 4.4 x10^3/uL (2.2-4.8) 12/16/21 04:32 Lymph # (Auto) 1.1 X10^3/uL (1.3-2.9) L 12/16/21 04:32 [place] # (Auto) 0.9 x10^3/uL (0.3-0.8) H 12/16/21 04:32 Eos # (Auto) 0.1 x10^3/uL (0.0-0.2) 12/16/21 04:32 Baso # (Auto) 0.1 X10^3/uL (0.0-0.1) 12/16/21 04:32 Absolute Nucleated RBC 1.2 /100WBC 12/16/21 04:32 Total Counted 100 12/16/21 04:32 Neutrophils % (Manual) 64 % (39-76) 12/16/21 04:32 Band Neutrophils % 3 % (0-10) 12/16/21 04:32 Lymphocytes % (Manual) 13 % (13-43) 12/16/21 04:32 Monocytes % (Manual) 18 % (4-9) H 12/16/21 04:32 Eosinophils % (Manual) 1 % (0-6) 12/16/21 04:32 Metamyelocytes % 1 12/16/21 04:32 Plt Clumps, EDTA Rare 11/29/21 13:48 Plt Morphology Comment Normal (NORMAL) 12/16/21 04:32 RBC Morphology Abnormal (NORMAL) A 12/16/21 04:32 Anisocytosis 1+ A 12/16/21 04:32 Macrocytosis Slight A 12/15/21 04:05 Schistocytes Present 12/16/21 04:32 D-Dimer 7.60 ug/ml (0.0-0.57) H* 12/09/21 05:23 Sample Site Rr 12/16/21 09:25 ABG pH 7.280 (7.35-7.45) L 12/16/21 09:25 ABG pCO2 56.0 mmHg (35.0-45.0) H* 12/16/21 09:25 ABG pO2 140.0 mmHg (80.0-100.0) H 12/16/21 09:25 ABG HCO3 26.3 mmol/L (22-26) H 12/16/21 09:25 ABG O2 Saturation 99.0 % (90-100) 12/16/21 09:25 ABG Base Excess -1.3 mmol/L (-2.0-2.0) 12/16/21 09:25 Edi Test Pos 12/16/21 09:25 A-a Gradient 147.0 mmHg 12/16/21 09:25 FiO2 50.0 12/16/21 09:25 Blood Gas Comments Pt [place] well. 12/16/21 09:25 Sodium 145 mmol/L (136-145) 12/16/21 04:32 Corrected Sodium TNP 12/16/21 04:32 Potassium 5.0 mmol/L (3.5-5.1) 12/16/21 04:32 Chloride 110 mmol/L (98-107) H 12/16/21 04:32 Carbon Dioxide 22.4 mmol/L (21-32) 12/16/21 04:32 BUN 28 mg/dL (7-18) H 12/16/21 04:32 Creatinine 1.37 mg/dL (0.55-1.02) H 12/16/21 04:32 Est GFR (MDRD) Af Amer 50 (>60) L 12/16/21 04:32 Est GFR (MDRD) Non-Af 41 (>60) L 12/16/21 04:32 Glucose 86 mg/dL (65-99) 12/16/21 04:32 Calcium 8.0 mg/dL (8.5-10.1) L 12/16/21 04:32 Corrected Calcium 8.6 mg/dL (8.5-10.1) 12/16/21 04:32 Magnesium 1.9 mg/dL (1.7-2.9) 11/29/21 04:52 Iron 17 ug/dL (50-175) L 11/29/21 10:08 Transferrin 119 mg/dL (202-364) L 11/29/21 10:08 Ferritin 917 ng/mL (8-252) H 11/29/21 10:08 Total Bilirubin 0.40 mg/dL (0.2-1.0) 12/16/21 04:32 AST 43 Units/L (15-37) H 12/16/21 04:32 ALT 55 Units/L (12-78) 12/16/21 04:32 Alkaline Phosphatase 147 Units/L (46-116) H 12/16/21 04:32 Creatine Kinase 26 Units/L (26-192) 12/09/21 05:23 CK-MB (CK-2) < 1.0 ng/mL (0-4.0) 12/09/21 05:23 CK/CKMB % Calc 3.9 % (<4) 12/09/21 05:23 Troponin I High Sens 137.2 ng/L (4.0-60.0) H* 12/10/21 05:23 B-Natriuretic Peptide 787 pg/mL (0-79) H* 12/16/21 04:32 Total Protein 5.7 g/dL (6.4-8.2) L 12/16/21 04:32 Albumin 3.2 g/dL (3.4-5.0) L 12/16/21 04:32 Globulin 2.5 g/dL (2.5-4.5) 12/16/21 04:32 Albumin/Globulin Ratio 1.3 Ratio (1.1-2.1) 12/16/21 04:32 Vitamin B12 > 2000 pg/mL (193-986) H 11/29/21 10:08 Folate 4.1 ng/mL (>8.6) L 11/29/21 10:08 Specimen Type Catherized urine 12/15/21 13:30 Urine Color Yellow (YELLOW) 12/15/21 13:30 Urine Appearance Clear (CLEAR) 12/15/21 13:30 Urine pH 5.0 (5.0 - 8.0) 12/15/21 13:30 Ur Specific [place] 1.015 (1.000-1.030) 12/15/21 13:30 Urine Protein 1+ (NEGATIVE) 12/15/21 13:30 Urine Glucose (UA) Negative (NEGATIVE) 12/15/21 13:30 Urine Ketones Negative (NEGATIVE) 12/15/21 13:30 Urine Occult Blood Negative (NEGATIVE) 12/15/21 13:30 Urine Nitrite Negative (NEGATIVE) 12/15/21 13:30 Urine Bilirubin Negative (NEGATIVE) 12/15/21 13:30 Urine Urobilinogen Normal (NORMAL) 12/15/21 13:30 Ur Leukocyte Esterase Negative (NEGATIVE) 12/15/21 13:30 Urine RBC 0-2 /HPF (0-3) 12/15/21 13:30 Urine WBC 0-2 /HPF (0-5) 12/15/21 13:30 Ur Squamous Epith Cells Rare /HPF (NEGATIVE) 12/15/21 13:30 Urine Bacteria Trace /HPF (NEGATIVE) 12/15/21 13:30 Urine Mucus Few /HPF (NEGATIVE) 12/05/21 12:10 Urine Yeast Many /HPF (NEGATIVE) 12/15/21 13:30 Ur Culture Indicated? No/not indicated 12/15/21 13:30 Stool Description 10g brown loose 11/29/21 18:30 Stl Occult Blood (IFOB) Negative (NEGATIVE) 11/29/21 18:30 Digoxin 2.51 ng/mL (0.9-2) H* 12/16/21 04:32 SARS CoV-2 RNA Rapid KAMALJIT Negative (NEGATIVE) 11/26/21 11:11 Blood Type O POSITIVE 12/06/21 11:42 Antibody Screen Negative 12/06/21 11:42 Crossmatch See Detail 11/29/21 10:08 - Plan (1) Acute on chronic renal failure Status: Acute Qualifiers: Acute renal failure type: unspecified Chronic kidney disease stage: unspecified stage Qualified Code(s): N17.9 - Acute kidney failure, unspecified; N18.9 - Chronic kidney disease, unspecified Plan: NORMAL SALINE AT 50 ML/HR WITH MVI IN EACH LITER, INVANZ 1 G IV DAILY, CARDIZEM CD 240MG PO DAILY, LOPRESSOR 25MG PO BID, AMIODARONE 200MG PO BID, MORPHINE SULFATE 2MG IV Q4H PRN, ZOFRAN 4MG IV Q6H PRN, NYSTATIN CREAM TID PRN, NYSTATIN POWDER BID PRN, ZOVIRAX TOP Q8H, ALBUMIN 25% IV DAILY, PROCRIT 10,000 UNITS ON MON,WED,FRI, VALIUM 5MG PO TID PRN, MEGACE 40MG PO BID, AND PHENOBARBITAL 30MG PO HS (2) Digoxin toxicity Status: Acute Qualifiers: Encounter type: initial encounter Injury intent: accidental or unintentional Qualified Code(s): T46.0X1A - Poisoning by cardiac-stimulant glycosides and drugs of similar action, accidental (unintentional), initial encounter Plan: HOLD DIGOXIN, CONTINUE IV FLUIDS (3) Atrial fibrillation Status: Acute Qualifiers: Atrial fibrillation type: unspecified Qualified Code(s): I48.91 - Unspecified atrial fibrillation (4) Fracture of neck of humerus Status: Acute Qualifiers: Encounter type: initial encounter Fracture type: closed Laterality: left Qualified Code(s): S42.212A - Unspecified displaced fracture of surgical neck of left humerus, initial encounter for closed fracture (5) Urinary tract infection Status: Acute Qualifiers: Urinary tract infection type: acute cystitis Hematuria presence: without hematuria Qualified Code(s): N30.00 - Acute cystitis without hematuria (6) Shortness of breath Status: Acute (7) Anemia Status: Acute Qualifiers: Anemia type: unspecified type Qualified Code(s): D64.9 - Anemia, unspecified (8) Dehydration Status: Acute (9) Generalized weakness Status: Acute (10) Recent cerebrovascular accident (CVA) Status: Chronic (11) Hypertension Status: Chronic Qualifiers: Hypertension type: primary hypertension Qualified Code(s): I10 - Essential (primary) hypertension (12) Hyperlipidemia Status: Chronic Qualifiers: Hyperlipidemia type: mixed hyperlipidemia Qualified Code(s): E78.2 - Mixed hyperlipidemia
[2021-12-16] MEDS: NORCO 5/325 MG TAB PO PRN (15:22)
[2021-12-16] MEDS: COLACE CAP 100 MG PO SCH (21:31)
[2021-12-16] MEDS: PHENOBARBITAL TAB 30 MG (32.4MG) PO SCH (21:31)
[2021-12-16] MEDS: MILK OF MAGNESIA PO SCH (21:34)
[2021-12-17] MEDS: ZOVIRAX TOP SCH ×3 (01:56→17:55)
[2021-12-17 05:34] LABS: ABG BASE EXCESS 0.7 mmol/L (-2.0-2.0); ABG HCO3 27.4 mmol/L (22-26)
[2021-12-17 05:36] LABS: ABG ALLEN TEST YES
--- NOTE | 2021-12-17 06:15 | RAD ---
HISTORYShortness of breathSTUDYChest AP ousgqsisTBEBGOIICJ20/22/2022FINDINGSHear t remains enlarged. Bilateral perihilar alveolar filling most suggestive of cardiogenic or noncardiogenic edema is unchanged. Bilateral pleural effusions are likely present right greater than left and also unchanged. Bony thorax is unremarkable.IMPRESSIONNo change cardiomegaly with bilateral perihilar alveolar filling suggestive of edemaNo change likely bilateral pleural effusions right greater than leftElectronically signed by: DOMINGA RODRIGUEZ (Dec 17, 2021 06:14:43)
[2021-12-17] MEDS: NORCO 5/325 MG TAB PO PRN ×2 (06:23→21:00)
[2021-12-17] MEDS: CORDARONE TAB 200 MG PO SCH ×2 (06:24→16:00)
[2021-12-17 07:14] LABS: BASOPHILS % (AUTO) 0.6 % (0.2-1.0); EOSINOPHILS # (AUTO) 0.2 x10^3/uL (0.0-0.2); EOSINOPHILS % (AUTO) 3.4 % (0.9-2.9); HEMATOCRIT 26.5 % (36.0-47.0); HEMOGLOBIN 8.8 g/dL (12.0-16.0); LYMPHOCYTES # (AUTO) 0.6 X10^3/uL (1.3-2.9); LYMPHOCYTES % (AUTO) 13.5 % (21.0-51.0); MEAN CORPUSCULAR HEMOGLOBIN 32.8 pg (27.0-34.0); MEAN CORPUSCULAR HGB CONC 33.1 g/dL (33.0-35.0); MEAN PLATELET VOLUME 8.2 fL (7.4-11.0); MONOCYTES # (AUTO) 0.6 x10^3/uL (0.3-0.8); MONOCYTES % (AUTO) 13.4 % (0.0-13.0); NEUTROPHILS # (AUTO) 3.2 x10^3/uL (2.2-4.8); NEUTROPHILS % (AUTO) 69.1 % (42.0-75.0); RED BLOOD COUNT 2.67 X10^6/uL (3.5-5.4); WHITE BLOOD COUNT 4.6 X10^3/uL (3.6-10.0)
[2021-12-17 07:26] LABS: ALANINE AMINOTRANSFERASE 42 Units/L (12-78); ALBUMIN 3.3 g/dL (3.4-5.0); ALKALINE PHOSPHATASE 155 Units/L (46-116); ASPARTATE AMINO TRANSFERASE 23 Units/L (15-37); BLOOD UREA NITROGEN 27 mg/dL (7-18); CALCIUM 8.4 mg/dL (8.5-10.1); CARBON DIOXIDE 25.7 mmol/L (21-32); CHLORIDE 106 mmol/L (98-107); CREATININE 1.24 mg/dL (0.55-1.02); DIGOXIN 1.76 ng/mL (0.9-2); SODIUM 141 mmol/L (136-145); TOTAL PROTEIN 5.8 g/dL (6.4-8.2); eGFR NON BLACK RACES 46 (>60)
[2021-12-17 08:13] LABS: ANISOCYTOSIS 1+; PLATELET MORPHOLOGY COMMENT NORMAL (NORMAL)
[2021-12-17] MEDS: DIFLUCAN 200 MG IV PREMIX* 200 MG/100 ML BAG IV SCH (09:00)
[2021-12-17] MEDS: PROCRIT or EPOGEN VIAL 10,000 UNITS SC SCH (10:00)
[2021-12-17] MEDS: LOPRESSOR TAB 50 MG PO SCH ×2 (10:00→20:42)
[2021-12-17] MEDS: CARDIZEM CD 240 MG 24-HR PO SCH (10:00)
[2021-12-17] MEDS: COLACE CAP 100 MG PO SCH ×2 (10:01→20:41)
[2021-12-17] MEDS: CYMBALTA PO SCH (10:01)
[2021-12-17] MEDS: LOVENOX INJ 30 MG SYR SC SCH ×2 (10:02→20:42)
[2021-12-17] MEDS: MILK OF MAGNESIA PO SCH ×2 (10:02→20:43)
[2021-12-17] MEDS: MEGACE PO SCH ×2 (10:02→20:43)
[2021-12-17] MEDS: PROTONIX INJ 40 MG VIAL IVP SCH ×2 (10:03→20:45)
[2021-12-17] MEDS: K-DUR TAB 20 MEQ PO PRN (10:04)
[2021-12-17] MEDS: ALBUMIN HUMAN 25%- 100 ML 100 ML IV SCH ×2 (10:08→20:40)
--- NOTE | 2021-12-17 10:17 | PCM.PROG ---
Progress Note - Progress Note for Day of Date of Exam: 12/16/21 - Subjective Subjective: WAS IS BEING TREATED FOR A-FIB, CHRONIC RENAL FAILURE, DIG TOXICITY, HUMERAL NECK FRACTURE, E.COLI UTI, CHF, ANEMIA, AND GENERALIZED WEAKNESS. SHE HAS RECEIVED TWO UNITS OF PRBC SINCE ADMISSION. SHE HAS A PMH OF RECENT CVA, HTN, A-FIB, HYPERLIPIDEMIA, AND RENAL DISEASE. TODAY, SHE IS LYING IN BED WITH EYES CLOSED ON MORNING ROUNDS. SHE AWAKENS TO VERBAL STIMULI. SHE REPORTS SHORTNESS OF BREATH AND CONTINUES WITH WEAKNESS. SHE IS CURRENTLY UTILIZING THE BIPAP. SATURATIONS ON THE BIPAP HAVE BEEN 95-100% THIS MORNING AND THROUGHOUT THE NIGHT. SHE CONTINUES TO REQUIRE MAXIMUM ASSITANCE FOR AMBULATION. ON EXAMINATION, HEART IS REGULAR IN RATE AND RHYTHM. BILATERAL LUNGS NOTED WITH DIMINISHED LUNG SOUNDS THROUGHOUT. ABDOMEN IS ROUND, SOFT, AND NON-TENDER WITH NORMAL BOWEL SOUNDS NOTED IN ALL QUADRANTS. JACOBO CATHETER NOTED TO BEDSIDE DRAINAGE. SCATTERED BRUISING NOTED OVER BODY. EDEMA NOTED TO BILATERAL UPPER EXTREMITIES. HER VITALS THIS MORNING ARE: 98.6-86-16-100%-139/71. LABS WERE OBTAINED. ABNORMAL LAB VALUES INCLUDE THE FOLLOWING: RBC 2.79, HGB 9.0, HCT 27.5, CHLORIDE 110, BUN 28, CREATININE 1.37, CALCIUM 8.0, AST 43, ALK PHOS 147, BNP 787, TOTAL PROTEIN 5.7, ALBUMIN 3.2. CHEST XRAY OBTAINED AND REVEALED: CONTINUED CONGESTIVE FAILURE SIMILAR TO PREVIOUS STUDY. BRAIN CT WAS OBTAINED YESTERDAY. NO ACUTE ABNORMALITIES WERE SEEN. SHE IS CURRENTLY RECEIVING NORMAL S ROCIO WITH MVI IN EACH LITER AT 50 ML/HR, ALBUMIN 25% IV DAILY, INVANZ 1 G IV DAILY, CARDIZEM CD 240 MG PO DAILY, AMIODARONE 200MG PO BIDWM, DIGOXIN 0.125MG PO DAILY, LOPRESSOR 50 MG PO BID, PROTONIX 40MG IV BID, MORPHINE SULFATE 2MG IV Q4H PRN, MEGACE 40MG PO BID, NORCO 5/325MG PO Q6H PRN, ZOFRAN 4MG IV Q6H PRN, PROCRIT 10,000 UNITS MON,WED,FRI, VALIUM 5MG PO TID PRN, PHENOBARBITAL HS, NYSTATIN CREAM TID PRN, NYSTATIN POWDER BID PRN, ZOVIRAX TOP Q8H. WE WILL CONTINUE TO HOLD DIGOXIN TODAY DUE TO DIGOXIN TOXICITY. WE WILL ADMINISTER AN ADDITIONAL DOSE OF LASIX 40MG IV X 1 TODAY. OTHERWISE, WE WILL FOLLOW UP WITH AM LABS AND CONTINUE TO MONITOR. TIME SPENT ON CLINICAL ASSESSMENT, REVIEWING LABS AND IMAGING, DECISION MAKING, AND DOCUMENTATION GREATER THAN 45 MINUTES. - Past Medical Family Social History Past Med/Fam/Surg Hx: No changes since H&P Allergies: Allergies No Known Drug Allergies [NKDA] Allergy (Verified 03/25/21 13:54) - Review of Systems ROS: No change since H&P - Vital Signs and I&O's Vital Signs: Temperature 97.7 F Pulse Rate [Left Radial] 128 Pulse Rate 70 Respiratory Rate 22 Blood Pressure [Right Arm] 116/79 Blood Pressure 140/64 O2 Sat by Pulse Oximetry 96 Intake and Output: Intake & Output 12/14/21 12/15/21 12/16/21 12/17/21 11:59 11:59 11:59 11:59 Intake Total 2484 / 2484 2403 / 2403 1106 / 1106 1384 / 1384 Output Total 750 / 750 450 / 450 1600 / 1600 1650 / 1650 Balance 1734 / 1734 1952 / 1952 -494 / -494 -266 / -266 - Physical Exam Oriented: Unable to test Eyes: Normal Ear: Normal Nose: Normal Throat: Normal Respiratory: Diminished Cardiovascular: Irregular : Normal Auscultation: Bowel Sounds: Normal Palpation: Normal Tenderness: Normal Skin: Normal, Wound, Bruising (LEFT UPPER ARM ) Musculoskeletal: Left, Shoulder, Arm, Tender Psychiatric: Other (OBTUNDED) Mood Description: Flat Affect: Normal Speech Pattern: Clear, Appropriate - Laboratory and Diagnostics Result Diagrams: 12/17/21 06:49 12/17/21 06:45 Labs: 12/10/21 14:35 Urine,Clean Catch Urine Culture - Preliminary 11/26/21 13:05 Urine,Catheterized Urine Culture - Final Escherichia Coli Laboratory WBC 4.6 X10^3/uL (3.6-10.0) 12/17/21 06:49 RBC 2.67 X10^6/uL (3.5-5.4) L 12/17/21 06:49 Hgb 8.8 g/dL (12.0-16.0) L 12/17/21 06:49 Hct 26.5 % (36.0-47.0) L 12/17/21 06:49 MCV 99.0 fL (80.0-100.0) 12/17/21 06:49 MCH 32.8 pg (27.0-34.0) 12/17/21 06:49 MCHC 33.1 g/dL (33.0-35.0) 12/17/21 06:49 RDW 21.0 % (11.6-16.5) H 12/17/21 06:49 Plt Count 278 X10^3/uL (150.0-450.0) 12/17/21 06:49 Plt Count Comment Adequate (ADEQUATE) 12/17/21 06:49 MPV 8.2 fL (7.4-11.0) 12/17/21 06:49 Neut % (Auto) 69.1 % (42.0-75.0) 12/17/21 06:49 Lymph % (Auto) 13.5 % (21.0-51.0) L 12/17/21 06:49 [place] % (Auto) 13.4 % (0.0-13.0) H 12/17/21 06:49 Eos % (Auto) 3.4 % (0.9-2.9) H 12/17/21 06:49 Baso % (Auto) 0.6 % (0.2-1.0) 12/17/21 06:49 Neut # (Auto) 3.2 x10^3/uL (2.2-4.8) 12/17/21 06:49 Lymph # (Auto) 0.6 X10^3/uL (1.3-2.9) L 12/17/21 06:49 [place] # (Auto) 0.6 x10^3/uL (0.3-0.8) 12/17/21 06:49 Eos # (Auto) 0.2 x10^3/uL (0.0-0.2) 12/17/21 06:49 Baso # (Auto) 0.0 X10^3/uL (0.0-0.1) 12/17/21 06:49 Absolute Nucleated RBC 0.4 /100WBC 12/17/21 06:49 Total Counted 100 12/16/21 04:32 Neutrophils % (Manual) 64 % (39-76) 12/16/21 04:32 Band Neutrophils % 3 % (0-10) 12/16/21 04:32 Lymphocytes % (Manual) 13 % (13-43) 12/16/21 04:32 Monocytes % (Manual) 18 % (4-9) H 12/16/21 04:32 Eosinophils % (Manual) 1 % (0-6) 12/16/21 04:32 Metamyelocytes % 1 12/16/21 04:32 Plt Clumps, EDTA Rare 11/29/21 13:48 Plt Morphology Comment Normal (NORMAL) 12/17/21 06:49 RBC Morphology Abnormal (NORMAL) A 12/17/21 06:49 Anisocytosis 1+ A 12/17/21 06:49 Macrocytosis Slight A 12/15/21 04:05 Schistocytes Present 12/16/21 04:32 D-Dimer 7.60 ug/ml (0.0-0.57) H* 12/09/21 05:23 Sample Site Rr 12/17/21 05:24 ABG pH 7.330 (7.35-7.45) L 12/17/21 05:24 ABG pCO2 52.0 mmHg (35.0-45.0) H* 12/17/21 05:24 ABG pO2 49.0 mmHg (80.0-100.0) L* 12/17/21 05:24 ABG HCO3 27.4 mmol/L (22-26) H 12/17/21 05:24 ABG O2 Saturation 81.0 % (90-100) L* 12/17/21 05:24 ABG Base Excess 0.7 mmol/L (-2.0-2.0) 12/17/21 05:24 Edi Test Yes 12/17/21 05:24 A-a Gradient 57.0 mmHg 12/17/21 05:24 FiO2 24.0 12/17/21 05:24 Blood Gas Comments [place] well, kh 12/17/21 05:24 Sodium 141 mmol/L (136-145) 12/17/21 06:45 Corrected Sodium TNP 12/17/21 06:45 Potassium 3.7 mmol/L (3.5-5.1) 12/17/21 06:45 Chloride 106 mmol/L (98-107) 12/17/21 06:45 Carbon Dioxide 25.7 mmol/L (21-32) 12/17/21 06:45 BUN 27 mg/dL (7-18) H 12/17/21 06:45 Creatinine 1.24 mg/dL (0.55-1.02) H 12/17/21 06:45 Est GFR (MDRD) Af Amer 56 (>60) L 12/17/21 06:45 Est GFR (MDRD) Non-Af 46 (>60) L 12/17/21 06:45 Glucose 99 mg/dL (65-99) 12/17/21 06:45 Calcium 8.4 mg/dL (8.5-10.1) L 12/17/21 06:45 Corrected Calcium 9.0 mg/dL (8.5-10.1) 12/17/21 06:45 Magnesium 1.9 mg/dL (1.7-2.9) 11/29/21 04:52 Iron 17 ug/dL (50-175) L 11/29/21 10:08 Transferrin 119 mg/dL (202-364) L 11/29/21 10:08 Ferritin 917 ng/mL (8-252) H 11/29/21 10:08 Total Bilirubin 0.40 mg/dL (0.2-1.0) 12/17/21 06:45 AST 23 Units/L (15-37) 12/17/21 06:45 ALT 42 Units/L (12-78) 12/17/21 06:45 Alkaline Phosphatase 155 Units/L (46-116) H 12/17/21 06:45 Creatine Kinase 26 Units/L (26-192) 12/09/21 05:23 CK-MB (CK-2) < 1.0 ng/mL (0-4.0) 12/09/21 05:23 CK/CKMB % Calc 3.9 % (<4) 12/09/21 05:23 Troponin I High Sens 137.2 ng/L (4.0-60.0) H* 12/10/21 05:23 B-Natriuretic Peptide 1010 pg/mL (0-79) H* 12/17/21 06:45 Total Protein 5.8 g/dL (6.4-8.2) L 12/17/21 06:45 Albumin 3.3 g/dL (3.4-5.0) L 12/17/21 06:45 Globulin 2.5 g/dL (2.5-4.5) 12/17/21 06:45 Albumin/Globulin Ratio 1.3 Ratio (1.1-2.1) 12/17/21 06:45 Vitamin B12 > 2000 pg/mL (193-986) H 11/29/21 10:08 Folate 4.1 ng/mL (>8.6) L 11/29/21 10:08 Specimen Type Catherized urine 12/15/21 13:30 Urine Color Yellow (YELLOW) 12/15/21 13:30 Urine Appearance Clear (CLEAR) 12/15/21 13:30 Urine pH 5.0 (5.0 - 8.0) 12/15/21 13:30 Ur Specific [place] 1.015 (1.000-1.030) 12/15/21 13:30 Urine Protein 1+ (NEGATIVE) 12/15/21 13:30 Urine Glucose (UA) Negative (NEGATIVE) 12/15/21 13:30 Urine Ketones Negative (NEGATIVE) 12/15/21 13:30 Urine Occult Blood Negative (NEGATIVE) 12/15/21 13:30 Urine Nitrite Negative (NEGATIVE) 12/15/21 13:30 Urine Bilirubin Negative (NEGATIVE) 12/15/21 13:30 Urine Urobilinogen Normal (NORMAL) 12/15/21 13:30 Ur Leukocyte Esterase Negative (NEGATIVE) 12/15/21 13:30 Urine RBC 0-2 /HPF (0-3) 12/15/21 13:30 Urine WBC 0-2 /HPF (0-5) 12/15/21 13:30 Ur Squamous Epith Cells Rare /HPF (NEGATIVE) 12/15/21 13:30 Urine Bacteria Trace /HPF (NEGATIVE) 12/15/21 13:30 Urine Mucus Few /HPF (NEGATIVE) 12/05/21 12:10 Urine Yeast Many /HPF (NEGATIVE) 12/15/21 13:30 Ur Culture Indicated? No/not indicated 12/15/21 13:30 Stool Description 10g brown loose 11/29/21 18:30 Stl Occult Blood (IFOB) Negative (NEGATIVE) 11/29/21 18:30 Digoxin 1.76 ng/mL (0.9-2) 12/17/21 06:45 SARS CoV-2 RNA Rapid KAMALJIT Negative (NEGATIVE) 11/26/21 11:11 Blood Type O POSITIVE 12/06/21 11:42 Antibody Screen Negative 12/06/21 11:42 Crossmatch See Detail 11/29/21 10:08 - Plan (1) Acute on chronic renal failure Status: Acute Qualifiers: Acute renal failure type: unspecified Chronic kidney disease stage: unspecified stage Qualified Code(s): N17.9 - Acute kidney failure, unspecified; N18.9 - Chronic kidney disease, unspecified Plan: NORMAL SALINE AT 50 ML/HR WITH MVI IN EACH LITER, INVANZ 1 G IV DAILY, CARDIZEM CD 240MG PO DAILY, LOPRESSOR 25MG PO BID, AMIODARONE 200MG PO BID, MORPHINE SULFATE 2MG IV Q4H PRN, ZOFRAN 4MG IV Q6H PRN, NYSTATIN CREAM TID PRN, NYSTATIN POWDER BID PRN, ZOVIRAX TOP Q8H, ALBUMIN 25% IV DAILY, PROCRIT 10,000 UNITS ON MON,WED,FRI, VALIUM 5MG PO TID PRN, MEGACE 40MG PO BID, AND PHENOBARBITAL 30MG PO HS (2) Digoxin toxicity Status: Acute Qualifiers: Encounter type: initial encounter Injury intent: accidental or unintentional Qualified Code(s): T46.0X1A - Poisoning by cardiac-stimulant glycosides and drugs of similar action, accidental (unintentional), initial encounter Plan: HOLD DIGOXIN, CONTINUE IV FLUIDS (3) Atrial fibrillation Status: Acute Qualifiers: Atrial fibrillation type: unspecified Qualified Code(s): I48.91 - Unspecified atrial fibrillation Plan: CARDIZEM DRIP (4) Fracture of neck of humerus Status: Acute Qualifiers: Encounter type: initial encounter Fracture type: closed Laterality: left Qualified Code(s): S42.212A - Unspecified displaced fracture of surgical neck of left humerus, initial encounter for closed fracture Plan: CONSULT ORTHO (5) Urinary tract infection Status: Acute Qualifiers: Urinary tract infection type: acute cystitis Hematuria presence: without hematuria Qualified Code(s): N30.00 - Acute cystitis without hematuria (6) Shortness of breath Status: Acute (7) Anemia Status: Acute Qualifiers: Anemia type: unspecified type Qualified Code(s): D64.9 - Anemia, unspecified (8) Dehydration Status: Acute (9) Generalized weakness Status: Acute (10) Recent cerebrovascular accident (CVA) Status: Chronic (11) Hypertension Status: Chronic Qualifiers: Hypertension type: primary hypertension Qualified Code(s): I10 - Essential (primary) hypertension (12) Hyperlipidemia Status: Chronic Qualifiers: Hyperlipidemia type: mixed hyperlipidemia Qualified Code(s): E78.2 - Mixed hyperlipidemia
--- NOTE | 2021-12-17 10:25 | PCM.PROG ---
Progress Note - Progress Note for Day of Date of Exam: 12/17/21 - Subjective Subjective: WAS IS BEING TREATED FOR A-FIB, CHRONIC RENAL FAILURE, DIG TOXICITY, HUMERAL NECK FRACTURE, E.COLI UTI, CHF, ANEMIA, AND GENERALIZED WEAKNESS. SHE HAS RECEIVED TWO UNITS OF PRBC SINCE ADMISSION. SHE HAS A PMH OF RECENT CVA, HTN, A-FIB, HYPERLIPIDEMIA, AND RENAL DISEASE. TODAY, SHE IS LYING IN BED WITH EYES CLOSED ON MORNING ROUNDS. SHE AWAKENS TO VERBAL STIMULI. SHE CONTINUES TO REPORT SHORTNESS OF BREATH AND CONTINUES WITH WEAKNESS. SHE IS CURRENTLY UTILIZING THE BIPAP. SATURATIONS ON THE BIPAP HAVE BEEN 95-100% THIS MORNING AND THROUGHOUT THE NIGHT. SHE DID USE OXYGEN VIA NASAL CANNULA SOME THROUGHOUT THE NIGHT. SHE CONTINUES TO REQUIRE MAXIMUM ASSITANCE FOR AMBULATION. ON EXAMINATION, HEART IS REGULAR IN RATE AND RHYTHM. BILATERAL LUNGS NOTED WITH DIMINISHED LUNG SOUNDS THROUGHOUT. ABDOMEN IS ROUND, SOFT, AND NON-TENDER WITH NORMAL BOWEL SOUNDS NOTED IN ALL QUADRANTS. JACOBO CATHETER NOTED TO BEDSIDE DRAINAGE. SCATTERED BRUISING NOTED OVER BODY. EDEMA NOTED TO BILATERAL UPPER EXTREMITIES. HER VITALS THIS MORNING ARE: 97.7-70-19-96%-140/64. LABS WERE OBTAINED. ABNORMAL LAB VALUES INCLUDE THE FOLLOWING: RBC 2.67, HGB 8.8, HCT 26.5, BUN 27, CREATININE 1.24, ALK PHOS 155, CALCIUM 8.4, BNP 1010, TOTAL PROTEIN 5.8, ALBUMIN 3.3. DIGOXIN LEVEL IS NORMAL AT 1.76 TODAY. CHEST XRAY OBTAINED AND REVEALED: No change cardiomegaly with bilateral perihilar alveolar filling suggestive of edema. No change likely bilateral pleural effusions right greater than left. SHE IS CURRENTLY RECEIVING NORMAL SALINE WITH MVI IN EACH LITER AT 50 ML/HR, ALBUMIN 25% IV DAILY, INVANZ 1 G IV DAILY, CARDIZEM CD 240 MG PO DAILY, AMIODARONE 200MG PO BIDWM, DIGOXIN 0.125MG PO DAILY, LOPRESSOR 50 MG PO BID, PROTONIX 40MG IV BID, MORPHINE SULFATE 2MG IV Q4H PRN, MEGACE 40MG PO BID, NORCO 5/325MG PO Q6H PRN, ZOFRAN 4MG IV Q6H PRN, PROCRIT 10,000 UNITS MON,WED,FRI, VALIUM 5MG PO TID PRN, PHENOBARBITAL HS, NYSTATIN CREAM TID PRN, NYSTATIN POWDER BID PRN, ZOVIRAX TOP Q8H. WE WILL ADMINISTER LASIX 40MG IV X 2 DOSES TODAY. WE WILL ADMINISTER ALBUMIN 25% IV BID, PRIOR TO GIVING LASIX. OTHERWISE, WE WILL FOLLOW UP WITH AM LABS AND CONTINUE TO MONITOR. TIME SPENT ON CLINICAL ASSESSMENT, REVIEWING LABS AND IMAGING, DECISION MAKING, AND DOCUMENTATION GREATER THAN 45 MINUTES. - Past Medical Family Social History Past Med/Fam/Surg Hx: No changes since H&P Allergies: Allergies No Known Drug Allergies [NKDA] Allergy (Verified 03/25/21 13:54) - Review of Systems ROS: No change since H&P - Vital Signs and I&O's Vital Signs: Temperature 97.7 F Pulse Rate [Left Radial] 128 Pulse Rate 70 Respiratory Rate 22 Blood Pressure [Right Arm] 116/79 Blood Pressure 140/64 O2 Sat by Pulse Oximetry 96 Intake and Output: Intake & Output 12/14/21 12/15/21 12/16/21 12/17/21 11:59 11:59 11:59 11:59 Intake Total 2484 / 2484 2403 / 2403 1106 / 1106 1384 / 1384 Output Total 750 / 750 450 / 450 1600 / 1600 1650 / 1650 Balance 1734 / 1734 195 / 1952 -494 / -494 -266 / -266 - Physical Exam Oriented: Unable to test Eyes: Normal Ear: Normal Nose: Normal Throat: Normal Respiratory: Diminished Cardiovascular: Irregular : Normal Auscultation: Bowel Sounds: Normal Palpation: Normal Tenderness: Normal Skin: Normal, Wound, Bruising (LEFT UPPER ARM ) Musculoskeletal: Left, Shoulder, Arm, Tender Psychiatric: Other (OBTUNDED) Mood Description: Flat Affect: Normal Speech Pattern: Clear, Appropriate - Laboratory and Diagnostics Result Diagrams: 12/17/21 06:49 12/17/21 06:45 Labs: 12/10/21 14:35 Urine,Clean Catch Urine Culture - Preliminary 11/26/21 13:05 Urine,Catheterized Urine Culture - Final Escherichia Coli Laboratory WBC 4.6 X10^3/uL (3.6-10.0) 12/17/21 06:49 RBC 2.67 X10^6/uL (3.5-5.4) L 12/17/21 06:49 Hgb 8.8 g/dL (12.0-16.0) L 12/17/21 06:49 Hct 26.5 % (36.0-47.0) L 12/17/21 06:49 MCV 99.0 fL (80.0-100.0) 12/17/21 06:49 MCH 32.8 pg (27.0-34.0) 12/17/21 06:49 MCHC 33.1 g/dL (33.0-35.0) 12/17/21 06:49 RDW 21.0 % (11.6-16.5) H 12/17/21 06:49 Plt Count 278 X10^3/uL (150.0-450.0) 12/17/21 06:49 Plt Count Comment Adequate (ADEQUATE) 12/17/21 06:49 MPV 8.2 fL (7.4-11.0) 12/17/21 06:49 Neut % (Auto) 69.1 % (42.0-75.0) 12/17/21 06:49 Lymph % (Auto) 13.5 % (21.0-51.0) L 12/17/21 06:49 Iron % (Auto) 13.4 % (0.0-13.0) H 12/17/21 06:49 Eos % (Auto) 3.4 % (0.9-2.9) H 12/17/21 06:49 Baso % (Auto) 0.6 % (0.2-1.0) 12/17/21 06:49 Neut # (Auto) 3.2 x10^3/uL (2.2-4.8) 12/17/21 06:49 Lymph # (Auto) 0.6 X10^3/uL (1.3-2.9) L 12/17/21 06:49 Iron # (Auto) 0.6 x10^3/uL (0.3-0.8) 12/17/21 06:49 Eos # (Auto) 0.2 x10^3/uL (0.0-0.2) 12/17/21 06:49 Baso # (Auto) 0.0 X10^3/uL (0.0-0.1) 12/17/21 06:49 Absolute Nucleated RBC 0.4 /100WBC 12/17/21 06:49 Total Counted 100 12/16/21 04:32 Neutrophils % (Manual) 64 % (39-76) 12/16/21 04:32 Band Neutrophils % 3 % (0-10) 12/16/21 04:32 Lymphocytes % (Manual) 13 % (13-43) 12/16/21 04:32 Monocytes % (Manual) 18 % (4-9) H 12/16/21 04:32 Eosinophils % (Manual) 1 % (0-6) 12/16/21 04:32 Metamyelocytes % 1 12/16/21 04:32 Plt Clumps, EDTA Rare 11/29/21 13:48 Plt Morphology Comment Normal (NORMAL) 12/17/21 06:49 RBC Morphology Abnormal (NORMAL) A 12/17/21 06:49 Anisocytosis 1+ A 12/17/21 06:49 Macrocytosis Slight A 12/15/21 04:05 Schistocytes Present 12/16/21 04:32 D-Dimer 7.60 ug/ml (0.0-0.57) H* 12/09/21 05:23 Sample Site Rr 12/17/21 05:24 ABG pH 7.330 (7.35-7.45) L 12/17/21 05:24 ABG pCO2 52.0 mmHg (35.0-45.0) H* 12/17/21 05:24 ABG pO2 49.0 mmHg (80.0-100.0) L* 12/17/21 05:24 ABG HCO3 27.4 mmol/L (22-26) H 12/17/21 05:24 ABG O2 Saturation 81.0 % (90-100) L* 12/17/21 05:24 ABG Base Excess 0.7 mmol/L (-2.0-2.0) 12/17/21 05:24 Edi Test Yes 12/17/21 05:24 A-a Gradient 57.0 mmHg 12/17/21 05:24 FiO2 24.0 12/17/21 05:24 Blood Gas Comments [place] well, kh 12/17/21 05:24 Sodium 141 mmol/L (136-145) 12/17/21 06:45 Corrected Sodium TNP 12/17/21 06:45 Potassium 3.7 mmol/L (3.5-5.1) 12/17/21 06:45 Chloride 106 mmol/L (98-107) 12/17/21 06:45 Carbon Dioxide 25.7 mmol/L (21-32) 12/17/21 06:45 BUN 27 mg/dL (7-18) H 12/17/21 06:45 Creatinine 1.24 mg/dL (0.55-1.02) H 12/17/21 06:45 Est GFR (MDRD) Af Amer 56 (>60) L 12/17/21 06:45 Est GFR (MDRD) Non-Af 46 (>60) L 12/17/21 06:45 Glucose 99 mg/dL (65-99) 12/17/21 06:45 Calcium 8.4 mg/dL (8.5-10.1) L 12/17/21 06:45 Corrected Calcium 9.0 mg/dL (8.5-10.1) 12/17/21 06:45 Magnesium 1.9 mg/dL (1.7-2.9) 11/29/21 04:52 Iron 17 ug/dL (50-175) L 11/29/21 10:08 Transferrin 119 mg/dL (202-364) L 11/29/21 10:08 Ferritin 917 ng/mL (8-252) H 11/29/21 10:08 Total Bilirubin 0.40 mg/dL (0.2-1.0) 12/17/21 06:45 AST 23 Units/L (15-37) 12/17/21 06:45 ALT 42 Units/L (12-78) 12/17/21 06:45 Alkaline Phosphatase 155 Units/L (46-116) H 12/17/21 06:45 Creatine Kinase 26 Units/L (26-192) 12/09/21 05:23 CK-MB (CK-2) < 1.0 ng/mL (0-4.0) 12/09/21 05:23 CK/CKMB % Calc 3.9 % (<4) 12/09/21 05:23 Troponin I High Sens 137.2 ng/L (4.0-60.0) H* 12/10/21 05:23 B-Natriuretic Peptide 1010 pg/mL (0-79) H* 12/17/21 06:45 Total Protein 5.8 g/dL (6.4-8.2) L 12/17/21 06:45 Albumin 3.3 g/dL (3.4-5.0) L 12/17/21 06:45 Globulin 2.5 g/dL (2.5-4.5) 12/17/21 06:45 Albumin/Globulin Ratio 1.3 Ratio (1.1-2.1) 12/17/21 06:45 Vitamin B12 > 2000 pg/mL (193-986) H 11/29/21 10:08 Folate 4.1 ng/mL (>8.6) L 11/29/21 10:08 Specimen Type Catherized urine 12/15/21 13:30 Urine Color Yellow (YELLOW) 12/15/21 13:30 Urine Appearance Clear (CLEAR) 12/15/21 13:30 Urine pH 5.0 (5.0 - 8.0) 12/15/21 13:30 Ur Specific [place] 1.015 (1.000-1.030) 12/15/21 13:30 Urine Protein 1+ (NEGATIVE) 12/15/21 13:30 Urine Glucose (UA) Negative (NEGATIVE) 12/15/21 13:30 Urine Ketones Negative (NEGATIVE) 12/15/21 13:30 Urine Occult Blood Negative (NEGATIVE) 12/15/21 13:30 Urine Nitrite Negative (NEGATIVE) 12/15/21 13:30 Urine Bilirubin Negative (NEGATIVE) 12/15/21 13:30 Urine Urobilinogen Normal (NORMAL) 12/15/21 13:30 Ur Leukocyte Esterase Negative (NEGATIVE) 12/15/21 13:30 Urine RBC 0-2 /HPF (0-3) 12/15/21 13:30 Urine WBC 0-2 /HPF (0-5) 12/15/21 13:30 Ur Squamous Epith Cells Rare /HPF (NEGATIVE) 12/15/21 13:30 Urine Bacteria Trace /HPF (NEGATIVE) 12/15/21 13:30 Urine Mucus Few /HPF (NEGATIVE) 12/05/21 12:10 Urine Yeast Many /HPF (NEGATIVE) 12/15/21 13:30 Ur Culture Indicated? No/not indicated 12/15/21 13:30 Stool Description 10g brown loose 11/29/21 18:30 Stl Occult Blood (IFOB) Negative (NEGATIVE) 11/29/21 18:30 Digoxin 1.76 ng/mL (0.9-2) 12/17/21 06:45 SARS CoV-2 RNA Rapid KAMALJIT Negative (NEGATIVE) 11/26/21 11:11 Blood Type O POSITIVE 12/06/21 11:42 Antibody Screen Negative 12/06/21 11:42 Crossmatch See Detail 11/29/21 10:08 - Plan (1) Acute on chronic renal failure Status: Acute Qualifiers: Acute renal failure type: unspecified Chronic kidney disease stage: unspecified stage Qualified Code(s): N17.9 - Acute kidney failure, unspecified; N18.9 - Chronic kidney disease, unspecified Plan: NORMAL SALINE AT 50 ML/HR WITH MVI IN EACH LITER, INVANZ 1 G IV DAILY, ALBUMIN 25% IV BID, LASIX 40MG IV BID, CARDIZEM CD 240MG PO DAILY, LOPRESSOR 25MG PO BID, AMIODARONE 200MG PO BID, MORPHINE SULFATE 2MG IV Q4H PRN, ZOFRAN 4MG IV Q6H PRN, NYSTATIN CREAM TID PRN, NYSTATIN POWDER BID PRN, ZOVIRAX TOP Q8H, PROCRIT 10,000 UNITS ON MON,WED,FRI, VALIUM 5MG PO TID PRN, MEGACE 40MG PO BID, AND PHENOBARBITAL 30MG PO HS (2) Atrial fibrillation Status: Acute Qualifiers: Atrial fibrillation type: unspecified Qualified Code(s): I48.91 - Unspecified atrial fibrillation (3) Fracture of neck of humerus Status: Acute Qualifiers: Encounter type: initial encounter Fracture type: closed Laterality: left Qualified Code(s): S42.212A - Unspecified displaced fracture of surgical neck of left humerus, initial encounter for closed fracture (4) Urinary tract infection Status: Acute Qualifiers: Urinary tract infection type: acute cystitis Hematuria presence: without hematuria Qualified Code(s): N30.00 - Acute cystitis without hematuria (5) Shortness of breath Status: Acute (6) Anemia Status: Acute Qualifiers: Anemia type: unspecified type Qualified Code(s): D64.9 - Anemia, unspecified (7) Dehydration Status: Acute (8) Generalized weakness Status: Acute (9) Recent cerebrovascular accident (CVA) Status: Chronic (10) Hypertension Status: Chronic Qualifiers: Hypertension type: primary hypertension Qualified Code(s): I10 - Essential (primary) hypertension (11) Hyperlipidemia Status: Chronic Qualifiers: Hyperlipidemia type: mixed hyperlipidemia Qualified Code(s): E78.2 - Mixed hyperlipidemia
[2021-12-17] MEDS: MVI IV SCH ×4 (11:51→16:01)
[2021-12-17] MEDS: NS IV SCH ×4 (11:51→16:01)
[2021-12-17] MEDS: INVanz INJ 1 GRAM VIAL 1 G in NS 100 ML IV 100 ML IV SCH (11:52)
[2021-12-17] MEDS: LASIX IVP SCH ×2 (12:15→20:42)
[2021-12-17] MEDS: PHENOBARBITAL TAB 30 MG (32.4MG) PO SCH (20:44)
[2021-12-18] MEDS: ZOVIRAX TOP SCH ×3 (00:48→17:31)
[2021-12-18 04:17] LABS: BASOPHILS # (AUTO) 0.1 X10^3/uL (0.0-0.1); BASOPHILS % (AUTO) 1.8 % (0.2-1.0); EOSINOPHILS # (AUTO) 0.2 x10^3/uL (0.0-0.2); EOSINOPHILS % (AUTO) 3.2 % (0.9-2.9); HEMATOCRIT 25.9 % (36.0-47.0); HEMOGLOBIN 8.5 g/dL (12.0-16.0); LYMPHOCYTES # (AUTO) 0.7 X10^3/uL (1.3-2.9); LYMPHOCYTES % (AUTO) 13.8 % (21.0-51.0); MEAN CORPUSCULAR HEMOGLOBIN 32.1 pg (27.0-34.0); MEAN CORPUSCULAR HGB CONC 32.8 g/dL (33.0-35.0); MEAN CORPUSCULAR VOLUME 97.9 fL (80.0-100.0); MEAN PLATELET VOLUME 8.1 fL (7.4-11.0); MONOCYTES # (AUTO) 0.6 x10^3/uL (0.3-0.8); NEUTROPHILS # (AUTO) 3.2 x10^3/uL (2.2-4.8); NEUTROPHILS % (AUTO) 68.2 % (42.0-75.0); RED BLOOD COUNT 2.65 X10^6/uL (3.5-5.4); RED CELL DISTRIBUTION WIDTH 21.7 % (11.6-16.5); WHITE BLOOD COUNT 4.8 X10^3/uL (3.6-10.0)
[2021-12-18 04:20] LABS: ALANINE AMINOTRANSFERASE 30 Units/L (12-78); ALBUMIN 3.9 g/dL (3.4-5.0); ALKALINE PHOSPHATASE 139 Units/L (46-116); ASPARTATE AMINO TRANSFERASE 17 Units/L (15-37); BLOOD UREA NITROGEN 27 mg/dL (7-18); CALCIUM 8.5 mg/dL (8.5-10.1); CARBON DIOXIDE 28.5 mmol/L (21-32); CHLORIDE 104 mmol/L (98-107); CREATININE 1.24 mg/dL (0.55-1.02); DIGOXIN 1.68 ng/mL (0.9-2); SODIUM 141 mmol/L (136-145); TOTAL PROTEIN 6.2 g/dL (6.4-8.2); eGFR NON BLACK RACES 46 (>60)
[2021-12-18 04:45] LABS: ANISOCYTOSIS 1+; PLATELET MORPHOLOGY COMMENT NORMAL (NORMAL)
[2021-12-18] MEDS: NORCO 5/325 MG TAB PO PRN (05:45)
[2021-12-18] MEDS: CORDARONE TAB 200 MG PO SCH ×2 (06:08→17:31)
--- NOTE | 2021-12-18 06:48 | RAD ---
HISTORYShortness of breathSTUDYChest AP [id number]/2022FINDINGSThe heart remains enlarged. Bilateral perihilar alveolar filling is again identified unchanged when compared to the prior examination findings would seem most consistent with cardiogenic or noncardiogenic pulmonary edema although infection could have this appearance and clinical correlation is recommended. Bilateral pleural effusions right greater than left are also unchanged. Bony thorax is unremarkable.IMPRESSIONNo significant change from the prior examinationElectronically signed by: DOMINGA RODRIGUEZ (Dec 18, 2021 06:46:30)
[2021-12-18] MEDS: LOPRESSOR TAB 50 MG PO SCH ×2 (10:00→20:28)
[2021-12-18] MEDS: LOVENOX INJ 30 MG SYR SC SCH ×2 (10:00→20:29)
[2021-12-18] MEDS: PROTONIX INJ 40 MG VIAL IVP SCH ×2 (10:00→20:33)
[2021-12-18] MEDS: CARDIZEM CD 240 MG 24-HR PO SCH (10:00)
[2021-12-18] MEDS: ALBUMIN HUMAN 25%- 100 ML 100 ML IV SCH ×2 (10:00→20:27)
[2021-12-18] MEDS: MEGACE PO SCH ×2 (10:00→20:29)
[2021-12-18] MEDS: CYMBALTA PO SCH (10:00)
[2021-12-18] MEDS: DIFLUCAN 200 MG IV PREMIX* 200 MG/100 ML BAG IV SCH (11:00)
[2021-12-18] MEDS: INVanz INJ 1 GRAM VIAL 1 G in NS 100 ML IV 100 ML IV SCH (12:05)
[2021-12-18] MEDS: NS IV SCH ×4 (12:20→18:54)
[2021-12-18] MEDS: COLACE CAP 100 MG PO SCH ×3 (12:20→20:28)
[2021-12-18] MEDS: MVI IV SCH ×4 (12:20→18:54)
[2021-12-18] MEDS: MILK OF MAGNESIA PO SCH ×2 (14:47→20:30)
[2021-12-18] MEDS: PHENOBARBITAL TAB 30 MG (32.4MG) PO SCH (20:30)
[2021-12-19] MEDS: ZOVIRAX TOP SCH ×3 (02:05→18:51)
[2021-12-19] MEDS: MORPHINE SULFATE INJ 4 MG IVP PRN ×2 (02:18→06:36)
[2021-12-19 05:19] LABS: BASOPHILS % (AUTO) 0.4 % (0.2-1.0); EOSINOPHILS # (AUTO) 0.2 x10^3/uL (0.0-0.2); EOSINOPHILS % (AUTO) 3.1 % (0.9-2.9); HEMATOCRIT 26.5 % (36.0-47.0); HEMOGLOBIN 8.7 g/dL (12.0-16.0); LYMPHOCYTES # (AUTO) 0.7 X10^3/uL (1.3-2.9); LYMPHOCYTES % (AUTO) 11.8 % (21.0-51.0); MEAN CORPUSCULAR HEMOGLOBIN 32.2 pg (27.0-34.0); MEAN CORPUSCULAR HGB CONC 32.8 g/dL (33.0-35.0); MEAN CORPUSCULAR VOLUME 98.4 fL (80.0-100.0); MEAN PLATELET VOLUME 8.8 fL (7.4-11.0); MONOCYTES # (AUTO) 0.6 x10^3/uL (0.3-0.8); MONOCYTES % (AUTO) 10.9 % (0.0-13.0); NEUTROPHILS # (AUTO) 4.1 x10^3/uL (2.2-4.8); NEUTROPHILS % (AUTO) 73.8 % (42.0-75.0); RED BLOOD COUNT 2.69 X10^6/uL (3.5-5.4); RED CELL DISTRIBUTION WIDTH 22.3 % (11.6-16.5); WHITE BLOOD COUNT 5.5 X10^3/uL (3.6-10.0)
[2021-12-19 05:28] LABS: ALANINE AMINOTRANSFERASE 23 Units/L (12-78); ALBUMIN 4.1 g/dL (3.4-5.0); ALKALINE PHOSPHATASE 132 Units/L (46-116); ASPARTATE AMINO TRANSFERASE 27 Units/L (15-37); BLOOD UREA NITROGEN 20 mg/dL (7-18); CALCIUM 8.6 mg/dL (8.5-10.1); CARBON DIOXIDE 28.3 mmol/L (21-32); CHLORIDE 103 mmol/L (98-107); CREATININE 1.01 mg/dL (0.55-1.02); DIGOXIN 1.27 ng/mL (0.9-2); MAGNESIUM 1.5 mg/dL (1.7-2.9); SODIUM 140 mmol/L (136-145); TOTAL PROTEIN 6.4 g/dL (6.4-8.2); eGFR NON BLACK RACES 58 (>60)
[2021-12-19 05:54] LABS: ANISOCYTOSIS 2+; PLATELET MORPHOLOGY COMMENT NORMAL (NORMAL)
[2021-12-19] MEDS: CORDARONE TAB 200 MG PO SCH ×2 (06:14→17:32)
--- NOTE | 2021-12-19 06:17 | RAD ---
HISTORYShortness of breathSTUDYChest AP [id number]/24/2022FINDINGSThe heart remains enlarged. Bilateral perihilar interstitial infiltrates and alveolar filling is slightly improved when compared to the prior examination. Findings would seem most consistent with cardiogenic or noncardiogenic edema although infection could have this appearance and clinical correlation is recommended. Bilateral pleural effusions are unchanged. No pneumothorax is identified. Bony thorax is unremarkable.IMPRESSIONNo significant change from the prior examinationElectronically signed by: DOMINGA RODRIGUEZ (Dec 19, 2021 06:16:42)
[2021-12-19] MEDS: NS IV SCH ×4 (09:45→20:13)
[2021-12-19] MEDS: MVI IV SCH ×4 (09:45→20:13)
[2021-12-19] MEDS: COLACE CAP 100 MG PO SCH ×2 (09:55→20:09)
[2021-12-19] MEDS: ALBUMIN HUMAN 25%- 100 ML 100 ML IV SCH (09:56)
[2021-12-19] MEDS: CARDIZEM CD 240 MG 24-HR PO SCH (09:57)
[2021-12-19] MEDS: CYMBALTA PO SCH (09:57)
[2021-12-19] MEDS: LASIX IVP SCH (09:58)
[2021-12-19] MEDS: LOPRESSOR TAB 50 MG PO SCH ×2 (09:59→20:09)
[2021-12-19] MEDS: LOVENOX INJ 30 MG SYR SC SCH ×2 (09:59→20:10)
[2021-12-19] MEDS: INVanz INJ 1 GRAM VIAL 1 G in NS 100 ML IV 100 ML IV SCH (10:00)
[2021-12-19] MEDS: PROTONIX INJ 40 MG VIAL IVP SCH ×2 (10:00→20:12)
[2021-12-19] MEDS: DIFLUCAN 200 MG IV PREMIX* 200 MG/100 ML BAG IV SCH (10:00)
[2021-12-19] MEDS: MEGACE PO SCH ×2 (10:00→20:10)
[2021-12-19] MEDS: PROCRIT or EPOGEN VIAL 10,000 UNITS SC SCH (10:01)
--- NOTE | 2021-12-19 10:39 | PCM.PROG ---
Progress Note - Progress Note for Day of Date of Exam: 12/18/21 - Subjective Subjective: WAS IS BEING TREATED FOR A-FIB, CHRONIC RENAL FAILURE, DIG TOXICITY, HUMERAL NECK FRACTURE, E.COLI UTI, CHF, ANEMIA, AND GENERALIZED WEAKNESS. SHE HAS RECEIVED TWO UNITS OF PRBC SINCE ADMISSION. SHE HAS A PMH OF RECENT CVA, HTN, A-FIB, HYPERLIPIDEMIA, AND RENAL DISEASE, AND ALCOHOLISM. TODAY, SHE IS LYING IN BED WITH EYES CLOSED ON MORNING ROUNDS. SHE AWAKENS TO VERBAL STIMULI. SHE CONTINUES TO REPORT SHORTNESS OF BREATH AND CONTINUES WITH WEAKNESS. FAMILY REPORTS THAT SHE HAS BEEN CONFUSED AND DISORIENTED AT TIMES. SHE HAS ALCOHOLIC DEMENTIA AND IS UNABLE TO MAKE ANY LIFE ALTERING DECISIONS. SHE IS CURRENTLY UTILIZING THE BIPAP. SATURATIONS ON THE BIPAP HAVE BEEN 95-100% THIS MORNING AND THROUGHOUT THE NIGHT. SHE CONTINUES TO REQUIRE MAXIMUM ASSITANCE FOR AMBULATION. ON EXAMINATION, HEART IS REGULAR IN RATE AND RHYTHM. BILATERAL LUNGS NOTED WITH DIMINISHED LUNG SOUNDS THROUGHOUT. ABDOMEN IS ROUND, SOFT, AND NON-TENDER WITH NORMAL BOWEL SOUNDS NOTED IN ALL QUADRANTS. JACOBO CATHETER NOTED TO BEDSIDE DRAINAGE. SCATTERED BRUISING NOTED OVER BODY. EDEMA NOTED TO BILATERAL UPPER EXTREMITIES. HER VITALS THIS MORNING ARE: 97.6-75-33-92%-151/72. LABS WERE OBTAINED. ABNORMAL LAB VALUES INCLUDE THE FOLLOWING: RBC 2.65, HGB 8.5, HCT 25.9, BUN 27, CREATININE 1.24, ALK PHOS 139, BNP 942, TOTAL PROTEIN 6.2. CHEST XRAY OBTAINED AND REVEALED: NO SIGNIFICANT CHANGE FROM THE PRIOR EXAMINATION. SHE IS CURRENTLY RECEIVING NORMAL SALINE WITH MVI IN EACH LITER AT 50 ML/HR, ALBUMIN 25% IV DAILY, INVANZ 1 G IV DAILY, CARDIZEM CD 240 MG PO DAILY, AMIODARONE 200MG PO BIDWM, DIGOXIN 0.125MG PO DAILY, LOPRESSOR 50 MG PO BID, PROTONIX 40MG IV BID, MORPHINE SULFATE 2MG IV Q4H PRN, MEGACE 40MG PO BID, NORCO 5/325MG PO Q6H PRN, ZOFRAN 4MG IV Q6H PRN, PROCRIT 10,000 UNITS MON,WED,FRI, VALIUM 5MG PO TID PRN, PHENOBARBITAL HS, NYSTATIN CREAM TID PRN, NYSTATIN POWDER BID PRN, ZOVIRAX TOP Q8H. WE WILL ADMINISTER LASIX 40MG IV DAILY. OTHERWISE, WE WILL FOLLOW UP WITH AM LABS AND CONTINUE TO MONITOR. TIME SPENT ON CLINICAL ASSESSMENT, REVIEWING LABS AND IMAGING, DECISION MAKING, AND DOCUMENTATION GREATER THAN 45 MINUTES. - Past Medical Family Social History Past Med/Fam/Surg Hx: No changes since H&P Allergies: Allergies No Known Drug Allergies [NKDA] Allergy (Verified 03/25/21 13:54) - Review of Systems ROS: No change since H&P - Vital Signs and I&O's Vital Signs: Temperature 98 F Pulse Rate [Left Radial] 128 Pulse Rate 79 Respiratory Rate 21 Blood Pressure [Right Arm] 116/79 Blood Pressure 161/88 O2 Sat by Pulse Oximetry 92 Intake and Output: Intake & Output 12/16/21 12/17/21 12/18/21 12/19/21 11:59 11:59 11:59 11:59 Intake Total 1106 / 1106 1384 / 1384 2416 / 2416 2098 / 2098 Output Total 1600 / 1600 1650 / 1650 3675 / 3675 1900 / 1900 Balance -494 / -494 -266 / -266 -1259 / -1259 198 / 198 - Physical Exam Oriented: Unable to test Eyes: Normal Ear: Normal Nose: Normal Throat: Normal Respiratory: Diminished Cardiovascular: Irregular : Normal Auscultation: Bowel Sounds: Normal Tenderness: Normal Skin: Normal, Wound, Bruising (LEFT UPPER ARM ) Musculoskeletal: Left, Shoulder, Arm, Tender Psychiatric: Other (OBTUNDED) Mood Description: Calm Affect: Normal Speech Pattern: Clear, Appropriate - Laboratory and Diagnostics Result Diagrams: 12/19/21 04:34 12/19/21 04:34 Labs: 12/10/21 14:35 Urine,Clean Catch Urine Culture - Preliminary Grecia Lusitaniae 11/26/21 13:05 Urine,Catheterized Urine Culture - Final Escherichia Coli Laboratory WBC 5.5 X10^3/uL (3.6-10.0) 12/19/21 04:34 RBC 2.69 X10^6/uL (3.5-5.4) L 12/19/21 04:34 Hgb 8.7 g/dL (12.0-16.0) L 12/19/21 04:34 Hct 26.5 % (36.0-47.0) L 12/19/21 04:34 MCV 98.4 fL (80.0-100.0) 12/19/21 04:34 MCH 32.2 pg (27.0-34.0) 12/19/21 04:34 MCHC 32.8 g/dL (33.0-35.0) L 12/19/21 04:34 RDW 22.3 % (11.6-16.5) H 12/19/21 04:34 Plt Count 247 X10^3/uL (150.0-450.0) 12/19/21 04:34 Plt Count Comment Adequate (ADEQUATE) 12/19/21 04:34 MPV 8.8 fL (7.4-11.0) 12/19/21 04:34 Neut % (Auto) 73.8 % (42.0-75.0) 12/19/21 04:34 Lymph % (Auto) 11.8 % (21.0-51.0) L 12/19/21 04:34 [place] % (Auto) 10.9 % (0.0-13.0) 12/19/21 04:34 Eos % (Auto) 3.1 % (0.9-2.9) H 12/19/21 04:34 Baso % (Auto) 0.4 % (0.2-1.0) 12/19/21 04:34 Neut # (Auto) 4.1 x10^3/uL (2.2-4.8) 12/19/21 04:34 Lymph # (Auto) 0.7 X10^3/uL (1.3-2.9) L 12/19/21 04:34 [place] # (Auto) 0.6 x10^3/uL (0.3-0.8) 12/19/21 04:34 Eos # (Auto) 0.2 x10^3/uL (0.0-0.2) 12/19/21 04:34 Baso # (Auto) 0.0 X10^3/uL (0.0-0.1) 12/19/21 04:34 Absolute Nucleated RBC 0.2 /100WBC 12/19/21 04:34 Total Counted 100 12/16/21 04:32 Neutrophils % (Manual) 64 % (39-76) 12/16/21 04:32 Band Neutrophils % 3 % (0-10) 12/16/21 04:32 Lymphocytes % (Manual) 13 % (13-43) 12/16/21 04:32 Monocytes % (Manual) 18 % (4-9) H 12/16/21 04:32 Eosinophils % (Manual) 1 % (0-6) 12/16/21 04:32 Metamyelocytes % 1 12/16/21 04:32 Plt Clumps, EDTA Rare 11/29/21 13:48 Plt Morphology Comment Normal (NORMAL) 12/19/21 04:34 RBC Morphology Abnormal (NORMAL) A 12/19/21 04:34 Anisocytosis 2+ A 12/19/21 04:34 Macrocytosis Slight A 12/15/21 04:05 Schistocytes Present 12/16/21 04:32 D-Dimer 7.60 ug/ml (0.0-0.57) H* 12/09/21 05:23 Sample Site Rr 12/17/21 05:24 ABG pH 7.330 (7.35-7.45) L 12/17/21 05:24 ABG pCO2 52.0 mmHg (35.0-45.0) H* 12/17/21 05:24 ABG pO2 49.0 mmHg (80.0-100.0) L* 12/17/21 05:24 ABG HCO3 27.4 mmol/L (22-26) H 12/17/21 05:24 ABG O2 Saturation 81.0 % (90-100) L* 12/17/21 05:24 ABG Base Excess 0.7 mmol/L (-2.0-2.0) 12/17/21 05:24 Edi Test Yes 12/17/21 05:24 A-a Gradient 57.0 mmHg 12/17/21 05:24 FiO2 24.0 12/17/21 05:24 Blood Gas Comments [place] well, kh 12/17/21 05:24 Sodium 140 mmol/L (136-145) 12/19/21 04:34 Corrected Sodium TNP 12/19/21 04:34 Potassium 4.1 mmol/L (3.5-5.1) 12/19/21 04:34 Chloride 103 mmol/L (98-107) 12/19/21 04:34 Carbon Dioxide 28.3 mmol/L (21-32) 12/19/21 04:34 BUN 20 mg/dL (7-18) H 12/19/21 04:34 Creatinine 1.01 mg/dL (0.55-1.02) 12/19/21 04:34 Est GFR (MDRD) Af Amer > 60 (>60) 12/19/21 04:34 Est GFR (MDRD) Non-Af 58 (>60) L 12/19/21 04:34 Glucose 95 mg/dL (65-99) 12/19/21 04:34 Calcium 8.6 mg/dL (8.5-10.1) 12/19/21 04:34 Corrected Calcium TNP 12/19/21 04:34 Magnesium 1.5 mg/dL (1.7-2.9) L 12/19/21 04:34 Iron 17 ug/dL (50-175) L 11/29/21 10:08 Transferrin 119 mg/dL (202-364) L 11/29/21 10:08 Ferritin 917 ng/mL (8-252) H 11/29/21 10:08 Total Bilirubin 0.60 mg/dL (0.2-1.0) 12/19/21 04:34 AST 27 Units/L (15-37) 12/19/21 04:34 ALT 23 Units/L (12-78) 12/19/21 04:34 Alkaline Phosphatase 132 Units/L (46-116) H 12/19/21 04:34 Creatine Kinase 26 Units/L (26-192) 12/09/21 05:23 CK-MB (CK-2) < 1.0 ng/mL (0-4.0) 12/09/21 05:23 CK/CKMB % Calc 3.9 % (<4) 12/09/21 05:23 Troponin I High Sens 137.2 ng/L (4.0-60.0) H* 12/10/21 05:23 B-Natriuretic Peptide 1160 pg/mL (0-79) H* 12/19/21 04:34 Total Protein 6.4 g/dL (6.4-8.2) 12/19/21 04:34 Albumin 4.1 g/dL (3.4-5.0) 12/19/21 04:34 Globulin 2.3 g/dL (2.5-4.5) L 12/19/21 04:34 Albumin/Globulin Ratio 1.8 Ratio (1.1-2.1) 12/19/21 04:34 Vitamin B12 > 2000 pg/mL (193-986) H 11/29/21 10:08 Folate 4.1 ng/mL (>8.6) L 11/29/21 10:08 Specimen Type Catherized urine 12/15/21 13:30 Urine Color Yellow (YELLOW) 12/15/21 13:30 Urine Appearance Clear (CLEAR) 12/15/21 13:30 Urine pH 5.0 (5.0 - 8.0) 12/15/21 13:30 Ur Specific [place] 1.015 (1.000-1.030) 12/15/21 13:30 Urine Protein 1+ (NEGATIVE) 12/15/21 13:30 Urine Glucose (UA) Negative (NEGATIVE) 12/15/21 13:30 Urine Ketones Negative (NEGATIVE) 12/15/21 13:30 Urine Occult Blood Negative (NEGATIVE) 12/15/21 13:30 Urine Nitrite Negative (NEGATIVE) 12/15/21 13:30 Urine Bilirubin Negative (NEGATIVE) 12/15/21 13:30 Urine Urobilinogen Normal (NORMAL) 12/15/21 13:30 Ur Leukocyte Esterase Negative (NEGATIVE) 12/15/21 13:30 Urine RBC 0-2 /HPF (0-3) 12/15/21 13:30 Urine WBC 0-2 /HPF (0-5) 12/15/21 13:30 Ur Squamous Epith Cells Rare /HPF (NEGATIVE) 12/15/21 13:30 Urine Bacteria Trace /HPF (NEGATIVE) 12/15/21 13:30 Urine Mucus Few /HPF (NEGATIVE) 12/05/21 12:10 Urine Yeast Many /HPF (NEGATIVE) 12/15/21 13:30 Ur Culture Indicated? No/not indicated 12/15/21 13:30 Stool Description 10g brown loose 11/29/21 18:30 Stl Occult Blood (IFOB) Negative (NEGATIVE) 11/29/21 18:30 Digoxin 1.27 ng/mL (0.9-2) 12/19/21 04:34 SARS CoV-2 RNA Rapid KAMALJIT Negative (NEGATIVE) 11/26/21 11:11 Blood Type O POSITIVE 12/06/21 11:42 Antibody Screen Negative 12/06/21 11:42 Crossmatch See Detail 11/29/21 10:08 - Plan (1) Acute on chronic renal failure Status: Acute Qualifiers: Acute renal failure type: unspecified Chronic kidney disease stage: unspecified stage Qualified Code(s): N17.9 - Acute kidney failure, uns pecified; N18.9 - Chronic kidney disease, unspecified Plan: NORMAL SALINE AT 50 ML/HR WITH MVI IN EACH LITER, INVANZ 1 G IV DAILY, ALBUMIN 25% IV DAILY, LASIX 40MG IV DAILY, CARDIZEM CD 240MG PO DAILY, LOPRESSOR 25MG PO BID, AMIODARONE 200MG PO BID, MORPHINE SULFATE 2MG IV Q4H PRN, ZOFRAN 4MG IV Q6H PRN, NYSTATIN CREAM TID PRN, NYSTATIN POWDER BID PRN, ZOVIRAX TOP Q8H, PROCRIT 10,000 UNITS ON MON,WED,FRI, VALIUM 5MG PO TID PRN, MEGACE 40MG PO BID, AND PHENOBARBITAL 30MG PO HS (2) Atrial fibrillation Status: Acute Qualifiers: Atrial fibrillation type: unspecified Qualified Code(s): I48.91 - Unspecified atrial fibrillation (3) Fracture of neck of humerus Status: Acute Qualifiers: Encounter type: initial encounter Fracture type: closed Laterality: left Qualified Code(s): S42.212A - Unspecified displaced fracture of surgical neck of left humerus, initial encounter for closed fracture (4) Urinary tract infection Status: Acute Qualifiers: Urinary tract infection type: acute cystitis Hematuria presence: without hematuria Qualified Code(s): N30.00 - Acute cystitis without hematuria (5) Shortness of breath Status: Acute (6) Anemia Status: Acute Qualifiers: Anemia type: unspecified type Qualified Code(s): D64.9 - Anemia, unspecified (7) Dehydration Status: Acute (8) Generalized weakness Status: Acute (9) Alcoholic dementia Status: Acute Qualifiers: Dementia behavioral disturbance: without behavioral disturbance Qualified Code(s): F10.27 - Alcohol dependence with alcohol-induced persisting dementia (10) Recent cerebrovascular accident (CVA) Status: Chronic (11) Hypertension Status: Chronic Qualifiers: Hypertension type: primary hypertension Qualified Code(s): I10 - Essential (primary) hypertension (12) Hyperlipidemia Status: Chronic Qualifiers: Hyperlipidemia type: mixed hyperlipidemia Qualified Code(s): E78.2 - Mixed hyperlipidemia
[2021-12-19] MEDS: MILK OF MAGNESIA PO SCH ×2 (11:26→20:10)
[2021-12-19] MEDS: MAGNESIUM SULFATE 1 GRAM/100 mL PREMIX 1 G/100 ML BAG IV PRN ×2 (17:05→18:23)
[2021-12-19] MEDS: PHENOBARBITAL TAB 30 MG (32.4MG) PO SCH (20:11)
[2021-12-20] MEDS: ZOVIRAX TOP SCH ×3 (02:07→17:18)
[2021-12-20] MEDS: NORCO 5/325 MG TAB PO PRN (02:07)
[2021-12-20] MEDS: MORPHINE SULFATE INJ 4 MG IVP PRN ×2 (04:10→20:38)
[2021-12-20 05:40] LABS: BASOPHILS % (AUTO) 0.5 % (0.2-1.0); EOSINOPHILS # (AUTO) 0.2 x10^3/uL (0.0-0.2); HEMATOCRIT 27.2 % (36.0-47.0); HEMOGLOBIN 9.1 g/dL (12.0-16.0); LYMPHOCYTES # (AUTO) 0.6 X10^3/uL (1.3-2.9); LYMPHOCYTES % (AUTO) 9.9 % (21.0-51.0); MEAN CORPUSCULAR HEMOGLOBIN 32.6 pg (27.0-34.0); MEAN CORPUSCULAR HGB CONC 33.4 g/dL (33.0-35.0); MEAN CORPUSCULAR VOLUME 97.3 fL (80.0-100.0); MEAN PLATELET VOLUME 8.5 fL (7.4-11.0); MONOCYTES # (AUTO) 0.7 x10^3/uL (0.3-0.8); MONOCYTES % (AUTO) 10.8 % (0.0-13.0); NEUTROPHILS # (AUTO) 4.6 x10^3/uL (2.2-4.8); NEUTROPHILS % (AUTO) 75.8 % (42.0-75.0); RED BLOOD COUNT 2.79 X10^6/uL (3.5-5.4); RED CELL DISTRIBUTION WIDTH 22.4 % (11.6-16.5)
[2021-12-20 05:50] LABS: ALANINE AMINOTRANSFERASE 20 Units/L (12-78); ALKALINE PHOSPHATASE 135 Units/L (46-116); ASPARTATE AMINO TRANSFERASE 16 Units/L (15-37); BLOOD UREA NITROGEN 17 mg/dL (7-18); CALCIUM 8.7 mg/dL (8.5-10.1); CARBON DIOXIDE 32.7 mmol/L (21-32); CHLORIDE 100 mmol/L (98-107); CREATININE 1.07 mg/dL (0.55-1.02); DIGOXIN 1.08 ng/mL (0.9-2); SODIUM 142 mmol/L (136-145); TOTAL PROTEIN 6.3 g/dL (6.4-8.2); eGFR NON BLACK RACES 55 (>60)
[2021-12-20 06:26] LABS: ANISOCYTOSIS 2+; PLATELET MORPHOLOGY COMMENT NORMAL (NORMAL); POIKILOCYTOSIS SLIGHT; SCHISTOCYTES PRESENT; TEAR DROP CELLS PRESENT
--- NOTE | 2021-12-20 06:26 | RAD ---
HISTORYSOB HX: CVA, HTN SX: APPENDECTOMY, HYSTERECTOMY, ORTHOSTUDYCHEST, 1 [id number]/25/2022.FINDINGSThe trachea is midline. The cardiac silhouette is enlarged similar to the comparison study. Diffuse interstitial prominence throughout both lungs and small to moderate size bilateral pleural effusions are grossly unchanged. There is no pneumothorax. The bony thorax is grossly unremarkable.IMPRESSIONUnchanged exam compared with previous day.Electronically signed by: EVAN FARRELL (Dec 20, 2021 06:26:04)
[2021-12-20] MEDS: CORDARONE TAB 200 MG PO SCH ×2 (06:48→16:58)
[2021-12-20] MEDS ORDERED: POTASSIUM CHL 60 MEQ/NS 0.45% 500 ML IV PRN (06:51)
[2021-12-20] MEDS ORDERED: KLOR-CON PO PRN (06:51)
[2021-12-20] MEDS ORDERED: POTASSIUM CHL 40 MEQ/NS 0.45% 500 ML IV PRN (06:51)
[2021-12-20] MEDS ORDERED: MICRO K EXTEN CAP 10 MEQ PO PRN (06:51)
[2021-12-20] MEDS ORDERED: K-RIDER 10 MEQ/NS 100 ML 10 MEQ/100 ML BAG IV PRN (06:51)
[2021-12-20] MEDS ORDERED: K-DUR TAB 20 MEQ PO PRN (06:51)
[2021-12-20] MEDS: INVanz INJ 1 GRAM VIAL 1 G in NS 100 ML IV 100 ML IV SCH (08:55)
[2021-12-20] MEDS: MVI IV SCH ×2 (08:55)
[2021-12-20] MEDS: NS IV SCH ×2 (08:55)
[2021-12-20] MEDS: MILK OF MAGNESIA PO SCH ×2 (08:56→20:37)
[2021-12-20] MEDS: PROTONIX INJ 40 MG VIAL IVP SCH ×2 (08:56→20:37)
[2021-12-20] MEDS: ALBUMIN HUMAN 25%- 100 ML 100 ML IV SCH (08:56)
[2021-12-20] MEDS: CYMBALTA PO SCH (08:57)
[2021-12-20] MEDS: CARDIZEM CD 240 MG 24-HR PO SCH (08:57)
[2021-12-20] MEDS: LOVENOX INJ 30 MG SYR SC SCH ×2 (08:57→20:36)
[2021-12-20] MEDS: DIFLUCAN 200 MG IV PREMIX* 200 MG/100 ML BAG IV SCH (08:57)
[2021-12-20] MEDS: LOPRESSOR TAB 50 MG PO SCH ×2 (08:58→20:36)
[2021-12-20] MEDS: COLACE CAP 100 MG PO SCH ×2 (08:58→20:36)
[2021-12-20] MEDS: MEGACE PO SCH ×2 (08:58→20:37)
[2021-12-20] MEDS: LASIX IVP SCH (08:58)
[2021-12-20] MEDS: POTASSIUM CHLORIDE LIQ 20 MEQ UDC PO PRN (17:16)
[2021-12-20] MEDS: PHENOBARBITAL TAB 30 MG (32.4MG) PO SCH (20:37)
[2021-12-20] MEDS: THIAMINE HCL INJ IVP SCH (20:38)
[2021-12-21] MEDS: ZOVIRAX TOP SCH ×2 (02:02→11:20)
[2021-12-21] MEDS: NS IV SCH ×6 (02:02→21:53)
[2021-12-21] MEDS: MVI IV SCH ×6 (02:02→21:53)
[2021-12-21] MEDS: CORDARONE TAB 200 MG PO SCH ×2 (06:39→16:39)
[2021-12-21 06:58] LABS: BASOPHILS % (AUTO) 0.4 % (0.2-1.0); EOSINOPHILS # (AUTO) 0.2 x10^3/uL (0.0-0.2); EOSINOPHILS % (AUTO) 3.6 % (0.9-2.9); HEMATOCRIT 26.4 % (36.0-47.0); HEMOGLOBIN 8.7 g/dL (12.0-16.0); LYMPHOCYTES # (AUTO) 0.6 X10^3/uL (1.3-2.9); LYMPHOCYTES % (AUTO) 11.2 % (21.0-51.0); MEAN CORPUSCULAR HEMOGLOBIN 32.2 pg (27.0-34.0); MEAN CORPUSCULAR HGB CONC 32.8 g/dL (33.0-35.0); MEAN CORPUSCULAR VOLUME 98.1 fL (80.0-100.0); MEAN PLATELET VOLUME 8.5 fL (7.4-11.0); MONOCYTES # (AUTO) 0.6 x10^3/uL (0.3-0.8); MONOCYTES % (AUTO) 11.5 % (0.0-13.0); NEUTROPHILS % (AUTO) 73.3 % (42.0-75.0); RED BLOOD COUNT 2.69 X10^6/uL (3.5-5.4); RED CELL DISTRIBUTION WIDTH 22.6 % (11.6-16.5); WHITE BLOOD COUNT 5.4 X10^3/uL (3.6-10.0)
[2021-12-21 07:09] LABS: ALANINE AMINOTRANSFERASE 16 Units/L (12-78); ALBUMIN 3.7 g/dL (3.4-5.0); ALKALINE PHOSPHATASE 129 Units/L (46-116); ASPARTATE AMINO TRANSFERASE 17 Units/L (15-37); BLOOD UREA NITROGEN 13 mg/dL (7-18); CALCIUM 8.2 mg/dL (8.5-10.1); CARBON DIOXIDE 33.4 mmol/L (21-32); CHLORIDE 100 mmol/L (98-107); CREATININE 0.99 mg/dL (0.55-1.02); SODIUM 140 mmol/L (136-145); TOTAL PROTEIN 5.9 g/dL (6.4-8.2); eGFR NON BLACK RACES 60 (>60)
[2021-12-21 07:25] LABS: ANISOCYTOSIS 2+; PLATELET MORPHOLOGY COMMENT NORMAL (NORMAL)
[2021-12-21 07:26] LABS: POIKILOCYTOSIS SLIGHT; SCHISTOCYTES RARE; TEAR DROP CELLS PRESENT
[2021-12-21] MEDS: DIFLUCAN 200 MG IV PREMIX* 200 MG/100 ML BAG IV SCH (08:41)
[2021-12-21] MEDS: LASIX IVP SCH (08:45)
[2021-12-21] MEDS: ALBUMIN HUMAN 25%- 100 ML 100 ML IV SCH (08:45)
[2021-12-21] MEDS: CARDIZEM CD 240 MG 24-HR PO SCH (08:46)
[2021-12-21] MEDS: MEGACE PO SCH (08:46)
[2021-12-21] MEDS: LOPRESSOR TAB 50 MG PO SCH ×2 (08:46→20:34)
[2021-12-21] MEDS: THIAMINE HCL INJ IVP SCH ×2 (08:46→20:35)
[2021-12-21] MEDS: COLACE CAP 100 MG PO SCH ×2 (08:46→20:34)
[2021-12-21] MEDS: MILK OF MAGNESIA PO SCH ×2 (08:47→20:35)
[2021-12-21] MEDS: PROTONIX INJ 40 MG VIAL IVP SCH ×2 (08:47→20:35)
[2021-12-21] MEDS: CYMBALTA PO SCH (08:48)
[2021-12-21] MEDS: LOVENOX INJ 30 MG SYR SC SCH ×2 (08:48→20:34)
[2021-12-21] MEDS: INVanz INJ 1 GRAM VIAL 1 G in NS 100 ML IV 100 ML IV SCH (08:48)
[2021-12-21] MEDS: MORPHINE SULFATE INJ 4 MG IVP PRN (10:18)
[2021-12-21] MEDS: ZESTRIL TAB 10 MG PO SCH (11:21)
[2021-12-21] MEDS: NORCO 5/325 MG TAB PO PRN (11:34)
[2021-12-21] MEDS: POTASSIUM CHLORIDE LIQ 20 MEQ UDC PO PRN (16:45)
[2021-12-21] MEDS: REMERON PO SCH (20:35)
[2021-12-21] MEDS: PHENOBARBITAL TAB 30 MG (32.4MG) PO SCH (20:35)
[2021-12-22] MEDS: CORDARONE TAB 200 MG PO SCH ×2 (06:06→16:07)
[2021-12-22 06:14] LABS: BASOPHILS % (AUTO) 0.6 % (0.2-1.0); EOSINOPHILS # (AUTO) 0.2 x10^3/uL (0.0-0.2); EOSINOPHILS % (AUTO) 3.5 % (0.9-2.9); HEMATOCRIT 28.1 % (36.0-47.0); HEMOGLOBIN 9.2 g/dL (12.0-16.0); LYMPHOCYTES # (AUTO) 0.6 X10^3/uL (1.3-2.9); MEAN CORPUSCULAR HGB CONC 32.6 g/dL (33.0-35.0); MEAN CORPUSCULAR VOLUME 98.1 fL (80.0-100.0); MEAN PLATELET VOLUME 8.6 fL (7.4-11.0); MONOCYTES # (AUTO) 0.6 x10^3/uL (0.3-0.8); MONOCYTES % (AUTO) 11.9 % (0.0-13.0); NEUTROPHILS # (AUTO) 3.8 x10^3/uL (2.2-4.8); RED BLOOD COUNT 2.87 X10^6/uL (3.5-5.4); RED CELL DISTRIBUTION WIDTH 22.6 % (11.6-16.5); WHITE BLOOD COUNT 5.3 X10^3/uL (3.6-10.0)
[2021-12-22 06:30] LABS: ALANINE AMINOTRANSFERASE 17 Units/L (12-78); ALBUMIN 4.2 g/dL (3.4-5.0); ALKALINE PHOSPHATASE 144 Units/L (46-116); ASPARTATE AMINO TRANSFERASE 21 Units/L (15-37); BLOOD UREA NITROGEN 12 mg/dL (7-18); CALCIUM 8.8 mg/dL (8.5-10.1); CARBON DIOXIDE 33.1 mmol/L (21-32); CHLORIDE 99 mmol/L (98-107); CREATININE 1.01 mg/dL (0.55-1.02); SODIUM 139 mmol/L (136-145); TOTAL PROTEIN 6.6 g/dL (6.4-8.2); eGFR NON BLACK RACES 58 (>60)
[2021-12-22 06:52] LABS: PLATELET MORPHOLOGY COMMENT NORMAL (NORMAL)
[2021-12-22 06:53] LABS: ANISOCYTOSIS 2+
[2021-12-22 06:54] LABS: POIKILOCYTOSIS SLIGHT; TEAR DROP CELLS PRESENT
[2021-12-22 06:55] LABS: SCHISTOCYTES PRESENT
--- NOTE | 2021-12-22 07:30 | RAD ---
HISTORYShortness of breathSTUDYChest AP [id number]/2022FINDINGSHear t remains enlarged. There has been interval development of bilateral perihilar alveolar filling suggestive of pulmonary edema which could be cardiogenic or noncardiogenic in origin. Bilateral pleural effusions are present bony thorax is unremarkable.IMPRESSIONCardiomegaly with congestive heart failure in the form of bilateral perihilar alveolar edemaBilateral pleural effusionsElectronically signed by: DOMINGA RODRIGUEZ (Dec 22, 2021 07:29:35)
[2021-12-22] MEDS ORDERED: NS 250 ML IV 250 ML IV ONE (07:39)
[2021-12-22] MEDS: ALBUMIN HUMAN 25%- 100 ML 100 ML IV SCH (08:16)
[2021-12-22] MEDS: LASIX IVP SCH (08:17)
[2021-12-22] MEDS: INVanz INJ 1 GRAM VIAL 1 G in NS 100 ML IV 100 ML IV SCH (08:18)
[2021-12-22] MEDS: PROTONIX INJ 40 MG VIAL IVP SCH ×2 (08:20→21:30)
[2021-12-22] MEDS: CYMBALTA PO SCH (08:22)
[2021-12-22] MEDS: CARDIZEM CD 240 MG 24-HR PO SCH (08:22)
[2021-12-22] MEDS: ZESTRIL TAB 10 MG PO SCH (08:22)
[2021-12-22] MEDS: LOVENOX INJ 30 MG SYR SC SCH ×2 (08:23→22:35)
[2021-12-22] MEDS: K-DUR TAB 20 MEQ PO PRN (08:23)
[2021-12-22] MEDS: MILK OF MAGNESIA PO SCH ×2 (08:23→21:29)
[2021-12-22] MEDS: LOPRESSOR TAB 50 MG PO SCH ×2 (08:23→21:28)
[2021-12-22] MEDS: MVI IV SCH ×4 (08:24→18:58)
[2021-12-22] MEDS: NS IV SCH ×4 (08:24→18:58)
[2021-12-22] MEDS: THIAMINE HCL INJ IVP SCH ×2 (08:26→21:32)
[2021-12-22] MEDS: DIFLUCAN 200 MG IV PREMIX* 200 MG/100 ML BAG IV SCH (08:48)
[2021-12-22] MEDS: PROCRIT or EPOGEN VIAL 10,000 UNITS SC SCH (10:00)
--- NOTE | 2021-12-22 11:32 | PCM.PROG ---
Progress Note - Progress Note for Day of Date of Exam: 12/19/21 - Subjective Subjective: WAS IS BEING TREATED FOR A-FIB, CHRONIC RENAL FAILURE, DIG TOXICITY, HUMERAL NECK FRACTURE, E.COLI UTI, CHF, ANEMIA, AND GENERALIZED WEAKNESS. SHE HAS RECEIVED TWO UNITS OF PRBC SINCE ADMISSION. SHE HAS A PMH OF RECENT CVA, HTN, A-FIB, HYPERLIPIDEMIA, AND RENAL DISEASE, AND ALCOHOLISM. TODAY, SHE IS LYING IN BED WITH EYES CLOSED ON MORNING ROUNDS. SHE AWAKENS TO VERBAL STIMULI. SHE CONTINUES TO REPORT SHORTNESS OF BREATH AND CONTINUES WITH WEAKNESS. FAMILY REPORTS THAT SHE HAS BEEN CONFUSED AND DISORIENTED AT TIMES. SHE HAS ALCOHOLIC DEMENTIA AND IS UNABLE TO MAKE ANY LIFE ALTERING DECISIONS. SHE IS CURRENTLY UTILIZING OXYGEN VIA NASAL CANNULA AT 4 LPM. SATURATIONS HAVE BEEN 95-100% THIS MORNING AND THROUGHOUT THE NIGHT. SHE CONTINUES TO REQUIRE MAXIMUM ASSITANCE FOR AMBULATION. ON EXAMINATION, HEART IS REGULAR IN RATE AND RHYTHM. BILATERAL LUNGS NOTED WITH DIMINISHED LUNG SOUNDS THROUGHOUT. ABDOMEN IS ROUND, SOFT, AND NON-TENDER WITH NORMAL BOWEL SOUNDS NOTED IN ALL QUADRANTS. JACOBO CATHETER NOTED TO BEDSIDE DRAINAGE. SCATTERED BRUISING NOTED OVER BODY. EDEMA NOTED TO BILATERAL UPPER EXTREMITIES. HER VITALS THIS MORNING ARE: 97.5-79-21-92%-161/88. LABS WERE OBTAINED. ABNORMAL LAB VALUES INCLUDE THE FOLLOWING: RBC 2.69, HGB 8.7, HCT 26.5, BUN 20, MAGNESIUM 1.5, ALK PHOS 132, BNP 1160, GLOBULIN 2.3. CHEST XRAY OBTAINED AND REVEALED: NO SIGNIFICANT CHANGE FROM THE PRIOR EXAMINATION. SHE IS CURRENTLY RECEIVING NORMAL SALINE WITH MVI IN EACH LITER AT 50 ML/HR, ALBUMIN 25% IV DAILY, INVANZ 1 G IV DAILY, LASIX 40MG IV DAILY, DIFLUCAN 200MG IV DAILY, CARDIZEM CD 240 MG PO DAILY, AMIODARONE 200MG PO BIDWM, DIGOXIN 0.125MG PO DAILY, LOPRESSOR 50 MG PO BID, PROTONIX 40MG IV BID, MORPHINE SULFATE 2MG IV Q4H PRN, MEGACE 40MG PO BID, NORCO 5/325MG PO Q6H PRN, ZOFRAN 4MG IV Q6H PRN, PROCRIT 10,000 UNITS MON,WED,FRI, VALIUM 5MG PO TID PRN, PHENOBARBITAL HS, NYSTATIN CREAM TID PRN, NYSTATIN POWDER BID PRN, ZOVIRAX TOP Q8H. OTHERWISE, WE WILL FOLLOW UP WITH AM LABS AND CONTINUE TO MONITOR. TIME SPENT ON CLINICAL ASSESSMENT, REVIEWING LABS AND IMAGING, DECISION MAKING, AND DOCUMENTATION GREATER THAN 45 MINUTES. - Past Medical Family Social History Past Med/Fam/Surg Hx: No changes since H&P Allergies: Allergies No Known Drug Allergies [NKDA] Allergy (Verified 03/25/21 13:54) - Review of Systems ROS: No change since H&P - Vital Signs and I&O's Vital Signs: Temperature 97.5 F Pulse Rate [Left Radial] 128 Pulse Rate 63 Respiratory Rate 20 Blood Pressure [Right Arm] 116/79 Blood Pressure 161/72 O2 Sat by Pulse Oximetry 96 Intake and Output: Intake & Output 12/19/21 12/20/21 12/21/21 12/22/21 11:59 11:59 11:59 11:59 Intake Total 2097 / 8 1231 / 1231 1473 / 1473 1425 / 1425 Output Total 1900 / 1900 2725 / 2725 2074 / 2074 1920 / 1920 Balance 198 / 198 -1494 / -1494 -602 / -602 -495 / -495 - Physical Exam Oriented: Unable to test Eyes: Normal Ear: Normal Nose: Normal Throat: Normal Respiratory: Diminished Cardiovascular: Irregular : Normal Auscultation: Bowel Sounds: Normal Palpation: Normal Tenderness: Normal Skin: Normal, Wound, Bruising (LEFT UPPER ARM ) Musculoskeletal: Left, Shoulder, Arm, Tender Psychiatric: Other (OBTUNDED) Mood Description: Calm Affect: Normal Speech Pattern: Appropriate, Slurred - Laboratory and Diagnostics Result Diagrams: 12/22/21 05:58 12/22/21 05:58 Labs: 12/10/21 14:35 Urine,Clean Catch Urine Culture - Final Grecia Lusitaniae 11/26/21 13:05 Urine,Catheterized Urine Culture - Final Escherichia Coli Laboratory WBC 5.3 X10^3/uL (3.6-10.0) 12/22/21 05:58 RBC 2.87 X10^6/uL (3.5-5.4) L 12/22/21 05:58 Hgb 9.2 g/dL (12.0-16.0) L 12/22/21 05:58 Hct 28.1 % (36.0-47.0) L 12/22/21 05:58 MCV 98.1 fL (80.0-100.0) 12/22/21 05:58 MCH 32.0 pg (27.0-34.0) 12/22/21 05:58 MCHC 32.6 g/dL (33.0-35.0) L 12/22/21 05:58 RDW 22.6 % (11.6-16.5) H 12/22/21 05:58 Plt Count 204 X10^3/uL (150.0-450.0) 12/22/21 05:58 Plt Count Comment Adequate (ADEQUATE) 12/22/21 05:58 MPV 8.6 fL (7.4-11.0) 12/22/21 05:58 Neut % (Auto) 72.0 % (42.0-75.0) 12/22/21 05:58 Lymph % (Auto) 12.0 % (21.0-51.0) L 12/22/21 05:58 [place] % (Auto) 11.9 % (0.0-13.0) 12/22/21 05:58 Eos % (Auto) 3.5 % (0.9-2.9) H 12/22/21 05:58 Baso % (Auto) 0.6 % (0.2-1.0) 12/22/21 05:58 Neut # (Auto) 3.8 x10^3/uL (2.2-4.8) 12/22/21 05:58 Lymph # (Auto) 0.6 X10^3/uL (1.3-2.9) L 12/22/21 05:58 [place] # (Auto) 0.6 x10^3/uL (0.3-0.8) 12/22/21 05:58 Eos # (Auto) 0.2 x10^3/uL (0.0-0.2) 12/22/21 05:58 Baso # (Auto) 0.0 X10^3/uL (0.0-0.1) 12/22/21 05:58 Absolute Nucleated RBC 0.0 /100WBC 12/22/21 05:58 Total Counted 100 12/16/21 04:32 Neutrophils % (Manual) 64 % (39-76) 12/16/21 04:32 Band Neutrophils % 3 % (0-10) 12/16/21 04:32 Lymphocytes % (Manual) 13 % (13-43) 12/16/21 04:32 Monocytes % (Manual) 18 % (4-9) H 12/16/21 04:32 Eosinophils % (Manual) 1 % (0-6) 12/16/21 04:32 Metamyelocytes % 1 12/16/21 04:32 Plt Clumps, EDTA Rare 11/29/21 13:48 Plt Morphology Comment Normal (NORMAL) 12/22/21 05:58 RBC Morphology Abnormal (NORMAL) A 12/22/21 05:58 Poikilocytosis Slight A 12/22/21 05:58 Anisocytosis 2+ A 12/22/21 05:58 Macrocytosis Slight A 12/15/21 04:05 Tear Drop Cells Present 12/22/21 05:58 Schistocytes Present 12/22/21 05:58 D-Dimer 7.60 ug/ml (0.0-0.57) H* 12/09/21 05:23 Sample Site Rr 12/17/21 05:24 ABG pH 7.330 (7.35-7.45) L 12/17/21 05:24 ABG pCO2 52.0 mmHg (35.0-45.0) H* 12/17/21 05:24 ABG pO2 49.0 mmHg (80.0-100.0) L* 12/17/21 05:24 ABG HCO3 27.4 mmol/L (22-26) H 12/17/21 05:24 ABG O2 Saturation 81.0 % (90-100) L* 12/17/21 05:24 ABG Base Excess 0.7 mmol/L (-2.0-2.0) 12/17/21 05:24 Edi Test Yes 12/17/21 05:24 A-a Gradient 57.0 mmHg 12/17/21 05:24 FiO2 24.0 12/17/21 05:24 Blood Gas Comments [place] well, kh 12/17/21 05:24 Sodium 139 mmol/L (136-145) 12/22/21 05:58 Corrected Sodium TNP 12/22/21 05:58 Potassium 3.8 mmol/L (3.5-5.1) 12/22/21 05:58 Chloride 99 mmol/L (98-107) 12/22/21 05:58 Carbon Dioxide 33.1 mmol/L (21-32) H 12/22/21 05:58 BUN 12 mg/dL (7-18) 12/22/21 05:58 Creatinine 1.01 mg/dL (0.55-1.02) 12/22/21 05:58 Est GFR (MDRD) Af Amer > 60 (>60) 12/22/21 05:58 Est GFR (MDRD) Non-Af 58 (>60) L 12/22/21 05:58 Glucose 95 mg/dL (65-99) 12/22/21 05:58 Calcium 8.8 mg/dL (8.5-10.1) 12/22/21 05:58 Corrected Calcium TNP 12/22/21 05:58 Magnesium 1.9 mg/dL (1.7-2.9) 12/20/21 04:23 Iron 17 ug/dL (50-175) L 11/29/21 10:08 Transferrin 119 mg/dL (202-364) L 11/29/21 10:08 Ferritin 917 ng/mL (8-252) H 11/29/21 10:08 Total Bilirubin 0.50 mg/dL (0.2-1.0) 12/22/21 05:58 AST 21 Units/L (15-37) 12/22/21 05:58 ALT 17 Units/L (12-78) 12/22/21 05:58 Alkaline Phosphatase 144 Units/L (46-116) H 12/22/21 05:58 Creatine Kinase 26 Units/L (26-192) 12/09/21 05:23 CK-MB (CK-2) < 1.0 ng/mL (0-4.0) 12/09/21 05:23 CK/CKMB % Calc 3.9 % (<4) 12/09/21 05:23 Troponin I High Sens 137.2 ng/L (4.0-60.0) H* 12/10/21 05:23 B-Natriuretic Peptide 570 pg/mL (0-79) H* 12/22/21 05:58 Total Protein 6.6 g/dL (6.4-8.2) 12/22/21 05:58 Albumin 4.2 g/dL (3.4-5.0) 12/22/21 05:58 Globulin 2.4 g/dL (2.5-4.5) L 12/22/21 05:58 Albumin/Globulin Ratio 1.8 Ratio (1.1-2.1) 12/22/21 05:58 Vitamin B12 > 2000 pg/mL (193-986) H 11/29/21 10:08 Folate 4.1 ng/mL (>8.6) L 11/29/21 10:08 Specimen Type Catherized urine 12/15/21 13:30 Urine Color Yellow (YELLOW) 12/15/21 13:30 Urine Appearance Clear (CLEAR) 12/15/21 13:30 Urine pH 5.0 (5.0 - 8.0) 12/15/21 13:30 Ur Specific [place] 1.015 (1.000-1.030) 12/15/21 13:30 Urine Protein 1+ (NEGATIVE) 12/15/21 13:30 Urine Glucose (UA) Negative (NEGATIVE) 12/15/21 13:30 Urine Ketones Negative (NEGATIVE) 12/15/21 13:30 Urine Occult Blood Negative (NEGATIVE) 12/15/21 13:30 Urine Nitrite Negative (NEGATIVE) 12/15/21 13:30 Urine Bilirubin Negative (NEGATIVE) 12/15/21 13:30 Urine Urobilinogen Normal (NORMAL) 12/15/21 13:30 Ur Leukocyte Esterase Negative (NEGATIVE) 12/15/21 13:30 Urine RBC 0-2 /HPF (0-3) 12/15/21 13:30 Urine WBC 0-2 /HPF (0-5) 12/15/21 13:30 Ur Squamous Epith Cells Rare /HPF (NEGATIVE) 12/15/21 13:30 Urine Bacteria Trace /HPF (NEGATIVE) 12/15/21 13:30 Urine Mucus Few /HPF (NEGATIVE) 12/05/21 12:10 Urine Yeast Many /HPF (NEGATIVE) 12/15/21 13:30 Ur Culture Indicated? No/not indicated 12/15/21 13:30 Stool Description 10g brown loose 11/29/21 18:30 Stl Occult Blood (IFOB) Negative (NEGATIVE) 11/29/21 18:30 Digoxin 1.08 ng/mL (0.9-2) 12/20/21 04:23 SARS CoV-2 RNA Rapid KAMALJIT Negative (NEGATIVE) 11/26/21 11:11 Blood Type O POSITIVE 12/06/21 11:42 Antibody Screen Negative 12/06/21 11:42 Crossmatch See Detail 11/29/21 10:08 - Plan (1) Acute on chronic renal failure Status: Acute Qualifiers: Acute renal failure type: unspecified Chronic kidney disease stage: unspecified stage Qualified Code(s): N17.9 - Acute kidney failure, unspecified; N18.9 - Chronic kidney disease, unspecified Plan: NORMAL SALINE AT 50 ML/HR WITH MVI IN EACH LITER, INVANZ 1 G IV DAILY, ALBUMIN 25% IV DAILY, DIFLUCAN 200MG IV DAILY, LASIX 40MG IV DAILY, CARDIZEM CD 240MG PO DAILY, LOPRESSOR 25MG PO BID, AMIODARONE 200MG PO BID, MORPHINE SULFATE 2MG IV Q4H PRN, ZOFRAN 4MG IV Q6H PRN, NYSTATIN CREAM TID PRN, NYSTATIN POWDER BID PRN, ZOVIRAX TOP Q8H, PROCRIT 10,000 UNITS ON MON,WED,FRI, VALIUM 5MG PO TID PRN, MEGACE 40MG PO BID, AND PHENOBARBITAL 30MG PO HS (2) Atrial fibrillation Status: Acute Qualifiers: Atrial fibrillation type: unspecified Qualified Code(s): I48.91 - Unspe cified atrial fibrillation Plan: CARDIZEM DRIP (3) Fracture of neck of humerus Status: Acute Qualifiers: Encounter type: initial encounter Fracture type: closed Laterality: left Qualified Code(s): S42.212A - Unspecified displaced fracture of surgical neck of left humerus, initial encounter for closed fracture Plan: CONSULT ORTHO (4) Urinary tract infection Status: Acute Qualifiers: Urinary tract infection type: acute cystitis Hematuria presence: without hematuria Qualified Code(s): N30.00 - Acute cystitis without hematuria (5) Shortness of breath Status: Acute (6) Anemia Status: Acute Qualifiers: Anemia type: unspecified type Qualified Code(s): D64.9 - Anemia, unspecified (7) Dehydration Status: Acute (8) Generalized weakness Status: Acute (9) Alcoholic dementia Status: Acute Qualifiers: Dementia behavioral disturbance: without behavioral disturbance Qualified Code(s): F10.27 - Alcohol dependence with alcohol-induced persisting dementia (10) Recent cerebrovascular accident (CVA) Status: Chronic (11) Hypertension Status: Chronic Qualifiers: Hypertension type: primary hypertension Qualified Code(s): I10 - Essential (primary) hypertension (12) Hyperlipidemia Status: Chronic Qualifiers: Hyperlipidemia type: mixed hyperlipidemia Qualified Code(s): E78.2 - Mixed hyperlipidemia
--- NOTE | 2021-12-22 11:53 | PCM.PROG ---
Progress Note - Progress Note for Day of Date of Exam: 12/22/21 - Subjective Subjective: WAS IS BEING TREATED FOR A-FIB, CHRONIC RENAL FAILURE, DIG TOXICITY, HUMERAL NECK FRACTURE, E.COLI UTI, CHF, ANEMIA, AND GENERALIZED WEAKNESS. SHE HAS RECEIVED TWO UNITS OF PRBC SINCE ADMISSION. SHE HAS A PMH OF RECENT CVA, HTN, A-FIB, HYPERLIPIDEMIA, AND RENAL DISEASE, AND ALCOHOLISM. TODAY, SHE IS ALERT, LYING IN BED ON MORNING ROUNDS. SHE CONTINUES TO REPORT SHORTNESS OF BREATH, WEAKNESS, AND DECREASED APPETITE. FAMILY REPORTS THAT SHE HAS BEEN MORE ALERT SINCE YESTERDAY. SHE IS CURRENTLY UTILIZING OXYGEN VIA NASAL CANNULA AT 2-3 LPM. SATURATIONS HAVE BEEN 94-100% THIS MORNING AND THROUGHOUT THE NIGHT. SHE CONTINUES TO REQUIRE MAXIMUM ASSITANCE FOR AMBULATION. ON EXAMINA TION, HEART IS REGULAR IN RATE AND RHYTHM. BILATERAL LUNGS NOTED WITH DIMINISHED LUNG SOUNDS THROUGHOUT. ABDOMEN IS ROUND, SOFT, AND NON-TENDER WITH NORMAL BOWEL SOUNDS NOTED IN ALL QUADRANTS. JACOBO CATHETER NOTED TO BEDSIDE DRAINAGE. SCATTERED BRUISING NOTED OVER BODY. EDEMA NOTED TO BILATERAL UPPER EXTREMITIES. HER VITALS THIS MORNING ARE: 97.5-69-16-98%-175/83. LABS WERE OBTAINED. ABNORMAL LAB VALUES INCLUDE THE FOLLOWING: RBC 2.87, HGB 9.2, HCT 28.1, CARBON DIOXIDE 33.1, ALK PHOS 144, BNP 570, GLOBULIN 2.4. CHEST XRAY OBTAINED AND REVEALED: Cardiomegaly with congestive heart failure in the form of bilateral perihilar alveolar edema. Bilateral pleural effusions. SHE IS CURRENTLY RECEIVING NORMAL SALINE WITH MVI IN EACH LITER AT 50 ML/HR, ALBUMIN 25% IV DAILY, INVANZ 1 G IV DAILY, LASIX 40MG IV DAILY, DIFLUCAN 200MG IV DAILY, CARDIZEM CD 240 MG PO DAILY, LISINOPRIL 10 MG PO DAILY, AMIODARONE 200MG PO BIDWM, LOPRESSOR 50 MG PO BID, PROTONIX 40MG IV BID, MORPHINE SULFATE 2MG IV Q4H PRN, MEGACE 40MG PO BID, NORCO 5/325MG PO Q6H PRN, ZOFRAN 4MG IV Q6H PRN, PROCRIT 10,000 UNITS MON,WED, FRI, VALIUM 5MG PO TID PRN, PHENOBARBITAL HS, NYSTATIN CREAM TID PRN, NYSTATIN POWDER BID PRN, ZOVIRAX TOP Q8H. TODAY, WE WILL DECREASE PHENOBARBITAL TO 7.5MG PO HS. WE WILL ADD MEGACE 40MG PO BID. WE WILL HAVE PHYSICAL THERAPY WORK WITH HER TODAY. OTHERWISE, WE WILL FOLLOW UP WITH AM LABS AND CONTINUE TO MONITOR. TIME SPENT ON CLINICAL ASSESSMENT, REVIEWING LABS AND IMAGING, DECISION MAKING, AND DOCUMENTATION GREATER THAN 45 MINUTES. - Past Medical Family Social History Past Med/Fam/Surg Hx: No changes since H&P Allergies: Allergies No Known Drug Allergies [NKDA] Allergy (Verified 03/25/21 13:54) - Review of Systems ROS: No change since H&P - Vital Signs and I&O's Vital Signs: Temperature 97.5 F Pulse Rate [Left Radial] 128 Pulse Rate 63 Respiratory Rate 20 Blood Pressure [Right Arm] 116/79 Blood Pressure 161/72 O2 Sat by Pulse Oximetry 96 Intake and Output: Intake & Output 12/19/21 12/20/21 12/21/21 12/22/21 11:59 11:59 11:59 11:59 Intake Total 2097 / 8 1231 / 1231 1473 / 1473 1425 / 1425 Output Total 1900 / 1900 2725 / 2725 5 / 5 1920 / 1920 Balance 198 / 198 -1494 / -1494 -602 / -602 -495 / -495 - Physical Exam Oriented: Unable to test Eyes: Normal Ear: Normal Nose: Normal Throat: Normal Respiratory: Diminished Cardiovascular: Irregular : Normal Auscultation: Bowel Sounds: Normal Palpation: Normal Tenderness: Normal Skin: Normal, Wound, Bruising (LEFT UPPER ARM ) Musculoskeletal: Left, Shoulder, Arm, Tender Psychiatric: Other (OBTUNDED) Mood Description: Calm Affect: Normal Speech Pattern: Appropriate, Slurred - Laboratory and Diagnostics Result Diagrams: 12/22/21 05:58 12/22/21 05:58 Labs: 12/10/21 14:35 Urine,Clean Catch Urine Culture - Final Grecia Lusitaniae 11/26/21 13:05 Urine,Catheterized Urine Culture - Final Escherichia Coli Laboratory WBC 5.3 X10^3/uL (3.6-10.0) 12/22/21 05:58 RBC 2.87 X10^6/uL (3.5-5.4) L 12/22/21 05:58 Hgb 9.2 g/dL (12.0-16.0) L 12/22/21 05:58 Hct 28.1 % (36.0-47.0) L 12/22/21 05:58 MCV 98.1 fL (80.0-100.0) 12/22/21 05:58 MCH 32.0 pg (27.0-34.0) 12/22/21 05:58 MCHC 32.6 g/dL (33.0-35.0) L 12/22/21 05:58 RDW 22.6 % (11.6-16.5) H 12/22/21 05:58 Plt Count 204 X10^3/uL (150.0-450.0) 12/22/21 05:58 Plt Count Comment Adequate (ADEQUATE) 12/22/21 05:58 MPV 8.6 fL (7.4-11.0) 12/22/21 05:58 Neut % (Auto) 72.0 % (42.0-75.0) 12/22/21 05:58 Lymph % (Auto) 12.0 % (21.0-51.0) L 12/22/21 05:58 [place] % (Auto) 11.9 % (0.0-13.0) 12/22/21 05:58 Eos % (Auto) 3.5 % (0.9-2.9) H 12/22/21 05:58 Baso % (Auto) 0.6 % (0.2-1.0) 12/22/21 05:58 Neut # (Auto) 3.8 x10^3/uL (2.2-4.8) 12/22/21 05:58 Lymph # (Auto) 0.6 X10^3/uL (1.3-2.9) L 12/22/21 05:58 [place] # (Auto) 0.6 x10^3/uL (0.3-0.8) 12/22/21 05:58 Eos # (Auto) 0.2 x10^3/uL (0.0-0.2) 12/22/21 05:58 Baso # (Auto) 0.0 X10^3/uL (0.0-0.1) 12/22/21 05:58 Absolute Nucleated RBC 0.0 /100WBC 12/22/21 05:58 Total Counted 100 12/16/21 04:32 Neutrophils % (Manual) 64 % (39-76) 12/16/21 04:32 Band Neutrophils % 3 % (0-10) 12/16/21 04:32 Lymphocytes % (Manual) 13 % (13-43) 12/16/21 04:32 Monocytes % (Manual) 18 % (4-9) H 12/16/21 04:32 Eosinophils % (Manual) 1 % (0-6) 12/16/21 04:32 Metamyelocytes % 1 12/16/21 04:32 Plt Clumps, EDTA Rare 11/29/21 13:48 Plt Morphology Comment Normal (NORMAL) 12/22/21 05:58 RBC Morphology Abnormal (NORMAL) A 12/22/21 05:58 Poikilocytosis Slight A 12/22/21 05:58 Anisocytosis 2+ A 12/22/21 05:58 Macrocytosis Slight A 12/15/21 04:05 Tear Drop Cells Present 12/22/21 05:58 Schistocytes Present 12/22/21 05:58 D-Dimer 7.60 ug/ml (0.0-0.57) H* 12/09/21 05:23 Sample Site Rr 12/17/21 05:24 ABG pH 7.330 (7.35-7.45) L 12/17/21 05:24 ABG pCO2 52.0 mmHg (35.0-45.0) H* 12/17/21 05:24 ABG pO2 49.0 mmHg (80.0-100.0) L* 12/17/21 05:24 ABG HCO3 27.4 mmol/L (22-26) H 12/17/21 05:24 ABG O2 Saturation 81.0 % (90-100) L* 12/17/21 05:24 ABG Base Excess 0.7 mmol/L (-2.0-2.0) 12/17/21 05:24 Edi Test Yes 12/17/21 05:24 A-a Gradient 57.0 mmHg 12/17/21 05:24 FiO2 24.0 12/17/21 05:24 Blood Gas Comments [place] well, 12/17/21 05:24 Sodium 139 mmol/L (136-145) 12/22/21 05:58 Corrected Sodium TNP 12/22/21 05:58 Potassium 3.8 mmol/L (3.5-5.1) 12/22/21 05:58 Chloride 99 mmol/L (98-107) 12/22/21 05:58 Carbon Dioxide 33.1 mmol/L (21-32) H 12/22/21 05:58 BUN 12 mg/dL (7-18) 12/22/21 05:58 Creatinine 1.01 mg/dL (0.55-1.02) 12/22/21 05:58 Est GFR (MDRD) Af Amer > 60 (>60) 12/22/21 05:58 Est GFR (MDRD) Non-Af 58 (>60) L 12/22/21 05:58 Glucose 95 mg/dL (65-99) 12/22/21 05:58 Calcium 8.8 mg/dL (8.5-10.1) 12/22/21 05:58 Corrected Calcium TNP 12/22/21 05:58 Magnesium 1.9 mg/dL (1.7-2.9) 12/20/21 04:23 Iron 17 ug/dL (50-175) L 11/29/21 10:08 Transferrin 119 mg/dL (202-364) L 11/29/21 10:08 Ferritin 917 ng/mL (8-252) H 11/29/21 10:08 Total Bilirubin 0.50 mg/dL (0.2-1.0) 12/22/21 05:58 AST 21 Units/L (15-37) 12/22/21 05:58 ALT 17 Units/L (12-78) 12/22/21 05:58 Alkaline Phosphatase 144 Units/L (46-116) H 12/22/21 05:58 Creatine Kinase 26 Units/L (26-192) 12/09/21 05:23 CK-MB (CK-2) < 1.0 ng/mL (0-4.0) 12/09/21 05:23 CK/CKMB % Calc 3.9 % (<4) 12/09/21 05:23 Troponin I High Sens 137.2 ng/L (4.0-60.0) H* 12/10/21 05:23 B-Natriuretic Peptide 570 pg/mL (0-79) H* 12/22/21 05:58 Total Protein 6.6 g/dL (6.4-8.2) 12/22/21 05:58 Albumin 4.2 g/dL (3.4-5.0) 12/22/21 05:58 Globulin 2.4 g/dL (2.5-4.5) L 12/22/21 05:58 Albumin/Globulin Ratio 1.8 Ratio (1.1-2.1) 12/22/21 05:58 Vitamin B12 > 2000 pg/mL (193-986) H 11/29/21 10:08 Folate 4.1 ng/mL (>8.6) L 11/29/21 10:08 Specimen Type Catherized urine 12/15/21 13:30 Urine Color Yellow (YELLOW) 12/15/21 13:30 Urine Appearance Clear (CLEAR) 12/15/21 13:30 Urine pH 5.0 (5.0 - 8.0) 12/15/21 13:30 Ur Specific [place] 1.015 (1.000-1.030) 12/15/21 13:30 Urine Protein 1+ (NEGATIVE) 12/15/21 13:30 Urine Glucose (UA) Negative (NEGATIVE) 12/15/21 13:30 Urine Ketones Negative (NEGATIVE) 12/15/21 13:30 Urine Occult Blood Negative (NEGATIVE) 12/15/21 13:30 Urine Nitrite Negative (NEGATIVE) 12/15/21 13:30 Urine Bilirubin Negative (NEGATIVE) 12/15/21 13:30 Urine Urobilinogen Normal (NORMAL) 12/15/21 13:30 Ur Leukocyte Esterase Negative (NEGATIVE) 12/15/21 13:30 Urine RBC 0-2 /HPF (0-3) 12/15/21 13:30 Urine WBC 0-2 /HPF (0-5) 12/15/21 13:30 Ur Squamous Epith Cells Rare /HPF (NEGATIVE) 12/15/21 13:30 Urine Bacteria Trace /HPF (NEGATIVE) 12/15/21 13:30 Urine Mucus Few /HPF (NEGATIVE) 12/05/21 12:10 Urine Yeast Many /HPF (NEGATIVE) 12/15/21 13:30 Ur Culture Indicated? No/not indicated 12/15/21 13:30 Stool Description 10g brown loose 11/29/21 18:30 Stl Occult Blood (IFOB) Negative (NEGATIVE) 11/29/21 18:30 Digoxin 1.08 ng/mL (0.9-2) 12/20/21 04:23 SARS CoV-2 RNA Rapid KAMALJIT Negative (NEGATIVE) 11/26/21 11:11 Blood Type O POSITIVE 12/06/21 11:42 Antibody Screen Negative 12/06/21 11:42 Crossmatch See Detail 11/29/21 10:08 - Plan (1) Acute on chronic renal failure Status: Acute Qualifiers: Acute renal failure type: unspecified Chronic kidney disease stage: unspecified stage Qualified Code(s): N17.9 - Acute kidney failure, unspecified; N18.9 - Chronic kidney disease, unspecified Plan: NORMAL SALINE AT 50 ML/HR WITH MVI IN EACH LITER, INVANZ 1 G IV DAILY, ALBUMIN 25% IV DAILY, DIFLUCAN 200MG IV DAILY, LASIX 40MG IV DAILY, MEGACE 40MG PO BID, CARDIZEM CD 240MG PO DAILY, LOPRESSOR 25MG PO BID, AMIODARONE 200MG PO BID, MORPHINE SULFATE 2MG IV Q4H PRN, ZOFRAN 4MG IV Q6H PRN, NYSTATIN CREAM TID PRN, NYSTATIN POWDER BID PRN, ZOVIRAX TOP Q8H, PROCRIT 10,000 UNITS ON MON,WED,FRI, VALIUM 5MG PO TID PRN, MEGACE 40MG PO BID, AND PHENOBARBITAL 7.5 MG PO HS (2) Atrial fibrillation Status: Acute Qualifiers: Atrial fibrillation type: unspecified Qualified Code(s): I48.91 - Unspecified atrial fibrillation Plan: CARDIZEM DRIP (3) Fracture of neck of humerus Status: Acute Qualifiers: Encounter type: initial encounter Fracture type: closed Laterality: left Qualified Code(s): S42.212A - Unspecified displaced fracture of surgical neck of left humerus, initial encounter for closed fracture Plan: CONSULT ORTHO (4) Urinary tract infection Status: Acute Qualifiers: Urinary tract infection type: acute cystitis Hematuria presence: without hematuria Qualified Code(s): N30.00 - Acute cystitis without hematuria (5) Shortness of breath Status: Acute (6) Anemia Status: Acute Qualifiers: Anemia type: unspecified type Qualified Code(s): D64.9 - Anemia, unspecified (7) Dehydration Status: Acute (8) Generalized weakness Status: Acute (9) Alcoholic dementia Status: Acute Qualifiers: Dementia behavioral disturbance: without behavioral disturbance Qualified Code(s): F10.27 - Alcohol dependence with alcohol-induced persisting dementia (10) Recent cerebrovascular accident (CVA) Status: Chronic (11) Hypertension Status: Chronic Qualifiers: Hypertension type: primary hypertension Qualified Code(s): I10 - Essential (primary) hypertension (12) Hyperlipidemia Status: Chronic Qualifiers: Hyperlipidemia type: mixed hyperlipidemia Qualified Code(s): E78.2 - Mixed hyperlipidemia
[2021-12-22] MEDS: BUTT CREAM (COMPOUND) TOP PRN (12:00)
[2021-12-22] MEDS: COLACE CAP 100 MG PO SCH ×2 (12:45→21:28)
[2021-12-22] MEDS: MEGACE PO SCH ×2 (12:50→21:29)
[2021-12-22] MEDS: MAGNESIUM SULFATE 1 GRAM/100 mL PREMIX 1 G/100 ML BAG IV PRN ×2 (13:55→16:03)
--- NOTE | 2021-12-22 14:49 | RAD ---
HISTORYABD PAIN, CONSTIPATIONSTUDYKUBCOMPARISONCT abdomen and pelvis 03/05/2021FINDINGSGas is present in nondilated bowel. No bowel obstruction or free air. There is not an abnormally large amount of stool in the colon. No significant abnormal calcification is seen. The bones are unremarkable.Fixation hardware is present at L3-4. Right groin catheter is in the distribution of the right common iliac vessels. EKG leads are noted.IMPRESSION1. No significant abnormalityElectronically signed by: Mykel Mayo (Dec 22, 2021 14:48:59)
[2021-12-22] MEDS: MORPHINE SULFATE INJ 2 MG INJ IVP PRN ×2 (16:06→22:28)
[2021-12-22] MEDS: PHENOBARBITAL TAB 30 MG (32.4MG) PO SCH (21:30)
[2021-12-22] MEDS: REMERON PO SCH (21:31)
[2021-12-23 05:56] LABS: BASOPHILS % (AUTO) 0.2 % (0.2-1.0); EOSINOPHILS # (AUTO) 0.2 x10^3/uL (0.0-0.2); EOSINOPHILS % (AUTO) 3.6 % (0.9-2.9); HEMATOCRIT 26.5 % (36.0-47.0); HEMOGLOBIN 8.9 g/dL (12.0-16.0); LYMPHOCYTES # (AUTO) 0.7 X10^3/uL (1.3-2.9); LYMPHOCYTES % (AUTO) 11.1 % (21.0-51.0); MEAN CORPUSCULAR HEMOGLOBIN 32.4 pg (27.0-34.0); MEAN CORPUSCULAR HGB CONC 33.6 g/dL (33.0-35.0); MEAN CORPUSCULAR VOLUME 96.7 fL (80.0-100.0); MEAN PLATELET VOLUME 8.9 fL (7.4-11.0); MONOCYTES # (AUTO) 0.8 x10^3/uL (0.3-0.8); MONOCYTES % (AUTO) 13.1 % (0.0-13.0); NEUTROPHILS # (AUTO) 4.6 x10^3/uL (2.2-4.8); RED BLOOD COUNT 2.74 X10^6/uL (3.5-5.4); RED CELL DISTRIBUTION WIDTH 22.2 % (11.6-16.5); WHITE BLOOD COUNT 6.3 X10^3/uL (3.6-10.0)
--- NOTE | 2021-12-23 06:02 | RAD ---
HISTORYShortness of breathSTUDYChest AP [id number]/2022FINDINGSThe heart remains enlarged. Once again noted is bilateral perihilar alveolar filling most suggestive of pulmonary edema which could be cardiogenic or noncardiogenic in origin. Bilateral pleural effusions are present and unchanged. Bony thorax is unremarkable with the exception of a comminuted impacted fracture of the left humeral neck an associated fracture of the greater tuberosity.IMPRESSIONNo change cardiomegaly with bilateral perihilar alveolar filling right greater than left most consistent with edemaNo change bilateral small pleural effusionsNo change left humeral neck fractureElectronically signed by: DOMINGA RODRIGUEZ (Dec 23, 2021 06:01:24)
[2021-12-23 06:10] LABS: ALANINE AMINOTRANSFERASE 14 Units/L (12-78); ALBUMIN 3.8 g/dL (3.4-5.0); ALKALINE PHOSPHATASE 134 Units/L (46-116); ASPARTATE AMINO TRANSFERASE 15 Units/L (15-37); BLOOD UREA NITROGEN 10 mg/dL (7-18); CALCIUM 8.7 mg/dL (8.5-10.1); CARBON DIOXIDE 34.1 mmol/L (21-32); CHLORIDE 98 mmol/L (98-107); CREATININE 1.01 mg/dL (0.55-1.02); MAGNESIUM 2.1 mg/dL (1.7-2.9); SODIUM 139 mmol/L (136-145); TOTAL PROTEIN 6.1 g/dL (6.4-8.2); eGFR NON BLACK RACES 58 (>60)
[2021-12-23] MEDS: CORDARONE TAB 200 MG PO SCH ×2 (06:11→16:47)
[2021-12-23] MEDS: MORPHINE SULFATE INJ 2 MG INJ IVP PRN ×2 (06:12→22:19)
[2021-12-23 06:15] LABS: ANISOCYTOSIS 2+; HYPOCHROMASIA SLIGHT; PLATELET MORPHOLOGY COMMENT NORMAL (NORMAL); POIKILOCYTOSIS PRESENT; SCHISTOCYTES PRESENT
[2021-12-23] MEDS: ALBUMIN HUMAN 25%- 100 ML 100 ML IV SCH (08:57)
[2021-12-23] MEDS: CYMBALTA PO SCH (09:39)
[2021-12-23] MEDS: CARDIZEM CD 240 MG 24-HR PO SCH (09:39)
[2021-12-23] MEDS: DIFLUCAN 200 MG IV PREMIX* 200 MG/100 ML BAG IV SCH (09:40)
[2021-12-23] MEDS: LASIX IVP SCH (09:40)
[2021-12-23] MEDS: INVanz INJ 1 GRAM VIAL 1 G in NS 100 ML IV 100 ML IV SCH (09:40)
[2021-12-23] MEDS: LOVENOX INJ 30 MG SYR SC SCH ×2 (09:41→21:00)
[2021-12-23] MEDS: LOPRESSOR TAB 50 MG PO SCH ×2 (09:41→20:45)
[2021-12-23] MEDS: MEGACE PO SCH ×2 (09:42→21:00)
[2021-12-23] MEDS: PROTONIX INJ 40 MG VIAL IVP SCH ×2 (09:42→21:00)
[2021-12-23] MEDS: THIAMINE HCL INJ IVP SCH ×2 (09:42→21:00)
[2021-12-23] MEDS: ZESTRIL TAB 10 MG PO SCH (09:43)
[2021-12-23] MEDS ORDERED: MILK OF MAGNESIA PO PRN (11:16)
[2021-12-23] MEDS: NS IV SCH ×4 (16:53→23:45)
[2021-12-23] MEDS: MVI IV SCH ×4 (16:53→23:45)
[2021-12-23] MEDS: REMERON PO SCH (21:00)
[2021-12-23] MEDS: PHENOBARBITAL TAB 30 MG (32.4MG) PO SCH (21:00)
[2021-12-24] MEDS: BUTT CREAM (COMPOUND) TOP PRN (00:09)
[2021-12-24 05:38] LABS: BASOPHILS % (AUTO) 0.5 % (0.2-1.0); EOSINOPHILS # (AUTO) 0.3 x10^3/uL (0.0-0.2); EOSINOPHILS % (AUTO) 4.4 % (0.9-2.9); HEMOGLOBIN 8.9 g/dL (12.0-16.0); LYMPHOCYTES # (AUTO) 0.6 X10^3/uL (1.3-2.9); LYMPHOCYTES % (AUTO) 11.2 % (21.0-51.0); MEAN CORPUSCULAR HEMOGLOBIN 31.1 pg (27.0-34.0); MEAN CORPUSCULAR HGB CONC 31.6 g/dL (33.0-35.0); MEAN CORPUSCULAR VOLUME 98.5 fL (80.0-100.0); MEAN PLATELET VOLUME 9.2 fL (7.4-11.0); MONOCYTES # (AUTO) 0.8 x10^3/uL (0.3-0.8); MONOCYTES % (AUTO) 14.4 % (0.0-13.0); NEUTROPHILS % (AUTO) 69.5 % (42.0-75.0); RED BLOOD COUNT 2.85 X10^6/uL (3.5-5.4); RED CELL DISTRIBUTION WIDTH 21.8 % (11.6-16.5); WHITE BLOOD COUNT 5.7 X10^3/uL (3.6-10.0)
[2021-12-24 05:46] LABS: ALANINE AMINOTRANSFERASE 14 Units/L (12-78); ALBUMIN 3.9 g/dL (3.4-5.0); ALKALINE PHOSPHATASE 132 Units/L (46-116); ASPARTATE AMINO TRANSFERASE 18 Units/L (15-37); BLOOD UREA NITROGEN 10 mg/dL (7-18); CALCIUM 9.1 mg/dL (8.5-10.1); CARBON DIOXIDE 34.6 mmol/L (21-32); CHLORIDE 99 mmol/L (98-107); CREATININE 1.11 mg/dL (0.55-1.02); SODIUM 140 mmol/L (136-145); TOTAL PROTEIN 6.2 g/dL (6.4-8.2); eGFR NON BLACK RACES 52 (>60)
--- NOTE | 2021-12-24 05:49 | RAD ---
PROCEDURE: Chest X-ray 1 View .HISTORY: Dyspnea.TECHNIQUE: AP view .COMPARISON: 12/23/2021.TECHNICAL QUALITY: Satisfactory .FINDINGS:Heart size upper limits of normal and unchanged.Normal central vascularity.Patchy pneumonia throughout the right lung field and left base similar to previous study. Unchanged pleural effusion right base.IMPRESSION:Unchanged bilateral pneumonia and right-sided effusion.Electronically signed by: David Pandya (Dec 24, 2021 05:48:50)
[2021-12-24] MEDS: CORDARONE TAB 200 MG PO SCH ×2 (06:10→17:31)
[2021-12-24 06:13] LABS: ANISOCYTOSIS 1+; HYPOCHROMASIA SLIGHT; PLATELET MORPHOLOGY COMMENT NORMAL (NORMAL); STOMATOCYTES PRESENT
[2021-12-24] MEDS: PROTONIX INJ 40 MG VIAL IVP SCH ×2 (09:15→21:11)
[2021-12-24] MEDS: ALBUMIN HUMAN 25%- 100 ML 100 ML IV SCH (09:15)
[2021-12-24] MEDS: DIFLUCAN 200 MG IV PREMIX* 200 MG/100 ML BAG IV SCH (09:15)
[2021-12-24] MEDS: LASIX IVP SCH (09:16)
[2021-12-24] MEDS: CARDIZEM CD 240 MG 24-HR PO SCH (09:16)
[2021-12-24] MEDS: MEGACE PO SCH ×2 (09:16→21:11)
[2021-12-24] MEDS: THIAMINE HCL INJ IVP SCH ×2 (09:16→21:13)
[2021-12-24] MEDS: CYMBALTA PO SCH (09:16)
[2021-12-24] MEDS: LOVENOX INJ 30 MG SYR SC SCH ×2 (09:17→21:08)
[2021-12-24] MEDS: ZESTRIL TAB 10 MG PO SCH (09:17)
[2021-12-24] MEDS: LOPRESSOR TAB 50 MG PO SCH ×2 (09:17→21:08)
[2021-12-24] MEDS: PROCRIT or EPOGEN VIAL 10,000 UNITS SC SCH (09:21)
[2021-12-24] MEDS: INVanz INJ 1 GRAM VIAL 1 G in NS 100 ML IV 100 ML IV SCH (10:00)
[2021-12-24] MEDS: NS IV SCH ×2 (10:35)
[2021-12-24] MEDS: MVI IV SCH ×2 (10:35)
--- NOTE | 2021-12-24 12:28 | PCM.PROG ---
Progress Note - Progress Note for Day of Date of Exam: 12/23/21 - Subjective Subjective: WAS IS BEING TREATED FOR A-FIB, CHRONIC RENAL FAILURE, DIG TOXICITY, HUMERAL NECK FRACTURE, E.COLI UTI, CHF, ANEMIA, AND GENERALIZED WEAKNESS. SHE HAS RECEIVED TWO UNITS OF PRBC SINCE ADMISSION. SHE HAS A PMH OF RECENT CVA, HTN, A-FIB, HYPERLIPIDEMIA, AND RENAL DISEASE, AND ALCOHOLISM. TODAY, SHE IS ALERT, LYING IN BED ON MORNING ROUNDS. SHE CONTINUES TO REPORT SHORTNESS OF BREATH, WEAKNESS, AND DECREASED APPETITE. FAMILY REPORTS THAT SHE HAS BEEN MORE ALERT SINCE THE WEEKEND. SHE IS CURRENTLY UTILIZING OXYGEN VIA NASAL CANNULA AT 2-3 LPM. SATURATIONS HAVE BEEN 93-100% THIS MORNING AND THROUGHOUT THE NIGHT. SHE HAS BEEN UNABLE TO GET OUT OF BED, BUT HAS PARTICIPATED MUCH SHE COULD BY SITTING UP IN THE BED AND ON SIDE OF THE BED. ON EXAMINATION, HEART IS REGULAR IN RATE AND RHYTHM. BILATERAL LUNGS NOTED WITH DIMINISHED LUNG SOUNDS THROUGHOUT. ABDOMEN IS ROUND, SOFT, AND NON-TENDER WITH NORMAL BOWEL SOUNDS NOTED IN ALL QUADRANTS. JACOBO CATHETER NOTED TO BEDSIDE DRAINAGE. SCATTERED BRUISING NOTED OVER BODY. EDEMA NOTED TO BILATERAL UPPER EXTREMITIES. HER VITALS THIS MORNING ARE: 97.8-100-17-98%-176/91. LABS WERE OBTAINED. ABNORMAL LAB VALUES INCLUDE THE FOLLOWING: RBC 2.74, HGB 8.9, HCT 26.5, POTASSIUM 3.3, CARBON DIOXIDE 34.1, ALK PHOS 134, TOTAL PROTEIN 6.1, GLOBULIN 2.3. CHEST XRAY OBTAINED AND REVEALED: No change cardiomegaly with bilateral perihilar alveolar filling right greater than left most consistent with edema. No change bilateral small pleural effusions. No change left humeral neck fracture. SHE IS CURRENTLY RECEIVING NORMAL SALINE WITH MVI IN EACH LITER AT 50 ML/HR, ALBUMIN 25% IV DAILY, INVANZ 1 G IV DAILY, LASIX 40MG IV DAILY, DIFLUCAN 200MG IV DAILY, CARDIZEM CD 240 MG PO DAILY, LISINOPRIL 10 MG PO DAILY, AMIODARONE 200MG PO BIDWM, LOPRESSOR 50 MG PO BID, PROTONIX 40MG IV BID, MORPHINE SULFATE 2MG IV Q4H PRN, MEGACE 40MG PO BID, NORCO 5/325MG PO Q6H PRN, ZOFRAN 4MG IV Q6H PRN, PROCRIT 10,000 UNITS MON,WED,FRI, VALIUM 5MG PO TID PRN, PHENOBARBITAL 7.5MG HS, MEGACE 40MG PO BID, NYSTATIN CREAM TID PRN, NYSTATIN POWDER BID PRN, ZOVIRAX TOP Q8H. WE WILL CONTINUE WITH CURRENT PLAN OF CARE TODAY. WE WILL HAVE PHYSICAL THERAPY WORK WITH HER. OTHERWISE, WE WILL FOLLOW UP WITH AM LABS AND CONTINUE TO MONITOR. TIME SPENT ON CLINICAL ASSESSMENT, REVIEWING LABS AND IMAGING, DECISION MAKING, AND DOCUMENTATION GREATER THAN 45 MINUTES. - Past Medical Family Social History Past Med/Fam/Surg Hx: No changes since H&P Allergies: Allergies No Known Drug Allergies [NKDA] Allergy (Verified 03/25/21 13:54) - Review of Systems ROS: No change since H&P - Vital Signs and I&O's Vital Signs: Temperature 98.0 F Pulse Rate [Left Radial] 128 Pulse Rate 95 Respiratory Rate 19 Blood Pressure [Right Arm] 116/79 Blood Pressure 150/87 O2 Sat by Pulse Oximetry 98 Intake and Output: Intake & Output 12/22/21 12/23/21 12/24/21 12/25/21 11:59 11:59 11:59 11:59 Intake Total 1425 / 1425 2120 / 2120 2734 / 2734 Output Total 1920 / 1920 2700 / 2700 1650 / 1650 Balance -495 / -495 -580 / -580 1084 / 1084 - Physical Exam Oriented: Unable to test Eyes: Normal Ear: Normal Nose: Normal Throat: Normal Respiratory: Diminished Cardiovascular: Irregular : Normal Auscultation: Bowel Sounds: Normal Palpation: Normal Tenderness: Normal Skin: Normal, Wound, Bruising (LEFT UPPER ARM ) Musculoskeletal: Left, Shoulder, Arm, Tender Psychiatric: Other (OBTUNDED) Mood Description: Calm Affect: Normal Speech Pattern: Unclear, Slurred - Laboratory and Diagnostics Result Diagrams: 12/24/21 04:22 12/24/21 04:22 Labs: 12/10/21 14:35 Urine,Clean Catch Urine Culture - Final Grecia Lusitaniae 11/26/21 13:05 Urine,Catheterized Urine Culture - Final Escherichia Coli Laboratory WBC 5.7 X10^3/uL (3.6-10.0) 12/24/21 04:22 RBC 2.85 X10^6/uL (3.5-5.4) L 12/24/21 04:22 Hgb 8.9 g/dL (12.0-16.0) L 12/24/21 04:22 Hct 28.0 % (36.0-47.0) L 12/24/21 04:22 MCV 98.5 fL (80.0-100.0) 12/24/21 04:22 MCH 31.1 pg (27.0-34.0) 12/24/21 04:22 MCHC 31.6 g/dL (33.0-35.0) L 12/24/21 04:22 RDW 21.8 % (11.6-16.5) H 12/24/21 04:22 Plt Count 192 X10^3/uL (150.0-450.0) 12/24/21 04:22 Plt Count Comment Adequate (ADEQUATE) 12/24/21 04:22 MPV 9.2 fL (7.4-11.0) 12/24/21 04:22 Neut % (Auto) 69.5 % (42.0-75.0) 12/24/21 04:22 Lymph % (Auto) 11.2 % (21.0-51.0) L 12/24/21 04:22 [place] % (Auto) 14.4 % (0.0-13.0) H 12/24/21 04:22 Eos % (Auto) 4.4 % (0.9-2.9) H 12/24/21 04:22 Baso % (Auto) 0.5 % (0.2-1.0) 12/24/21 04:22 Neut # (Auto) 4.0 x10^3/uL (2.2-4.8) 12/24/21 04:22 Lymph # (Auto) 0.6 X10^3/uL (1.3-2.9) L 12/24/21 04:22 [place] # (Auto) 0.8 x10^3/uL (0.3-0.8) 12/24/21 04:22 Eos # (Auto) 0.3 x10^3/uL (0.0-0.2) H 12/24/21 04:22 Baso # (Auto) 0.0 X10^3/uL (0.0-0.1) 12/24/21 04:22 Absolute Nucleated RBC 0.1 /100WBC 12/24/21 04:22 Total Counted 100 12/16/21 04:32 Neutrophils % (Manual) 64 % (39-76) 12/16/21 04:32 Band Neutrophils % 3 % (0-10) 12/16/21 04:32 Lymphocytes % (Manual) 13 % (13-43) 12/16/21 04:32 Monocytes % (Manual) 18 % (4-9) H 12/16/21 04:32 Eosinophils % (Manual) 1 % (0-6) 12/16/21 04:32 Metamyelocytes % 1 12/16/21 04:32 Plt Clumps, EDTA Rare 11/29/21 13:48 Plt Morphology Comment Normal (NORMAL) 12/24/21 04:22 RBC Morphology Abnormal (NORMAL) A 12/24/21 04:22 Hypochromasia Slight A 12/24/21 04:22 Poikilocytosis Present 12/23/21 05:23 Anisocytosis 1+ A 12/24/21 04:22 Macrocytosis Slight A 12/15/21 04:05 Tear Drop Cells Present 12/22/21 05:58 Stomatocytes Present 12/24/21 04:22 Schistocytes Present 12/23/21 05:23 D-Dimer 7.60 ug/ml (0.0-0.57) H* 12/09/21 05:23 Sample Site Rr 12/17/21 05:24 ABG pH 7.330 (7.35-7.45) L 12/17/21 05:24 ABG pCO2 52.0 mmHg (35.0-45.0) H* 12/17/21 05:24 ABG pO2 49.0 mmHg (80.0-100.0) L* 12/17/21 05:24 ABG HCO3 27.4 mmol/L (22-26) H 12/17/21 05:24 ABG O2 Saturation 81.0 % (90-100) L* 12/17/21 05:24 ABG Base Excess 0.7 mmol/L (-2.0-2.0) 12/17/21 05:24 Edi Test Yes 12/17/21 05:24 A-a Gradient 57.0 mmHg 12/17/21 05:24 FiO2 24.0 12/17/21 05:24 Blood Gas Comments [place] well, kh 12/17/21 05:24 Sodium 140 mmol/L (136-145) 12/24/21 04:22 Corrected Sodium TNP 12/24/21 04:22 Potassium 3.9 mmol/L (3.5-5.1) 12/24/21 04:22 Chloride 99 mmol/L (98-107) 12/24/21 04:22 Carbon Dioxide 34.6 mmol/L (21-32) H 12/24/21 04:22 BUN 10 mg/dL (7-18) 12/24/21 04:22 Creatinine 1.11 mg/dL (0.55-1.02) H 12/24/21 04:22 Est GFR (MDRD) Af Amer > 60 (>60) 12/24/21 04:22 Est GFR (MDRD) Non-Af 52 (>60) L 12/24/21 04:22 Glucose 97 mg/dL (65-99) 12/24/21 04:22 Calcium 9.1 mg/dL (8.5-10.1) 12/24/21 04:22 Corrected Calcium TNP 12/24/21 04:22 Magnesium 2.1 mg/dL (1.7-2.9) 12/23/21 05:23 Iron 17 ug/dL (50-175) L 11/29/21 10:08 Transferrin 119 mg/dL (202-364) L 11/29/21 10:08 Ferritin 917 ng/mL (8-252) H 11/29/21 10:08 Total Bilirubin 0.40 mg/dL (0.2-1.0) 12/24/21 04:22 AST 18 Units/L (15-37) 12/24/21 04:22 ALT 14 Units/L (12-78) 12/24/21 04:22 Alkaline Phosphatase 132 Units/L (46-116) H 12/24/21 04:22 Creatine Kinase 26 Units/L (26-192) 12/09/21 05:23 CK-MB (CK-2) < 1.0 ng/mL (0-4.0) 12/09/21 05:23 CK/CKMB % Calc 3.9 % (<4) 12/09/21 05:23 Troponin I High Sens 137.2 ng/L (4.0-60.0) H* 12/10/21 05:23 B-Natriuretic Peptide 677 pg/mL (0-79) H* 12/24/21 04:22 Total Protein 6.2 g/dL (6.4-8.2) L 12/24/21 04:22 Albumin 3.9 g/dL (3.4-5.0) 12/24/21 04:22 Globulin 2.3 g/dL (2.5-4.5) L 12/24/21 04:22 Albumin/Globulin Ratio 1.7 Ratio (1.1-2.1) 12/24/21 04:22 Vitamin B12 > 2000 pg/mL (193-986) H 11/29/21 10:08 Folate 4.1 ng/mL (>8.6) L 11/29/21 10:08 Specimen Type Catherized urine 12/15/21 13:30 Urine Color Yellow (YELLOW) 12/15/21 13:30 Urine Appearance Clear (CLEAR) 12/15/21 13:30 Urine pH 5.0 (5.0 - 8.0) 12/15/21 13:30 Ur Specific [place] 1.015 (1.000-1.030) 12/15/21 13:30 Urine Protein 1+ (NEGATIVE) 12/15/21 13:30 Urine Glucose (UA) Negative (NEGATIVE) 12/15/21 13:30 Urine Ketones Negative (NEGATIVE) 12/15/21 13:30 Urine Occult Blood Negative (NEGATIVE) 12/15/21 13:30 Urine Nitrite Negative (NEGATIVE) 12/15/21 13:30 Urine Bilirubin Negative (NEGATIVE) 12/15/21 13:30 Urine Urobilinogen Normal (NORMAL) 12/15/21 13:30 Ur Leukocyte Esterase Negative (NEGATIVE) 12/15/21 13:30 Urine RBC 0-2 /HPF (0-3) 12/15/21 13:30 Urine WBC 0-2 /HPF (0-5) 12/15/21 13:30 Ur Squamous Epith Cells Rare /HPF (NEGATIVE) 12/15/21 13:30 Urine Bacteria Trace /HPF (NEGATIVE) 12/15/21 13:30 Urine Mucus Few /HPF (NEGATIVE) 12/05/21 12:10 Urine Yeast Many /HPF (NEGATIVE) 12/15/21 13:30 Ur Culture Indicated? No/not indicated 12/15/21 13:30 Stool Description 10g brown loose 11/29/21 18:30 Stl Occult Blood (IFOB) Negative (NEGATIVE) 11/29/21 18:30 Digoxin 1.08 ng/mL (0.9-2) 12/20/21 04:23 SARS CoV-2 RNA Rapid KAMALJIT Negative (NEGATIVE) 11/26/21 11:11 Blood Type O POSITIVE 12/06/21 11:42 Antibody Screen Negative 12/06/21 11:42 Crossmatch See Detail 11/29/21 10:08 - Plan (1) Acute on chronic renal failure Status: Acute Qualifiers: Acute renal failure type: unspecified Chronic kidney disease stage: unspecified stage Qualified Code(s): N17.9 - Acute kidney failure, unspecified; N18.9 - Chronic kidney disease, unspecified Plan: NORMAL SALINE AT 50 ML/HR WITH MVI IN EACH LITER, INVANZ 1 G IV DAILY, ALBUMIN 25% IV DAILY, DIFLUCAN 200MG IV DAILY, LASIX 40MG IV DAILY, MEGACE 40MG PO BID, CARDIZEM CD 240MG PO DAILY, LOPRESSOR 25MG PO BID, AMIODARONE 200MG PO BID, MORPHINE SULFATE 2MG IV Q4H PRN, ZOFRAN 4MG IV Q6H PRN, NYSTATIN CREAM TID PRN, NYSTATIN POWDER BID PRN, ZOVIRAX TOP Q8H, PROCRIT 10,000 UNITS ON MON,WED,FRI, VALIUM 5MG PO TID PRN, MEGACE 40MG PO BID, AND PHENOBARBITAL 7.5 MG PO HS (2) Atrial fibrillation Status: Acute Qualifiers: Atrial fibrillation type: unspecified Qualified Code(s): I48.91 - Unspecified atrial fibrillation (3) Fracture of neck of humerus Status: Acute Qualifiers: Encounter type: initial encounter Fracture type: closed Laterality: left Qualified Code(s): S42.212A - Unspecified displaced fracture of surgical neck of left humerus, initial encounter for closed fracture (4) Urinary tract infection Status: Acute Qualifiers: Urinary tract infection type: acute cystitis Hematuria presence: without hematuria Qualified Code(s): N30.00 - Acute cystitis without hematuria (5) Shortness of breath Status: Acute (6) Anemia Status: Acute Qualifiers: Anemia type: unspecified type Qualified Code(s): D64.9 - Anemia, unspecifi ed (7) Dehydration Status: Acute (8) Generalized weakness Status: Acute (9) Alcoholic dementia Status: Acute Qualifiers: Dementia behavioral disturbance: without behavioral disturbance Qualified Code(s): F10.27 - Alcohol dependence with alcohol-induced persisting dementia (10) Recent cerebrovascular accident (CVA) Status: Chronic (11) Hypertension Status: Chronic Qualifiers: Hypertension type: primary hypertension Qualified Code(s): I10 - Essential (primary) hypertension (12) Hyperlipidemia Status: Chronic Qualifiers: Hyperlipidemia type: mixed hyperlipidemia Qualified Code(s): E78.2 - Mixed hyperlipidemia
--- NOTE | 2021-12-24 12:38 | PCM.PROG ---
Progress Note - Progress Note for Day of Date of Exam: 12/24/21 - Subjective Subjective: WAS IS BEING TREATED FOR A-FIB, CHRONIC RENAL FAILURE, DIG TOXICITY, HUMERAL NECK FRACTURE, E.COLI UTI, CHF, ANEMIA, AND GENERALIZED WEAKNESS. SHE HAS RECEIVED TWO UNITS OF PRBC SINCE ADMISSION. SHE HAS A PMH OF RECENT CVA, HTN, A-FIB, HYPERLIPIDEMIA, AND RENAL DISEASE, AND ALCOHOLISM. TODAY, SHE IS ALERT, LYING IN BED ON MORNING ROUNDS. SHE CONTINUES TO REPORT SHORTNESS OF BREATH, WEAKNESS, AND DECREASED APPETITE. FAMILY REPORTS THAT SHE HAS BEEN MORE ALERT SINCE THE WEEKEND. SHE IS CURRENTLY UTILIZING OXYGEN VIA NASAL CANNULA AT 2-3 LPM. SATURATIONS HAVE BEEN 93-100% THIS MORNING AND THROUGHOUT THE NIGHT. SHE HAS BEEN UNABLE TO GET OUT OF BED. SHE HAS MODERATE WEAKNESS TO BILATERAL UPPER AND LOWER EXTREMITIES. SHE HAS BEEN USING THE BEDPAN. SHE ALSO HAS A JAC[employer] CATHETER IN [place]. ON EXAMINATION, HEART IS REGULAR IN RATE AND RHYTHM. BILATERAL LUNGS NOTED WITH DIMINISHED LUNG SOUNDS THROUGHOUT. ABDOMEN IS ROUND, SOFT, AND NON-TENDER WITH NORMAL BOWEL SOUNDS NOTED IN ALL QUADRANTS. JACOBO CATHETER NOTED TO BEDSIDE DRAINAGE. SCATTERED BRUISING NOTED OVER BODY. EDEMA NOTED TO BILATERAL UPPER EXTREMITIES. HER VITALS THIS MORNING ARE: 98.0-101-14-98%-152/87. LABS WERE OBTAINED. ABNORMAL LAB VALUES INCLUDE THE FOLLOWING: RBC 2.85, HGB 8.9, HCT 28.0, SODIUM 140, POTASSIUM 3.9, CHLORIDE 99, BUN 10, CREATININE 1.11, ALK PHOS 132, BNP 677, TOTAL PROTEIN 6.2. CHEST XRAY OBTAINED AND REVEALED: Unchanged bilateral pneumonia and right- sided effusion. SHE IS CURRENTLY RECEIVING NORMAL SALINE WITH MVI IN EACH LITER AT 50 ML/HR, ALBUMIN 25% IV DAILY, INVANZ 1 G IV DAILY, LASIX 40MG IV DAILY, DIFLUCAN 200MG IV DAILY, CARDIZEM CD 240 MG PO DAILY, LISINOPRIL 10 MG PO DAILY, AMIODARONE 200MG PO BIDWM, LOPRESSOR 50 MG PO BID, PROTONIX 40MG IV BID, MORPHINE SULFATE 2MG IV Q4H PRN, MEGACE 40MG PO BID, NORCO 5/325MG PO Q6H PRN, ZOFRAN 4MG IV Q6H PRN, PROCRIT 10,000 UNITS MON,WED,FRI, VALIUM 5MG PO TID PRN, PHENOBARBITAL 7.5MG HS, MEGACE 40MG PO BID, NYSTATIN CREAM TID PRN, NYSTATIN POWDER BID PRN, ZOVIRAX TOP Q8H. WE WILL CONTINUE WITH CURRENT PLAN OF CARE TODAY. WE WILL HAVE PHYSICAL THERAPY WORK WITH HER. WE HAVE DISCUSSED OPTIONS FOR DISCHARGE WITH HER FAMILY. THEY WISH FOR PATIENT TO GO HOME ON HOSPICE CARE. WE WILL DISCUSS WITH CASE MANAGEMENT AND ARRANGE HOSPICE. OTHERWISE, WE WILL FOLLOW UP WITH AM LABS AND CONTINUE TO MONITOR. TIME SPENT ON CLINICAL ASSESSME NT, REVIEWING LABS AND IMAGING, DECISION MAKING, AND DOCUMENTATION GREATER THAN 45 MINUTES. - Past Medical Family Social History Past Med/Fam/Surg Hx: No changes since H&P Allergies: Allergies No Known Drug Allergies [NKDA] Allergy (Verified 03/25/21 13:54) - Review of Systems ROS: No change since H&P - Vital Signs and I&O's Vital Signs: Temperature 98.0 F Pulse Rate [Left Radial] 128 Pulse Rate 95 Respiratory Rate 19 Blood Pressure [Right Arm] 116/79 Blood Pressure 150/87 O2 Sat by Pulse Oximetry 98 Intake and Output: Intake & Output 12/22/21 12/23/21 12/24/21 12/25/21 11:59 11:59 11:59 11:59 Intake Total 1425 / 1425 2120 / 2120 2734 / 2734 Output Total 1920 / 1920 2700 / 2700 1650 / 1650 Balance -495 / -495 -580 / -580 1084 / 1084 - Physical Exam Oriented: Unable to test Eyes: Normal Ear: Normal Nose: Normal Throat: Normal Respiratory: Diminished Cardiovascular: Irregular : Normal Auscultation: Bowel Sounds: Normal Palpation: Normal Tenderness: Normal Skin: Normal, Wound, Bruising (LEFT UPPER ARM ) Musculoskeletal: Left, Shoulder, Arm, Tender Psychiatric: Other (OBTUNDED) Mood Description: Calm Affect: Normal Speech Pattern: Unclear, Slurred - Laboratory and Diagnostics Result Diagrams: 12/24/21 04:22 12/24/21 04:22 Labs: 12/10/21 14:35 Urine,Clean Catch Urine Culture - Final Grecia Lusitaniae 11/26/21 13:05 Urine,Catheterized Urine Culture - Final Escherichia Coli Laboratory WBC 5.7 X10^3/uL (3.6-10.0) 12/24/21 04:22 RBC 2.85 X10^6/uL (3.5-5.4) L 12/24/21 04:22 Hgb 8.9 g/dL (12.0-16.0) L 12/24/21 04:22 Hct 28.0 % (36.0-47.0) L 12/24/21 04:22 MCV 98.5 fL (80.0-100.0) 12/24/21 04:22 MCH 31.1 pg (27.0-34.0) 12/24/21 04:22 MCHC 31.6 g/dL (33.0-35.0) L 12/24/21 04:22 RDW 21.8 % (11.6-16.5) H 12/24/21 04:22 Plt Count 192 X10^3/uL (150.0-450.0) 12/24/21 04:22 Plt Count Comment Adequate (ADEQUATE) 12/24/21 04:22 MPV 9.2 fL (7.4-11.0) 12/24/21 04:22 Neut % (Auto) 69.5 % (42.0-75.0) 12/24/21 04:22 Lymph % (Auto) 11.2 % (21.0-51.0) L 12/24/21 04:22 [place] % (Auto) 14.4 % (0.0-13.0) H 12/24/21 04:22 Eos % (Auto) 4.4 % (0.9-2.9) H 12/24/21 04:22 Baso % (Auto) 0.5 % (0.2-1.0) 12/24/21 04:22 Neut # (Auto) 4.0 x10^3/uL (2.2-4.8) 12/24/21 04:22 Lymph # (Auto) 0.6 X10^3/uL (1.3-2.9) L 12/24/21 04:22 [place] # (Auto) 0.8 x10^3/uL (0.3-0.8) 12/24/21 04:22 Eos # (Auto) 0.3 x10^3/uL (0.0-0.2) H 12/24/21 04:22 Baso # (Auto) 0.0 X10^3/uL (0.0-0.1) 12/24/21 04:22 Absolute Nucleated RBC 0.1 /100WBC 12/24/21 04:22 Total Counted 100 12/16/21 04:32 Neutrophils % (Manual) 64 % (39-76) 12/16/21 04:32 Band Neutrophils % 3 % (0-10) 12/16/21 04:32 Lymphocytes % (Manual) 13 % (13-43) 12/16/21 04:32 Monocytes % (Manual) 18 % (4-9) H 12/16/21 04:32 Eosinophils % (Manual) 1 % (0-6) 12/16/21 04:32 Metamyelocytes % 1 12/16/21 04:32 Plt Clumps, EDTA Rare 11/29/21 13:48 Plt Morphology Comment Normal (NORMAL) 12/24/21 04:22 RBC Morphology Abnormal (NORMAL) A 12/24/21 04:22 Hypochromasia Slight A 12/24/21 04:22 Poikilocytosis Present 12/23/21 05:23 Anisocytosis 1+ A 12/24/21 04:22 Macrocytosis Slight A 12/15/21 04:05 Tear Drop Cells Present 12/22/21 05:58 Stomatocytes Present 12/24/21 04:22 Schistocytes Present 12/23/21 05:23 D-Dimer 7.60 ug/ml (0.0-0.57) H* 12/09/21 05:23 Sample Site Rr 12/17/21 05:24 ABG pH 7.330 (7.35-7.45) L 12/17/21 05:24 ABG pCO2 52.0 mmHg (35.0-45.0) H* 12/17/21 05:24 ABG pO2 49.0 mmHg (80.0-100.0) L* 12/17/21 05:24 ABG HCO3 27.4 mmol/L (22-26) H 12/17/21 05:24 ABG O2 Saturation 81.0 % (90-100) L* 12/17/21 05:24 ABG Base Excess 0.7 mmol/L (-2.0-2.0) 12/17/21 05:24 Edi Test Yes 12/17/21 05:24 A-a Gradient 57.0 mmHg 12/17/21 05:24 FiO2 24.0 12/17/21 05:24 Blood Gas Comments [place] well, kh 12/17/21 05:24 Sodium 140 mmol/L (136-145) 12/24/21 04:22 Corrected Sodium TNP 12/24/21 04:22 Potassium 3.9 mmol/L (3.5-5.1) 12/24/21 04:22 Chloride 99 mmol/L (98-107) 12/24/21 04:22 Carbon Dioxide 34.6 mmol/L (21-32) H 12/24/21 04:22 BUN 10 mg/dL (7-18) 12/24/21 04:22 Creatinine 1.11 mg/dL (0.55-1.02) H 12/24/21 04:22 Est GFR (MDRD) Af Amer > 60 (>60) 12/24/21 04:22 Est GFR (MDRD) Non-Af 52 (>60) L 12/24/21 04:22 Glucose 97 mg/dL (65-99) 12/24/21 04:22 Calcium 9.1 mg/dL (8.5-10.1) 12/24/21 04:22 Corrected Calcium TNP 12/24/21 04:22 Magnesium 2.1 mg/dL (1.7-2.9) 12/23/21 05:23 Iron 17 ug/dL (50-175) L 11/29/21 10:08 Transferrin 119 mg/dL (202-364) L 11/29/21 10:08 Ferritin 917 ng/mL (8-252) H 11/29/21 10:08 Total Bilirubin 0.40 mg/dL (0.2-1.0) 12/24/21 04:22 AST 18 Units/L (15-37) 12/24/21 04:22 ALT 14 Units/L (12-78) 12/24/21 04:22 Alkaline Phosphatase 132 Units/L (46-116) H 12/24/21 04:22 Creatine Kinase 26 Units/L (26-192) 12/09/21 05:23 CK-MB (CK-2) < 1.0 ng/mL (0-4.0) 12/09/21 05:23 CK/CKMB % Calc 3.9 % (<4) 12/09/21 05:23 Troponin I High Sens 137.2 ng/L (4.0-60.0) H* 12/10/21 05:23 B-Natriuretic Peptide 677 pg/mL (0-79) H* 12/24/21 04:22 Total Protein 6.2 g/dL (6.4-8.2) L 12/24/21 04:22 Albumin 3.9 g/dL (3.4-5.0) 12/24/21 04:22 Globulin 2.3 g/dL (2.5-4.5) L 12/24/21 04:22 Albumin/Globulin Ratio 1.7 Ratio (1.1-2.1) 12/24/21 04:22 Vitamin B12 > 2000 pg/mL (193-986) H 11/29/21 10:08 Folate 4.1 ng/mL (>8.6) L 11/29/21 10:08 Specimen Type Catherized urine 12/15/21 13:30 Urine Color Yellow (YELLOW) 12/15/21 13:30 Urine Appearance Clear (CLEAR) 12/15/21 13:30 Urine pH 5.0 (5.0 - 8.0) 12/15/21 13:30 Ur Specific [place] 1.015 (1.000-1.030) 12/15/21 13:30 Urine Protein 1+ (NEGATIVE) 12/15/21 13:30 Urine Glucose (UA) Negative (NEGATIVE) 12/15/21 13:30 Urine Ketones Negative (NEGATIVE) 12/15/21 13:30 Urine Occult Blood Negative (NEGATIVE) 12/15/21 13:30 Urine Nitrite Negative (NEGATIVE) 12/15/21 13:30 Urine Bilirubin Negative (NEGATIVE) 12/15/21 13:30 Urine Urobilinogen Normal (NORMAL) 12/15/21 13:30 Ur Leukocyte Esterase Negative (NEGATIVE) 12/15/21 13:30 Urine RBC 0-2 /HPF (0-3) 12/15/21 13:30 Urine WBC 0-2 /HPF (0-5) 12/15/21 13:30 Ur Squamous Epith Cells Rare /HPF (NEGATIVE) 12/15/21 13:30 Urine Bacteria Trace /HPF (NEGATIVE) 12/15/21 13:30 Urine Mucus Few /HPF (NEGATIVE) 12/05/21 12:10 Urine Yeast Many /HPF (NEGATIVE) 12/15/21 13:30 Ur Culture Indicated? No/not indicated 12/15/21 13:30 Stool Description 10g brown loose 11/29/21 18:30 Stl Occult Blood (IFOB) Negative (NEGATIVE) 11/29/21 18:30 Digoxin 1.08 ng/mL (0.9-2) 12/20/21 04:23 SARS CoV-2 RNA Rapid KAMALJIT Negative (NEGATIVE) 11/26/21 11:11 Blood Type O POSITIVE 12/06/21 11:42 Antibody Screen Negative 12/06/21 11:42 Crossmatch See Detail 11/29/21 10:08 - Plan (1) Acute on chronic renal failure Status: Acute Qualifiers: Acute renal failure type: unspecified Chronic kidney disease stage: unspecified stage Qualified Code(s): N17.9 - Acute kidney failure, unspecified; N18.9 - Chronic kidney disease, unspecified Plan: NORMAL SALINE AT 50 ML/HR WITH MVI IN EACH LITER, INVANZ 1 G IV DAILY, ALBUMIN 25% IV DAILY, DIFLUCAN 200MG IV DAILY, LASIX 40MG IV DAILY, MEGACE 40MG PO BID, CARDIZEM CD 240MG PO DAILY, LOPRESSOR 25MG PO BID, AMIODARONE 200MG PO BID, MORPHINE SULFATE 2MG IV Q4H PRN, ZOFRAN 4MG IV Q6H PRN, NYSTATIN CREAM TID PRN, NYSTATIN POWDER BID PRN, ZOVIRAX TOP Q8H, PROCRIT 10,000 UNITS ON MON,WED,FRI, VALIUM 5MG PO TID PRN, MEGACE 40MG PO BID, AND PHENOBARBITAL 7.5 MG PO HS (2) Atrial fibrillation Status: Acute Qualifiers: Atrial fibrillation type: unspecified Qualified Code(s): I48.91 - Unspecified atrial fibrillation (3) Fracture of neck of humerus Status: Acute Qualifiers: Encounter type: initial encounter Fracture type: closed Laterality: left Qualified Code(s): S42.212A - Unspecified displaced fracture of surgical neck of left humerus, initial encounter for closed fracture (4) Urinary tract infection Status: Acute Qualifiers: Urinary tract infection type: acute cystitis Hematuria presence: without hematuria Qualified Code(s): N30.00 - Acute cystitis without hematuria (5) Shortness of breath Status: Acute (6) Anemia Status: Acute Qualifiers: Anemia type: unspecified type Qualified Code(s): D64.9 - Anemia, unspecified (7) Dehydration Status: Acute (8) Generalized weakness Status: Acute (9) Alcoholic dementia Status: Acute Qualifiers: Dementia behavioral disturbance: without behavioral disturbance Qualified Code(s): F10.27 - Alcohol dependence with alcohol-induced persisting dementia (10) Recent cerebrovascular accident (CVA) Status: Chronic (11) Hypertension Status: Chronic Qualifiers: Hypertension type: primary hypertension Qualified Code(s): I10 - Essential (primary) hypertension (12) Hyperlipidemia Status: Chronic Qualifiers: Hyperlipidemia type: mixed hyperlipidemia Qualified Code(s): E78.2 - Mixed hyperlipidemia
[2021-12-24] MEDS: MORPHINE SULFATE INJ 2 MG INJ IVP PRN ×2 (14:13→22:00)
[2021-12-24] MEDS: PHENOBARBITAL TAB 30 MG (32.4MG) PO SCH (21:11)
[2021-12-24] MEDS: REMERON PO SCH (21:12)
[2021-12-25 05:12] LABS: BASOPHILS # (AUTO) 0.1 X10^3/uL (0.0-0.1); BASOPHILS % (AUTO) 2.8 % (0.2-1.0); EOSINOPHILS # (AUTO) 0.2 x10^3/uL (0.0-0.2); EOSINOPHILS % (AUTO) 4.5 % (0.9-2.9); HEMATOCRIT 26.1 % (36.0-47.0); HEMOGLOBIN 8.6 g/dL (12.0-16.0); LYMPHOCYTES # (AUTO) 0.5 X10^3/uL (1.3-2.9); LYMPHOCYTES % (AUTO) 10.7 % (21.0-51.0); MEAN CORPUSCULAR HEMOGLOBIN 31.9 pg (27.0-34.0); MEAN CORPUSCULAR HGB CONC 32.8 g/dL (33.0-35.0); MEAN CORPUSCULAR VOLUME 97.2 fL (80.0-100.0); MEAN PLATELET VOLUME 9.1 fL (7.4-11.0); MONOCYTES # (AUTO) 0.8 x10^3/uL (0.3-0.8); MONOCYTES % (AUTO) 16.2 % (0.0-13.0); NEUTROPHILS # (AUTO) 3.3 x10^3/uL (2.2-4.8); NEUTROPHILS % (AUTO) 65.8 % (42.0-75.0); RED BLOOD COUNT 2.69 X10^6/uL (3.5-5.4); RED CELL DISTRIBUTION WIDTH 21.8 % (11.6-16.5); WHITE BLOOD COUNT 5.1 X10^3/uL (3.6-10.0)
[2021-12-25 05:21] LABS: ALANINE AMINOTRANSFERASE 13 Units/L (12-78); ALKALINE PHOSPHATASE 125 Units/L (46-116); ASPARTATE AMINO TRANSFERASE 15 Units/L (15-37); BLOOD UREA NITROGEN 10 mg/dL (7-18); CALCIUM 9.1 mg/dL (8.5-10.1); CARBON DIOXIDE 36.5 mmol/L (21-32); CHLORIDE 99 mmol/L (98-107); CREATININE 1.09 mg/dL (0.55-1.02); SODIUM 143 mmol/L (136-145); TOTAL PROTEIN 6.3 g/dL (6.4-8.2); eGFR NON BLACK RACES 53 (>60)
[2021-12-25 05:34] LABS: ANISOCYTOSIS 1+; HYPOCHROMASIA SLIGHT; PLATELET MORPHOLOGY COMMENT NORMAL (NORMAL)
--- NOTE | 2021-12-25 05:52 | RAD ---
PROCEDURE: Chest X-ray 1 View .HISTORY: Dyspnea.TECHNIQUE: AP view.COMPARISON: 12/24/2021.TECHNICAL QUALITY: Satisfactory .FINDINGS:Unchanged heart size upper limits of normal.Normal central vascularity.Patchy consolidation both lung dacosta that is unchanged greatest on the right. No definite pleural fluid or pneumothorax.IMPRESSION:Unchanged bilateral pneumonia.Electronically signed by: David Pandya (Dec 25, 2021 05:52:07)
[2021-12-25] MEDS: CORDARONE TAB 200 MG PO SCH ×2 (06:11→16:47)
[2021-12-25] MEDS ORDERED: SALINE 3% 15 ML NEB TX ONE (08:06)
[2021-12-25] MEDS: PULMICORT NEB TX 0.5 MG NEB SCH ×2 (08:14→20:05)
[2021-12-25] MEDS ORDERED: SALINE 3% 15 ML NEB TX NEB ONE (08:14)
[2021-12-25] MEDS: INVanz INJ 1 GRAM VIAL 1 G in NS 100 ML IV 100 ML IV SCH (08:40)
[2021-12-25] MEDS: ALBUMIN HUMAN 25%- 100 ML 100 ML IV SCH (08:40)
[2021-12-25] MEDS: PROTONIX INJ 40 MG VIAL IVP SCH ×2 (08:41→20:45)
[2021-12-25] MEDS: DIFLUCAN 200 MG IV PREMIX* 200 MG/100 ML BAG IV SCH (08:41)
[2021-12-25] MEDS: LASIX IVP SCH (08:41)
[2021-12-25] MEDS: LOVENOX INJ 30 MG SYR SC SCH ×2 (08:41→20:45)
[2021-12-25] MEDS: ZESTRIL TAB 10 MG PO SCH (08:42)
[2021-12-25] MEDS: CARDIZEM CD 240 MG 24-HR PO SCH (08:42)
[2021-12-25] MEDS: CYMBALTA PO SCH (08:42)
[2021-12-25] MEDS: THIAMINE HCL INJ IVP SCH ×2 (08:42→20:45)
[2021-12-25] MEDS: MEGACE PO SCH ×2 (08:42→20:45)
[2021-12-25] MEDS: LOPRESSOR TAB 50 MG PO SCH ×3 (08:42→20:45)
[2021-12-25] MEDS: MVI IV SCH ×2 (09:28)
[2021-12-25] MEDS: NS IV SCH ×2 (09:28)
[2021-12-25] MEDS: MORPHINE SULFATE INJ 2 MG INJ IVP PRN (10:00)
[2021-12-25] MEDS ORDERED: LOPRESSOR TAB 25 MG PO ONE (10:32)
[2021-12-25] MEDS: XOPENEX 1.25 MG/3 ML NEBULE NEB SCH ×2 (11:30→16:59)
--- NOTE | 2021-12-25 11:51 | PCM.PROG ---
Progress Note - Progress Note for Day of Date of Exam: 12/25/21 - Subjective Subjective: IS BEING TREATED FOR A-FIB, CHRONIC RENAL FAILURE, HUMERAL NECK FRACTURE, E.COLI UTI, CHF, ANEMIA, AND GENERALIZED WEAKNESS. SHE HAS RECEIVED TWO UNITS OF PRBC SINCE ADMISSION. SHE HAS A PMH OF RECENT CVA, HTN, A-FIB, HYPERLIPIDEMIA, AND RENAL DISEASE, AND ALCOHOLISM. TODAY, SHE IS ALERT, LYING IN BED ON MORNING ROUNDS. SHE CONTINUES TO REPORT SHORTNESS OF BREATH, WEAKNESS, AND DECREASED APPETITE. SHE IS CURRENTLY UTILIZING OXYGEN VIA NASAL CANNULA AT 2-3 LPM. SATURATIONS HAVE BEEN 93-100% THIS MORNING AND THROUGHOUT THE NIGHT. SHE HAS BEEN UNABLE TO GET OUT OF BED. SHE HAS MODERATE WEAKNESS TO BILATERAL UPPER AND LOWER EXTREMITIES. SHE HAS BEEN USING THE BEDPAN. SHE ALSO HAS A JAC[employer]O CATHETER IN [place]. ON EXAMINATION, A-FIB NOTED WITH HR 110-120. BILATERAL LUNGS NOTED WITH DIMINISHED LUNG SOUNDS THROUGHOUT. ABDOMEN IS ROUND, SOFT, AND NON-TENDER WITH NORMAL BOWEL SOUNDS NOTED IN ALL QUADRANTS. JACOBO CATHETER NOTED TO BEDSIDE DRAINAGE. SCATTERED BRUISING NOTED OVER BODY. EDEMA NOTED TO BILATERAL UPPER EXTREMITIES. HER VITALS THIS MORNING ARE: 98.1-118-25-97%-165/93. LABS WERE OBTAINED. ABNORMAL LAB VALUES INCLUDE THE FOLLOWING: RBC 2.69, HGB 8.6, HCT 26.1, CARBON DIOXIDE 36.5, CREATININE 1.09, ALK PHOS 125, BNP 589, TOTAL PROTEIN 6.3, GLOBULIN 2.3. CHEST XRAY OBTAINED AND REVEALED: Unchanged bilateral pneumonia. SHE IS CURRENTLY RECEIVING NORMAL SALINE WITH MVI IN EACH LITER AT 50 ML/HR, ALBUMIN 25% IV DAILY, INVANZ 1 G IV DAILY, LASIX 40MG IV DAILY, DIFLUCAN 200MG IV DAILY, CARDIZEM CD 240 MG PO DAILY, LISINOPRIL 10 MG PO DAILY, AMIODARONE 200MG PO BIDWM, LOPRESSOR 50 MG PO BID, PROTONIX 40MG IV BID, MORPHINE SULFATE 2MG IV Q4H PRN, MEGACE 40MG PO BID, NORCO 5/325MG PO Q6H PRN, ZOFRAN 4MG IV Q6H PRN, PROCRIT 10,000 UNITS MON,WED,FRI, VALIUM 5MG PO TID PRN, PHENOBARBITAL 7.5MG HS, MEGACE 40MG PO BID, NYSTATIN CREAM TID PRN, NYSTATIN POWDER BID PRN, ZOVIRAX TOP Q8H. WE WILL INCREASE METOPROLOL TO 75MG PO BID. OTHERWISE, WE WILL CONTINUE WITH CURRENT PLAN OF CARE TODAY. WE WILL HAVE PHYSICAL THERAPY WORK WITH HER. WE HAVE DISCUSSED OPTIONS FOR DISCHARGE WITH HER FAMILY. THEY WISH FOR PATIENT TO GO TO THE ALF. WE WILL DISCUSS WITH CASE MANAGEMENT AND ARRANGE PLACEMENT. OTHERWISE, WE WILL FOLLOW UP WITH AM LABS AND CONTINUE TO MONITOR. TIME SPENT ON CLINICAL ASSESSMENT, REVIEWING LABS AND IMAGING, DECISION MAKING, AND DOCUMENTATION GREATER THAN 45 MINUTES. - Past Medical Family Social History Past Med/Fam/Surg Hx: No changes since H&P Allergies: Allergies No Known Drug Allergies [NKDA] Allergy (Verified 03/25/21 13:54) - Review of Systems ROS: No change since H&P - Vital Signs and I&O's Vital Signs: Temperature 98.1 F Pulse Rate [Left Radial] 128 Pulse Rate 118 Respiratory Rate 19 Blood Pressure [Right Arm] 116/79 Blood Pressure 146/97 O2 Sat by Pulse Oximetry 98 Intake and Output: Intake & Output 12/22/21 12/23/21 12/24/21 12/25/21 11:59 11:59 11:59 11:59 Intake Total 1425 / 1425 2120 / 2120 2734 / 2734 1475 / 1475 Output Total 1920 / 1920 2700 / 2700 1650 / 1650 2150 / 2150 Balance -495 / -495 -580 / -580 1084 / 1084 -675 / -675 - Physical Exam Oriented: Unable to test Eyes: Normal Ear: Normal Nose: Normal Throat: Normal Respiratory: Diminished Cardiovascular: Irregular : Normal Auscultation: Bowel Sounds: Normal Palpation: Normal Tenderness: Normal Skin: Normal, Wound, Bruising (LEFT UPPER ARM ) Musculoskeletal: Left, Shoulder, Arm, Tender Psychiatric: Other (OBTUNDED) Mood Description: Calm Affect: Normal Speech Pattern: Unclear, Slurred - Laboratory and Diagnostics Result Diagrams: 12/25/21 04:18 12/25/21 04:18 Labs: 12/10/21 14:35 Urine,Clean Catch Urine Culture - Final Grecia Lusitaniae 11/26/21 13:05 Urine,Catheterized Urine Culture - Final Escherichia Coli Laboratory WBC 5.1 X10^3/uL (3.6-10.0) 12/25/21 04:18 RBC 2.69 X10^6/uL (3.5-5.4) L 12/25/21 04:18 Hgb 8.6 g/dL (12.0-16.0) L 12/25/21 04:18 Hct 26.1 % (36.0-47.0) L 12/25/21 04:18 MCV 97.2 fL (80.0-100.0) 12/25/21 04:18 MCH 31.9 pg (27.0-34.0) 12/25/21 04:18 MCHC 32.8 g/dL (33.0-35.0) L 12/25/21 04:18 RDW 21.8 % (11.6-16.5) H 12/25/21 04:18 Plt Count 173 X10^3/uL (150.0-450.0) 12/25/21 04:18 Plt Count Comment Adequate (ADEQUATE) 12/25/21 04:18 MPV 9.1 fL (7.4-11.0) 12/25/21 04:18 Neut % (Auto) 65.8 % (42.0-75.0) 12/25/21 04:18 Lymph % (Auto) 10.7 % (21.0-51.0) L 12/25/21 04:18 [place] % (Auto) 16.2 % (0.0-13.0) H 12/25/21 04:18 Eos % (Auto) 4.5 % (0.9-2.9) H 12/25/21 04:18 Baso % (Auto) 2.8 % (0.2-1.0) H 12/25/21 04:18 Neut # (Auto) 3.3 x10^3/uL (2.2-4.8) 12/25/21 04:18 Lymph # (Auto) 0.5 X10^3/uL (1.3-2.9) L 12/25/21 04:18 [place] # (Auto) 0.8 x10^3/uL (0.3-0.8) 12/25/21 04:18 Eos # (Auto) 0.2 x10^3/uL (0.0-0.2) 12/25/21 04:18 Baso # (Auto) 0.1 X10^3/uL (0.0-0.1) 12/25/21 04:18 Absolute Nucleated RBC 0.0 /100WBC 12/25/21 04:18 Total Counted 100 12/16/21 04:32 Neutrophils % (Manual) 64 % (39-76) 12/16/21 04:32 Band Neutrophils % 3 % (0-10) 12/16/21 04:32 Lymphocytes % (Manual) 13 % (13-43) 12/16/21 04:32 Monocytes % (Manual) 18 % (4-9) H 12/16/21 04:32 Eosinophils % (Manual) 1 % (0-6) 12/16/21 04:32 Metamyelocytes % 1 12/16/21 04:32 Plt Clumps, EDTA Rare 11/29/21 13:48 Plt Morphology Comment Normal (NORMAL) 12/25/21 04:18 RBC Morphology Abnormal (NORMAL) A 12/25/21 04:18 Hypochromasia Slight A 12/25/21 04:18 Poikilocytosis Present 12/23/21 05:23 Anisocytosis 1+ A 12/25/21 04:18 Macrocytosis Slight A 12/15/21 04:05 Tear Drop Cells Present 12/22/21 05:58 Stomatocytes Present 12/24/21 04:22 Schistocytes Present 12/23/21 05:23 D-Dimer 7.60 ug/ml (0.0-0.57) H* 12/09/21 05:23 Sample Site Rr 12/17/21 05:24 ABG pH 7.330 (7.35-7.45) L 12/17/21 05:24 ABG pCO2 52.0 mmHg (35.0-45.0) H* 12/17/21 05:24 ABG pO2 49.0 mmHg (80.0-100.0) L* 12/17/21 05:24 ABG HCO3 27.4 mmol/L (22-26) H 12/17/21 05:24 ABG O2 Saturation 81.0 % (90-100) L* 12/17/21 05:24 ABG Base Excess 0.7 mmol/L (-2.0-2.0) 12/17/21 05:24 Edi Test Yes 12/17/21 05:24 A-a Gradient 57.0 mmHg 12/17/21 05:24 FiO2 24.0 12/17/21 05:24 Blood Gas Comments [place] well, kh 12/17/21 05:24 Sodium 143 mmol/L (136-145) 12/25/21 04:18 Corrected Sodium TNP 12/25/21 04:18 Potassium 3.6 mmol/L (3.5-5.1) 12/25/21 04:18 Chloride 99 mmol/L (98-107) 12/25/21 04:18 Carbon Dioxide 36.5 mmol/L (21-32) H 12/25/21 04:18 BUN 10 mg/dL (7-18) 12/25/21 04:18 Creatinine 1.09 mg/dL (0.55-1.02) H 12/25/21 04:18 Est GFR (MDRD) Af Amer > 60 (>60) 12/25/21 04:18 Est GFR (MDRD) Non-Af 53 (>60) L 12/25/21 04:18 Glucose 93 mg/dL (65-99) 12/25/21 04:18 Calcium 9.1 mg/dL (8.5-10.1) 12/25/21 04:18 Corrected Calcium TNP 12/25/21 04:18 Magnesium 2.1 mg/dL (1.7-2.9) 12/23/21 05:23 Iron 17 ug/dL (50-175) L 11/29/21 10:08 Transferrin 119 mg/dL (202-364) L 11/29/21 10:08 Ferritin 917 ng/mL (8-252) H 11/29/21 10:08 Total Bilirubin 0.50 mg/dL (0.2-1.0) 12/25/21 04:18 AST 15 Units/L (15-37) 12/25/21 04:18 ALT 13 Units/L (12-78) 12/25/21 04:18 Alkaline Phosphatase 125 Units/L (46-116) H 12/25/21 04:18 Creatine Kinase 26 Units/L (26-192) 12/09/21 05:23 CK-MB (CK-2) < 1.0 ng/mL (0-4.0) 12/09/21 05:23 CK/CKMB % Calc 3.9 % (<4) 12/09/21 05:23 Troponin I High Sens 137.2 ng/L (4.0-60.0) H* 12/10/21 05:23 B-Natriuretic Peptide 589 pg/mL (0-79) H* 12/25/21 04:18 Total Protein 6.3 g/dL (6.4-8.2) L 12/25/21 04:18 Albumin 4.0 g/dL (3.4-5.0) 12/25/21 04:18 Globulin 2.3 g/dL (2.5-4.5) L 12/25/21 04:18 Albumin/Globulin Ratio 1.7 Ratio (1.1-2.1) 12/25/21 04:18 Vitamin B12 > 2000 pg/mL (193-986) H 11/29/21 10:08 Folate 4.1 ng/mL (>8.6) L 11/29/21 10:08 Specimen Type Catherized urine 12/15/21 13:30 Urine Color Yellow (YELLOW) 12/15/21 13:30 Urine Appearance Clear (CLEAR) 12/15/21 13:30 Urine pH 5.0 (5.0 - 8.0) 12/15/21 13:30 Ur Specific [place] 1.015 (1.000-1.030) 12/15/21 13:30 Urine Protein 1+ (NEGATIVE) 12/15/21 13:30 Urine Glucose (UA) Negative (NEGATIVE) 12/15/21 13:30 Urine Ketones Negative (NEGATIVE) 12/15/21 13:30 Urine Occult Blood Negative (NEGATIVE) 12/15/21 13:30 Urine Nitrite Negative (NEGATIVE) 12/15/21 13:30 Urine Bilirubin Negative (NEGATIVE) 12/15/21 13:30 Urine Urobilinogen Normal (NORMAL) 12/15/21 13:30 Ur Leukocyte Esterase Negative (NEGATIVE) 12/15/21 13:30 Urine RBC 0-2 /HPF (0-3) 12/15/21 13:30 Urine WBC 0-2 /HPF (0-5) 12/15/21 13:30 Ur Squamous Epith Cells Rare /HPF (NEGATIVE) 12/15/21 13:30 Urine Bacteria Trace /HPF (NEGATIVE) 12/15/21 13:30 Urine Mucus Few /HPF (NEGATIVE) 12/05/21 12:10 Urine Yeast Many /HPF (NEGATIVE) 12/15/21 13:30 Ur Culture Indicated? No/not indicated 12/15/21 13:30 Stool Description 10g brown loose 11/29/21 18:30 Stl Occult Blood (IFOB) Negative (NEGATIVE) 11/29/21 18:30 Digoxin 1.08 ng/mL (0.9-2) 12/20/21 04:23 SARS CoV-2 RNA Rapid KAMALJIT Negative (NEGATIVE) 11/26/21 11:11 Blood Type O POSITIVE 12/06/21 11:42 Antibody Screen Negative 12/06/21 11:42 Crossmatch See Detail 11/29/21 10:08 - Plan (1) Acute on chronic renal failure Status: Acute Qualifiers: Acute renal failure type: unspecified Chronic kidney disease stage: unspecified stage Qualified Code(s): N17.9 - Acute kidney failure, unspecified; N18.9 - Chronic kidney disease, unspecified Plan: NORMAL SALINE AT 50 ML/HR WITH MVI IN EACH LITER, INVANZ 1 G IV DAILY, ALBUMIN 25% IV DAILY, DIFLUCAN 200MG IV DAILY, LASIX 40MG IV DAILY, MEGACE 40MG PO BID, CARDIZEM CD 240MG PO DAILY, LOPRESSOR 75MG PO BID, AMIODARONE 200MG PO BID, MORPHINE SULFATE 2MG IV Q4H PRN, ZOFRAN 4MG IV Q6H PRN, NYSTATIN CREAM TID PRN, NYSTATIN POWDER BID PRN, ZOVIRAX TOP Q8H, PROCRIT 10,000 UNITS ON MON,WED,FRI, VALIUM 5MG PO TID PRN, MEGACE 40MG PO BID, AND PHENOBARBITAL 7.5 MG PO HS (2) Atrial fibrillation Status: Acute Qualifiers: Atrial fibrillation type: unspecified Qualified Code(s): I48.91 - Unspecified atrial fibrillation (3) Fracture of neck of humerus Status: Acute Qualifiers: Encounter type: initial encounter Fracture type: closed Laterality: left Qualified Code(s): S42.212A - Unspecified displaced fracture of surgical neck of left humerus, initial encounter for closed fracture (4) Urinary tract infection Status: Acute Qualifiers: Urinary tract infection type: acute cystitis Hematuria presence: without hematuria Qualified Code(s): N30.00 - Acute cystitis without hematuria (5) Shortness of breath Status: Acute (6) Anemia Status: Acute Qualifiers: Anemia type: unspecified type Qualified Code(s): D64.9 - Anemia, unspecified (7) Dehydration Status: Acute (8) Generalized weakness Status: Acute (9) Alcoholic dementia Status: Acute Qualifiers: Dementia behavioral disturbance: without behavioral disturbance Qualified Code(s): F10.27 - Alcohol dependence with alcohol-induced persisting dementia (10) Recent cerebrovascular accident (CVA) Status: Chronic (11) Hypertension Status: Chronic Qualifiers: Hypertension type: primary hypertension Qualified Code(s): I10 - Essential (primary) hypertension (12) Hyperlipidemia Status: Chronic Qualifiers: Hyperlipidemia type: mixed hyperlipidemia Qualified Code(s): E78.2 - Mixed hyperlipidemia
[2021-12-25] MEDS: VALIUM PO PRN (16:58)
[2021-12-25] MEDS: REMERON PO SCH (20:45)
[2021-12-25] MEDS: PHENOBARBITAL TAB 30 MG (32.4MG) PO SCH (20:45)
[2021-12-26] MEDS: XOPENEX 1.25 MG/3 ML NEBULE NEB SCH ×4 (00:17→17:11)
[2021-12-26 04:40] LABS: BASOPHILS % (AUTO) 0.3 % (0.2-1.0); EOSINOPHILS # (AUTO) 0.2 x10^3/uL (0.0-0.2); HEMATOCRIT 26.6 % (36.0-47.0); HEMOGLOBIN 8.7 g/dL (12.0-16.0); LYMPHOCYTES # (AUTO) 0.7 X10^3/uL (1.3-2.9); LYMPHOCYTES % (AUTO) 12.9 % (21.0-51.0); MEAN CORPUSCULAR HEMOGLOBIN 32.1 pg (27.0-34.0); MEAN CORPUSCULAR HGB CONC 32.8 g/dL (33.0-35.0); MEAN CORPUSCULAR VOLUME 97.9 fL (80.0-100.0); MEAN PLATELET VOLUME 9.2 fL (7.4-11.0); MONOCYTES # (AUTO) 0.9 x10^3/uL (0.3-0.8); MONOCYTES % (AUTO) 15.5 % (0.0-13.0); NEUTROPHILS # (AUTO) 3.8 x10^3/uL (2.2-4.8); NEUTROPHILS % (AUTO) 68.3 % (42.0-75.0); RED BLOOD COUNT 2.71 X10^6/uL (3.5-5.4); RED CELL DISTRIBUTION WIDTH 20.9 % (11.6-16.5); WHITE BLOOD COUNT 5.6 X10^3/uL (3.6-10.0)
[2021-12-26 05:02] LABS: ALANINE AMINOTRANSFERASE 15 Units/L (12-78); ALBUMIN 4.1 g/dL (3.4-5.0); ALKALINE PHOSPHATASE 126 Units/L (46-116); ASPARTATE AMINO TRANSFERASE 26 Units/L (15-37); BLOOD UREA NITROGEN 11 mg/dL (7-18); CALCIUM 9.3 mg/dL (8.5-10.1); CARBON DIOXIDE 34.8 mmol/L (21-32); CHLORIDE 98 mmol/L (98-107); CREATININE 1.03 mg/dL (0.55-1.02); SODIUM 141 mmol/L (136-145); TOTAL PROTEIN 6.6 g/dL (6.4-8.2); eGFR NON BLACK RACES 57 (>60)
[2021-12-26 05:18] LABS: ANISOCYTOSIS 1+; PLATELET MORPHOLOGY COMMENT NORMAL (NORMAL); SCHISTOCYTES PRESENT; TEAR DROP CELLS PRESENT
[2021-12-26 05:19] LABS: POIKILOCYTOSIS SLIGHT
[2021-12-26] MEDS: VALIUM PO PRN ×2 (05:30→08:14)
--- NOTE | 2021-12-26 05:47 | RAD ---
PROCEDURE: Chest X-ray 1 View .HISTORY: Dyspnea.TECHNIQUE: AP view .COMPARISON: 12/25/2021.TECHNICAL QUALITY: Satisfactory .FINDINGS:Unchanged cardiac enlargement.Prominent central vascularity similar to previous study.Consolidation both mid lower lung dacosta are unchanged. Unchanged pleural fluid at the bases.IMPRESSION:Unchanged congestive failure.Electronically signed by: David Pandya (Dec 26, 2021 05:47:13)
[2021-12-26] MEDS: CORDARONE TAB 200 MG PO SCH ×2 (06:15→16:46)
[2021-12-26] MEDS: DIFLUCAN 200 MG IV PREMIX* 200 MG/100 ML BAG IV SCH (08:11)
[2021-12-26] MEDS: ALBUMIN HUMAN 25%- 100 ML 100 ML IV SCH (08:12)
[2021-12-26] MEDS: INVanz INJ 1 GRAM VIAL 1 G in NS 100 ML IV 100 ML IV SCH (08:12)
[2021-12-26] MEDS: LOVENOX INJ 30 MG SYR SC SCH ×2 (08:13→20:37)
[2021-12-26] MEDS: PROTONIX INJ 40 MG VIAL IVP SCH ×2 (08:13→20:37)
[2021-12-26] MEDS: LASIX IVP SCH (08:13)
[2021-12-26] MEDS: LOPRESSOR TAB 50 MG PO SCH ×2 (08:13→20:32)
[2021-12-26] MEDS: CYMBALTA PO SCH (08:14)
[2021-12-26] MEDS: MEGACE PO SCH ×2 (08:14→20:34)
[2021-12-26] MEDS: CARDIZEM CD 240 MG 24-HR PO SCH (08:14)
[2021-12-26] MEDS: ZESTRIL TAB 10 MG PO SCH (08:15)
[2021-12-26] MEDS: THIAMINE HCL INJ IVP SCH ×2 (08:15→20:35)
[2021-12-26] MEDS: MORPHINE SULFATE INJ 2 MG INJ IVP PRN ×2 (08:16→14:00)
[2021-12-26] MEDS: PULMICORT NEB TX 0.5 MG NEB SCH ×2 (08:35→20:50)
[2021-12-26] MEDS ORDERED: TORADOL 15 MG VIAL IVP PRN (09:11)
[2021-12-26] MEDS: PROCRIT or EPOGEN VIAL 10,000 UNITS SC SCH (09:30)
--- NOTE | 2021-12-26 13:02 | PCM.PROG ---
Progress Note - Progress Note for Day of Date of Exam: 12/26/21 - Subjective Subjective: IS BEING TREATED FOR A-FIB, CHRONIC RENAL FAILURE, HUMERAL NECK FRACTURE, E.COLI UTI, CHF, ANEMIA, AND GENERALIZED WEAKNESS. SHE HAS RECEIVED TWO UNITS OF PRBC SINCE ADMISSION. SHE HAS A PMH OF RECENT CVA, HTN, A-FIB, HYPERLIPIDEMIA, AND RENAL DISEASE, AND ALCOHOLISM. TODAY, SHE IS ALERT, LYING IN BED ON MORNING ROUNDS. SHE REPORTS GENERALIZED PAIN AND ACHING TOADY. SHE IS CURRENTLY UTILIZING OXYGEN VIA NASAL CANNULA AT 2-3 LPM. SATURATIONS HAVE BEEN 91-97% THIS MORNING AND THROUGHOUT THE NIGHT. SHE HAS BEEN UNABLE TO GET OUT OF BED. SHE HAS MODERATE WEAKNESS TO BILATERAL UPPER AND LOWER EXTREMITIES. SHE HAS BEEN USING THE BEDPAN. SHE ALSO HAS A JACOBO CATHETER IN [place]. ON EXAMINATION, A-FIB NOTED WITH HR 105-115. BILATERAL LUNGS NOTED WITH DIMINISHED LUNG SOUNDS THROUGHOUT. ABDOMEN IS ROUND, SOFT, AND NON-TENDER WITH NORMAL BOWEL SOUNDS NOTED IN ALL QUADRANTS. JACOBO CATHETER NOTED TO BEDSIDE DRAINAGE. SCATTERED BRUISING NOTED OVER BODY. EDEMA NOTED TO BILATERAL UPPER EXTREMITIES. HER VITALS THIS MORNING ARE: 98.9-108-34-91%-144/87. LABS WERE OBTAINED. ABNORMAL LAB VALUES INCLUDE THE FOLLOWING: RBC 2.71, HGB 8.7, HCT 26.6, CARBON DIOXIDE 34.8, CREATININE 1.03, ALK PHOS 126, BNP 527. CHEST XRAY OBTAINED AND REVEALED: Unchanged congestive failure. SHE IS CURRENTLY RECEIVING NORMAL SALINE WITH MVI IN EACH LITER AT 50 ML/HR, ALBUMIN 25% IV DAILY, INVANZ 1 G IV DAILY, LASIX 40MG IV DAILY, DIFLUCAN 200MG IV DAILY, CARDIZEM CD 240 MG PO DAILY, LISINOPRIL 10 MG PO DAILY, AMIODARONE 200MG PO BIDWM, LOPRESSOR 75 MG PO BID, PROTONIX 40MG IV BID, MORPHINE SULFATE 2MG IV Q4H PRN, MEGACE 40MG PO BID, NORCO 5/325MG PO Q6H PRN, ZOFRAN 4MG IV Q6H PRN, PROCRIT 10,000 UNITS MON,WED,FRI, VALIUM 5MG PO TID PRN, PHENOBARBITAL 7.5MG HS, MEGACE 40MG PO BID, NYSTATIN CREAM TID PRN, NYSTATIN POWDER BID PRN, ZOVIRAX TOP Q8H. WE WILL ADD TORADOL 15MG IV Q6H PRN FOR PAIN. OTHERWISE, WE WILL CONTINUE WITH CURRENT PLAN OF CARE TODAY. WE WILL HAVE PHYSICAL THERAPY WORK WITH HER. WE HAVE DISCUSSED OPTIONS FOR DISCHARGE WITH HER FAMILY. THEY WISH FOR PATIENT TO GO TO THE SENIOR LIVING. WE WILL DISCUSS WITH CASE MANAGEMENT AND ARRANGE PLACEMENT. OTHERWISE, WE WILL FOLLOW UP WITH AM LABS AND CONTINUE TO MONITOR. TIME SPENT ON CLINICAL ASSESSMENT, REVIEWING LABS AND IMAGING, DECISION MAKING, AND DOCUMENTATION GREATER THAN 45 MINUTES. - Past Medical Family Social History Past Med/Fam/Surg Hx: No changes since H&P Allergies: Allergies No Known Drug Allergies [NKDA] Allergy (Verified 03/25/21 13:54) - Review of Systems ROS: No change since H&P - Vital Signs and I&O's Vital Signs: Temperature 98.9 F Pulse Rate [Left Radial] 128 Pulse Rate 114 Respiratory Rate 19 Blood Pressure [Right Arm] 116/79 Blood Pressure 146/83 O2 Sat by Pulse Oximetry 97 Intake and Output: Intake & Output 12/24/21 12/25/21 12/26/21 12/27/21 11:59 11:59 11:59 11:59 Intake Total 2734 / 2734 1475 / 1475 1485 / 1485 Output Total 1650 / 1650 2150 / 2150 1925 / 1925 Balance 1084 / 1084 -675 / -675 -440 / -440 - Physical Exam Oriented: Unable to test Eyes: Normal Ear: Normal Nose: Normal Throat: Normal Respiratory: Diminished Cardiovascular: Irregular : Normal Auscultation: Bowel Sounds: Normal Tenderness: Normal Skin: Normal, Wound, Bruising (LEFT UPPER ARM ) Musculoskeletal: Left, Shoulder, Arm, Tender Psychiatric: Other (OBTUNDED) Mood Description: Calm Affect: Normal Speech Pattern: Unclear, Slurred - Laboratory and Diagnostics Result Diagrams: 12/26/21 04:10 12/26/21 04:10 Labs: 12/10/21 14:35 Urine,Clean Catch Urine Culture - Final Grecia Lusitaniae 11/26/21 13:05 Urine,Catheterized Urine Culture - Final Escherichia Coli Laboratory WBC 5.6 X10^3/uL (3.6-10.0) 12/26/21 04:10 RBC 2.71 X10^6/uL (3.5-5.4) L 12/26/21 04:10 Hgb 8.7 g/dL (12.0-16.0) L 12/26/21 04:10 Hct 26.6 % (36.0-47.0) L 12/26/21 04:10 MCV 97.9 fL (80.0-100.0) 12/26/21 04:10 MCH 32.1 pg (27.0-34.0) 12/26/21 04:10 MCHC 32.8 g/dL (33.0-35.0) L 12/26/21 04:10 RDW 20.9 % (11.6-16.5) H 12/26/21 04:10 Plt Count 192 X10^3/uL (150.0-450.0) 12/26/21 04:10 Plt Count Comment Adequate (ADEQUATE) 12/26/21 04:10 MPV 9.2 fL (7.4-11.0) 12/26/21 04:10 Neut % (Auto) 68.3 % (42.0-75.0) 12/26/21 04:10 Lymph % (Auto) 12.9 % (21.0-51.0) L 12/26/21 04:10 [place] % (Auto) 15.5 % (0.0-13.0) H 12/26/21 04:10 Eos % (Auto) 3.0 % (0.9-2.9) H 12/26/21 04:10 Baso % (Auto) 0.3 % (0.2-1.0) 12/26/21 04:10 Neut # (Auto) 3.8 x10^3/uL (2.2-4.8) 12/26/21 04:10 Lymph # (Auto) 0.7 X10^3/uL (1.3-2.9) L 12/26/21 04:10 [place] # (Auto) 0.9 x10^3/uL (0.3-0.8) H 12/26/21 04:10 Eos # (Auto) 0.2 x10^3/uL (0.0-0.2) 12/26/21 04:10 Baso # (Auto) 0.0 X10^3/uL (0.0-0.1) 12/26/21 04:10 Absolute Nucleated RBC 0.0 /100WBC 12/26/21 04:10 Total Counted 100 12/16/21 04:32 Neutrophils % (Manual) 64 % (39-76) 12/16/21 04:32 Band Neutrophils % 3 % (0-10) 12/16/21 04:32 Lymphocytes % (Manual) 13 % (13-43) 12/16/21 04:32 Monocytes % (Manual) 18 % (4-9) H 12/16/21 04:32 Eosinophils % (Manual) 1 % (0-6) 12/16/21 04:32 Metamyelocytes % 1 12/16/21 04:32 Plt Clumps, EDTA Rare 11/29/21 13:48 Plt Morphology Comment Normal (NORMAL) 12/26/21 04:10 RBC Morphology Abnormal (NORMAL) A 12/26/21 04:10 Hypochromasia Slight A 12/25/21 04:18 Poikilocytosis Slight A 12/26/21 04:10 Anisocytosis 1+ A 12/26/21 04:10 Macrocytosis Slight A 12/15/21 04:05 Tear Drop Cells Present 12/26/21 04:10 Stomatocytes Present 12/24/21 04:22 Schistocytes Present 12/26/21 04:10 D-Dimer 7.60 ug/ml (0.0-0.57) H* 12/09/21 05:23 Sample Site Rr 12/17/21 05:24 ABG pH 7.330 (7.35-7.45) L 12/17/21 05:24 ABG pCO2 52.0 mmHg (35.0-45.0) H* 12/17/21 05:24 ABG pO2 49.0 mmHg (80.0-100.0) L* 12/17/21 05:24 ABG HCO3 27.4 mmol/L (22-26) H 12/17/21 05:24 ABG O2 Saturation 81.0 % (90-100) L* 12/17/21 05:24 ABG Base Excess 0.7 mmol/L (-2.0-2.0) 12/17/21 05:24 Edi Test Yes 12/17/21 05:24 A-a Gradient 57.0 mmHg 12/17/21 05:24 FiO2 24.0 12/17/21 05:24 Blood Gas Comments [place] well, kh 12/17/21 05:24 Sodium 141 mmol/L (136-145) 12/26/21 04:10 Corrected Sodium TNP 12/26/21 04:10 Potassium 3.8 mmol/L (3.5-5.1) 12/26/21 04:10 Chloride 98 mmol/L (98-107) 12/26/21 04:10 Carbon Dioxide 34.8 mmol/L (21-32) H 12/26/21 04:10 BUN 11 mg/dL (7-18) 12/26/21 04:10 Creatinine 1.03 mg/dL (0.55-1.02) H 12/26/21 04:10 Est GFR (MDRD) Af Amer > 60 (>60) 12/26/21 04:10 Est GFR (MDRD) Non-Af 57 (>60) L 12/26/21 04:10 Glucose 88 mg/dL (65-99) 12/26/21 04:10 Calcium 9.3 mg/dL (8.5-10.1) 12/26/21 04:10 Corrected Calcium TNP 12/26/21 04:10 Magnesium 2.1 mg/dL (1.7-2.9) 12/23/21 05:23 Iron 17 ug/dL (50-175) L 11/29/21 10:08 Transferrin 119 mg/dL (202-364) L 11/29/21 10:08 Ferritin 917 ng/mL (8-252) H 11/29/21 10:08 Total Bilirubin 0.70 mg/dL (0.2-1.0) 12/26/21 04:10 AST 26 Units/L (15-37) 12/26/21 04:10 ALT 15 Units/L (12-78) 12/26/21 04:10 Alkaline Phosphatase 126 Units/L (46-116) H 12/26/21 04:10 Creatine Kinase 26 Units/L (26-192) 12/09/21 05:23 CK-MB (CK-2) < 1.0 ng/mL (0-4.0) 12/09/21 05:23 CK/CKMB % Calc 3.9 % (<4) 12/09/21 05:23 Troponin I High Sens 137.2 ng/L (4.0-60.0) H* 12/10/21 05:23 B-Natriuretic Peptide 527 pg/mL (0-79) H* 12/26/21 04:10 Total Protein 6.6 g/dL (6.4-8.2) 12/26/21 04:10 Albumin 4.1 g/dL (3.4-5.0) 12/26/21 04:10 Globulin 2.5 g/dL (2.5-4.5) 12/26/21 04:10 Albumin/Globulin Ratio 1.6 Ratio (1.1-2.1) 12/26/21 04:10 Vitamin B12 > 2000 pg/mL (193-986) H 11/29/21 10:08 Folate 4.1 ng/mL (>8.6) L 11/29/21 10:08 Specimen Type Catherized urine 12/15/21 13:30 Urine Color Yellow (YELLOW) 12/15/21 13:30 Urine Appearance Clear (CLEAR) 12/15/21 13:30 Urine pH 5.0 (5.0 - 8.0) 12/15/21 13:30 Ur Specific [place] 1.015 (1.000-1.030) 12/15/21 13:30 Urine Protein 1+ (NEGATIVE) 12/15/21 13:30 Urine Glucose (UA) Negative (NEGATIVE) 12/15/21 13:30 Urine Ketones Negative (NEGATIVE) 12/15/21 13:30 Urine Occult Blood Negative (NEGATIVE) 12/15/21 13:30 Urine Nitrite Negative (NEGATIVE) 12/15/21 13:30 Urine Bilirubin Negative (NEGATIVE) 12/15/21 13:30 Urine Urobilinogen Normal (NORMAL) 12/15/21 13:30 Ur Leukocyte Esterase Negative (NEGATIVE) 12/15/21 13:30 Urine RBC 0-2 /HPF (0-3) 12/15/21 13:30 Urine WBC 0-2 /HPF (0-5) 12/15/21 13:30 Ur Squamous Epith Cells Rare /HPF (NEGATIVE) 12/15/21 13:30 Urine Bacteria Trace /HPF (NEGATIVE) 12/15/21 13:30 Urine Mucus Few /HPF (NEGATIVE) 12/05/21 12:10 Urine Yeast Many /HPF (NEGATIVE) 12/15/21 13:30 Ur Culture Indicated? No/not indicated 12/15/21 13:30 Stool Description 10g brown loose 11/29/21 18:30 Stl Occult Blood (IFOB) Negative (NEGATIVE) 11/29/21 18:30 Digoxin 1.08 ng/mL (0.9-2) 12/20/21 04:23 SARS CoV-2 RNA Rapid KAMALJIT Negative (NEGATIVE) 11/26/21 11:11 Blood Type O POSITIVE 12/06/21 11:42 Antibody Screen Negative 12/06/21 11:42 Crossmatch See Detail 11/29/21 10:08 - Plan (1) Acute on chronic renal failure Status: Acute Qualifiers: Acute renal failure type: unspecified Chronic kidney disease stage: unspecified stage Qualified Code(s): N17.9 - Acute kidney failure, unspecified; N18.9 - Chronic kidney disease, unspecified Plan: NORMAL SALINE AT 50 ML/HR WITH MVI IN EACH LITER, INVANZ 1 G IV DAILY, ALBUMIN 25% IV DAILY, DIFLUCAN 200MG IV DAILY, LASIX 40MG IV DAILY, MEGACE 40MG PO BID, CARDIZEM CD 240MG PO DAILY, LOPRESSOR 75MG PO BID, AMIODARONE 200MG PO BID, TORADOL 15MG IV Q6H PRN PAIN, MORPHINE SULFATE 2MG IV Q4H PRN, ZOFRAN 4MG IV Q6H PRN, NYSTATIN CREAM TID PRN, NYSTATIN POWDER BID PRN, ZOVIRAX TOP Q8H, PROCRIT 10,000 UNITS ON MON,WED,FRI, VALIUM 5MG PO TID PRN, MEGACE 40MG PO BID, AND PHENOBARBITAL 7.5 MG PO HS (2) Atrial fibrillation Status: Acute Qualifiers: Atrial fibrillation type: unspecified Qualified Code(s): I48.91 - Unspecified atrial fibrillation (3) Fracture of neck of humerus Status: Acute Qualifiers: Encounter type: initial encounter Fracture type: closed Laterality: left Qualified Code(s): S42.212A - Unspecified displaced fracture of surgical neck of left humerus, initial encounter for closed fracture (4) Urinary tract infection Status: Acute Qualifiers: Urinary tract infection type: acute cystitis Hematuria presence: without hematuria Qualified Code(s): N30.00 - Acute cystitis without hematuria (5) Shortness of breath Status: Acute (6) Anemia Status: Acute Qualifiers: Anemia type: unspecified type Qualified Code(s): D64.9 - Anemia, unspecified (7) Dehydration Status: Acute (8) Generalized weakness Status: Acute (9) Alcoholic dementia Status: Acute Qualifiers: Dementia behavioral disturbance: without behavioral disturbance Qualified Code(s): F10.27 - Alcohol dependence with alcohol-induced persisting dementia (10) Recent cerebrovascular accident (CVA) Status: Chronic (11) Hypertension Status: Chronic Qualifiers: Hypertension type: primary hypertension Qualified Code(s): I10 - Essential (primary) hypertension (12) Hyperlipidemia Status: Chronic Qualifiers: Hyperlipidemia type: mixed hyperlipidemia Qualified Code(s): E78.2 - Mixed hyperlipidemia
[2021-12-26] MEDS: MVI IV SCH ×4 (14:28→20:47)
[2021-12-26] MEDS: NS IV SCH ×4 (14:28→20:47)
[2021-12-26] MEDS: PHENOBARBITAL TAB 30 MG (32.4MG) PO SCH (20:33)
[2021-12-26] MEDS: REMERON PO SCH (20:34)
[2021-12-27] MEDS: XOPENEX 1.25 MG/3 ML NEBULE NEB SCH ×4 (00:05→17:30)
[2021-12-27] MEDS: MORPHINE SULFATE INJ 2 MG INJ IVP PRN ×2 (01:02→14:35)
[2021-12-27 05:31] LABS: BASOPHILS # (AUTO) 0.1 X10^3/uL (0.0-0.1); EOSINOPHILS # (AUTO) 0.2 x10^3/uL (0.0-0.2); EOSINOPHILS % (AUTO) 3.1 % (0.9-2.9); HEMATOCRIT 27.4 % (36.0-47.0); HEMOGLOBIN 8.8 g/dL (12.0-16.0); LYMPHOCYTES # (AUTO) 0.9 X10^3/uL (1.3-2.9); MEAN CORPUSCULAR HEMOGLOBIN 31.4 pg (27.0-34.0); MEAN CORPUSCULAR HGB CONC 32.3 g/dL (33.0-35.0); MEAN CORPUSCULAR VOLUME 97.4 fL (80.0-100.0); MEAN PLATELET VOLUME 8.8 fL (7.4-11.0); MONOCYTES # (AUTO) 0.3 x10^3/uL (0.3-0.8); MONOCYTES % (AUTO) 5.1 % (0.0-13.0); NEUTROPHILS # (AUTO) 4.7 x10^3/uL (2.2-4.8); NEUTROPHILS % (AUTO) 75.8 % (42.0-75.0); RED BLOOD COUNT 2.81 X10^6/uL (3.5-5.4); RED CELL DISTRIBUTION WIDTH 21.1 % (11.6-16.5); WHITE BLOOD COUNT 6.2 X10^3/uL (3.6-10.0)
[2021-12-27 05:43] LABS: ALANINE AMINOTRANSFERASE 12 Units/L (12-78); ALBUMIN 4.3 g/dL (3.4-5.0); ALKALINE PHOSPHATASE 122 Units/L (46-116); ASPARTATE AMINO TRANSFERASE 16 Units/L (15-37); BLOOD UREA NITROGEN 13 mg/dL (7-18); CALCIUM 8.8 mg/dL (8.5-10.1); CARBON DIOXIDE 33.6 mmol/L (21-32); CHLORIDE 99 mmol/L (98-107); CREATININE 1.19 mg/dL (0.55-1.02); SODIUM 141 mmol/L (136-145); TOTAL PROTEIN 6.8 g/dL (6.4-8.2); eGFR NON BLACK RACES 48 (>60)
[2021-12-27 05:53] LABS: ANISOCYTOSIS 1+; PLATELET MORPHOLOGY COMMENT NORMAL (NORMAL)
[2021-12-27 05:54] LABS: SCHISTOCYTES PRESENT
[2021-12-27] MEDS: ALBUMIN HUMAN 25%- 100 ML 100 ML IV SCH (08:11)
[2021-12-27] MEDS: LASIX IVP SCH (08:46)
[2021-12-27] MEDS: PROTONIX INJ 40 MG VIAL IVP SCH ×2 (08:47→21:01)
[2021-12-27] MEDS: THIAMINE HCL INJ IVP SCH ×2 (08:47→21:01)
[2021-12-27] MEDS: LOPRESSOR TAB 50 MG PO SCH ×4 (09:08→23:39)
[2021-12-27] MEDS ORDERED: LANOXIN INJ IVP ONE (09:10)
[2021-12-27] MEDS: CORDARONE TAB 200 MG PO SCH ×2 (09:10→17:37)
[2021-12-27] MEDS: ZESTRIL TAB 10 MG PO SCH (09:11)
[2021-12-27] MEDS: PULMICORT NEB TX 0.5 MG NEB SCH ×2 (09:18→20:04)
[2021-12-27] MEDS: CARDIZEM CD 240 MG 24-HR PO SCH (09:25)
[2021-12-27] MEDS: CYMBALTA PO SCH (09:25)
[2021-12-27] MEDS: MEGACE PO SCH ×4 (09:25→23:38)
[2021-12-27] MEDS: K-DUR TAB 20 MEQ PO PRN (09:26)
[2021-12-27] MEDS: LOVENOX INJ 30 MG SYR SC SCH ×2 (09:26→21:02)
[2021-12-27] MEDS: MVI IV SCH ×4 (09:28→22:03)
[2021-12-27] MEDS: NS IV SCH ×4 (09:28→22:03)
[2021-12-27] MEDS: INVanz INJ 1 GRAM VIAL 1 G in NS 100 ML IV 100 ML IV SCH (09:47)
--- NOTE | 2021-12-27 09:50 | PCM.PROG ---
Progress Note - Progress Note for Day of Date of Exam: 12/27/21 - Subjective Subjective: IS BEING TREATED FOR A-FIB, CHRONIC RENAL FAILURE, HUMERAL NECK FRACTURE, E.COLI UTI, CHF, ANEMIA, AND GENERALIZED WEAKNESS. SHE HAS RECEIVED TWO UNITS OF PRBC SINCE ADMISSION. SHE HAS A PMH OF RECENT CVA, HTN, A-FIB, HYPERLIPIDEMIA, AND RENAL DISEASE, AND ALCOHOLISM. TODAY, SHE IS LYING IN BED WITH EYES CLOSED ON MORNING ROUNDS. SHE IS DIFFICULT TO AROUSE THIS MORNING. SHE IS CURRENTLY UTILIZING OXYGEN VIA NASAL CANNULA AT 5 LPM. SATURATIONS HAVE BEEN 91-97% THIS MORNING AND THROUGHOUT THE NIGHT. SHE HAS BEEN UNABLE TO GET OUT OF BED. SHE HAS MODERATE WEAKNESS TO BILATERAL UPPER AND LOWER EXTREMITIES. ON EXAMINATION, A-FIB NOTED WITH HR 110-120. BILATERAL LUNGS NOTED WITH DIMINISHED LUNG SOUNDS THROUGHOUT. ABDOMEN IS ROUND, SOFT, AND NON-TENDER WITH NORMAL BOWEL SOUNDS NOTED IN ALL QUADRANTS. JACOBO CATHETER NOTED TO BEDSIDE DRAINAGE. SCATTERED BRUISING NOTED OVER BODY. EDEMA NOTED TO BILATERAL UPPER EXTREMITIES. HER VITALS THIS MORNING ARE: 98.7-120-13-96%-123/66. LABS WERE OBTAINED. ABNORMAL LAB VALUES INCLUDE THE FOLLOWING: RBC 2.81, HGB 8.8, HCT 27.4, CARBON DIOXIDE 33.6, CREATININE 1.19, ALK PHOS 122, BNP 849. CHEST XRAY OBTAINED AND REVEALED: Unchanged congestive failure. SHE IS CURRENTLY RECEIVING NORMAL SALINE WITH MVI IN EACH LITER AT 50 ML/HR, ALBUMIN 25% IV DAILY, INVANZ 1 G IV DAILY, LASIX 40MG IV DAILY, DIFLUCAN 200MG IV DAILY, CARDIZEM CD 240 MG PO DAILY, LISINOPRIL 10 MG PO DAILY, AMIODARONE 200MG PO BIDWM, LOPRESSOR 75 MG PO BID, PROTONIX 40MG IV BID, TORADOL 15MG IV Q6H PRN PAIN, MORPHINE SULFATE 2MG IV Q4H PRN, MEGACE 40MG PO BID, NORCO 5/325MG PO Q6H PRN, ZOFRAN 4MG IV Q6H PRN, PROCRIT 10,000 UNITS MON,WED,FRI, VALIUM 5MG PO TID PRN, PHENOBARBITAL 7.5MG HS, MEGACE 40MG PO BID, NYSTATIN CREAM TID PRN, NYSTATIN POWDER BID PRN, ZOVIRAX TOP Q8H. WE WILL ADMINISTER DIGOXIN 0.125MG IV X 1 DOSE. OTHERWISE, WE WILL CONTINUE WITH CURRENT PLAN OF CARE TODAY. WE WILL HAVE PHYSICAL THERAPY WORK WITH HER. WE HAVE DISCUSSED OPTIONS FOR DISCHARGE WITH HER FAMILY. THEY WISH FOR PATIENT TO GO TO THE CARE HOME. WE WILL DISCUSS WITH CASE MANAGEMENT AND ARRANGE PLACEMENT. OTHERWISE, WE WILL FOLLOW UP WITH AM LABS AND CONTINUE TO MONITOR. TIME SPENT ON CLINICAL ASSESSMENT, REVIEWING LABS AND IMAGING, DECISION MAKING, AND DOCUMENTATION GREATER THAN 45 MINUTES. - Past Medical Family Social History Past Med/Fam/Surg Hx: No changes since H&P Allergies: Allergies No Known Drug Allergies [NKDA] Allergy (Verified 03/25/21 13:54) - Review of Systems ROS: No change since H&P - Vital Signs and I&O's Vital Signs: Temperature 98.7 F Pulse Rate [Left Radial] 128 Pulse Rate 111 Respiratory Rate 24 Blood Pressure [Right Arm] 116/79 Blood Pressure 132/81 O2 Sat by Pulse Oximetry 97 Intake and Output: Intake & Output 12/24/21 12/25/21 12/26/21 12/27/21 11:59 11:59 11:59 11:59 Intake Total 2734 / 2734 1475 / 1475 1485 / 1485 805 / 805 Output Total 1650 / 1650 2150 / 2150 1925 / 1925 1050 / 1050 Balance 1084 / 1084 -675 / -675 -440 / -440 -245 / -245 - Physical Exam Oriented: Unable to test Eyes: Normal Ear: Normal Nose: Normal Throat: Normal Respiratory: Diminished Cardiovascular: Irregular : Normal Auscultation: Bowel Sounds: Normal Palpation: Normal Tenderness: Normal Skin: Normal, Wound, Bruising (LEFT UPPER ARM ) Musculoskeletal: Left, Shoulder, Arm, Tender Psychiatric: Other (OBTUNDED) Mood Description: Calm Affect: Normal Speech Pattern: Unclear, Slurred - Laboratory and Diagnostics Result Diagrams: 12/27/21 04:45 12/27/21 04:45 Labs: 12/10/21 14:35 Urine,Clean Catch Urine Culture - Final Grecia Lusitaniae 11/26/21 13:05 Urine,Catheterized Urine Culture - Final Escherichia Coli Laboratory WBC 6.2 X10^3/uL (3.6-10.0) 12/27/21 04:45 RBC 2.81 X10^6/uL (3.5-5.4) L 12/27/21 04:45 Hgb 8.8 g/dL (12.0-16.0) L 12/27/21 04:45 Hct 27.4 % (36.0-47.0) L 12/27/21 04:45 MCV 97.4 fL (80.0-100.0) 12/27/21 04:45 MCH 31.4 pg (27.0-34.0) 12/27/21 04:45 MCHC 32.3 g/dL (33.0-35.0) L 12/27/21 04:45 RDW 21.1 % (11.6-16.5) H 12/27/21 04:45 Plt Count 226 X10^3/uL (150.0-450.0) 12/27/21 04:45 Plt Count Comment Adequate (ADEQUATE) 12/27/21 04:45 MPV 8.8 fL (7.4-11.0) 12/27/21 04:45 Neut % (Auto) 75.8 % (42.0-75.0) H 12/27/21 04:45 Lymph % (Auto) 14.0 % (21.0-51.0) L 12/27/21 04:45 [place] % (Auto) 5.1 % (0.0-13.0) 12/27/21 04:45 Eos % (Auto) 3.1 % (0.9-2.9) H 12/27/21 04:45 Baso % (Auto) 2.0 % (0.2-1.0) H 12/27/21 04:45 Neut # (Auto) 4.7 x10^3/uL (2.2-4.8) 12/27/21 04:45 Lymph # (Auto) 0.9 X10^3/uL (1.3-2.9) L 12/27/21 04:45 [place] # (Auto) 0.3 x10^3/uL (0.3-0.8) 12/27/21 04:45 Eos # (Auto) 0.2 x10^3/uL (0.0-0.2) 12/27/21 04:45 Baso # (Auto) 0.1 X10^3/uL (0.0-0.1) 12/27/21 04:45 Absolute Nucleated RBC 0.1 /100WBC 12/27/21 04:45 Total Counted 100 12/16/21 04:32 Neutrophils % (Manual) 64 % (39-76) 12/16/21 04:32 Band Neutrophils % 3 % (0-10) 12/16/21 04:32 Lymphocytes % (Manual) 13 % (13-43) 12/16/21 04:32 Monocytes % (Manual) 18 % (4-9) H 12/16/21 04:32 Eosinophils % (Manual) 1 % (0-6) 12/16/21 04:32 Metamyelocytes % 1 12/16/21 04:32 Plt Clumps, EDTA Rare 11/29/21 13:48 Plt Morphology Comment Normal (NORMAL) 12/27/21 04:45 RBC Morphology Abnormal (NORMAL) A 12/27/21 04:45 Hypochromasia Slight A 12/25/21 04:18 Poikilocytosis Slight A 12/26/21 04:10 Anisocytosis 1+ A 12/27/21 04:45 Macrocytosis Slight A 12/15/21 04:05 Tear Drop Cells Present 12/26/21 04:10 Stomatocytes Present 12/24/21 04:22 Schistocytes Present 12/27/21 04:45 D-Dimer 7.60 ug/ml (0.0-0.57) H* 12/09/21 05:23 Sample Site Rr 12/17/21 05:24 ABG pH 7.330 (7.35-7.45) L 12/17/21 05:24 ABG pCO2 52.0 mmHg (35.0-45.0) H* 12/17/21 05:24 ABG pO2 49.0 mmHg (80.0-100.0) L* 12/17/21 05:24 ABG HCO3 27.4 mmol/L (22-26) H 12/17/21 05:24 ABG O2 Saturation 81.0 % (90-100) L* 12/17/21 05:24 ABG Base Excess 0.7 mmol/L (-2.0-2.0) 12/17/21 05:24 Edi Test Yes 12/17/21 05:24 A-a Gradient 57.0 mmHg 12/17/21 05:24 FiO2 24.0 12/17/21 05:24 Blood Gas Comments [place] well, kh 12/17/21 05:24 Sodium 141 mmol/L (136-145) 12/27/21 04:45 Corrected Sodium TNP 12/27/21 04:45 Potassium 3.8 mmol/L (3.5-5.1) 12/27/21 04:45 Chloride 99 mmol/L (98-107) 12/27/21 04:45 Carbon Dioxide 33.6 mmol/L (21-32) H 12/27/21 04:45 BUN 13 mg/dL (7-18) 12/27/21 04:45 Creatinine 1.19 mg/dL (0.55-1.02) H 12/27/21 04:45 Est GFR (MDRD) Af Amer 58 (>60) L 12/27/21 04:45 Est GFR (MDRD) Non-Af 48 (>60) L 12/27/21 04:45 Glucose 86 mg/dL (65-99) 12/27/21 04:45 POC Glucose (mg/dL) 102 mg/dL (65-99) H 12/26/21 20:11 Calcium 8.8 mg/dL (8.5-10.1) 12/27/21 04:45 Corrected Calcium TNP 12/27/21 04:45 Magnesium 2.1 mg/dL (1.7-2.9) 12/23/21 05:23 Iron 17 ug/dL (50-175) L 11/29/21 10:08 Transferrin 119 mg/dL (202-364) L 11/29/21 10:08 Ferritin 917 ng/mL (8-252) H 11/29/21 10:08 Total Bilirubin 0.50 mg/dL (0.2-1.0) 12/27/21 04:45 AST 16 Units/L (15-37) 12/27/21 04:45 ALT 12 Units/L (12-78) 12/27/21 04:45 Alkaline Phosphatase 122 Units/L (46-116) H 12/27/21 04:45 Creatine Kinase 26 Units/L (26-192) 12/09/21 05:23 CK-MB (CK-2) < 1.0 ng/mL (0-4.0) 12/09/21 05:23 CK/CKMB % Calc 3.9 % (<4) 12/09/21 05:23 Troponin I High Sens 137.2 ng/L (4.0-60.0) H* 12/10/21 05:23 B-Natriuretic Peptide 849 pg/mL (0-79) H* 12/27/21 04:45 Total Protein 6.8 g/dL (6.4-8.2) 12/27/21 04:45 Albumin 4.3 g/dL (3.4-5.0) 12/27/21 04:45 Globulin 2.5 g/dL (2.5-4.5) 12/27/21 04:45 Albumin/Globulin Ratio 1.7 Ratio (1.1-2.1) 12/27/21 04:45 Thiamine 65 nmol/L (70-180) L 12/20/21 11:32 Vitamin B12 > 2000 pg/mL (193-986) H 11/29/21 10:08 Folate 4.1 ng/mL (>8.6) L 11/29/21 10:08 Specimen Type Catherized urine 12/15/21 13:30 Urine Color Yellow (YELLOW) 12/15/21 13:30 Urine Appearance Clear (CLEAR) 12/15/21 13:30 Urine pH 5.0 (5.0 - 8.0) 12/15/21 13:30 Ur Specific [place] 1.015 (1.000-1.030) 12/15/21 13:30 Urine Protein 1+ (NEGATIVE) 12/15/21 13:30 Urine Glucose (UA) Negative (NEGATIVE) 12/15/21 13:30 Urine Ketones Negative (NEGATIVE) 12/15/21 13:30 Urine Occult Blood Negative (NEGATIVE) 12/15/21 13:30 Urine Nitrite Negative (NEGATIVE) 12/15/21 13:30 Urine Bilirubin Negative (NEGATIVE) 12/15/21 13:30 Urine Urobilinogen Normal (NORMAL) 12/15/21 13:30 Ur Leukocyte Esterase Negative (NEGATIVE) 12/15/21 13:30 Urine RBC 0-2 /HPF (0-3) 12/15/21 13:30 Urine WBC 0-2 /HPF (0-5) 12/15/21 13:30 Ur Squamous Epith Cells Rare /HPF (NEGATIVE) 12/15/21 13:30 Urine Bacteria Trace /HPF (NEGATIVE) 12/15/21 13:30 Urine Mucus Few /HPF (NEGATIVE) 12/05/21 12:10 Urine Yeast Many /HPF (NEGATIVE) 12/15/21 13:30 Ur Culture Indicated? No/not indicated 12/15/21 13:30 Stool Description 10g brown loose 11/29/21 18:30 Stl Occult Blood (IFOB) Negative (NEGATIVE) 11/29/21 18:30 Digoxin 1.08 ng/mL (0.9-2) 12/20/21 04:23 SARS CoV-2 RNA Rapid KAMALJIT Negative (NEGATIVE) 11/26/21 11:11 Blood Type O POSITIVE 12/06/21 11:42 Antibody Screen Negative 12/06/21 11:42 Crossmatch See Detail 11/29/21 10:08 - Plan (1) Acute on chronic renal failure Status: Acute Qualifiers: Acute renal failure type: unspecified Chronic kidney disease stage: unspecified stage Qualified Code(s): N17.9 - Acute kidney failure, unspecified; N18.9 - Chronic kidney disease, unspecified Plan: NORMAL SALINE AT 50 ML/HR WITH MVI IN EACH LITER, INVANZ 1 G IV DAILY, ALBUMIN 25% IV DAILY, DIFLUCAN 200MG IV DAILY, LASIX 40MG IV DAILY, MEGACE 40MG PO BID, CARDIZEM CD 240MG PO DAILY, LOPRESSOR 75MG PO BID, AMIODARONE 200MG PO BID, TORADOL 15MG IV Q6H PRN PAIN, MORPHINE SULFATE 2MG IV Q4H PRN, ZOFRAN 4MG IV Q6H PRN, NYSTATIN CREAM TID PRN, NYSTATIN POWDER BID PRN, ZOVIRAX TOP Q8H, PROCRIT 10,000 UNITS ON MON,WED,FRI, VALIUM 5MG PO TID PRN, MEGACE 40MG PO BID, AND PHENOBARBITAL 7.5 MG PO HS (2) Atrial fibrillation Status: Acute Qualifiers: Atrial fibrillation type: unspecified Qualified Code(s): I48.91 - Unspecified atrial fibrillation Plan: DIGOXIN 0.125 IV X 1 (3) Fracture of neck of humerus Status: Acute Qualifiers: Encounter type: initial encounter Fracture type: closed Laterality: left Qualified Code(s): S42.212A - Unspecified displaced fracture of surgical neck of left humerus, initial encounter for closed fracture Plan: CONSULT ORTHO (4) Urinary tract infection Status: Acute Qualifiers: Urinary tract infection type: acute cystitis Hematuria presence: without hematuria Qualified Code(s): N30.00 - Acute cystitis without hematuria (5) Shortness of breath Status: Acute (6) Anemia Status: Acute Qualifiers: Anemia type: unspecified type Qualified Code(s): D64.9 - Anemia, unspecifi ed (7) Dehydration Status: Acute (8) Generalized weakness Status: Acute (9) Alcoholic dementia Status: Acute Qualifiers: Dementia behavioral disturbance: without behavioral disturbance Qualified Code(s): F10.27 - Alcohol dependence with alcohol-induced persisting dementia (10) Recent cerebrovascular accident (CVA) Status: Chronic (11) Hypertension Status: Chronic Qualifiers: Hypertension type: primary hypertension Qualified Code(s): I10 - Essential (primary) hypertension (12) Hyperlipidemia Status: Chronic Qualifiers: Hyperlipidemia type: mixed hyperlipidemia Qualified Code(s): E78.2 - Mixed hyperlipidemia
[2021-12-27] MEDS: DIFLUCAN 200 MG IV PREMIX* 200 MG/100 ML BAG IV SCH (11:19)
[2021-12-27] MEDS: REMERON PO SCH ×3 (21:01→23:40)
[2021-12-27] MEDS: PHENOBARBITAL TAB 30 MG (32.4MG) PO SCH ×3 (21:02→23:40)
[2021-12-27] MEDS: VALIUM PO PRN (23:41)
[2021-12-28] MEDS: XOPENEX 1.25 MG/3 ML NEBULE NEB SCH ×3 (00:05→17:34)
[2021-12-28] MEDS: MORPHINE SULFATE INJ 2 MG INJ IVP PRN (02:16)
[2021-12-28 04:33] LABS: BASOPHILS % (AUTO) 0.5 % (0.2-1.0); EOSINOPHILS # (AUTO) 0.1 x10^3/uL (0.0-0.2); EOSINOPHILS % (AUTO) 1.9 % (0.9-2.9); HEMATOCRIT 26.7 % (36.0-47.0); HEMOGLOBIN 8.8 g/dL (12.0-16.0); LYMPHOCYTES # (AUTO) 0.6 X10^3/uL (1.3-2.9); LYMPHOCYTES % (AUTO) 8.4 % (21.0-51.0); MEAN CORPUSCULAR HEMOGLOBIN 31.7 pg (27.0-34.0); MEAN CORPUSCULAR HGB CONC 32.9 g/dL (33.0-35.0); MEAN CORPUSCULAR VOLUME 96.4 fL (80.0-100.0); MEAN PLATELET VOLUME 8.6 fL (7.4-11.0); MONOCYTES # (AUTO) 0.9 x10^3/uL (0.3-0.8); MONOCYTES % (AUTO) 13.6 % (0.0-13.0); NEUTROPHILS # (AUTO) 5.2 x10^3/uL (2.2-4.8); NEUTROPHILS % (AUTO) 75.6 % (42.0-75.0); RED BLOOD COUNT 2.77 X10^6/uL (3.5-5.4); RED CELL DISTRIBUTION WIDTH 20.9 % (11.6-16.5); WHITE BLOOD COUNT 6.9 X10^3/uL (3.6-10.0)
[2021-12-28 04:52] LABS: ALANINE AMINOTRANSFERASE 11 Units/L (12-78); ALBUMIN 4.2 g/dL (3.4-5.0); ALKALINE PHOSPHATASE 120 Units/L (46-116); ASPARTATE AMINO TRANSFERASE 15 Units/L (15-37); BLOOD UREA NITROGEN 16 mg/dL (7-18); CALCIUM 8.4 mg/dL (8.5-10.1); CARBON DIOXIDE 31.1 mmol/L (21-32); CHLORIDE 98 mmol/L (98-107); CREATININE 1.38 mg/dL (0.55-1.02); SODIUM 140 mmol/L (136-145); TOTAL PROTEIN 6.7 g/dL (6.4-8.2); eGFR NON BLACK RACES 41 (>60)
[2021-12-28 05:32] LABS: ANISOCYTOSIS 1+; PLATELET MORPHOLOGY COMMENT NORMAL (NORMAL); SCHISTOCYTES PRESENT
[2021-12-28] MEDS: CORDARONE TAB 200 MG PO SCH ×2 (06:08→16:49)
[2021-12-28] MEDS: ALBUMIN HUMAN 25%- 100 ML 100 ML IV SCH (08:02)
[2021-12-28] MEDS: CARDIZEM CD 240 MG 24-HR PO SCH (08:03)
[2021-12-28] MEDS: LOVENOX INJ 30 MG SYR SC SCH ×2 (08:03→20:29)
[2021-12-28] MEDS: PROTONIX INJ 40 MG VIAL IVP SCH ×2 (08:04→20:30)
[2021-12-28] MEDS: THIAMINE HCL INJ IVP SCH ×2 (08:04→20:30)
[2021-12-28] MEDS: ZESTRIL TAB 10 MG PO SCH (08:04)
[2021-12-28] MEDS: LASIX IVP SCH (08:04)
[2021-12-28] MEDS: CYMBALTA PO SCH (08:05)
[2021-12-28] MEDS: LOPRESSOR TAB 50 MG PO SCH ×2 (08:05→20:29)
[2021-12-28] MEDS: MEGACE PO SCH ×2 (08:05→20:30)
[2021-12-28] MEDS: K-DUR TAB 20 MEQ PO PRN (08:06)
[2021-12-28] MEDS: MVI IV SCH ×2 (08:41)
[2021-12-28] MEDS: NS IV SCH ×2 (08:41)
[2021-12-28 08:55] LABS: ABG BASE EXCESS 7.6 mmol/L (-2.0-2.0)
[2021-12-28 08:56] LABS: ABG ALLEN TEST POS; ABG HCO3 36.3 mmol/L (22-26)
[2021-12-28] MEDS: PULMICORT NEB TX 0.5 MG NEB SCH ×2 (09:20→21:13)
[2021-12-28] MEDS: INVanz INJ 1 GRAM VIAL 1 G in NS 100 ML IV 100 ML IV SCH (09:39)
[2021-12-28] MEDS: DIFLUCAN 200 MG IV PREMIX* 200 MG/100 ML BAG IV SCH (11:00)
--- NOTE | 2021-12-28 12:23 | RAD ---
HISTORYSOBSTUDYAP chestCOMPARISONApril 2021FINDINGSStable marked cardiac enlargement. Diffuse, bilateral confluent airspace disease is noted in the lungs, similar on the right and increasing on the left. Diaphragm surfaces are obscured; small pleural effusions may be present.IMPRESSIONFindings remain consistent with cardiomegaly and CHF/edema. Slight apparent progression of this process in the left lung.Electronically signed by: JUSTIN VILLALTA (Dec 28, 2021 12:23:13)
[2021-12-28] MEDS: NORCO 5/325 MG TAB PO PRN (16:49)
[2021-12-28] MEDS: PHENOBARBITAL TAB 30 MG (32.4MG) PO SCH (20:30)
[2021-12-28] MEDS: REMERON PO SCH (20:30)
[2021-12-29] MEDS: XOPENEX 1.25 MG/3 ML NEBULE NEB SCH ×4 (00:34→18:30)
[2021-12-29 05:06] LABS: BASOPHILS % (AUTO) 0.4 % (0.2-1.0); EOSINOPHILS # (AUTO) 0.1 x10^3/uL (0.0-0.2); EOSINOPHILS % (AUTO) 2.5 % (0.9-2.9); HEMATOCRIT 29.2 % (36.0-47.0); HEMOGLOBIN 9.6 g/dL (12.0-16.0); LYMPHOCYTES # (AUTO) 0.6 X10^3/uL (1.3-2.9); LYMPHOCYTES % (AUTO) 10.3 % (21.0-51.0); MEAN CORPUSCULAR HGB CONC 32.8 g/dL (33.0-35.0); MEAN CORPUSCULAR VOLUME 97.6 fL (80.0-100.0); MEAN PLATELET VOLUME 8.4 fL (7.4-11.0); MONOCYTES # (AUTO) 0.7 x10^3/uL (0.3-0.8); MONOCYTES % (AUTO) 11.9 % (0.0-13.0); NEUTROPHILS # (AUTO) 4.3 x10^3/uL (2.2-4.8); NEUTROPHILS % (AUTO) 74.9 % (42.0-75.0); RED BLOOD COUNT 2.99 X10^6/uL (3.5-5.4); RED CELL DISTRIBUTION WIDTH 20.9 % (11.6-16.5); WHITE BLOOD COUNT 5.8 X10^3/uL (3.6-10.0)
[2021-12-29 05:14] LABS: ALANINE AMINOTRANSFERASE 11 Units/L (12-78); ALBUMIN 4.2 g/dL (3.4-5.0); ALKALINE PHOSPHATASE 116 Units/L (46-116); ASPARTATE AMINO TRANSFERASE 14 Units/L (15-37); BLOOD UREA NITROGEN 15 mg/dL (7-18); CALCIUM 8.9 mg/dL (8.5-10.1); CARBON DIOXIDE 33.9 mmol/L (21-32); CHLORIDE 99 mmol/L (98-107); CREATININE 1.27 mg/dL (0.55-1.02); SODIUM 141 mmol/L (136-145); TOTAL PROTEIN 6.6 g/dL (6.4-8.2); eGFR NON BLACK RACES 45 (>60)
[2021-12-29 05:40] LABS: ANISOCYTOSIS 1+; PLATELET MORPHOLOGY COMMENT NORMAL (NORMAL)
[2021-12-29 05:44] LABS: ABG ALLEN TEST POS; ABG BASE EXCESS 9.4 mmol/L (-2.0-2.0); ABG HCO3 35.7 mmol/L (22-26)
--- NOTE | 2021-12-29 06:15 | RAD ---
HISTORYCHF .brHX: CVA, HTN SX: APPENDECTOMY, HYSTERECTOMY, ORTHOSTUDYCHEST, 1 [id number]/03/2022FINDINGSThe trachea is midline. The cardiac silhouette is enlarged.. Diffuse bilateral could fluid airspace disease. No pneumothorax.. The bony thorax is unremarkable.IMPRESSIONCardiomegaly with diffuse bilateral confluent airspace disease unchanged from previous 12/28/2021.Electronically signed by: Josias Blake (Dec 29, 2021 06:15:37)
[2021-12-29] MEDS: NS IV SCH ×4 (08:35→23:09)
[2021-12-29] MEDS: MVI IV SCH ×4 (08:35→23:09)
[2021-12-29] MEDS: PULMICORT NEB TX 0.5 MG NEB SCH ×2 (09:07→20:15)
[2021-12-29] MEDS: INVanz INJ 1 GRAM VIAL 1 G in NS 100 ML IV 100 ML IV SCH (09:35)
[2021-12-29] MEDS: ALBUMIN HUMAN 25%- 100 ML 100 ML IV SCH (09:35)
[2021-12-29] MEDS: LOVENOX INJ 30 MG SYR SC SCH ×2 (09:36→21:16)
[2021-12-29] MEDS: LASIX IVP SCH (09:36)
[2021-12-29] MEDS: PROTONIX INJ 40 MG VIAL IVP SCH ×2 (09:36→21:03)
[2021-12-29] MEDS: MORPHINE SULFATE INJ 2 MG INJ IVP PRN (09:37)
[2021-12-29] MEDS: PROCRIT or EPOGEN VIAL 10,000 UNITS SC SCH (09:37)
[2021-12-29] MEDS: THIAMINE HCL INJ IVP SCH ×2 (09:37→21:04)
[2021-12-29] MEDS: MEGACE PO SCH ×2 (09:37→20:51)
[2021-12-29] MEDS: CARDIZEM CD 240 MG 24-HR PO SCH (09:38)
[2021-12-29] MEDS: LOPRESSOR TAB 50 MG PO SCH ×2 (09:38→20:51)
[2021-12-29] MEDS: ZESTRIL TAB 10 MG PO SCH (09:38)
[2021-12-29] MEDS: CYMBALTA PO SCH (09:38)
[2021-12-29] MEDS: CORDARONE TAB 200 MG PO SCH ×2 (09:39→18:00)
[2021-12-29] MEDS: DIFLUCAN 200 MG IV PREMIX* 200 MG/100 ML BAG IV SCH (09:39)
--- NOTE | 2021-12-29 10:33 | PCM.PROG ---
Progress Note - Progress Note for Day of Date of Exam: 12/28/21 - Subjective Subjective: IS BEING TREATED FOR A-FIB, CHRONIC RENAL FAILURE, HUMERAL NECK FRACTURE, E.COLI UTI, CHF, ANEMIA, AND GENERALIZED WEAKNESS. SHE HAS RECEIVED TWO UNITS OF PRBC SINCE ADMISSION. SHE HAS A PMH OF RECENT CVA, HTN, A-FIB, HYPERLIPIDEMIA, AND RENAL DISEASE, AND ALCOHOLISM. TODAY, SHE IS LYING IN BED WITH EYES CLOSED ON MORNING ROUNDS. SHE AWAKENS TO VERBAL STIMULI. SHE IS CURRENTLY UTILIZING OXYGEN VIA SIMPLE MASK AT 10 LPM. SATURATIONS HAVE BEEN IN THE 90s THIS MORNING. SHE DID UTILIZE THE BIPAP SOME THROUGHOUT THE NIGHT. SHE HAS BEEN UNABLE TO GET OUT OF BED. SHE HAS MODERATE WEAKNESS TO BILATERAL UPPER AND LOWER EXTREMITIES. ON EXAMINATION, HEART IS REGULAR IN RATE AND RHYTHM. BILATERAL LUNGS NOTED WITH EXPIRATORY WHEEZING THROUGHOUT. ABDOMEN IS ROUND, SOFT, AND NON-TENDER WITH NORMAL BOWEL SOUNDS NOTED IN ALL QUADRANTS. JACOBO CATHETER NOTED TO BEDSIDE DRAINAGE. SCATTERED BRUISING NOTED OVER BODY. EDEMA NOTED TO BILATERAL UPPER EXTREMITIES. HER VITALS THIS MORNING ARE: 98.7-120-13-96%-123/66. LABS WERE OBTAINED. ABNORMAL LAB VALUES INCLUDE THE FOLLOWING: RBC 2.77, HGB 8.8, HCT 26.7, CREATININE 1.38, CALCIUM 8.4, ALT 11, ALK PHOS 120, BNP 836. CHEST XRAY OBTAINED AND REVEALED: Findings remain consistent with cardiomegaly and CHF/edema. Slight apparent progression of this process in the left lung. SHE IS CURRENTLY RECEIVING NORMAL SALINE WITH MVI IN EACH LITER AT 50 ML/HR, ALBUMIN 25% IV DAILY, INVANZ 1 G IV DAILY, LASIX 40MG IV DAILY, DIFLUCAN 200MG IV DAILY, CARDIZEM CD 240 MG PO DAILY, LISINOPRIL 10 MG PO DAILY, AMIODARONE 200MG PO BIDWM, LOPRESSOR 75 MG PO BID, PROTONIX 40MG IV BID, TORADOL 15MG IV Q6H PRN PAIN, MORPHINE SULFATE 2MG IV Q4H PRN, MEGACE 40MG PO BID, NORCO 5/325MG PO Q6H PRN, ZOFRAN 4MG IV Q6H PRN, PROCRIT 10,000 UNITS MON,WED,FRI, VALIUM 5MG PO TID PRN, PHENOBARBITAL 7.5MG HS, MEGACE 40MG PO BID, NYSTATIN CREAM TID PRN, NYSTATIN POWDER BID PRN, ZOVIRAX TOP Q8H. OTHERWISE, WE WILL CONTINUE WITH CURRENT PLAN OF CARE TODAY. WE WILL HAVE PHYSICAL THERAPY WORK WITH HER. WE HAVE DISCUSSED OPTIONS FOR DISCHARGE WITH HER FAMILY. [facility] WE WILL DISCUSS WITH CASE MANAGEMENT AND ARRANGE PLACEMENT. OTHERWISE, WE WILL FOLLOW UP WITH AM LABS AND CONTINUE TO MONITOR. TIME SPENT ON CLINICAL ASSESSMENT, REVIEWING LABS AND IMAGING, DECISION MAKING, AND DOCUMENTATION GREATER THAN 45 MINUTES. - Past Medical Family Social History Past Med/Fam/Surg Hx: No changes since H&P Allergies: Allergies No Known Drug Allergies [NKDA] Allergy (Verified 03/25/21 13:54) - Review of Systems ROS: No change since H&P - Vital Signs and I&O's Vital Signs: Temperature 99.0 F Pulse Rate [Left Radial] 128 Pulse Rate 82 Respiratory Rate 19 Blood Pressure [Right Arm] 116/79 Blood Pressure 179/76 O2 Sat by Pulse Oximetry 94 Intake and Output: Intake & Output 12/26/21 12/27/21 12/28/21 12/29/21 11:59 11:59 11:59 11:59 Intake Total 1485 / 1485 805 / 805 2174 / 2174 2199 / 2199 Output Total 1925 / 1925 1050 / 1050 1150 / 1150 750 / 750 Balance -440 / -440 -245 / -245 1024 / 1024 1449 / 1449 - Physical Exam Oriented: Unable to test Eyes: Normal Ear: Normal Nose: Normal Throat: Normal Respiratory: Diminished Cardiovascular: Irregular : Normal Auscultation: Bowel Sounds: Normal Palpation: Normal Tenderness: Normal Skin: Normal, Wound, Bruising (LEFT UPPER ARM ) Musculoskeletal: Left, Shoulder, Arm, Tender Psychiatric: Other (OBTUNDED) Mood Description: Calm Affect: Normal Speech Pattern: Unclear, Slurred - Laboratory and Diagnostics Result Diagrams: 12/29/21 04:15 12/29/21 04:15 Labs: 12/10/21 14:35 Urine,Clean Catch Urine Culture - Final Grecia Lusitaniae 11/26/21 13:05 Urine,Catheterized Urine Culture - Final Escherichia Coli Laboratory WBC 5.8 X10^3/uL (3.6-10.0) 12/29/21 04:15 RBC 2.99 X10^6/uL (3.5-5.4) L 12/29/21 04:15 Hgb 9.6 g/dL (12.0-16.0) L 12/29/21 04:15 Hct 29.2 % (36.0-47.0) L 12/29/21 04:15 MCV 97.6 fL (80.0-100.0) 12/29/21 04:15 MCH 32.0 pg (27.0-34.0) 12/29/21 04:15 MCHC 32.8 g/dL (33.0-35.0) L 12/29/21 04:15 RDW 20.9 % (11.6-16.5) H 12/29/21 04:15 Plt Count 229 X10^3/uL (150.0-450.0) 12/29/21 04:15 Plt Count Comment Adequate (ADEQUATE) 12/29/21 04:15 MPV 8.4 fL (7.4-11.0) 12/29/21 04:15 Neut % (Auto) 74.9 % (42.0-75.0) 12/29/21 04:15 Lymph % (Auto) 10.3 % (21.0-51.0) L 12/29/21 04:15 [place] % (Auto) 11.9 % (0.0-13.0) 12/29/21 04:15 Eos % (Auto) 2.5 % (0.9-2.9) 12/29/21 04:15 Baso % (Auto) 0.4 % (0.2-1.0) 12/29/21 04:15 Neut # (Auto) 4.3 x10^3/uL (2.2-4.8) 12/29/21 04:15 Lymph # (Auto) 0.6 X10^3/uL (1.3-2.9) L 12/29/21 04:15 [place] # (Auto) 0.7 x10^3/uL (0.3-0.8) 12/29/21 04:15 Eos # (Auto) 0.1 x10^3/uL (0.0-0.2) 12/29/21 04:15 Baso # (Auto) 0.0 X10^3/uL (0.0-0.1) 12/29/21 04:15 Absolute Nucleated RBC 0.1 /100WBC 12/29/21 04:15 Total Counted 100 12/16/21 04:32 Neutrophils % (Manual) 64 % (39-76) 12/16/21 04:32 Band Neutrophils % 3 % (0-10) 12/16/21 04:32 Lymphocytes % (Manual) 13 % (13-43) 12/16/21 04:32 Monocytes % (Manual) 18 % (4-9) H 12/16/21 04:32 Eosinophils % (Manual) 1 % (0-6) 12/16/21 04:32 Metamyelocytes % 1 12/16/21 04:32 Plt Clumps, EDTA Rare 11/29/21 13:48 Plt Morphology Comment Normal (NORMAL) 12/29/21 04:15 RBC Morphology Abnormal (NORMAL) A 12/29/21 04:15 Hypochromasia Slight A 12/25/21 04:18 Poikilocytosis Slight A 12/26/21 04:10 Anisocytosis 1+ A 12/29/21 04:15 Macrocytosis Slight A 12/15/21 04:05 Tear Drop Cells Present 12/26/21 04:10 Stomatocytes Present 12/24/21 04:22 Schistocytes Present 12/28/21 04:00 D-Dimer 7.60 ug/ml (0.0-0.57) H* 12/09/21 05:23 Sample Site Lrad 12/29/21 05:40 ABG pH 7.420 (7.35-7.45) 12/29/21 05:40 ABG pCO2 55.0 mmHg (35.0-45.0) H* 12/29/21 05:40 ABG pO2 61.0 mmHg (80.0-100.0) L 12/29/21 05:40 ABG HCO3 35.7 mmol/L (22-26) H* 12/29/21 05:40 ABG O2 Saturation 91.0 % (90-100) 12/29/21 05:40 ABG Base Excess 9.4 mmol/L (-2.0-2.0) H 12/29/21 05:40 Edi Test Pos 12/29/21 05:40 A-a Gradient 191.0 mmHg 12/29/21 05:40 FiO2 45.0 12/29/21 05:40 Blood Gas Comments [place] well ms 12/29/21 05:40 Sodium 141 mmol/L (136-145) 12/29/21 04:15 Corrected Sodium TNP 12/29/21 04:15 Potassium 3.8 mmol/L (3.5-5.1) 12/29/21 04:15 Chloride 99 mmol/L (98-107) 12/29/21 04:15 Carbon Dioxide 33.9 mmol/L (21-32) H 12/29/21 04:15 BUN 15 mg/dL (7-18) 12/29/21 04:15 Creatinine 1.27 mg/dL (0.55-1.02) H 12/29/21 04:15 Est GFR (MDRD) Af Amer 54 (>60) L 12/29/21 04:15 Est GFR (MDRD) Non-Af 45 (>60) L 12/29/21 04:15 Glucose 89 mg/dL (65-99) 12/29/21 04:15 POC Glucose (mg/dL) 102 mg/dL (65-99) H 12/26/21 20:11 Calcium 8.9 mg/dL (8.5-10.1) 12/29/21 04:15 Corrected Calcium TNP 12/29/21 04:15 Magnesium 2.1 mg/dL (1.7-2.9) 12/23/21 05:23 Iron 17 ug/dL (50-175) L 11/29/21 10:08 Transferrin 119 mg/dL (202-364) L 11/29/21 10:08 Ferritin 917 ng/mL (8-252) H 11/29/21 10:08 Total Bilirubin 0.50 mg/dL (0.2-1.0) 12/29/21 04:15 AST 14 Units/L (15-37) L 12/29/21 04:15 ALT 11 Units/L (12-78) L 12/29/21 04:15 Alkaline Phosphatase 116 Units/L (46-116) 12/29/21 04:15 Creatine Kinase 26 Units/L (26-192) 12/09/21 05:23 CK-MB (CK-2) < 1.0 ng/mL (0-4.0) 12/09/21 05:23 CK/CKMB % Calc 3.9 % (<4) 12/09/21 05:23 Troponin I High Sens 137.2 ng/L (4.0-60.0) H* 12/10/21 05:23 B-Natriuretic Peptide 766 pg/mL (0-79) H* 12/29/21 04:15 Total Protein 6.6 g/dL (6.4-8.2) 12/29/21 04:15 Albumin 4.2 g/dL (3.4-5.0) 12/29/21 04:15 Globulin 2.4 g/dL (2.5-4.5) L 12/29/21 04:15 Albumin/Globulin Ratio 1.8 Ratio (1.1-2.1) 12/29/21 04:15 Thiamine 65 nmol/L (70-180) L 12/20/21 11:32 Vitamin B12 > 2000 pg/mL (193-986) H 11/29/21 10:08 Folate 4.1 ng/mL (>8.6) L 11/29/21 10:08 Specimen Type Catherized urine 12/15/21 13:30 Urine Color Yellow (YELLOW) 12/15/21 13:30 Urine Appearance Clear (CLEAR) 12/15/21 13:30 Urine pH 5.0 (5.0 - 8.0) 12/15/21 13:30 Ur Specific [place] 1.015 (1.000-1.030) 12/15/21 13:30 Urine Protein 1+ (NEGATIVE) 12/15/21 13:30 Urine Glucose (UA) Negative (NEGATIVE) 12/15/21 13:30 Urine Ketones Negative (NEGATIVE) 12/15/21 13:30 Urine Occult Blood Negative (NEGATIVE) 12/15/21 13:30 Urine Nitrite Negative (NEGATIVE) 12/15/21 13:30 Urine Bilirubin Negative (NEGATIVE) 12/15/21 13:30 Urine Urobilinogen Normal (NORMAL) 12/15/21 13:30 Ur Leukocyte Esterase Negative (NEGATIVE) 12/15/21 13:30 Urine RBC 0-2 /HPF (0-3) 12/15/21 13:30 Urine WBC 0-2 /HPF (0-5) 12/15/21 13:30 Ur Squamous Epith Cells Rare /HPF (NEGATIVE) 12/15/21 13:30 Urine Bacteria Trace /HPF (NEGATIVE) 12/15/21 13:30 Urine Mucus Few /HPF (NEGATIVE) 12/05/21 12:10 Urine Yeast Many /HPF (NEGATIVE) 12/15/21 13:30 Ur Culture Indicated? No/not indicated 12/15/21 13:30 Stool Description 10g brown loose 11/29/21 18:30 Stl Occult Blood (IFOB) Negative (NEGATIVE) 11/29/21 18:30 Digoxin 1.08 ng/mL (0.9-2) 12/20/21 04:23 SARS CoV-2 RNA Rapid KAMALJIT Negative (NEGATIVE) 11/26/21 11:11 Blood Type O POSITIVE 12/06/21 11:42 Antibody Screen Negative 12/06/21 11:42 Crossmatch See Detail 11/29/21 10:08 - Plan (1) Acute on chronic renal failure Status: Acute Qualifiers: Acute renal failure type: unspecified Chronic kidney disease stage: unspec ified stage Qualified Code(s): N17.9 - Acute kidney failure, unspecified; N18.9 - Chronic kidney disease, unspecified Plan: NORMAL SALINE AT 50 ML/HR WITH MVI IN EACH LITER, INVANZ 1 G IV DAILY, ALBUMIN 25% IV DAILY, DIFLUCAN 200MG IV DAILY, LASIX 40MG IV DAILY, MEGACE 40MG PO BID, CARDIZEM CD 240MG PO DAILY, LOPRESSOR 75MG PO BID, AMIODARONE 200MG PO BID, TORADOL 15MG IV Q6H PRN PAIN, MORPHINE SULFATE 2MG IV Q4H PRN, ZOFRAN 4MG IV Q6H PRN, NYSTATIN CREAM TID PRN, NYSTATIN POWDER BID PRN, ZOVIRAX TOP Q8H, PROCRIT 10,000 UNITS ON MON,WED,FRI, VALIUM 5MG PO TID PRN, MEGACE 40MG PO BID, AND PHENOBARBITAL 7.5 MG PO HS (2) Atrial fibrillation Status: Acute Qualifiers: Atrial fibrillation type: unspecified Qualified Code(s): I48.91 - Unspec ified atrial fibrillation (3) Fracture of neck of humerus Status: Acute Qualifiers: Encounter type: initial encounter Fracture type: closed Laterality: left Qualified Code(s): S42.212A - Unspecified displaced fracture of surgical neck of left humerus, initial encounter for closed fracture Plan: CONSULT ORTHO (4) Urinary tract infection Status: Acute Qualifiers: Urinary tract infection type: acute cystitis Hematuria presence: without hematuria Qualified Code(s): N30.00 - Acute cystitis without hematuria (5) Shortness of breath Status: Acute (6) Anemia Status: Acute Qualifiers: Anemia type: unspecified type Qualified Code(s): D64.9 - Anemia, unspecified (7) Dehydration Status: Acute (8) Generalized weakness Status: Acute (9) Alcoholic dementia Status: Acute Qualifiers: Dementia behavioral disturbance: without behavioral disturbance Qualified Code(s): F10.27 - Alcohol dependence with alcohol-induced persisting dementia (10) Recent cerebrovascular accident (CVA) Status: Chronic (11) Hypertension Status: Chronic Qualifiers: Hypertension type: primary hypertension Qualified Code(s): I10 - Essential (primary) hypertension (12) Hyperlipidemia Status: Chronic Qualifiers: Hyperlipidemia type: mixed hyperlipidemia Qualified Code(s): E78.2 - Mixed hyperlipidemia
[2021-12-29] MEDS: REMERON PO SCH (20:51)
[2021-12-29] MEDS: PHENOBARBITAL TAB 30 MG (32.4MG) PO SCH (20:51)
[2021-12-30] MEDS: XOPENEX 1.25 MG/3 ML NEBULE NEB SCH ×4 (00:25→17:00)
[2021-12-30] MEDS: MORPHINE SULFATE INJ 2 MG INJ IVP PRN (03:34)
[2021-12-30 05:18] LABS: BASOPHILS % (AUTO) 0.6 % (0.2-1.0); EOSINOPHILS # (AUTO) 0.1 x10^3/uL (0.0-0.2); EOSINOPHILS % (AUTO) 2.2 % (0.9-2.9); HEMATOCRIT 26.7 % (36.0-47.0); HEMOGLOBIN 8.9 g/dL (12.0-16.0); LYMPHOCYTES # (AUTO) 0.5 X10^3/uL (1.3-2.9); LYMPHOCYTES % (AUTO) 9.3 % (21.0-51.0); MEAN CORPUSCULAR HEMOGLOBIN 31.9 pg (27.0-34.0); MEAN CORPUSCULAR HGB CONC 33.1 g/dL (33.0-35.0); MEAN CORPUSCULAR VOLUME 96.4 fL (80.0-100.0); MEAN PLATELET VOLUME 8.2 fL (7.4-11.0); MONOCYTES # (AUTO) 0.6 x10^3/uL (0.3-0.8); MONOCYTES % (AUTO) 11.9 % (0.0-13.0); RED BLOOD COUNT 2.77 X10^6/uL (3.5-5.4); RED CELL DISTRIBUTION WIDTH 20.7 % (11.6-16.5); WHITE BLOOD COUNT 5.2 X10^3/uL (3.6-10.0)
[2021-12-30 05:38] LABS: ANISOCYTOSIS 1+; PLATELET MORPHOLOGY COMMENT NORMAL (NORMAL); SCHISTOCYTES PRESENT
--- NOTE | 2021-12-30 07:13 | RAD ---
HISTORYSOBSTUDYCHEST, 1 [id number]/2022.TECHNIQUEAP chest 2 imagesFINDINGSCardiac silhouette is stably enlarged. No significant change in bilateral airspace and interstitial opacities. Cannot exclude bilateral small pleural effusions. No pneumothorax.IMPRESSIONNo significant change in cardiomegaly and bilateral airspace opacities that may represent pulmonary edema or pneumonia. Recommend follow-up to document resolutionElectronically signed by: Zachary Wise (Dec 30, 2021 07:13:03)
[2021-12-30 08:18] LABS: ALANINE AMINOTRANSFERASE 12 Units/L (12-78); ALBUMIN 4.2 g/dL (3.4-5.0); ALKALINE PHOSPHATASE 112 Units/L (46-116); ASPARTATE AMINO TRANSFERASE 17 Units/L (15-37); BLOOD UREA NITROGEN 16 mg/dL (7-18); CALCIUM 8.9 mg/dL (8.5-10.1); CARBON DIOXIDE 31.1 mmol/L (21-32); CHLORIDE 98 mmol/L (98-107); CREATININE 1.35 mg/dL (0.55-1.02); SODIUM 141 mmol/L (136-145); TOTAL PROTEIN 6.6 g/dL (6.4-8.2); eGFR NON BLACK RACES 42 (>60)
--- NOTE | 2021-12-30 08:24 | PCM.PROG ---
Progress Note - Progress Note for Day of Date of Exam: 12/29/21 - Subjective Subjective: IS BEING TREATED FOR A-FIB, CHRONIC RENAL FAILURE, HUMERAL NECK FRACTURE, E.COLI UTI, CHF, ANEMIA, AND GENERALIZED WEAKNESS. SHE HAS RECEIVED TWO UNITS OF PRBC SINCE ADMISSION. SHE HAS A PMH OF RECENT CVA, HTN, A-FIB, HYPERLIPIDEMIA, AND RENAL DISEASE, AND ALCOHOLISM. TODAY, SHE IS LYING IN BED WITH EYES CLOSED ON MORNING ROUNDS. SHE AWAKENS TO VERBAL STIMULI. SHE IS CURRENTLY UTILIZING THE BIPAP AT 45%. SHE UTILIZED THE BIPAP THROUGHOUT THE NIGHT WELL. SATURATIONS HAVE BEEN IN THE 90s THIS MORNING. SHE HAS MODERATE WEAKNESS TO BILATERAL UPPER AND LOWER EXTREMITIES. ON EXAMINATION, SHE IS TACHY WITH HR 105-115. A-FIB NOTED. BILATERAL LUNGS NOTED WITH EXPIRATORY WHEEZING THROUGHOUT. ABDOMEN IS ROUND, SOFT, AND NON-TENDER WITH NORMAL BOWEL SOUNDS NOTED IN ALL QUADRANTS. JACOBO CATHETER NOTED TO BEDSIDE DRAINAGE. SCATTERED BRUISING NOTED OVER BODY. TRACE EDEMA NOTED TO BILATERAL UPPER EXTREMITIES. HER VITALS THIS MORNING ARE: 98.7-395-19-100%-135/74. LABS WERE OBTAINED. ABNORMAL LAB VALUES INCLUDE THE FOLLOWING: RBC 2.99, HGB 9.6, HCT 29.2, CARBON DIOXIDE 33.9, CREATININE 1.27, AST 14, ALT 11, BNP 766. ABG REVEALED: PH 7.420, PC02 55, P02 61, 02 SAT 91, BASE EXCESS 9.4, A-A GRADIENT 191, FI02 45. CHEST XRAY OBTAINED AND REVEALED: Cardiomegaly with diffuse bilateral confluent airspace disease unchanged from previous 12/28/2021. SHE IS CURRENTLY RECEIVING NORMAL SALINE WITH MVI IN EACH LITER AT 50 ML/HR, ALBUMIN 25% IV DAILY, INVANZ 1 G IV DAILY, LASIX 40MG IV DAILY, DIFLUCAN 200MG IV DAILY, CARDIZEM CD 240 MG PO DAILY, LISINOPRIL 10 MG PO DAILY, AMIODARONE 200MG PO BIDWM, LOPRESSOR 75 MG PO BID, PROTONIX 40MG IV BID, TORADOL 15MG IV Q6H PRN PAIN, MORPHINE SULFATE 2MG IV Q4H PRN, MEGACE 40MG PO BID, NORCO 5/325MG PO Q6H PRN, ZOFRAN 4MG IV Q6H PRN, PROCRIT 10,000 UNITS MON,WED,FRI, VALIUM 5MG PO TID PRN, PHENOBARBITAL 7.5MG HS, MEGACE 40MG PO BID, NYSTATIN CREAM TID PRN, NYSTATIN POWDER BID PRN, ZOVIRAX TOP Q8H. WE WILL CONTINUE WITH CURRENT PLAN OF CARE TODAY. WE WILL HAVE PHYSICAL THERAPY WORK WITH HER. WE HAVE DISCUSSED OPTIONS FOR DISCHARGE WITH HER FAMILY. THEY WISH FOR [facility]IENT TO [facility] TO [facility]. WE WILL DISCUSS WITH CASE MANAGEMENT AND ARRANGE PLACEMENT. OTHERWISE, WE WILL FOLLOW UP WITH AM LABS AND CONTINUE TO MONITOR. TIME SPENT ON CLINICAL ASSESSMENT, REVIEWING LABS AND IMAGING, DECISION MAKING, AND DOCUMENTATION GREATER THAN 45 MINUTES. - Past Medical Family Social History Past Med/Fam/Surg Hx: No changes since H&P Allergies: Allergies No Known Drug Allergies [NKDA] Allergy (Verified 03/25/21 13:54) - Review of Systems ROS: No change since H&P - Vital Signs and I&O's Vital Signs: Temperature 97.8 F Pulse Rate [Left Radial] 128 Pulse Rate 95 Respiratory Rate 21 Blood Pressure [Right Arm] 116/79 Blood Pressure 116/92 O2 Sat by Pulse Oximetry 91 Intake and Output: Intake & Output 12/27/21 12/28/21 12/29/21 12/30/21 11:59 11:59 11:59 11:59 Intake Total 805 / 805 2174 / 2174 2199 / 2199 1469 / 1469 Output Total 1050 / 1050 1150 / 1150 750 / 750 850 / 850 Balance -245 / -245 1024 / 1024 1449 / 1449 619 / 619 - Physical Exam Oriented: Unable to test Eyes: Normal Ear: Normal Nose: Normal Throat: Normal Respiratory: Diminished Cardiovascular: Irregular : Normal Auscultation: Bowel Sounds: Normal Tenderness: Normal Skin: Normal, Wound, Bruising (LEFT UPPER ARM ) Musculoskeletal: Left, Shoulder, Arm, Tender Psychiatric: Other (OBTUNDED) Mood Description: Calm Affect: Normal Speech Pattern: Unclear, Slurred - Laboratory and Diagnostics Result Diagrams: 12/30/21 04:50 12/30/21 04:50 Labs: 12/10/21 14:35 Urine,Clean Catch Urine Culture - Final Grecia Lusitaniae 11/26/21 13:05 Urine,Catheterized Urine Culture - Final Escherichia Coli Laboratory WBC 5.2 X10^3/uL (3.6-10.0) 12/30/21 04:50 RBC 2.77 X10^6/uL (3.5-5.4) L 12/30/21 04:50 Hgb 8.9 g/dL (12.0-16.0) L 12/30/21 04:50 Hct 26.7 % (36.0-47.0) L 12/30/21 04:50 MCV 96.4 fL (80.0-100.0) 12/30/21 04:50 MCH 31.9 pg (27.0-34.0) 12/30/21 04:50 MCHC 33.1 g/dL (33.0-35.0) 12/30/21 04:50 RDW 20.7 % (11.6-16.5) H 12/30/21 04:50 Plt Count 208 X10^3/uL (150.0-450.0) 12/30/21 04:50 Plt Count Comment Adequate (ADEQUATE) 12/30/21 04:50 MPV 8.2 fL (7.4-11.0) 12/30/21 04:50 Neut % (Auto) 76.0 % (42.0-75.0) H 12/30/21 04:50 Lymph % (Auto) 9.3 % (21.0-51.0) L 12/30/21 04:50 [place] % (Auto) 11.9 % (0.0-13.0) 12/30/21 04:50 Eos % (Auto) 2.2 % (0.9-2.9) 12/30/21 04:50 Baso % (Auto) 0.6 % (0.2-1.0) 12/30/21 04:50 Neut # (Auto) 4.0 x10^3/uL (2.2-4.8) 12/30/21 04:50 Lymph # (Auto) 0.5 X10^3/uL (1.3-2.9) L 12/30/21 04:50 [place] # (Auto) 0.6 x10^3/uL (0.3-0.8) 12/30/21 04:50 Eos # (Auto) 0.1 x10^3/uL (0.0-0.2) 12/30/21 04:50 Baso # (Auto) 0.0 X10^3/uL (0.0-0.1) 12/30/21 04:50 Absolute Nucleated RBC 0.1 /100WBC 12/30/21 04:50 Total Counted 100 12/16/21 04:32 Neutrophils % (Manual) 64 % (39-76) 12/16/21 04:32 Band Neutrophils % 3 % (0-10) 12/16/21 04:32 Lymphocytes % (Manual) 13 % (13-43) 12/16/21 04:32 Monocytes % (Manual) 18 % (4-9) H 12/16/21 04:32 Eosinophils % (Manual) 1 % (0-6) 12/16/21 04:32 Metamyelocytes % 1 12/16/21 04:32 Plt Clumps, EDTA Rare 11/29/21 13:48 Plt Morphology Comment Normal (NORMAL) 12/30/21 04:50 RBC Morphology Abnormal (NORMAL) A 12/30/21 04:50 Hypochromasia Slight A 12/25/21 04:18 Poikilocytosis Slight A 12/26/21 04:10 Anisocytosis 1+ A 12/30/21 04:50 Macrocytosis Slight A 12/15/21 04:05 Tear Drop Cells Present 12/26/21 04:10 Stomatocytes Present 12/24/21 04:22 Schistocytes Present 12/30/21 04:50 D-Dimer 7.60 ug/ml (0.0-0.57) H* 12/09/21 05:23 Sample Site Lrad 12/29/21 05:40 ABG pH 7.420 (7.35-7.45) 12/29/21 05:40 ABG pCO2 55.0 mmHg (35.0-45.0) H* 12/29/21 05:40 ABG pO2 61.0 mmHg (80.0-100.0) L 12/29/21 05:40 ABG HCO3 35.7 mmol/L (22-26) H* 12/29/21 05:40 ABG O2 Saturation 91.0 % (90-100) 12/29/21 05:40 ABG Base Excess 9.4 mmol/L (-2.0-2.0) H 12/29/21 05:40 Edi Test Pos 12/29/21 05:40 A-a Gradient 191.0 mmHg 12/29/21 05:40 FiO2 45.0 12/29/21 05:40 Blood Gas Comments [place] well ms 12/29/21 05:40 Sodium 141 mmol/L (136-145) 12/30/21 04:50 Corrected Sodium TNP 12/30/21 04:50 Potassium 3.7 mmol/L (3.5-5.1) 12/30/21 04:50 Chloride 98 mmol/L (98-107) 12/30/21 04:50 Carbon Dioxide 31.1 mmol/L (21-32) 12/30/21 04:50 BUN 16 mg/dL (7-18) 12/30/21 04:50 Creatinine 1.35 mg/dL (0.55-1.02) H 12/30/21 04:50 Est GFR (MDRD) Af Amer 50 (>60) L 12/30/21 04:50 Est GFR (MDRD) Non-Af 42 (>60) L 12/30/21 04:50 Glucose 79 mg/dL (65-99) 12/30/21 04:50 POC Glucose (mg/dL) 102 mg/dL (65-99) H 12/26/21 20:11 Calcium 8.9 mg/dL (8.5-10.1) 12/30/21 04:50 Corrected Calcium TNP 12/30/21 04:50 Magnesium 2.1 mg/dL (1.7-2.9) 12/23/21 05:23 Iron 17 ug/dL (50-175) L 11/29/21 10:08 Transferrin 119 mg/dL (202-364) L 11/29/21 10:08 Ferritin 917 ng/mL (8-252) H 11/29/21 10:08 Total Bilirubin 0.50 mg/dL (0.2-1.0) 12/30/21 04:50 AST 17 Units/L (15-37) 12/30/21 04:50 ALT 12 Units/L (12-78) 12/30/21 04:50 Alkaline Phosphatase 112 Units/L (46-116) 12/30/21 04:50 Creatine Kinase 26 Units/L (26-192) 12/09/21 05:23 CK-MB (CK-2) < 1.0 ng/mL (0-4.0) 12/09/21 05:23 CK/CKMB % Calc 3.9 % (<4) 12/09/21 05:23 Troponin I High Sens 137.2 ng/L (4.0-60.0) H* 12/10/21 05:23 B-Natriuretic Peptide 791 pg/mL (0-79) H* 12/30/21 04:50 Total Protein 6.6 g/dL (6.4-8.2) 12/30/21 04:50 Albumin 4.2 g/dL (3.4-5.0) 12/30/21 04:50 Globulin 2.4 g/dL (2.5-4.5) L 12/30/21 04:50 Albumin/Globulin Ratio 1.8 Ratio (1.1-2.1) 12/30/21 04:50 Thiamine 65 nmol/L (70-180) L 12/20/21 11:32 Vitamin B12 > 2000 pg/mL (193-986) H 11/29/21 10:08 Folate 4.1 ng/mL (>8.6) L 11/29/21 10:08 Specimen Type Catherized urine 12/15/21 13:30 Urine Color Yellow (YELLOW) 12/15/21 13:30 Urine Appearance Clear (CLEAR) 12/15/21 13:30 Urine pH 5.0 (5.0 - 8.0) 12/15/21 13:30 Ur Specific [place] 1.015 (1.000-1.030) 12/15/21 13:30 Urine Protein 1+ (NEGATIVE) 12/15/21 13:30 Urine Glucose (UA) Negative (NEGATIVE) 12/15/21 13:30 Urine Ketones Negative (NEGATIVE) 12/15/21 13:30 Urine Occult Blood Negative (NEGATIVE) 12/15/21 13:30 Urine Nitrite Negative (NEGATIVE) 12/15/21 13:30 Urine Bilirubin Negative (NEGATIVE) 12/15/21 13:30 Urine Urobilinogen Normal (NORMAL) 12/15/21 13:30 Ur Leukocyte Esterase Negative (NEGATIVE) 12/15/21 13:30 Urine RBC 0-2 /HPF (0-3) 12/15/21 13:30 Urine WBC 0-2 /HPF (0-5) 12/15/21 13:30 Ur Squamous Epith Cells Rare /HPF (NEGATIVE) 12/15/21 13:30 Urine Bacteria Trace /HPF (NEGATIVE) 12/15/21 13:30 Urine Mucus Few /HPF (NEGATIVE) 12/05/21 12:10 Urine Yeast Many /HPF (NEGATIVE) 12/15/21 13:30 Ur Culture Indicated? No/not indicated 12/15/21 13:30 Stool Description 10g brown loose 11/29/21 18:30 Stl Occult Blood (IFOB) Negative (NEGATIVE) 11/29/21 18:30 Digoxin 1.08 ng/mL (0.9-2) 12/20/21 04:23 SARS CoV-2 RNA Rapid KAMALJIT Negative (NEGATIVE) 11/26/21 11:11 Blood Type O POSITIVE 12/06/21 11:42 Antibody Screen Negative 12/06/21 11:42 Crossmatch See Detail 11/29/21 10:08 - Plan (1) Acute on chronic renal failure Status: Acute Qualifiers: Acute renal failure type: unspecified Chronic kidney disease stage: unspecified stage Qualified Code(s): N17.9 - Acute kidney failure, unspecified; N18.9 - Chronic kidney disease, unspecified Plan: NORMAL SALINE AT 50 ML/HR WITH MVI IN EACH LITER, INVANZ 1 G IV DAILY, ALBUMIN 25% IV DAILY, DIFLUCAN 200MG IV DAILY, LASIX 40MG IV DAILY, MEGACE 40MG PO BID, CARDIZEM CD 240MG PO DAILY, LOPRESSOR 75MG PO BID, AMIODARONE 200MG PO BID, TORADOL 15MG IV Q6H PRN PAIN, MORPHINE SULFATE 2MG IV Q4H PRN, ZOFRAN 4MG IV Q6H PRN, NYSTATIN CREAM TID PRN, NYSTATIN POWDER BID PRN, ZOVIRAX TOP Q8H, PROCRIT 10,000 UNITS ON MON,WED,FRI, VALIUM 5MG PO TID PRN, MEGACE 40MG PO BID, AND PHENOBARBITAL 7.5 MG PO HS (2) Atrial fibrillation Status: Acute Qualifiers: Atrial fibrillation type: unspecified Qualified Code(s): I48.91 - Unspecified atrial fibrillation (3) Fracture of neck of humerus Status: Acute Qualifiers: Encounter type: initial encounter Fracture type: closed Laterality: left Qualified Code(s): S42.212A - Unspecified displaced fracture of surgical neck of left humerus, initial encounter for closed fracture (4) Urinary tract infection Status: Acute Qualifiers: Urinary tract infection type: acute cystitis Hematuria presence: without hematuria Qualified Code(s): N30.00 - Acute cystitis without hematuria (5) Shortness of breath Status: Acute (6) Anemia Status: Acute Qualifiers: Anemia type: unspecified type Qualified Code(s): D64.9 - Anemia, unspecified (7) Dehydration Status: Acute (8) Generalized weakness Status: Acute (9) Alcoholic dementia Status: Acute Qualifiers: Dementia behavioral disturbance: without behavioral disturbance Qualified C ode(s): F10.27 - Alcohol dependence with alcohol-induced persisting dementia (10) Recent cerebrovascular accident (CVA) Status: Chronic (11) Hypertension Status: Chronic Qualifiers: Hypertension type: primary hypertension Qualified Code(s): I10 - Essential (primary) hypertension (12) Hyperlipidemia Status: Chronic Qualifiers: Hyperlipidemia type: mixed hyperlipidemia Qualified Code(s): E78.2 - Mixed hyperlipidemia
[2021-12-30] MEDS: PULMICORT NEB TX 0.5 MG NEB SCH ×2 (08:29→20:45)
[2021-12-30] MEDS: ALBUMIN HUMAN 25%- 100 ML 100 ML IV SCH (09:53)
[2021-12-30] MEDS: LOVENOX INJ 30 MG SYR SC SCH ×2 (09:53→20:15)
[2021-12-30] MEDS: INVanz INJ 1 GRAM VIAL 1 G in NS 100 ML IV 100 ML IV SCH (09:53)
[2021-12-30] MEDS: DIFLUCAN 200 MG IV PREMIX* 200 MG/100 ML BAG IV SCH (09:54)
[2021-12-30] MEDS: LOPRESSOR TAB 50 MG PO SCH ×2 (09:54→20:15)
[2021-12-30] MEDS: CORDARONE TAB 200 MG PO SCH ×2 (09:55→18:17)
[2021-12-30] MEDS: CARDIZEM CD 240 MG 24-HR PO SCH (09:55)
[2021-12-30] MEDS: PROTONIX INJ 40 MG VIAL IVP SCH ×2 (09:55→20:14)
[2021-12-30] MEDS: LASIX IVP SCH ×2 (09:55→20:13)
[2021-12-30] MEDS: CYMBALTA PO SCH (09:56)
[2021-12-30] MEDS: MEGACE PO SCH ×2 (09:56→20:14)
[2021-12-30] MEDS: ZESTRIL TAB 10 MG PO SCH (09:56)
[2021-12-30] MEDS: THIAMINE HCL INJ IVP SCH ×2 (09:57→20:14)
[2021-12-30] MEDS: NS IV SCH ×4 (16:09→23:06)
[2021-12-30] MEDS: MVI IV SCH ×4 (16:09→23:06)
[2021-12-30] MEDS: REMERON PO SCH (20:16)
[2021-12-30] MEDS: PHENOBARBITAL TAB 30 MG (32.4MG) PO SCH (20:16)
[2021-12-30] MEDS: COLACE CAP 100 MG PO PRN (20:20)
[2021-12-30] MEDS ORDERED: SALINE 0.9% 3 ML NEB TX ONE (20:28)
[2021-12-30] MEDS ORDERED: NS 250 ML IV 250 ML IV ONE (20:30)
[2021-12-31] MEDS: XOPENEX 1.25 MG/3 ML NEBULE NEB SCH ×4 (00:30→16:28)
[2021-12-31] MEDS: MORPHINE SULFATE INJ 2 MG INJ IVP PRN ×2 (01:15→20:21)
[2021-12-31] MEDS: ZOFRAN INJ 4 MG VIAL IVP PRN (03:34)
[2021-12-31 03:59] LABS: BASOPHILS % (AUTO) 0.7 % (0.2-1.0); EOSINOPHILS # (AUTO) 0.2 x10^3/uL (0.0-0.2); LYMPHOCYTES # (AUTO) 0.6 X10^3/uL (1.3-2.9); LYMPHOCYTES % (AUTO) 9.2 % (21.0-51.0); MEAN CORPUSCULAR HEMOGLOBIN 32.3 pg (27.0-34.0); MEAN CORPUSCULAR HGB CONC 33.4 g/dL (33.0-35.0); MEAN CORPUSCULAR VOLUME 96.9 fL (80.0-100.0); MEAN PLATELET VOLUME 8.1 fL (7.4-11.0); MONOCYTES # (AUTO) 0.7 x10^3/uL (0.3-0.8); MONOCYTES % (AUTO) 11.1 % (0.0-13.0); NEUTROPHILS # (AUTO) 4.7 x10^3/uL (2.2-4.8); RED BLOOD COUNT 2.79 X10^6/uL (3.5-5.4); RED CELL DISTRIBUTION WIDTH 21.2 % (11.6-16.5); WHITE BLOOD COUNT 6.2 X10^3/uL (3.6-10.0)
[2021-12-31 04:00] LABS: ALANINE AMINOTRANSFERASE 11 Units/L (12-78); ALBUMIN 4.3 g/dL (3.4-5.0); ALKALINE PHOSPHATASE 116 Units/L (46-116); ASPARTATE AMINO TRANSFERASE 13 Units/L (15-37); BLOOD UREA NITROGEN 15 mg/dL (7-18); CARBON DIOXIDE 32.7 mmol/L (21-32); CHLORIDE 98 mmol/L (98-107); CREATININE 1.37 mg/dL (0.55-1.02); SODIUM 140 mmol/L (136-145); TOTAL PROTEIN 6.7 g/dL (6.4-8.2); eGFR NON BLACK RACES 41 (>60)
[2021-12-31 04:40] LABS: PLATELET MORPHOLOGY COMMENT NORMAL (NORMAL)
[2021-12-31 04:41] LABS: ANISOCYTOSIS 1+; SCHISTOCYTES PRESENT; TEAR DROP CELLS PRESENT
[2021-12-31] MEDS: NS 250 ML IV 250 ML IV PRN ×2 (05:19→17:10)
--- NOTE | 2021-12-31 07:14 | RAD ---
HISTORYShortness of breathSTUDYChest AP portableCOMPARISON12/30/2021FINDINGSExami nation is somewhat underpenetrated. The heart remains enlarged. Re-demonstrated is bilateral perihilar alveolar filling most consistent with cardiogenic versus noncardiogenic pulmonary edema. Bilateral infection and ARDS could have this appearance and clinical correlation is recommended. Bilateral pleural effusions are suspected. Bony thorax is unremarkable.IMPRESSIONNo change cardiomegaly with diffuse bilateral perihilar alveolar filling most consistent with cardiogenic versus noncardiogenic pulmonary edema although bilateral infection and ARDS could have this appearance.Likely bilateral pleural effusionsElectronically signed by: DOMINGA RODRIGUEZ (Dec 31, 2021 07:14:18)
[2021-12-31] MEDS: MVI IV SCH ×4 (08:00→18:38)
[2021-12-31] MEDS: ALBUMIN HUMAN 25%- 100 ML 100 ML IV SCH (08:00)
[2021-12-31] MEDS: NS IV SCH ×4 (08:00→18:38)
--- NOTE | 2021-12-31 08:20 | PCM.PROG ---
Progress Note - Progress Note for Day of Date of Exam: 12/30/21 - Subjective Subjective: IS BEING TREATED FOR A-FIB, CHRONIC RENAL FAILURE, HUMERAL NECK FRACTURE, E.COLI UTI, CHF, ANEMIA, AND GENERALIZED WEAKNESS. SHE HAS RECEIVED TWO UNITS OF PRBC SINCE ADMISSION. SHE HAS A PMH OF RECENT CVA, HTN, A-FIB, HYPERLIPIDEMIA, AND RENAL DISEASE, AND ALCOHOLISM. TODAY, SHE IS LYING IN BED WITH EYES CLOSED ON MORNING ROUNDS. SHE AWAKENS TO VERBAL STIMULI. SHE IS CURRENTLY UTILIZING THE BIPAP AT 60%. SHE UTILIZED THE BIPAP THROUGHOUT THE NIGHT WELL. SATURATIONS HAVE BEEN IN THE 90s THIS MORNING. SHE HAS MODERATE WEAKNESS TO BILATERAL UPPER AND LOWER EXTREMITIES. ON EXAMINATION, SHE IS TACHY WITH HR 100-110. A-FIB NOTED. BILATERAL LUNGS NOTED WITH EXPIRATORY WHEEZING THROUGHOUT. ABDOMEN IS ROUND, SOFT, AND NON-TENDER WITH NORMAL BOWEL SOUNDS NOTED IN ALL QUADRANTS. JACOBO CATHETER NOTED TO BEDSIDE DRAINAGE. SCATTERED BRUISING NOTED OVER BODY. TRACE EDEMA NOTED TO BILATERAL UPPER EXTREMITIES. HER VITALS THIS MORNING ARE: 98.6-110-23-94%-132/76. LABS WERE OBTAINED. ABNORMAL LAB VALUES INCLUDE THE FOLLOWING: RBC 2.79, HGB 9.0, HCT 27.0, CARBON DIOXIDE 32.7, AST 13, ALT 11, BNP 745, GLOBULIN 2.4. CHEST XRAY OBTAINED AND REVEALED: No significant change in cardiomegaly and bilateral airspace opacities that may represent pulmonary edema or pneumonia. SHE IS CURRENTLY RECEIVING NORMAL SALINE WITH MVI IN EACH LITER AT 50 ML/HR, ALBUMIN 25% IV DAILY, INVANZ 1 G IV DAILY, LASIX 40MG IV DAILY, DIFLUCAN 200MG IV DAILY, CARDIZEM CD 240 MG PO DAILY, LISINOPRIL 10 MG PO DAILY, AMIODARONE 200MG PO BIDWM, LOPRESSOR 75 MG PO BID, PROTONIX 40MG IV BID, TORADOL 15MG IV Q6H PRN PAIN, MORPHINE SULFATE 2MG IV Q4H PRN, MEGACE 40MG PO BID, NORCO 5/325MG PO Q6H PRN, ZOFRAN 4MG IV Q6H PRN, PROCRIT 10,000 UNITS MON,WED,FRI, VALIUM 5MG PO TID PRN, PHENOBARBITAL 7.5MG HS, MEGACE 40MG PO BID, NYSTATIN CREAM TID PRN, NYSTATIN POWDER BID PRN, ZOVIRAX TOP Q8H. WE WILL INCREASE LASIX TO 40MG BID. OTHERWISE, WE WILL CONTINUE WITH CURRENT PLAN OF CARE TODAY. WE WILL HAVE PHYSICAL THERAPY WORK WITH HER. WE HAVE DISCUSSED OPTIONS FOR DISCHARGE WITH HER FAMILY. THEY WISH FOR [facility]IENT TO GO TO THE [facility]. WE WILL DISCUSS WITH CASE MANAGEMENT AND ARRANGE PLACEMENT. OTHERWISE, WE WILL FOLLOW UP WITH AM LABS AND CONTINUE TO MONITOR. TIME SPENT ON CLINICAL ASSESSMENT, REVIEWING LABS AND IMAGING, DECISION MAKING, AND DOCUMENTATION GREATER THAN 45 MINUTES. - Past Medical Family Social History Past Med/Fam/Surg Hx: No changes since H&P Allergies: Allergies No Known Drug Allergies [NKDA] Allergy (Verified 03/25/21 13:54) - Review of Systems ROS: No change since H&P - Vital Signs and I&O's Vital Signs: Temperature 97.9 F Pulse Rate [Left Radial] 128 Pulse Rate 98 Respiratory Rate 17 Blood Pressure [Right Arm] 116/79 Blood Pressure 115/66 O2 Sat by Pulse Oximetry 95 Intake and Output: Intake & Output 12/28/21 12/29/21 12/30/21 12/31/21 11:59 11:59 11:59 11:59 Intake Total 2174 / 2174 2199 / 2199 1469 / 1469 1808 / 1808 Output Total 1150 / 1150 750 / 750 850 / 850 1250 / 1250 Balance 1024 / 1024 1449 / 1449 619 / 619 558 / 558 - Physical Exam Oriented: Unable to test Eyes: Normal Ear: Normal Nose: Normal Throat: Normal Respiratory: Diminished Cardiovascular: Irregular : Normal Auscultation: Bowel Sounds: Normal Palpation: Normal Tenderness: Normal Skin: Normal, Wound, Bruising (LEFT UPPER ARM ) Musculoskeletal: Left, Shoulder, Arm, Tender Psychiatric: Other (OBTUNDED) Mood Description: Calm Affect: Normal Speech Pattern: Unclear, Slurred - Laboratory and Diagnostics Result Diagrams: 12/31/21 03:20 12/31/21 03:20 Labs: 12/10/21 14:35 Urine,Clean Catch Urine Culture - Final Grecia Lusitaniae 11/26/21 13:05 Urine,Catheterized Urine Culture - Final Escherichia Coli Laboratory WBC 6.2 X10^3/uL (3.6-10.0) 12/31/21 03:20 RBC 2.79 X10^6/uL (3.5-5.4) L 12/31/21 03:20 Hgb 9.0 g/dL (12.0-16.0) L 12/31/21 03:20 Hct 27.0 % (36.0-47.0) L 12/31/21 03:20 MCV 96.9 fL (80.0-100.0) 12/31/21 03:20 MCH 32.3 pg (27.0-34.0) 12/31/21 03:20 MCHC 33.4 g/dL (33.0-35.0) 12/31/21 03:20 RDW 21.2 % (11.6-16.5) H 12/31/21 03:20 Plt Count 237 X10^3/uL (150.0-450.0) 12/31/21 03:20 Plt Count Comment Adequate (ADEQUATE) 12/31/21 03:20 MPV 8.1 fL (7.4-11.0) 12/31/21 03:20 Neut % (Auto) 76.0 % (42.0-75.0) H 12/31/21 03:20 Lymph % (Auto) 9.2 % (21.0-51.0) L 12/31/21 03:20 [place] % (Auto) 11.1 % (0.0-13.0) 12/31/21 03:20 Eos % (Auto) 3.0 % (0.9-2.9) H 12/31/21 03:20 Baso % (Auto) 0.7 % (0.2-1.0) 12/31/21 03:20 Neut # (Auto) 4.7 x10^3/uL (2.2-4.8) 12/31/21 03:20 Lymph # (Auto) 0.6 X10^3/uL (1.3-2.9) L 12/31/21 03:20 [place] # (Auto) 0.7 x10^3/uL (0.3-0.8) 12/31/21 03:20 Eos # (Auto) 0.2 x10^3/uL (0.0-0.2) 12/31/21 03:20 Baso # (Auto) 0.0 X10^3/uL (0.0-0.1) 12/31/21 03:20 Absolute Nucleated RBC 0.1 /100WBC 12/31/21 03:20 Total Counted 100 12/16/21 04:32 Neutrophils % (Manual) 64 % (39-76) 12/16/21 04:32 Band Neutrophils % 3 % (0-10) 12/16/21 04:32 Lymphocytes % (Manual) 13 % (13-43) 12/16/21 04:32 Monocytes % (Manual) 18 % (4-9) H 12/16/21 04:32 Eosinophils % (Manual) 1 % (0-6) 12/16/21 04:32 Metamyelocytes % 1 12/16/21 04:32 Plt Clumps, EDTA Rare 11/29/21 13:48 Plt Morphology Comment Normal (NORMAL) 12/31/21 03:20 RBC Morphology Abnormal (NORMAL) A 12/31/21 03:20 Hypochromasia Slight A 12/25/21 04:18 Poikilocytosis Slight A 12/26/21 04:10 Anisocytosis 1+ A 12/31/21 03:20 Macrocytosis Slight A 12/15/21 04:05 Tear Drop Cells Present 12/31/21 03:20 Stomatocytes Present 12/24/21 04:22 Schistocytes Present 12/31/21 03:20 D-Dimer 7.60 ug/ml (0.0-0.57) H* 12/09/21 05:23 Sample Site Lrad 12/29/21 05:40 ABG pH 7.420 (7.35-7.45) 12/29/21 05:40 ABG pCO2 55.0 mmHg (35.0-45.0) H* 12/29/21 05:40 ABG pO2 61.0 mmHg (80.0-100.0) L 12/29/21 05:40 ABG HCO3 35.7 mmol/L (22-26) H* 12/29/21 05:40 ABG O2 Saturation 91.0 % (90-100) 12/29/21 05:40 ABG Base Excess 9.4 mmol/L (-2.0-2.0) H 12/29/21 05:40 Edi Test Pos 12/29/21 05:40 A-a Gradient 191.0 mmHg 12/29/21 05:40 FiO2 45.0 12/29/21 05:40 Blood Gas Comments [place] well ms 12/29/21 05:40 Sodium 140 mmol/L (136-145) 12/31/21 03:20 Corrected Sodium TNP 12/31/21 03:20 Potassium 3.6 mmol/L (3.5-5.1) 12/31/21 03:20 Chloride 98 mmol/L (98-107) 12/31/21 03:20 Carbon Dioxide 32.7 mmol/L (21-32) H 12/31/21 03:20 BUN 15 mg/dL (7-18) 12/31/21 03:20 Creatinine 1.37 mg/dL (0.55-1.02) H 12/31/21 03:20 Est GFR (MDRD) Af Amer 50 (>60) L 12/31/21 03:20 Est GFR (MDRD) Non-Af 41 (>60) L 12/31/21 03:20 Glucose 85 mg/dL (65-99) 12/31/21 03:20 POC Glucose (mg/dL) 102 mg/dL (65-99) H 12/26/21 20:11 Calcium 9.0 mg/dL (8.5-10.1) 12/31/21 03:20 Corrected Calcium TNP 12/31/21 03:20 Magnesium 2.1 mg/dL (1.7-2.9) 12/23/21 05:23 Iron 17 ug/dL (50-175) L 11/29/21 10:08 Transferrin 119 mg/dL (202-364) L 11/29/21 10:08 Ferritin 917 ng/mL (8-252) H 11/29/21 10:08 Total Bilirubin 0.50 mg/dL (0.2-1.0) 12/31/21 03:20 AST 13 Units/L (15-37) L 12/31/21 03:20 ALT 11 Units/L (12-78) L 12/31/21 03:20 Alkaline Phosphatase 116 Units/L (46-116) 12/31/21 03:20 Ammonia 16 umol/L (11-32) 12/30/21 17:03 Creatine Kinase 26 Units/L (26-192) 12/09/21 05:23 CK-MB (CK-2) < 1.0 ng/mL (0-4.0) 12/09/21 05:23 CK/CKMB % Calc 3.9 % (<4) 12/09/21 05:23 Troponin I High Sens 137.2 ng/L (4.0-60.0) H* 12/10/21 05:23 B-Natriuretic Peptide 745 pg/mL (0-79) H* 12/31/21 03:20 Total Protein 6.7 g/dL (6.4-8.2) 12/31/21 03:20 Albumin 4.3 g/dL (3.4-5.0) 12/31/21 03:20 Globulin 2.4 g/dL (2.5-4.5) L 12/31/21 03:20 Albumin/Globulin Ratio 1.8 Ratio (1.1-2.1) 12/31/21 03:20 Thiamine 65 nmol/L (70-180) L 12/20/21 11:32 Vitamin B12 > 2000 pg/mL (193-986) H 11/29/21 10:08 Folate 4.1 ng/mL (>8.6) L 11/29/21 10:08 Specimen Type Catherized urine 12/15/21 13:30 Urine Color Yellow (YELLOW) 12/15/21 13:30 Urine Appearance Clear (CLEAR) 12/15/21 13:30 Urine pH 5.0 (5.0 - 8.0) 12/15/21 13:30 Ur Specific [place] 1.015 (1.000-1.030) 12/15/21 13:30 Urine Protein 1+ (NEGATIVE) 12/15/21 13:30 Urine Glucose (UA) Negative (NEGATIVE) 12/15/21 13:30 Urine Ketones Negative (NEGATIVE) 12/15/21 13:30 Urine Occult Blood Negative (NEGATIVE) 12/15/21 13:30 Urine Nitrite Negative (NEGATIVE) 12/15/21 13:30 Urine Bilirubin Negative (NEGATIVE) 12/15/21 13:30 Urine Urobilinogen Normal (NORMAL) 12/15/21 13:30 Ur Leukocyte Esterase Negative (NEGATIVE) 12/15/21 13:30 Urine RBC 0-2 /HPF (0-3) 12/15/21 13:30 Urine WBC 0-2 /HPF (0-5) 12/15/21 13:30 Ur Squamous Epith Cells Rare /HPF (NEGATIVE) 12/15/21 13:30 Urine Bacteria Trace /HPF (NEGATIVE) 12/15/21 13:30 Urine Mucus Few /HPF (NEGATIVE) 12/05/21 12:10 Urine Yeast Many /HPF (NEGATIVE) 12/15/21 13:30 Ur Culture Indicated? No/not indicated 12/15/21 13:30 Stool Description 10g brown loose 11/29/21 18:30 Stl Occult Blood (IFOB) Negative (NEGATIVE) 11/29/21 18:30 Digoxin 1.08 ng/mL (0.9-2) 12/20/21 04:23 SARS CoV-2 RNA Rapid KAMALJIT Negative (NEGATIVE) 11/26/21 11:11 Blood Type O POSITIVE 12/06/21 11:42 Antibody Screen Negative 12/06/21 11:42 Crossmatch See Detail 11/29/21 10:08 - Plan (1) Acute on chronic renal failure Status: Acute Qualifiers: Acute renal failure type: unspecified Chronic kidney disease stage: unspecified stage Qualified Code(s): N17.9 - Acute kidney failure, unspecified; N18.9 - Chronic kidney disease, unspecified Plan: NORMAL SALINE AT 50 ML/HR WITH MVI IN EACH LITER, INVANZ 1 G IV DAILY, ALBUMIN 25% IV DAILY, DIFLUCAN 200MG IV DAILY, LASIX 40MG IV BID, MEGACE 40MG PO BID, CARDIZEM CD 240MG PO DAILY, LOPRESSOR 75MG PO BID, AMIODARONE 200MG PO BID, TORADOL 15MG IV Q6H PRN PAIN, MORPHINE SULFATE 2MG IV Q4H PRN, ZOFRAN 4MG IV Q6H PRN, NYSTATIN CREAM TID PRN, NYSTATIN POWDER BID PRN, ZOVIRAX TOP Q8H, PROCRIT 10,000 UNITS ON MON,WED,FRI, VALIUM 5MG PO TID PRN, MEGACE 40MG PO BID, AND PHENOBARBITAL 7.5 MG PO HS (2) Atrial fibrillation Status: Acute Qualifiers: Atrial fibrillation type: unspecified Qualified Code(s): I48.91 - Unspecified atrial fibrillation (3) Fracture of neck of humerus Status: Acute Qualifiers: Encounter type: initial encounter Fracture type: closed Laterality: left Qualified Code(s): S42.212A - Unspecified displaced fracture of surgical neck of left humerus, initial encounter for closed fracture (4) Urinary tract infection Status: Acute Qualifiers: Urinary tract infection type: acute cystitis Hematuria presence: without hematuria Qualified Code(s): N30.00 - Acute cystitis without hematuria (5) Shortness of breath Status: Acute (6) Anemia Status: Acute Qualifiers: Anemia type: unspecified type Qualified Code(s): D64.9 - Anemia, unspecifie d (7) Dehydration Status: Acute (8) Generalized weakness Status: Acute (9) Alcoholic dementia Status: Acute Qualifiers: Dementia behavioral disturbance: without behavioral disturbance Qualified Code(s): F10.27 - Alcohol dependence with alcohol-induced persisting dementia (10) Recent cerebrovascular accident (CVA) Status: Chronic (11) Hypertension Status: Chronic Qualifiers: Hypertension type: primary hypertension Qualified Code(s): I10 - Essential (primary) hypertension (12) Hyperlipidemia Status: Chronic Qualifiers: Hyperlipidemia type: mixed hyperlipidemia Qualified Code(s): E78.2 - Mixed hyperlipidemia
[2021-12-31] MEDS: PULMICORT NEB TX 0.5 MG NEB SCH ×2 (08:35→20:53)
[2021-12-31] MEDS: LOVENOX INJ 30 MG SYR SC SCH ×2 (09:33→20:18)
[2021-12-31] MEDS: THIAMINE HCL INJ IVP SCH ×2 (09:34→20:10)
[2021-12-31] MEDS: PROCRIT or EPOGEN VIAL 10,000 UNITS SC SCH (09:34)
[2021-12-31] MEDS: PROTONIX INJ 40 MG VIAL IVP SCH ×2 (09:34→20:08)
[2021-12-31] MEDS: LASIX IVP SCH ×2 (09:35→20:08)
[2021-12-31] MEDS ORDERED: NS 250 ML IV 250 ML IV ONE (14:44)
[2021-12-31] MEDS: CORDARONE TAB 200 MG PO SCH ×2 (17:09→17:11)
[2021-12-31] MEDS: CYMBALTA PO SCH (17:09)
[2021-12-31] MEDS: CARDIZEM CD 240 MG 24-HR PO SCH (17:09)
[2021-12-31] MEDS: DIFLUCAN PO SCH (17:09)
[2021-12-31] MEDS: MEGACE PO SCH ×2 (17:10→21:03)
[2021-12-31] MEDS: LEVAQUIN TAB 250 MG PO SCH (17:10)
[2021-12-31] MEDS: ZESTRIL TAB 10 MG PO SCH (17:10)
[2021-12-31] MEDS: LOPRESSOR TAB 50 MG PO SCH ×2 (17:10→21:03)
[2021-12-31] MEDS ORDERED: SALINE 0.9% 3 ML NEB TX ONE (20:19)
[2021-12-31] MEDS: REMERON PO SCH (21:03)
[2021-12-31] MEDS: PHENOBARBITAL TAB 30 MG (32.4MG) PO SCH (21:03)
--- NOTE | 2021-12-31 23:02 | PCM.PROG ---
Progress Note - Progress Note for Day of Date of Exam: 12/31/21 - Subjective Subjective: IS BEING TREATED FOR A-FIB, CHRONIC RENAL FAILURE, HUMERAL NECK FRACTURE, E.COLI UTI, CHF, ANEMIA, AND GENERALIZED WEAKNESS. SHE HAS RECEIVED TWO UNITS OF PRBC SINCE ADMISSION. SHE HAS A PMH OF RECENT CVA, HTN, A-FIB, HYPERLIPIDEMIA, AND RENAL DISEASE, AND ALCOHOLISM. TODAY, SHE IS LYING IN BED WITH EYES CLOSED ON MORNING ROUNDS. SHE AWAKENS TO VERBAL STIMULI. SHE IS CURRENTLY UTILIZING THE BIPAP AT 60%. SHE UTILIZED THE BIPAP THROUGHOUT THE NIGHT WELL. SATURATIONS HAVE BEEN IN THE 85-90s THIS MORNING. SHE HAS MODERATE WEAKNESS TO BILATERAL UPPER AND LOWER EXTREMITIES. ON EXAMINATION, A- FIB NOTED WITH HR IN THE 90s. BILATERAL LUNGS NOTED WITH EXPIRATORY WHEEZING THROUGHOUT. ABDOMEN IS ROUND, SOFT, AND NON-TENDER WITH NORMAL BOWEL SOUNDS NOTED IN ALL QUADRANTS. JACOBO CATHETER NOTED TO BEDSIDE DRAINAGE. SCATTERED BRUISING NOTED OVER BODY. TRACE EDEMA NOTED TO BILATERAL UPPER EXTREMITIES. HER VITALS THIS MORNING ARE: 97.3-92-16-90%-114/81. LABS WERE OBTAINED. ABNORMAL LAB VALUES INCLUDE THE FOLLOWING: RBC 2.79, HGB 9.0, HCT 27.0, CARBON DIOXIDE 32.7, CREATININE 1.37, GFR 41, AST 13, AST 11. CHEST XRAY OBTAINED AND REVEALED: No change cardiomegaly with diffuse bilateral perihilar alveolar filling most consistent with cardiogenic versus noncardiogenic pulmonary edema although bilateral infection and ARDS could have this appearance. Likely bilateral pleural effusions. SHE IS CURRENTLY RECEIVING NORMAL SALINE WITH MVI IN EACH LITER AT 50 ML/HR, ALBUMIN 25% IV DAILY, INVANZ 1 G IV DAILY, LASIX 40MG IV BID, DIFLUCAN 200MG IV DAILY, CARDIZEM CD 240 MG PO DAILY, LISINOPRIL 10 MG PO DAILY, AMIODARONE 200MG PO BIDWM, LOPRESSOR 75 MG PO BID, PROTONIX 40MG IV BID, TORADOL 15MG IV Q6H PRN PAIN, MORPHINE SULFATE 2MG IV Q4H PRN, MEGACE 40MG PO BID, NORCO 5/325MG PO Q6H PRN, ZOFRAN 4MG IV Q6H PRN, PROCRIT 10,000 UNITS MON,WED,FRI, VALIUM 5MG PO TID PRN, PHENOBARBITAL 7.5MG HS, MEGACE 40MG PO BID, NYSTATIN CREAM TID PRN, NYSTATIN POWDER BID PRN, ZOVIRAX TOP Q8H. OTHERWISE, WE WILL CONTINUE WITH CURRENT PLAN OF CARE TODAY. WE WILL HAVE PHYSICAL THERAPY WORK WITH HER. WE HAVE DISCUSSED OPTIONS FOR DISCHARGE WITH HER FAMILY. THEY WISH FOR PATIENT TO GO TO THE SNF. WE WILL DISCUSS WITH CASE MANAGEMENT AND ARRANGE PLACEMENT. OTHERWISE, WE WILL FOLLOW UP WITH AM LABS AND CONTINUE TO MONITOR. TIME SPENT ON CLINICAL ASSESSMENT, REVIEWING LABS AND IMAGING, DECISION MAKING, AND DOCUMENTATION GREATER THAN 45 MINUTES. - Past Medical Family Social History Past Med/Fam/Surg Hx: No changes since H&P Allergies: Allergies No Known Drug Allergies [NKDA] Allergy (Verified 03/25/21 13:54) - Review of Systems ROS: No change since H&P - Vital Signs and I&O's Vital Signs: Temperature 97.6 F Pulse Rate [Left Radial] 128 Pulse Rate 112 Respiratory Rate 30 Blood Pressure [Right Arm] 116/79 Blood Pressure 113/72 O2 Sat by Pulse Oximetry 97 Intake and Output: Intake & Output 12/29/21 12/30/21 12/31/21 01/01/22 11:59 11:59 11:59 11:59 Intake Total 2199 / 2199 1469 / 1469 1808 / 1808 1334 / 1334 Output Total 750 / 750 850 / 850 1250 / 1250 300 / 300 Balance 1449 / 1449 619 / 619 558 / 558 1034 / 1034 - Physical Exam Oriented: Unable to test Eyes: Normal Ear: Normal Nose: Normal Throat: Normal Respiratory: Diminished Cardiovascular: Irregular : Normal Auscultation: Bowel Sounds: Normal Tenderness: Normal Skin: Normal, Wound, Bruising (LEFT UPPER ARM ) Musculoskeletal: Left, Shoulder, Arm, Tender Psychiatric: Other (OBTUNDED) Mood Description: Calm Affect: Normal Speech Pattern: Unclear, Slurred - Laboratory and Diagnostics Result Diagrams: 12/31/21 03:20 12/31/21 03:20 Labs: 12/10/21 14:35 Urine,Clean Catch Urine Culture - Final Grecia Lusitaniae 11/26/21 13:05 Urine,Catheterized Urine Culture - Final Escherichia Coli Laboratory WBC 6.2 X10^3/uL (3.6-10.0) 12/31/21 03:20 RBC 2.79 X10^6/uL (3.5-5.4) L 12/31/21 03:20 Hgb 9.0 g/dL (12.0-16.0) L 12/31/21 03:20 Hct 27.0 % (36.0-47.0) L 12/31/21 03:20 MCV 96.9 fL (80.0-100.0) 12/31/21 03:20 MCH 32.3 pg (27.0-34.0) 12/31/21 03:20 MCHC 33.4 g/dL (33.0-35.0) 12/31/21 03:20 RDW 21.2 % (11.6-16.5) H 12/31/21 03:20 Plt Count 237 X10^3/uL (150.0-450.0) 12/31/21 03:20 Plt Count Comment Adequate (ADEQUATE) 12/31/21 03:20 MPV 8.1 fL (7.4-11.0) 12/31/21 03:20 Neut % (Auto) 76.0 % (42.0-75.0) H 12/31/21 03:20 Lymph % (Auto) 9.2 % (21.0-51.0) L 12/31/21 03:20 [place] % (Auto) 11.1 % (0.0-13.0) 12/31/21 03:20 Eos % (Auto) 3.0 % (0.9-2.9) H 12/31/21 03:20 Baso % (Auto) 0.7 % (0.2-1.0) 12/31/21 03:20 Neut # (Auto) 4.7 x10^3/uL (2.2-4.8) 12/31/21 03:20 Lymph # (Auto) 0.6 X10^3/uL (1.3-2.9) L 12/31/21 03:20 [place] # (Auto) 0.7 x10^3/uL (0.3-0.8) 12/31/21 03:20 Eos # (Auto) 0.2 x10^3/uL (0.0-0.2) 12/31/21 03:20 Baso # (Auto) 0.0 X10^3/uL (0.0-0.1) 12/31/21 03:20 Absolute Nucleated RBC 0.1 /100WBC 12/31/21 03:20 Total Counted 100 12/16/21 04:32 Neutrophils % (Manual) 64 % (39-76) 12/16/21 04:32 Band Neutrophils % 3 % (0-10) 12/16/21 04:32 Lymphocytes % (Manual) 13 % (13-43) 12/16/21 04:32 Monocytes % (Manual) 18 % (4-9) H 12/16/21 04:32 Eosinophils % (Manual) 1 % (0-6) 12/16/21 04:32 Metamyelocytes % 1 12/16/21 04:32 Plt Clumps, EDTA Rare 11/29/21 13:48 Plt Morphology Comment Normal (NORMAL) 12/31/21 03:20 RBC Morphology Abnormal (NORMAL) A 12/31/21 03:20 Hypochromasia Slight A 12/25/21 04:18 Poikilocytosis Slight A 12/26/21 04:10 Anisocytosis 1+ A 12/31/21 03:20 Macrocytosis Slight A 12/15/21 04:05 Tear Drop Cells Present 12/31/21 03:20 Stomatocytes Present 12/24/21 04:22 Schistocytes Present 12/31/21 03:20 D-Dimer 7.60 ug/ml (0.0-0.57) H* 12/09/21 05:23 Sample Site Lrad 12/29/21 05:40 ABG pH 7.420 (7.35-7.45) 12/29/21 05:40 ABG pCO2 55.0 mmHg (35.0-45.0) H* 12/29/21 05:40 ABG pO2 61.0 mmHg (80.0-100.0) L 12/29/21 05:40 ABG HCO3 35.7 mmol/L (22-26) H* 12/29/21 05:40 ABG O2 Saturation 91.0 % (90-100) 12/29/21 05:40 ABG Base Excess 9.4 mmol/L (-2.0-2.0) H 12/29/21 05:40 Edi Test Pos 12/29/21 05:40 A-a Gradient 191.0 mmHg 12/29/21 05:40 FiO2 45.0 12/29/21 05:40 Blood Gas Comments [place] well ms 12/29/21 05:40 Sodium 140 mmol/L (136-145) 12/31/21 03:20 Corrected Sodium TNP 12/31/21 03:20 Potassium 3.6 mmol/L (3.5-5.1) 12/31/21 03:20 Chloride 98 mmol/L (98-107) 12/31/21 03:20 Carbon Dioxide 32.7 mmol/L (21-32) H 12/31/21 03:20 BUN 15 mg/dL (7-18) 12/31/21 03:20 Creatinine 1.37 mg/dL (0.55-1.02) H 12/31/21 03:20 Est GFR (MDRD) Af Amer 50 (>60) L 12/31/21 03:20 Est GFR (MDRD) Non-Af 41 (>60) L 12/31/21 03:20 Glucose 85 mg/dL (65-99) 12/31/21 03:20 POC Glucose (mg/dL) 102 mg/dL (65-99) H 12/26/21 20:11 Calcium 9.0 mg/dL (8.5-10.1) 12/31/21 03:20 Corrected Calcium TNP 12/31/21 03:20 Magnesium 2.1 mg/dL (1.7-2.9) 12/23/21 05:23 Iron 17 ug/dL (50-175) L 11/29/21 10:08 Transferrin 119 mg/dL (202-364) L 11/29/21 10:08 Ferritin 917 ng/mL (8-252) H 11/29/21 10:08 Total Bilirubin 0.50 mg/dL (0.2-1.0) 12/31/21 03:20 AST 13 Units/L (15-37) L 12/31/21 03:20 ALT 11 Units/L (12-78) L 12/31/21 03:20 Alkaline Phosphatase 116 Units/L (46-116) 12/31/21 03:20 Ammonia 16 umol/L (11-32) 12/30/21 17:03 Creatine Kinase 26 Units/L (26-192) 12/09/21 05:23 CK-MB (CK-2) < 1.0 ng/mL (0-4.0) 12/09/21 05:23 CK/CKMB % Calc 3.9 % (<4) 12/09/21 05:23 Troponin I High Sens 137.2 ng/L (4.0-60.0) H* 12/10/21 05:23 B-Natriuretic Peptide 745 pg/mL (0-79) H* 12/31/21 03:20 Total Protein 6.7 g/dL (6.4-8.2) 12/31/21 03:20 Albumin 4.3 g/dL (3.4-5.0) 12/31/21 03:20 Globulin 2.4 g/dL (2.5-4.5) L 12/31/21 03:20 Albumin/Globulin Ratio 1.8 Ratio (1.1-2.1) 12/31/21 03:20 Thiamine 65 nmol/L (70-180) L 12/20/21 11:32 Vitamin B12 > 2000 pg/mL (193-986) H 11/29/21 10:08 Folate 4.1 ng/mL (>8.6) L 11/29/21 10:08 Specimen Type Catherized urine 12/15/21 13:30 Urine Color Yellow (YELLOW) 12/15/21 13:30 Urine Appearance Clear (CLEAR) 12/15/21 13:30 Urine pH 5.0 (5.0 - 8.0) 12/15/21 13:30 Ur Specific [place] 1.015 (1.000-1.030) 12/15/21 13:30 Urine Protein 1+ (NEGATIVE) 12/15/21 13:30 Urine Glucose (UA) Negative (NEGATIVE) 12/15/21 13:30 Urine Ketones Negative (NEGATIVE) 12/15/21 13:30 Urine Occult Blood Negative (NEGATIVE) 12/15/21 13:30 Urine Nitrite Negative (NEGATIVE) 12/15/21 13:30 Urine Bilirubin Negative (NEGATIVE) 12/15/21 13:30 Urine Urobilinogen Normal (NORMAL) 12/15/21 13:30 Ur Leukocyte Esterase Negative (NEGATIVE) 12/15/21 13:30 Urine RBC 0-2 /HPF (0-3) 12/15/21 13:30 Urine WBC 0-2 /HPF (0-5) 12/15/21 13:30 Ur Squamous Epith Cells Rare /HPF (NEGATIVE) 12/15/21 13:30 Urine Bacteria Trace /HPF (NEGATIVE) 12/15/21 13:30 Urine Mucus Few /HPF (NEGATIVE) 12/05/21 12:10 Urine Yeast Many /HPF (NEGATIVE) 12/15/21 13:30 Ur Culture Indicated? No/not indicated 12/15/21 13:30 Stool Description 10g brown loose 11/29/21 18:30 Stl Occult Blood (IFOB) Negative (NEGATIVE) 11/29/21 18:30 Digoxin 1.08 ng/mL (0.9-2) 12/20/21 04:23 SARS CoV-2 RNA Rapid KAMALJIT Negative (NEGATIVE) 11/26/21 11:11 Blood Type O POSITIVE 12/06/21 11:42 Antibody Screen Negative 12/06/21 11:42 Crossmatch See Detail 11/29/21 10:08 - Plan (1) Acute on chronic renal failure Status: Acute Qualifiers: Acute renal failure type: unspecified Chronic kidney disease stage: unspecified stage Qualified Code(s): N17.9 - Acute kidney failure, unspecified; N18.9 - Chronic kidney disease, unspecified Plan: NORMAL SALINE AT 50 ML/HR WITH MVI IN EACH LITER, INVANZ 1 G IV DAILY, ALBUMIN 25% IV DAILY, DIFLUCAN 200MG IV DAILY, LASIX 40MG IV BID, MEGACE 40MG PO BID, CARDIZEM CD 240MG PO DAILY, LOPRESSOR 75MG PO BID, AMIODARONE 200MG PO BID, TORADOL 15MG IV Q6H PRN PAIN, MORPHINE SULFATE 2MG IV Q4H PRN, ZOFRAN 4MG IV Q6H PRN, NYSTATIN CREAM TID PRN, NYSTATIN POWDER BID PRN, ZOVIRAX TOP Q8H, PROCRIT 10,000 UNITS ON MON,WED,FRI, VALIUM 5MG PO TID PRN, MEGACE 40MG PO BID, AND PHENOBARBITAL 7.5 MG PO HS (2) Atrial fibrillation Status: Acute Qualifiers: Atrial fibrillation type: unspecified Qualified Code(s): I48.91 - Unspecified atrial fibrillation Plan: DIGOXIN 0.125 IV X 1 (3) Fracture of neck of humerus Status: Acute Qualifiers: Encounter type: initial encounter Fracture type: closed Laterality: left Qualified Code(s): S42.212A - Unspecified displaced fracture of surgical neck of left humerus, initial encounter for closed fracture Plan: CONSULT ORTHO (4) Urinary tract infection Status: Acute Qualifiers: Urinary tract infection type: acute cystitis Hematuria presence: without hematuria Qualified Code(s): N30.00 - Acute cystitis without hematuria (5) Shortness of breath Status: Acute (6) Anemia Status: Acute Qualifiers: Anemia type: unspecified type Qualified Code(s): D64.9 - Anemia, unspecified (7) Dehydration Status: Acute (8) Generalized weakness Status: Acute (9) Alcoholic dementia Status: Acute Qualifiers: Dementia behavioral disturbance: without behavioral disturbance Qualified Code(s): F10.27 - Alcohol dependence with alcohol-induced persisting dementia (10) Recent cerebrovascular accident (CVA) Status: Chronic (11) Hypertension Status: Chronic Qualifiers: Hypertension type: primary hypertension Qualified Code(s): I10 - Essential (primary) hypertension (12) Hyperlipidemia Status: Chronic Qualifiers: Hyperlipidemia type: mixed hyperlipidemia Qualified Code(s): E78.2 - Mixed hyperlipidemia
[2022-01-01] MEDS: XOPENEX 1.25 MG/3 ML NEBULE NEB SCH ×4 (00:05→17:22)
[2022-01-01 05:09] LABS: BASOPHILS % (AUTO) 0.6 % (0.2-1.0); EOSINOPHILS # (AUTO) 0.1 x10^3/uL (0.0-0.2); EOSINOPHILS % (AUTO) 1.6 % (0.9-2.9); HEMATOCRIT 27.4 % (36.0-47.0); HEMOGLOBIN 8.8 g/dL (12.0-16.0); LYMPHOCYTES # (AUTO) 0.6 X10^3/uL (1.3-2.9); LYMPHOCYTES % (AUTO) 10.1 % (21.0-51.0); MEAN CORPUSCULAR HEMOGLOBIN 31.9 pg (27.0-34.0); MEAN CORPUSCULAR HGB CONC 32.2 g/dL (33.0-35.0); MEAN CORPUSCULAR VOLUME 98.8 fL (80.0-100.0); MEAN PLATELET VOLUME 7.9 fL (7.4-11.0); MONOCYTES # (AUTO) 0.7 x10^3/uL (0.3-0.8); MONOCYTES % (AUTO) 10.8 % (0.0-13.0); NEUTROPHILS # (AUTO) 4.8 x10^3/uL (2.2-4.8); NEUTROPHILS % (AUTO) 76.9 % (42.0-75.0); RED BLOOD COUNT 2.77 X10^6/uL (3.5-5.4); RED CELL DISTRIBUTION WIDTH 21.3 % (11.6-16.5); WHITE BLOOD COUNT 6.2 X10^3/uL (3.6-10.0)
[2022-01-01 05:19] LABS: ALANINE AMINOTRANSFERASE 10 Units/L (12-78); ALBUMIN 4.3 g/dL (3.4-5.0); ALKALINE PHOSPHATASE 113 Units/L (46-116); ASPARTATE AMINO TRANSFERASE 12 Units/L (15-37); BLOOD UREA NITROGEN 18 mg/dL (7-18); CALCIUM 8.6 mg/dL (8.5-10.1); CARBON DIOXIDE 33.9 mmol/L (21-32); CHLORIDE 97 mmol/L (98-107); CREATININE 1.68 mg/dL (0.55-1.02); SODIUM 138 mmol/L (136-145); TOTAL PROTEIN 6.7 g/dL (6.4-8.2); eGFR NON BLACK RACES 32 (>60)
[2022-01-01 05:51] LABS: ANISOCYTOSIS 1+; PLATELET MORPHOLOGY COMMENT NORMAL (NORMAL)
[2022-01-01 05:52] LABS: SCHISTOCYTES PRESENT; TEAR DROP CELLS PRESENT
[2022-01-01] MEDS: CORDARONE TAB 200 MG PO SCH ×2 (06:00→18:00)
--- NOTE | 2022-01-01 06:12 | RAD ---
HISTORYShortness of breathSTUDYChest AP [id number]/06/2022FINDINGSHear t remains enlarged. Bilateral perihilar alveolar filling is again identified not significantly different from the prior examination. This could be consistent with cardiogenic versus noncardiogenic edema, infection, or ARDS. Bilateral pleural effusions are likely present and unchanged. Fractures of the left lateral 4th, 5th, 6th ribs are present. No pneumothorax is identifiedIMPRESSIONNo change cardiomegaly with diffuse bilateral perihilar alveolar filling most consistent with cardiogenic versus noncardiogenic pulmonary edema although bilateral infection ARDS could have this appearanceBilateral pleural effusions unchangedBetter visualized on this examination are fractures of the left lateral 4th, 5th, 6th ribs.Electronically signed by: DOMINGA RODRIGUEZ (Jan 01, 2022 06:11:49)
[2022-01-01] MEDS: CARDIZEM CD 240 MG 24-HR PO SCH (07:59)
[2022-01-01] MEDS: CYMBALTA PO SCH (07:59)
[2022-01-01] MEDS: DIFLUCAN PO SCH (08:00)
[2022-01-01] MEDS: LEVAQUIN TAB 250 MG PO SCH (08:00)
[2022-01-01] MEDS: ZESTRIL TAB 10 MG PO SCH (08:00)
[2022-01-01] MEDS: MEGACE PO SCH (08:00)
[2022-01-01] MEDS: LOPRESSOR TAB 50 MG PO SCH (08:00)
[2022-01-01] MEDS: NS IV SCH ×4 (08:20→14:42)
[2022-01-01] MEDS: MVI IV SCH ×4 (08:20→14:42)
[2022-01-01] MEDS: ALBUMIN HUMAN 25%- 100 ML 100 ML IV SCH (08:21)
[2022-01-01] MEDS: LASIX IVP SCH ×2 (08:23→20:53)
[2022-01-01] MEDS: PROTONIX INJ 40 MG VIAL IVP SCH ×2 (08:24→20:55)
[2022-01-01] MEDS: THIAMINE HCL INJ IVP SCH ×2 (08:28→20:55)
[2022-01-01] MEDS: LOVENOX INJ 30 MG SYR SC SCH ×2 (08:29→20:54)
[2022-01-01] MEDS: PULMICORT NEB TX 0.5 MG NEB SCH ×2 (09:19→20:55)
[2022-01-02] MEDS: XOPENEX 1.25 MG/3 ML NEBULE NEB SCH ×3 (00:50→13:29)
[2022-01-02] MEDS: PHENOBARBITAL TAB 30 MG (32.4MG) PO SCH (01:13)
[2022-01-02] MEDS: REMERON PO SCH (01:13)
[2022-01-02] MEDS: MEGACE PO SCH ×2 (01:13→08:05)
[2022-01-02] MEDS: LOPRESSOR TAB 50 MG PO SCH ×2 (01:13→08:04)
[2022-01-02] MEDS: MORPHINE SULFATE INJ 2 MG INJ IVP PRN (02:22)
--- NOTE | 2022-01-02 05:22 | RAD ---
HISTORYSOB ^HX: CVA, HTN SX: APPENDECTOMY, HYSTERECTOMY, ORTHOBEST IMAGES DUE TO PATIENT CONDITIONSTUDYCHEST, 1 [id number]/07/2022FINDINGSThe trachea is midline. The cardiac silhouette is mildly enlarged.. There is diffuse opacification throughout the left lung increased from prior study. Right perihilar a alveolar opacity unchanged. No pneumothorax. Bilateral pleural effusions are present. The bony thorax is unremarkable.IMPRESSIONMild cardiomegaly. Increased opacifications throughout the left lung compared to previous 01/01/2022table bilateral pleural effusions with right perihilar alveolar opacity unchanged.Electronically signed by: Josias Blake (Jan 02, 2022 05:22:19)
[2022-01-02 05:41] LABS: ALANINE AMINOTRANSFERASE 16 Units/L (12-78); ALBUMIN 4.2 g/dL (3.4-5.0); ALKALINE PHOSPHATASE 116 Units/L (46-116); ASPARTATE AMINO TRANSFERASE 23 Units/L (15-37); BASOPHILS # (AUTO) 0.1 X10^3/uL (0.0-0.1); BASOPHILS % (AUTO) 0.7 % (0.2-1.0); BLOOD UREA NITROGEN 21 mg/dL (7-18); CALCIUM 8.2 mg/dL (8.5-10.1); CARBON DIOXIDE 33.3 mmol/L (21-32); CHLORIDE 98 mmol/L (98-107); CREATININE 2.23 mg/dL (0.55-1.02); EOSINOPHILS # (AUTO) 0.2 x10^3/uL (0.0-0.2); EOSINOPHILS % (AUTO) 2.5 % (0.9-2.9); LYMPHOCYTES # (AUTO) 0.6 X10^3/uL (1.3-2.9); MEAN CORPUSCULAR HEMOGLOBIN 31.9 pg (27.0-34.0); MEAN CORPUSCULAR HGB CONC 32.2 g/dL (33.0-35.0); MEAN CORPUSCULAR VOLUME 99.2 fL (80.0-100.0); MONOCYTES # (AUTO) 0.7 x10^3/uL (0.3-0.8); MONOCYTES % (AUTO) 9.3 % (0.0-13.0); NEUTROPHILS # (AUTO) 6.4 x10^3/uL (2.2-4.8); NEUTROPHILS % (AUTO) 79.5 % (42.0-75.0); RED BLOOD COUNT 2.82 X10^6/uL (3.5-5.4); RED CELL DISTRIBUTION WIDTH 20.9 % (11.6-16.5); SODIUM 137 mmol/L (136-145); TOTAL PROTEIN 6.5 g/dL (6.4-8.2); eGFR NON BLACK RACES 23 (>60)
[2022-01-02 06:15] LABS: ANISOCYTOSIS 1+; PLATELET MORPHOLOGY COMMENT NORMAL (NORMAL); SCHISTOCYTES PRESENT; TEAR DROP CELLS PRESENT
[2022-01-02] MEDS: ALBUMIN HUMAN 25%- 100 ML 100 ML IV SCH (08:00)
[2022-01-02] MEDS: CORDARONE TAB 200 MG PO SCH ×2 (08:02→17:34)
[2022-01-02] MEDS: CARDIZEM CD 240 MG 24-HR PO SCH (08:02)
[2022-01-02] MEDS: DIFLUCAN PO SCH (08:03)
[2022-01-02] MEDS: CYMBALTA PO SCH (08:03)
[2022-01-02] MEDS: LEVAQUIN TAB 250 MG PO SCH (08:04)
[2022-01-02] MEDS: LASIX IVP SCH (08:04)
[2022-01-02] MEDS: THIAMINE HCL INJ IVP SCH (08:04)
[2022-01-02] MEDS: LOVENOX INJ 30 MG SYR SC SCH (08:05)
[2022-01-02] MEDS: PROTONIX INJ 40 MG VIAL IVP SCH (08:06)
[2022-01-02] MEDS: ZESTRIL TAB 10 MG PO SCH (08:06)
[2022-01-02] MEDS: COLACE CAP 100 MG PO PRN (08:07)
[2022-01-02] MEDS: MVI IV SCH ×2 (08:13)
[2022-01-02] MEDS: NS IV SCH ×2 (08:13)
[2022-01-02] MEDS ORDERED: LEVAQUIN TAB 250 MG PO SCH (09:00)
[2022-01-02] MEDS: PROCRIT or EPOGEN VIAL 10,000 UNITS SC SCH (09:27)
[2022-01-02] MEDS: PULMICORT NEB TX 0.5 MG NEB SCH (09:30)
[2022-01-02] MEDS ORDERED: VERSED 100 MG in NS 100 ML IV 80 ML IV PRN (11:18)
[2022-01-02] MEDS ORDERED: VERSED IV PREMIX 100 MG/100 ML IV.SOLN IV PRN (11:32)
[2022-01-02] MEDS: MORPHINE SULFATE PCA 30 MG IV SCH ×3 (14:06→20:07)
[2022-01-02 19:07] VITALS: BP 62/41
[2022-01-03] MEDS ORDERED: LEVAQUIN TAB 250 MG PO SCH (09:00)
--- NOTE | 2022-02-24 19:16 | PCM.PROG ---
Progress Note - Progress Note for Day of Date of Exam: 01/01/22 - Subjective Subjective: IS BEING TREATED FOR A-FIB, CHRONIC RENAL FAILURE, HUMERAL NECK FRACTURE, E.COLI UTI, CHF, ANEMIA, AND GENERALIZED WEAKNESS. SHE HAS RECEIVED TWO UNITS OF PRBC SINCE ADMISSION. SHE HAS A PMH OF RECENT CVA, HTN, A-FIB, HYPERLIPIDEMIA, AND RENAL DISEASE, AND ALCOHOLISM. TODAY, SHE IS LYING IN BED WITH EYES CLOSED ON MORNING ROUNDS. SHE AWAKENS TO VERBAL STIMULI. SHE IS CURRENTLY UTILIZING THE BIPAP AT 60%. SHE UTILIZED THE BIPAP THROUGHOUT THE NIGHT WELL. SATURATIONS HAVE BEEN IN THE 91-100% THIS MORNING AND THROUGHOUT THE NIGHT. STAFF REPORTS THAT SHE WAS ABLE TO REMOVE BIPAP AND EAT ABOUT HALF A BOWL OF GRITS THIS MORNING. SHE HAS MODERATE WEAKNESS TO BILATERAL UPPER AND LOWER EXTREMITIES. ON EXAMINATION, A-FIB NOTED WITH HR 100-110 BPM. BILATERAL LUNGS NOTED WITH EXPIRATORY WHEEZING THROUGHOUT. ABDOMEN IS ROUND, SOFT, AND NON-TENDER WITH NORMAL BOWEL SOUNDS NOTED IN ALL QUADRANTS. JACOBO CATHETER NOTED TO BEDSIDE DRAINAGE. SCATTERED BRUISING NOTED OVER BODY. TRACE EDEMA NOTED TO BILATERAL UPPER EXTREMITIES. HER VITALS THIS MORNING ARE: 97.8-110-19-93%-135/75. LABS WERE OBTAINED. ABNORMAL LAB VALUES INCLUDE THE FOLLOWING: RBC 2.77, HGB 8.8, HCT 27.4, CHLORIDE 97, CARBON DIOXIDE 33.9, CREATININE 1.68, AST 12, ALT 10, BNP 660, GLOBULIN 2.4. CHEST XRAY OBTAINED AND REVEALED: No change cardiomegaly with diffuse bilateral perihilar alveolar filling most consistent with cardiogenic versus noncardiogenic pulmonary edema although bilateral infection ARDS could have this appearance. Bilateral pleural effusions unchanged. Better visualized on this examination are fractures of the left lateral 4th, 5th, 6th ribs. SHE IS CURRENTLY RECEIVING NORMAL SALINE WITH MVI IN EACH LITER AT 50 ML/HR, ALBUMIN 25% IV DAILY, INVANZ 1 G IV DAILY, LASIX 40MG IV BID, DIFLUCAN 200MG IV DAILY, CARDIZEM CD 240 MG PO DAILY, LISINOPRIL 10 MG PO DAILY, AMIODARONE 200MG PO BIDWM, LOPRESSOR 75 MG PO BID, PROTONIX 40MG IV BID, TORADOL 15MG IV Q6H PRN PAIN, MORPHINE SULFATE 2MG IV Q4H PRN, MEGACE 40MG PO BID, NORCO 5/325MG PO Q6H PRN, ZOFRAN 4MG IV Q6H PRN, PROCRIT 10,000 UNITS MON,WED,FRI, VALIUM 5MG PO TID PRN, PHENOBARBITAL 7.5MG HS, MEGACE 40MG PO BID, NYSTATIN CREAM TID PRN, NYSTATIN POWDER BID PRN, ZOVIRAX TOP Q8H. OTHERWISE, WE WILL CONTINUE WITH CURRENT PLAN OF CARE TODAY. WE WILL HAVE PHYSICAL THERAPY WORK WITH HER. WE HAVE DISCUSSED OPTIONS FOR DISCHARGE WITH HER FAMILY. THEY WISH FOR PATIENT TO GO TO THE [facility]. WE WILL DISCUSS WITH CASE MANAGEMENT AND ARRANGE PLACEMENT. OTHERWISE, WE WILL FOLLOW UP WITH AM LABS AND CONTINUE TO MONITOR. TIME SPENT ON CLINICAL ASSESSMENT, REVIEWING LABS AND IMAGING, DECISION MAKING, AND DOCUMENTATION GREATER THAN 45 MINUTES. - Past Medical Family Social History Past Med/Fam/Surg Hx: No changes since H&P Allergies: Allergies No Known Drug Allergies [NKDA] Allergy (Verified 03/25/21 13:54) - Review of Systems ROS: No change since H&P - Vital Signs and I&O's Vital Signs: Temperature 97.4 F Pulse Rate [Left Radial] 128 Pulse Rate 26 Respiratory Rate 6 Blood Pressure [Right Arm] 116/79 Blood Pressure 62/41 O2 Sat by Pulse Oximetry 45 - Physical Exam Oriented: Person Eyes: Normal Ear: Normal Nose: Normal Throat: Normal Respiratory: Diminished Cardiovascular: Irregular : Normal Auscultation: Bowel Sounds: Normal Palpation: Normal Tenderness: Normal Skin: Normal, Wound, Bruising (LEFT UPPER ARM ) Musculoskeletal: Left, Shoulder, Arm, Tender Psychiatric: Other (OBTUNDED) Mood Description: Calm Affect: Normal Speech Pattern: Clear, Appropriate - Laboratory and Diagnostics Result Diagrams: 01/02/22 05:05 01/02/22 05:05 Labs: 12/10/21 14:35 Urine,Clean Catch Urine Culture - Final Grecia Lusitaniae 11/26/21 13:05 Urine,Catheterized Urine Culture - Final Escherichia Coli Laboratory WBC 8.0 X10^3/uL (3.6-10.0) 01/02/22 05:05 RBC 2.82 X10^6/uL (3.5-5.4) L 01/02/22 05:05 Hgb 9.0 g/dL (12.0-16.0) L 01/02/22 05:05 Hct 28.0 % (36.0-47.0) L 01/02/22 05:05 MCV 99.2 fL (80.0-100.0) 01/02/22 05:05 MCH 31.9 pg (27.0-34.0) 01/02/22 05:05 MCHC 32.2 g/dL (33.0-35.0) L 01/02/22 05:05 RDW 20.9 % (11.6-16.5) H 01/02/22 05:05 Plt Count 293 X10^3/uL (150.0-450.0) 01/02/22 05:05 Plt Count Comment Adequate (ADEQUATE) 01/02/22 05:05 MPV 8.0 fL (7.4-11.0) 01/02/22 05:05 Neut % (Auto) 79.5 % (42.0-75.0) H 01/02/22 05:05 Lymph % (Auto) 8.0 % (21.0-51.0) L 01/02/22 05:05 [place] % (Auto) 9.3 % (0.0-13.0) 01/02/22 05:05 Eos % (Auto) 2.5 % (0.9-2.9) 01/02/22 05:05 Baso % (Auto) 0.7 % (0.2-1.0) 01/02/22 05:05 Neut # (Auto) 6.4 x10^3/uL (2.2-4.8) H 01/02/22 05:05 Lymph # (Auto) 0.6 X10^3/uL (1.3-2.9) L 01/02/22 05:05 [place] # (Auto) 0.7 x10^3/uL (0.3-0.8) 01/02/22 05:05 Eos # (Auto) 0.2 x10^3/uL (0.0-0.2) 01/02/22 05:05 Baso # (Auto) 0.1 X10^3/uL (0.0-0.1) 01/02/22 05:05 Absolute Nucleated RBC 0.7 /100WBC 01/02/22 05:05 Total Counted 100 12/16/21 04:32 Neutrophils % (Manual) 64 % (39-76) 12/16/21 04:32 Band Neutrophils % 3 % (0-10) 12/16/21 04:32 Lymphocytes % (Manual) 13 % (13-43) 12/16/21 04:32 Monocytes % (Manual) 18 % (4-9) H 12/16/21 04:32 Eosinophils % (Manual) 1 % (0-6) 12/16/21 04:32 Metamyelocytes % 1 12/16/21 04:32 Plt Clumps, EDTA Rare 11/29/21 13:48 Plt Morphology Comment Normal (NORMAL) 01/02/22 05:05 RBC Morphology Abnormal (NORMAL) A 01/02/22 05:05 Hypochromasia Slight A 12/25/21 04:18 Poikilocytosis Slight A 12/26/21 04:10 Anisocytosis 1+ A 01/02/22 05:05 Macrocytosis Slight A 12/15/21 04:05 Tear Drop Cells Present 01/02/22 05:05 Stomatocytes Present 12/24/21 04:22 Schistocytes Present 01/02/22 05:05 D-Dimer 7.60 ug/ml (0.0-0.57) H* 12/09/21 05:23 Sample Site Lrad 12/29/21 05:40 ABG pH 7.420 (7.35-7.45) 12/29/21 05:40 ABG pCO2 55.0 mmHg (35.0-45.0) H* 12/29/21 05:40 ABG pO2 61.0 mmHg (80.0-100.0) L 12/29/21 05:40 ABG HCO3 35.7 mmol/L (22-26) H* 12/29/21 05:40 ABG O2 Saturation 91.0 % (90-100) 12/29/21 05:40 ABG Base Excess 9.4 mmol/L (-2.0-2.0) H 12/29/21 05:40 Edi Test Pos 12/29/21 05:40 A-a Gradient 191.0 mmHg 12/29/21 05:40 FiO2 45.0 12/29/21 05:40 Blood Gas Comments [place] well ms 12/29/21 05:40 Sodium 137 mmol/L (136-145) 01/02/22 05:05 Corrected Sodium TNP 01/02/22 05:05 Potassium 4.0 mmol/L (3.5-5.1) 01/02/22 05:05 Chloride 98 mmol/L (98-107) 01/02/22 05:05 Carbon Dioxide 33.3 mmol/L (21-32) H 01/02/22 05:05 BUN 21 mg/dL (7-18) H 01/02/22 05:05 Creatinine 2.23 mg/dL (0.55-1.02) H 01/02/22 05:05 Est GFR (MDRD) Af Amer 28 (>60) L 01/02/22 05:05 Est GFR (MDRD) Non-Af 23 (>60) L 01/02/22 05:05 Glucose 107 mg/dL (65-99) H 01/02/22 05:05 POC Glucose (mg/dL) 102 mg/dL (65-99) H 12/26/21 20:11 Calcium 8.2 mg/dL (8.5-10.1) L 01/02/22 05:05 Corrected Calcium TNP 01/02/22 05:05 Magnesium 2.1 mg/dL (1.7-2.9) 12/23/21 05:23 Iron 17 ug/dL (50-175) L 11/29/21 10:08 Transferrin 119 mg/dL (202-364) L 11/29/21 10:08 Ferritin 917 ng/mL (8-252) H 11/29/21 10:08 Total Bilirubin 0.40 mg/dL (0.2-1.0) 01/02/22 05:05 AST 23 Units/L (15-37) 01/02/22 05:05 ALT 16 Units/L (12-78) 01/02/22 05:05 Alkaline Phosphatase 116 Units/L (46-116) 01/02/22 05:05 Ammonia 16 umol/L (11-32) 12/30/21 17:03 Creatine Kinase 26 Units/L (26-192) 12/09/21 05:23 CK-MB (CK-2) < 1.0 ng/mL (0-4.0) 12/09/21 05:23 CK/CKMB % Calc 3.9 % (<4) 12/09/21 05:23 Troponin I High Sens 137.2 ng/L (4.0-60.0) H* 12/10/21 05:23 B-Natriuretic Peptide 788 pg/mL (0-79) H* 01/02/22 05:05 Total Protein 6.5 g/dL (6.4-8.2) 01/02/22 05:05 Albumin 4.2 g/dL (3.4-5.0) 01/02/22 05:05 Globulin 2.3 g/dL (2.5-4.5) L 01/02/22 05:05 Albumin/Globulin Ratio 1.8 Ratio (1.1-2.1) 01/02/22 05:05 Thiamine 65 nmol/L (70-180) L 12/20/21 11:32 Vitamin B12 > 2000 pg/mL (193-986) H 11/29/21 10:08 Folate 4.1 ng/mL (>8.6) L 11/29/21 10:08 Specimen Type Catherized urine 12/15/21 13:30 Urine Color Yellow (YELLOW) 12/15/21 13:30 Urine Appearance Clear (CLEAR) 12/15/21 13:30 Urine pH 5.0 (5.0 - 8.0) 12/15/21 13:30 Ur Specific [place] 1.015 (1.000-1.030) 12/15/21 13:30 Urine Protein 1+ (NEGATIVE) 12/15/21 13:30 Urine Glucose (UA) Negative (NEGATIVE) 12/15/21 13:30 Urine Ketones Negative (NEGATIVE) 12/15/21 13:30 Urine Occult Blood Negative (NEGATIVE) 12/15/21 13:30 Urine Nitrite Negative (NEGATIVE) 12/15/21 13:30 Urine Bilirubin Negative (NEGATIVE) 12/15/21 13:30 Urine Urobilinogen Normal (NORMAL) 12/15/21 13:30 Ur Leukocyte Esterase Negative (NEGATIVE) 12/15/21 13:30 Urine RBC 0-2 /HPF (0-3) 12/15/21 13:30 Urine WBC 0-2 /HPF (0-5) 12/15/21 13:30 Ur Squamous Epith Cells Rare /HPF (NEGATIVE) 12/15/21 13:30 Urine Bacteria Trace /HPF (NEGATIVE) 12/15/21 13:30 Urine Mucus Few /HPF (NEGATIVE) 12/05/21 12:10 Urine Yeast Many /HPF (NEGATIVE) 12/15/21 13:30 Ur Culture Indicated? No/not indicated 12/15/21 13:30 Stool Description 10g brown loose 11/29/21 18:30 Stl Occult Blood (IFOB) Negative (NEGATIVE) 11/29/21 18:30 Digoxin 1.08 ng/mL (0.9-2) 12/20/21 04:23 SARS CoV-2 RNA Rapid KAMALJIT Negative (NEGATIVE) 11/26/21 11:11 Blood Type O POSITIVE 12/06/21 11:42 Antibody Screen Negative 12/06/21 11:42 Crossmatch See Detail 11/29/21 10:08 - Plan (1) Acute on chronic renal failure Status: Acute Qualifiers: Acute renal failure type: unspecified Chronic kidney disease stage: unspecified stage Qualified Code(s): N17.9 - Acute kidney failure, unspecified; N18.9 - Chronic kidney disease, unspecified Plan: NORMAL SALINE AT 50 ML/HR WITH MVI IN EACH LITER, INVANZ 1 G IV DAILY, ALBUMIN 25% IV DAILY, DIFLUCAN 200MG IV DAILY, LASIX 40MG IV BID, MEGACE 40MG PO BID, CARDIZEM CD 240MG PO DAILY, LOPRESSOR 75MG PO BID, AMIODARONE 200MG PO BID, TORADOL 15MG IV Q6H PRN PAIN, MORPHINE SULFATE 2MG IV Q4H PRN, ZOFRAN 4MG IV Q6H PRN, NYSTATIN CREAM TID PRN, NYSTATIN POWDER BID PRN, ZOVIRAX TOP Q8H, PROCRIT 10,000 UNITS ON MON,WED,FRI, VALIUM 5MG PO TID PRN, MEGACE 40MG PO BID, AND PHENOBARBITAL 7.5 MG PO HS (2) Atrial fibrillation Status: Acute Qualifiers: Atrial fibrillation type: unspecified Qualified Code(s): I48.91 - Unspecified atrial fibrillation (3) Fracture of neck of humerus Status: Acute Qualifiers: Encounter type: initial encounter Fracture type: closed Laterality: left Qualified Code(s): S42.212A - Unspecified displaced fracture of surgical neck of left humerus, initial encounter for closed fracture (4) Urinary tract infection Status: Acute Qualifiers: Urinary tract infection type: acute cystitis Hematuria presence: without hematuria Qualified Code(s): N30.00 - Acute cystitis without hematuria (5) Shortness of breath Status: Acute (6) Anemia Status: Acute Qualifiers: Anemia type: unspecified type Qualified Code(s): D64.9 - Anemia, unspecified (7) Dehydration Status: Acute (8) Generalized weakness Status: Acute (9) Alcoholic dementia Status: Acute Qualifiers: Dementia behavioral disturbance: without behavioral disturbance Qualified Code(s): F10.27 - Alcohol dependence with alcohol-induced persisting dementia (10) Recent cerebrovascular accident (CVA) Status: Chronic (11) Hypertension Status: Chronic Qualifiers: Hypertension type: primary hypertension Qualified Code(s): I10 - Essential (primary) hypertension (12) Hyperlipidemia Status: Chronic Qualifiers: Hyperlipidemia type: mixed hyperlipidemia Qualified Code(s): E78.2 - Mixed hyperlipidemia
== END 2022-01-02 22:30 | disposition expired | DRG 309 ==
LOC: MED/SURG → ICU 11-28 15:47
PROVIDERS: ADMIT Internal Medicine; ATTEND Internal Medicine
DX: I87.2 Venous insufficiency (chronic) (peripheral); Z20.822 Contact with and (suspected) exposure to COVID-19; R06.02 Shortness of breath; R79.1 Abnormal coagulation profile; N17.8 Other acute kidney failure; R26.89 Other abnormalities of gait and mobility; W18.39XA Other fall on same level, initial encounter; R79.89 Other specified abnormal findings of blood chemistry; R94.31 Abnormal electrocardiogram [ECG] [EKG]; R77.8 Other specified abnormalities of plasma proteins; Z86.73 Personal history of transient ischemic attack (TIA), and cerebral infarction without residual deficits; S42.212A Unspecified displaced fracture of surgical neck of left humerus, initial encounter for closed fracture; F10.27 Alcohol dependence with alcohol-induced persisting dementia; E86.0 Dehydration; N18.9 Chronic kidney disease, unspecified; B37.89 Other sites of candidiasis; I48.91 Unspecified atrial fibrillation; R53.1 Weakness; I46.9 Cardiac arrest, cause unspecified; N30.00 Acute cystitis without hematuria; D64.89 Other specified anemias; M62.82 Rhabdomyolysis; B96.29 Other Escherichia coli [E. coli] as the cause of diseases classified elsewhere; I12.9 Hypertensive chronic kidney disease with stage 1 through stage 4 chronic kidney disease, or unspecified chronic kidney disease; E78.2 Mixed hyperlipidemia